=== PATIENT | male | born 1960 | race Caucasian/White ===

== ENCOUNTER 2022-05-28 15:08 | Inpatient (IN) | payer MEDICARE, MEDICAID, SELFPAY ==
[2022-05-28] VITALS (31 sets, daily range): BP systolic 95–153; BP diastolic 56–99; PULSE 72–108; RESP 13–25; TEMP 36.5–37.1; O2SAT 97–100; BMI 24.7; BMI 21.9
--- NOTE | ~2022-05-28 | CT_ITS ---
EXAMINATION: CT brain wo con INDICATION: Confusion and increased weakness COMPARISON: None TECHNIQUE: Standard unenhanced head CT. The dose-length product (DLP) was 605.33 mGy-cm. The mA was a djusted according to patient size. Iterative reconstruction technique was employed. FINDINGS: There is no acute intraparenchymal hemorrhage. No evidence of mass lesion. There is a subtl e area of low attenuation in the right frontal lobe. There is mild periventricular and subcortical hy podensity probably related to small vessel ischemic disease. There is mild prominence of the sulci an d ventricles related to cerebral atrophy. Intracranial calcified cerebral atherosclerosis is noted. T here are no extra-axial collections. There is no mass effect or midline shift. The orbits and soft ti ssues are unremarkable. The visualized sinuses and mastoid air cells are well aerated. IMPRESSION: 1. Subtle area of low attenuation in the right frontal lobe which could reflect subacute infarction. 2. Age related findings. Reviewed, dictated and finalized at location A.
--- NOTE | ~2022-05-28 | XR_ITS ---
EXAMINATION: XR chest 2V DATE: 05/28/2022 15:44 INDICATION: Weakness TECHNIQUE: AP and lateral views of the chest are obtained. COMPARISON: None available FINDINGS: The lungs are free of acute opacities. No pleural effusion or pneumothorax. The cardiomedia stinal silhouette is normal. There is severe thoracic spondylosis. A calcified nodule of the right lo wer lobe is consistent with old granulomatous disease. IMPRESSION: 1. No acute cardiopulmonary abnormality. Reviewed, dictated and finalized at location A.
--- NOTE | 2022-05-28 15:12 | ECG_ITS ---
Measurements Intervals [place] Rate: 94 P: 87 CT: 162 QRS: 76 QRSD: 88 T: 74 QT: 311 QTc: 390 Interpretive Statements SINUS RHYTHM NORMAL ELECTROCARDIOGRAM NO PREVIOUS ECG AVAILABLE FOR COMPARISON Electronically Signed On 06-01-2022 11:54:15 CDT by Henrry Alejandra M.D.
[2022-05-28 15:41] LABS: Basophils Percent Auto 0.5 % (0.2-1.2); Eosinophils Absolute Auto 0.1 K/mm3 (0-0.3); Eosinophils Percent Auto 1.5 % (0-4.4); Hematocrit 43.9 % (42.0-52.0); Hemoglobin 13.3 g/dL (14.0-18.0); Immature Granulocyte Absolute 0.04 K/mm3 (0.00-0.031); Immature Granulocyte Percent A 0.5 % (0-0.5); Lymphocytes Absolute Auto 1.07 K/mm3 (0.9-3.2); Lymphocytes Percent Auto 14.6 % (18.3-44.2); Mean Corpuscular HGB Conc 30.3 g/dl (32-36); Mean Corpuscular Hemoglobin 27.3 pg (26-34); Mean Corpuscular Volume 90.1 fl (80-100); Mean Platelet Volume 11.6 fl (7.4-10.4); Monocytes Absolute Auto 0.7 K/mm3 (0.1-0.6); Monocytes Percent Auto 9.2 % (2.6-8.5); Neutrophils Absolute Auto 5.4 K/mm3 (1.3-6.7); Neutrophils Percent Auto 73.7 % (45.5-73.1); Platelet Count Result 215 k/mm3 (150-375); Red Blood Count 4.87 M/mm3 (4.6-6.20); Red Cell Distribution Width 14.6 % (11.5-14.5); White Blood Count 7.3 K/mm3 (4.5-10.0)
[2022-05-28 15:52] LABS: INR 1.3; Prothrombin Time 15.2 Seconds (11.1-14.7)
[2022-05-28 15:53] LABS: Partial Thromboplastin Time 33.3 SECONDS (22.3-36.8)
[2022-05-28 15:56] LABS: Alveolar/Arterial O2 Gradient 13.4 mmHg; Base Excess ABG 6.5 mEq/l (+/-2.0); Fractional Inspired Oxygen 40 %; HCO3 ABG 35.3 mEq/l (22.0-26.0); Oxygen Saturation ABG 99.1 % (95.0-100.0); Oxyhemoglobin 95.2 % THb (90.0-100.0); PO2 ABG 190.2 mmHg (80.0-100.0); PO2 FiO2 Ratio Arterial Blood 4.76 %; Total Hemoglobin 13.9 g/dL (12.0-18.0); pH ABG 7.314 (7.350-7.450)
[2022-05-28 15:58] LABS: Device NASAL CANNULA; Modified Allen's Test Pass; Site Drawn RIGHT RADIAL
[2022-05-28 16:20] LABS: Alanine Aminotransferase 31 U/L (6-50); Albumin Level 4.1 g/dL (3.5-5.1); Alkaline Phosphatase 88 U/L (38-126); Anion Gap 4 mmol/L (8-16); Aspartate Amino Transferase 36 U/L (17-59); Bilirubin,Total 0.4 mg/dL (0.2-1.3); Blood Urea Nitrogen 15 mg/dL (9-20); Calcium 9.1 mg/dL (8.4-10.2); Carbon Dioxide 35 mmol/L (22-30); Chloride 93 mmol/L (98-107); Estimated CRCL calculation 78 ml/min; Estimated Glomerular Filt Rate > 60; Glucose 146 mg/dL (65-110); Potassium 4.7 mmol/L (3.4-5.0); Sodium 132 mmol/L (137-145)
[2022-05-28 16:32] LABS: Appearance Urine Clear (Clear); Bilirubin Urine Negative (Negative); Blood Urine Trace-lysed (Negative); Color Urine Yellow (Yellow); Glucose Urine UA Negative (Negative); Ketones Urine Negative (Negative); Leukocyte Esterase Ur Negative LEU/UL (Negative); Nitrate Urine Negative (Negative); Protein Urine Negative (Negative); Specific Grav Ur 1.015 (1.001-1.035); Urobilinogen Urine 0.2 mg/dL (<2.0); pH Urine 6.5 (5.0-9.0)
--- NOTE | 2022-05-28 16:36 | ED.GENADULT ---
HPI - General Adult General Chief complaint: Weakness Stated complaint: weakness Time Seen by Provider: 05/28/22 15:13 History of Present Illness HPI narrative: Patient is a 62-year-old male who presents ER with increased weakness and confusion. He reports to EMS that he was having some visual hallucinations that he was seeing things but cannot elaborate on it. Patient has history of COPD and is oxygen dependent on 4.5 L of oxygen. Reports mild dyspnea but no new cough. No new fevers or chills. Has had no increased oxygen requirement. Symptoms worsening over the last 2 days. Patient having difficulty getting up and walking around and performing activities of daily living. Related Data Home Medications Medication Instructions Recorded Confirmed albuterol sulfate 90 mcg/actuation inhalation 05/28/22 aerosol inhaler apixaban 5 mg tablet (Eliquis) mg 05/28/22 budesonide 160 mcg-glycopyr 9 inh inhalation 05/28/22 mcg-formot 4.8 mcg/actuation HFA inhaler ([employer]) fluticasone fur. 100 mcg-umeclid inhalation 05/28/22 62.5 mcg-vilant 25 mcg inhalat.powder (Trelegy Ellipta) gabapentin 300 mg capsule mg 05/28/22 hydrocodone 7.5 mg-acetaminophen tablet 05/28/22 325 mg tablet ipratropium 20 mcg-albuterol 100 inhalation 05/28/22 mcg/actuation mist for inhalation (Combivent Respimat) lithium carbonate 150 mg capsule mg 05/28/22 05/28/22 loperamide 2 mg capsule mg 05/28/22 metoprolol tartrate 25 mg tablet mg 05/28/22 omeprazole 20 mg capsule,delayed mg 05/28/22 release ramipril 5 mg capsule mg 05/28/22 risperidone 2 mg tablet mg 05/28/22 rosuvastatin 40 mg tablet mg 05/28/22 testosterone cypionate 200 mg/mL mg 05/28/22 intramuscular oil Allergies Allergy/AdvReac Type Severity Reaction Status Date / Time No Known Allergies Allergy Verified 05/28/22 15:14 Review of Systems Review of Systems: All systems reviewed & are unremarkable except as noted in HPI and below Constitutional: Constitutional: Denies chills, Reports fatigue, Denies fever(s) and Reports weakness ENT: Denies nasal congestion and Denies sore throat Cardiovascular: Cardiovascular: Denies chest pain, Denies rapid heart rate and Denies radiating jaw, neck or arm pain Respiratory: Respiratory: Denies chest congestion, Denies cough and Reports dyspnea Gastrointestinal: Gastrointestinal: Denies abdominal pain, Denies nausea and Denies vomiting Neurologic: Reports confusion, Denies headache(s), Denies focal weakness, Denies numbness and Denies weakness PMFSH Past Medical History Medical History (Updated 05/28/22 @ 19:36 by Rusty Soler MD) COPD (chronic obstructive pulmonary disease) Hyperlipidemia Hypertension Surgical History Surgical History (Updated 05/28/22 @ 19:34 by Rusty Soler MD) Surgical history unknown Family History Family History (Updated 06/10/14 @ 07:13 by DOCTOR UNKNOWN) Father Family history of heart disease in male family member before age 55 Social History Social History Alcohol intake: current Exam Narrative: GENERAL: Chronically ill-appearing, well-nourished, and in no acute distress. HEAD: Normocephalic, atraumatic. EYES: PERRL and EOMI. ENT: Mucous membranes moist. CHEST: Clear to auscultation. No respiratory distress. HEART: Regular rate and rhythm. Normal peripheral pulses. ABDOMEN: Soft, nontender, nondistended. EXTREMITIES: Normal range of motion. No edema. SKIN: Warm, dry, no rash. NEURO: Alert and oriented x3. PSYCH: Normal mood and affect. Course Course Emergency Course: Patient likely with hypercapnic encephalopathy given elevated PCO2. Admit to the hospitalist service. Placed on BiPAP. Vital Signs Vital signs: Vital Signs Temperature 98.7 F 05/28/22 15:04 Pulse Rate 98 05/28/22 15:04 Respiratory Rate 20 05/28/22 15:04 Blood Pressure 116/85 05/28/22 15:04 Pulse Oximetry 99 05/28/22 15:04 Oxygen Del
[2022-05-28 16:42] LABS: Bacteria Urine Trace /hpf; Squamous Epithelial Cell Urine Rare /hpf (Few); WBC Urine 0-3 /hpf
[2022-05-28 16:49] LABS: Add Urine Microscopic? YES
[2022-05-28] MEDS: methylPREDNISolone SOD SUCC 125 MG VIAL IV PUSH (17:15)
--- NOTE | 2022-05-28 18:35 | PC.NURSE ---
Pt attempting to take off BiPap. Asking how long he is going to have to wear it. this RN educated pt on why he is wearing it. Pt asking for pain medication for his foot.
[2022-05-28] MEDS: MORPHINE SULFATE (*CRX) 4 MG/ML INJ IV PUSH (18:42)
[2022-05-28] MEDS: ALBUTEROL SULFATE NEB 2.5 MG/3 ML INH 5 MG INHALATION (19:41)
[2022-05-28] MEDS: IPRATROPIUM BR 0.02% INH SOLN 0.5 MG/2.5 ML VIAL INHALATION (19:42)
--- NOTE | 2022-05-28 20:38 | PC.NURSE ---
report given at 2015 to AUBREY Juarez with all questions answered at this time. Must wait for respiratory to take patient upstairs and she is with another patient at this time.
--- NOTE | 2022-05-28 21:08 | ADMGEN ---
This patient, Brooks Murillo, was admitted to IMU Room 213-01 at 2108. Patient/family oriented to hospital policies and general routines including ID bracelet, bed and alarms, visiting hours, pain management, procedures, bathroom and other care routines, personal items, smoking policy, room service/diet, and visiting hours. Information on how to activate the Rapid Response Team has been discussed. Patient/Family are encouraged to report perceived risks to care and to ask questions if they do not understand what they are told or what they should do.
--- NOTE | 2022-05-28 22:11 | PC.NURSE ---
PATIENT IS EXTREMELY ANXIOUS, SCREAMING, POUNDING FIST ON BED AND YELLING WHEN HE DOESN'T LIKE THE ANSWER OR QUESTION. CONSTANTLY MOVING IN BED. MOANING AND CRYING (WINNING) AND SMACKING THE TOP OF HIS HEAD, ROCKING BACK AND FORTH. CONSTANTLY APOLOGIZING, THEN REPEATING HIS ACTIONS. ROSETTE AYERS IS AWARE. MEDICATIONS ARE ORDERED AND SHE WILL BE DOWN TO ASSESS THE PATIENT.
[2022-05-28] MEDS: OLANZapine 10 MG INJ VIAL 5 MG IM (22:31)
[2022-05-28] MEDS: methylPREDNISolone SOD SUCC 125 MG VIAL 60 MG IV PUSH (22:34)
--- NOTE | 2022-05-28 22:36 | PM.IMHP ---
H&P: HPI History of Present Illness Date/Time: 05/28/22 22:36 Chief Complaint: Weakness Narrative: This is a 62-year-old male patient who has a history of COPD and other unknown medical history. The patient came to the emergency room with increased weakness and confusion. The patient is typically on 4.5 L of oxygen at home. The patient had mild dyspnea and no cough. When I talked to the patient he was complaining of severe neuropathy to his lower extremities. On his ABGs his pH was 7.314 in his pCO2 was 71.0. The patient was placed on a BiPAP machine 29/05. The patient is very anxious and restless because he has not had his medication today. His urine was negative. The patient was given albuterol nebulizer treatment Atrovent nebulizer treatment and Solu-Medrol in the emergency room. The patient is now very restless complaining of lower leg pain with neuropathy and being hungry. The patient is being admitted to observation status on the date of service of 05/28/2022. Review of Systems Review of Systems: See HPI All systems reviewed & are unremarkable except as noted in HPI and below Constitutional: Constitutional: Reports as per HPI and Reports no additional constitutional complaints Eyes: Eyes: Reports as per HPI and Reports no additional eye complaints ENT: Reports system reviewed and no additional complaints, except as documented and Reports Normal hearing present Cardiovascular: Cardiovascular: Reports no additional cardiovascular complaints Respiratory: Respiratory: Reports no additional respiratory complaints and Reports no additional respiratory complaints Gastrointestinal: Gastrointestinal: Reports as per HPI and Reports no additional gastrointestinal complaints Musculoskeletal: Musculoskeletal: Reports no additional musculoskeletal complaints Integumentary/Breasts: Skin/Breast: Reports system reviewed and no additional complaints, except as docu and Reports as per HPI Neurologic: Reports system reviewed and no additional complaints, except as documented, Reports as per HPI and Reports Normal hearing present Psychiatric: Psychiatric: Reports no additional psychiatric complaints and Reports as per HPI Endocrine: Endocrine: Reports no additional endocrine complaints Hematologic/Lymphatic: Hematologic/Lymphatic: Reports no additional hematologic/lymphatic complaints Allergic/Immunologic: Allergic/Immunologic: Reports no additional allergic/immunologic complaints [facility] Past Medical History Medical History (Updated 05/28/22 @ 22:52 by Bonnie Nickerson NP) Adequate anticoagulation on anticoagulant therapy Behavior disturbance COPD (chronic obstructive pulmonary disease) HTN (hypertension) with goal to be determined Hyperlipidemia Hypertension Neuropathy Surgical History Surgical History (Updated 05/28/22 @ 19:34 by Rusty Soler MD) Surgical history unknown Family History Family History Father Family history of heart disease in male family member before age 55 Social History Social History (Updated 05/28/22 @ 22:44 by Bonnie Nickerson NP) Social History: The patient tells me that he is and has 3 children. He is disabled. Patient stated that he is down to half a pack a cigarettes a day. He denies any alcohol marijuana or illicit drugs. He denies any power civil attorney. Code status full code Smoking status: Current every day smoker Alcohol intake: never Substance use: never Spiritual care concerns: No Meds Home Medications and Allergies Home Medications Medication Instructions Recorded Confirmed Type albuterol sulfate 90 mcg/actuation 2 puff inhalation Q4H PRN 05/28/22 05/28/22 History aerosol inhaler Shortness Of Breath apixaban 5 mg tablet (Eliquis) 5 mg PO BID 05/28/22 05/28/22 History budesonide 160 mcg-glycopyr 9 2 inh inhalation DAILY 05/28/22 05/28/22 History mcg-formot 4.8 mcg/actuation HFA
[2022-05-28] MEDS: APIXABAN 5 MG TABLET PO (23:22)
[2022-05-28] MEDS: risperiDONE 1 MG TABLET 2 MG PO (23:23)
[2022-05-28] MEDS: NICOTINE (*PBKC) 14 MG PATCH 1 PATCH TRANSDERM (23:23)
[2022-05-28] MEDS: GABAPENTIN 300 MG CAPSULE PO (23:23)
[2022-05-28] MEDS: LITHIUM CARBONATE 150 MG CAPSULE PO (23:23)
[2022-05-28 23:34] LABS: Lithium 0.5 mmol/L (0.6-1.2)
[2022-05-29] VITALS (19 sets, daily range): BP systolic 97–146; BP diastolic 50–79; PULSE 65–100; RESP 12–24; TEMP 35.9–36.8; O2SAT 94–100
[2022-05-29] MEDS: ALBUTEROL SULFATE NEB 2.5 MG/3 ML INH 5 MG INHALATION ×4 (01:11→20:49)
[2022-05-29] MEDS: IPRATROPIUM BR 0.02% INH SOLN 0.5 MG/2.5 ML VIAL INHALATION ×4 (01:11→20:49)
[2022-05-29 05:16] LABS: Basophils Percent Auto 0.2 % (0.2-1.2); Hematocrit 41.8 % (42.0-52.0); Hemoglobin 12.9 g/dL (14.0-18.0); Immature Granulocyte Absolute 0.01 K/mm3 (0.00-0.031); Immature Granulocyte Percent A 0.2 % (0-0.5); Lymphocytes Absolute Auto 0.63 K/mm3 (0.9-3.2); Lymphocytes Percent Auto 10.7 % (18.3-44.2); Mean Corpuscular HGB Conc 30.9 g/dl (32-36); Mean Corpuscular Hemoglobin 27.6 pg (26-34); Mean Corpuscular Volume 89.3 fl (80-100); Mean Platelet Volume 11.7 fl (7.4-10.4); Monocytes Absolute Auto 0.1 K/mm3 (0.1-0.6); Monocytes Percent Auto 0.9 % (2.6-8.5); Neutrophils Absolute Auto 5.2 K/mm3 (1.3-6.7); Platelet Count Result 204 k/mm3 (150-375); Red Blood Count 4.68 M/mm3 (4.6-6.20); Red Cell Distribution Width 14.6 % (11.5-14.5); White Blood Count 5.9 K/mm3 (4.5-10.0)
[2022-05-29 05:37] LABS: Alanine Aminotransferase 31 U/L (6-50); Albumin Level 3.8 g/dL (3.5-5.1); Alkaline Phosphatase 83 U/L (38-126); Anion Gap 6 mmol/L (8-16); Aspartate Amino Transferase 34 U/L (17-59); Bilirubin,Total 0.5 mg/dL (0.2-1.3); Blood Urea Nitrogen 17 mg/dL (9-20); Calcium 9.2 mg/dL (8.4-10.2); Carbon Dioxide 35 mmol/L (22-30); Chloride 92 mmol/L (98-107); Estimated CRCL calculation 75 ml/min; Estimated Glomerular Filt Rate > 60; Glucose 185 mg/dL (65-110); Phosphorus 3.8 mg/dL (2.5-4.5); Sodium 133 mmol/L (137-145)
[2022-05-29] MEDS: methylPREDNISolone SOD SUCC 125 MG VIAL 60 MG IV PUSH ×2 (06:13→12:15)
[2022-05-29] MEDS: FLUTICASONE/UMECLIDIN/VILANTER 100-62.5-25 MCG ELLIPTA 1 PUFF INHALATION (09:02)
[2022-05-29 09:35] LABS: Alveolar/Arterial O2 Gradient 90.9 mmHg; Base Excess ABG 6.1 mEq/l (+/-2.0); Device NASAL CANNULA; Fractional Inspired Oxygen 32 %; HCO3 ABG 31.8 mEq/l (22.0-26.0); Modified Allen's Test Pass; Oxygen Content ABG 18.9 %vol (16.0-22.0); Oxygen Saturation ABG 94.4 % (95.0-100.0); Oxyhemoglobin 93.5 % THb (90.0-100.0); PCO2 ABG 49.5 mmHg (35.0-45.0); PO2 ABG 70.9 mmHg (80.0-100.0); PO2 FiO2 Ratio Arterial Blood 2.22 %; Site Drawn RIGHT RADIAL; Total Hemoglobin 14.4 g/dL (12.0-18.0); pH ABG 7.425 (7.350-7.450)
[2022-05-29] MEDS: NICOTINE (*PBKC) 14 MG PATCH 1 PATCH TRANSDERM (09:45)
[2022-05-29] MEDS: ROSUVASTATIN 10 MG TABLET 40 MG PO (09:47)
[2022-05-29] MEDS: LITHIUM CARBONATE 150 MG CAPSULE PO (09:47)
[2022-05-29] MEDS: APIXABAN 5 MG TABLET PO ×2 (09:47→16:35)
[2022-05-29] MEDS: risperiDONE 1 MG TABLET 2 MG PO ×2 (09:47→16:35)
[2022-05-29] MEDS: METOPROLOL TARTRATE 25 MG TABLET PO (09:48)
[2022-05-29] MEDS: GABAPENTIN 300 MG CAPSULE PO ×2 (09:48→16:35)
[2022-05-29] MEDS: PANTOPRAZOLE 40 MG TABLET PO (09:48)
[2022-05-29] MEDS: ramipriL 5 MG CAPSULE PO (09:49)
[2022-05-29] MEDS: SILVERGEL (ELTA) 45 ML 1 APPLIC TOPICAL (12:15)
--- NOTE | 2022-05-29 15:31 | PCPTNOTE ---
attempted PT evaluation ~ 1515, pt refused, stated not feeling well, confused and did not want to get OOB at this time. Unable to convince him to get up; confusion and stated that ambulance rene lied and I am going to call someone and let them know
--- NOTE | 2022-05-29 15:34 | PM.IMPN ---
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 Will get CT head to rule out any intracranial abnormality. # acute hypercapnic respiratory failure placed on BiPAP on admission. ABG 7.31/ 70. Repeat ABG this morning improved. Will continue on oxygen supplementation. Chest x-ray with no acute cardiopulmonary disease. Does has history of COPD. On chronic oxygen 4-5 L. nebulizer treatment and Solu-Medrol ordered for suspected COPD exacerbation. Will watch off BiPAP for now on repeat ABG in the morning. if recurrent hypercapnia noted he may need BiPAP support long-term. Unclear whether he sees a engraver pantograph but likely need a pulmonary follow-up. He was recently discharged from [facility] will get records from the hospital. He is not actively wheezing will lower his steroid to 40 b.i.d. and slowly taper down # long-term anticoagulant use on Eliquis # hypertension on metoprolol # hyperlipidemia on statin # polyneuropathy on gabapentin # history of psychiatric disorder on lithium and risperidone at home. # DVT prophylaxis on Eliquis which are continued # disposition very limited physically prior to admission as well. PT OT will be ordered may need skilled nursing placement # code status full code Subjective Date/time seen: 05/29/22 15:34 Interval history: HPI:This is a 62-year-old male patient who has a history of COPD and other unknown medical history.? The patient came to the emergency room with increased weakness and confusion.? The patient is typically on 4.5 L of oxygen at home.? The patient had mild dyspnea and no cough.? When I talked to the patient he was complaining of severe neuropathy to his lower extremities.? On his ABGs his pH was 7.314 in his pCO2 was 71.0.? The patient was placed on a BiPAP machine 29/05.? The patient is very anxious and restless because he has not had his medication today.? His urine was negative.? The patient was given albuterol nebulizer treatment Atrovent nebulizer treatment and Solu-Medrol in the emergency room.? The patient is now very restless complaining of lower leg pain with neuropathy and being hungry.? The patient is being admitted to observation status on the date of service of 05/28/2022. 05/29/2022 patient is more awake and alert. He has moved recently to his bodies house. He was admitted to [facility] with multiple problems his his. He is a poor historian. Use BiPAP overnight. Review of Systems Review of Systems: All systems reviewed & are unremarkable except as noted in HPI and below Exam Narrative: GENERAL: Chronically ill-appearing, well-nourished, and in no acute distress. HEAD: Normocephalic, atraumatic. EYES: PERRL and EOMI. ENT: Mucous membranes moist. CHEST: Diminished breath sounds bilaterally no respiratory distress HEART: Regular rate and rhythm. ? Normal peripheral pulses. ABDOMEN: Soft, nontender, nondistended. EXTREMITIES: Normal range of motion.? No edema. cyanosis or clubbing SKIN: Warm, dry, no rash. NEURO:? Alert and oriented x3. no focal motor deficit PSYCH: Normal mood and affect. Objective Data Vital Signs Vital Signs: Vital Signs - 24 hr 05/28/22 16:55 05/28/22 17:15 05/28
--- NOTE | 2022-05-29 15:44 | PCOTNOTE ---
Attempted to see pt for occupational therapy, pt. is confused and stated that he did not want to participate. Will follow.
[2022-05-29 18:27] LABS: Ammonia < 9 umol/L (9-30)
[2022-05-29] MEDS: methylPREDNISolone SOD SUCC 40 MG VIAL IV PUSH (20:52)
[2022-05-30] VITALS (16 sets, daily range): BP systolic 105–129; BP diastolic 50–70; PULSE 72–96; RESP 14–20; TEMP 36.3–36.7; O2SAT 93–97
--- NOTE | 2022-05-30 01:29 | PC.NURSE ---
This patient, Brooks Murillo, was transferred to [room 340 ] on 05/30/22 at 0129. Personal belongings sent with patient. Report given to [AUBREY Oliveira ]. Appropriate documentation sent with patient.
[2022-05-30] MEDS: ALBUTEROL SULFATE NEB 2.5 MG/3 ML INH 5 MG INHALATION ×4 (02:12→20:05)
[2022-05-30] MEDS: IPRATROPIUM BR 0.02% INH SOLN 0.5 MG/2.5 ML VIAL INHALATION ×4 (02:12→20:06)
[2022-05-30 04:26] LABS: Alveolar/Arterial O2 Gradient 49.5 mmHg; Base Excess ABG 5.4 mEq/l (+/-2.0); Fractional Inspired Oxygen 24 %; Oxygen Content ABG 17.5 %vol (16.0-22.0); Oxygen Saturation ABG 94.5 % (95.0-100.0); Oxyhemoglobin 93.4 % THb (90.0-100.0); PCO2 ABG 44.1 mmHg (35.0-45.0); PO2 ABG 69.1 mmHg (80.0-100.0); PO2 FiO2 Ratio Arterial Blood 2.88 %; Total Hemoglobin 13.3 g/dL (12.0-18.0); pH ABG 7.451 (7.350-7.450)
[2022-05-30 04:27] LABS: Device NASAL CANNULA; Modified Allen's Test Pass; Site Drawn RIGHT RADIAL
[2022-05-30] MEDS: HYDROcodone/acetaminophen (*CRX) 5-325 MG TABLET 1 TAB PO (06:53)
[2022-05-30 07:14] LABS: Alanine Aminotransferase 38 U/L (6-50); Albumin Level 3.6 g/dL (3.5-5.1); Alkaline Phosphatase 73 U/L (38-126); Anion Gap 8 mmol/L (8-16); Aspartate Amino Transferase 35 U/L (17-59); Bilirubin,Total 0.4 mg/dL (0.2-1.3); Blood Urea Nitrogen 20 mg/dL (9-20); Calcium 9.4 mg/dL (8.4-10.2); Carbon Dioxide 31 mmol/L (22-30); Chloride 91 mmol/L (98-107); Estimated CRCL calculation 78 ml/min; Estimated Glomerular Filt Rate > 60; Glucose 191 mg/dL (65-110); Potassium 4.1 mmol/L (3.4-5.0); Sodium 130 mmol/L (137-145)
[2022-05-30] MEDS: ROSUVASTATIN 10 MG TABLET 40 MG PO (08:22)
[2022-05-30] MEDS: risperiDONE 1 MG TABLET 2 MG PO ×2 (08:22→16:09)
[2022-05-30] MEDS: methylPREDNISolone SOD SUCC 40 MG VIAL IV PUSH ×2 (08:22→21:17)
[2022-05-30] MEDS: PANTOPRAZOLE 40 MG TABLET PO (08:22)
[2022-05-30] MEDS: GABAPENTIN 300 MG CAPSULE PO ×2 (08:22→16:09)
[2022-05-30] MEDS: APIXABAN 5 MG TABLET PO ×2 (08:22→16:09)
[2022-05-30] MEDS: LITHIUM CARBONATE 150 MG CAPSULE PO (08:22)
[2022-05-30] MEDS: METOPROLOL TARTRATE 25 MG TABLET PO (08:23)
[2022-05-30] MEDS: ramipriL 5 MG CAPSULE PO (08:23)
[2022-05-30] MEDS: NICOTINE (*PBKC) 14 MG PATCH 1 PATCH TRANSDERM (08:23)
[2022-05-30] MEDS: FLUTICASONE/UMECLIDIN/VILANTER 100-62.5-25 MCG ELLIPTA 1 PUFF INHALATION (09:25)
--- NOTE | 2022-05-30 09:51 | PCPTNOTE ---
Attempted PT evaluation. pt off the floor for testing. Will follow.
[2022-05-30 10:10] LABS: Basophils Percent Auto 0.1 % (0.2-1.2); Hematocrit 39.9 % (42.0-52.0); Hemoglobin 12.9 g/dL (14.0-18.0); Immature Granulocyte Absolute 0.04 K/mm3 (0.00-0.031); Immature Granulocyte Percent A 0.4 % (0-0.5); Lymphocytes Absolute Auto 0.61 K/mm3 (0.9-3.2); Lymphocytes Percent Auto 5.8 % (18.3-44.2); Mean Corpuscular HGB Conc 32.3 g/dl (32-36); Mean Corpuscular Hemoglobin 27.9 pg (26-34); Mean Corpuscular Volume 86.2 fl (80-100); Mean Platelet Volume 12.2 fl (7.4-10.4); Monocytes Absolute Auto 0.5 K/mm3 (0.1-0.6); Monocytes Percent Auto 4.7 % (2.6-8.5); Neutrophils Absolute Auto 9.4 K/mm3 (1.3-6.7); Platelet Count Result 220 k/mm3 (150-375); Red Blood Count 4.63 M/mm3 (4.6-6.20); White Blood Count 10.6 K/mm3 (4.5-10.0)
--- NOTE | 2022-05-30 18:53 | PM.IMPN ---
Progress Note: A&P Assessment and Plan (1) Acute hypercapnic respiratory failure: Code(s): J96.02 - Acute respiratory failure with hypercapnia Status: Acute Assessment and Plan: Improving on nocturnal BiPAP, still with some hypercapnia at baseline, will consult pulmonology (2) COPD (chronic obstructive pulmonary disease): Code(s): J44.9 - Chronic obstructive pulmonary disease, unspecified Status: Acute Assessment and Plan: Continue steroids, improving (3) Hyperlipidemia: Code(s): E78.5 - Hyperlipidemia, unspecified Status: Acute (4) HTN (hypertension) with goal to be determined: Code(s): I10 - Essential (primary) hypertension Status: Acute (5) Behavior disturbance: Code(s): F91.9 - Conduct disorder, unspecified Status: Acute Assessment and Plan: Continue lithium and Risperdal, stable (6) Adequate anticoagulation on anticoagulant therapy: Code(s): Z79.01 - jail (current) use of anticoagulants Status: Acute Assessment and Plan: Continue Eliquis, unsure why (7) Coronary artery disease: Code(s): I25.10 - Atherosclerotic heart disease of [place] coronary artery without angina pectoris Status: Acute Assessment and Plan: History of [place], PCI in 1998 Plan DVT prophylaxis on Eliquis Code status full code Subjective Date/time seen: 05/30/22 18:53 Interval history: Patient states he feels back to normal today, no complaints. No overnight events noted. No chest pain or shortness of breath. No nausea, vomiting or diarrhea. No fevers or chills. Review of Systems Review of Systems: 12 point review of systems was assessed and was negative except as noted in the HPI Exam Narrative: General: No acute distress, alert and oriented per baseline, comfortable on 1 L nasal cannula HEENT: Atraumatic, normocephalic, mucous membranes moist CV: Regular rate and rhythm, S1, S2 Lungs: Clear to auscultation bilaterally, no rales or crackles noted, no wheezes, good air entry Abdomen: Soft, nontender, nondistended Extremities: Normal to inspection Skin: No rashes noted, no lesions or wounds seen Psych: Euthymic, normal affect Objective Data Vital Signs Vital Signs: Vital Signs - 24 hr 05/29/22 20:00 05/29/22 20:52 05/29/22 20:53 Temperature 98.3 F Pulse Rate 88 78 Respiratory Rate 16 16 Blood Pressure 120/62 Pulse Oximetry 97 97 Oxygen Delivery Nasal Cannula Oxygen Flow Rate 3 05/29/22 21:06 05/29/22 20:00 05/30/22 00:00 Temperature 97.9 F Pulse Rate 77 90 Respiratory Rate 16 14 Blood Pressure 124/69 Pulse Oximetry 97 96 Oxygen Delivery Nasal Cannula Oxygen Flow Rate 3 05/30/22 02:14 05/30/22 02:15 05/30/22 02:28 Temperature Pulse Rate 72 75 Respiratory Rate 16 16 Blood Pressure Pulse Oximetry 94 Oxygen Delivery Nasal Cannula Oxygen Flow Rate 1 05/30/22 07:51 05/30/22 08:23 05/30/22 08:00 Temperature 97.6 F Pulse Rate 87 82 Respiratory Rate 16 Blood Pressure 129/70 Pulse Oximetry 97 Oxygen Delivery Nasal Cannula Oxygen Flow Rate 1 05/30/22 09:27 05/30/22 09:33 05/30/22 09:40 Temperature Pulse Rate 96 94 Respiratory Rate 16 16 Blood Pressure Pulse Oximetry 95 Oxygen Delivery Nasal Cannula Oxygen Flow Rate 1 05/30/22 11:45 05/30/22 14:15 05/30/22 14:28 Temperature 97.3 F L Pulse Rate 79 85 Respiratory Rate 16 16 Blood Pressure 113/66 Pulse Oximetry 95 Oxygen Delivery Nasal Cannula Oxygen Flow Rate 1 05/30/22 14:32 Temperature Pulse Rate 94 Respiratory Rate 16 Blood Pressure Pulse Oximetry Oxygen Delivery Oxygen Flow Rate Intake/Output Intake/Output: Intake & Output 05/27/22 05/28/22 05/29/22 05/30/22 23:59 23:59 23:59 23:59 Intake Total 1450 1630 Output Total 1750 1425 Balance -300 205 Meds/Results Medications: Active Medications Gen
[2022-05-30] MEDS: MORPHINE SULFATE (*CRX) 4 MG/ML INJ IV PUSH (21:26)
[2022-05-31] VITALS (11 sets, daily range): BP systolic 101–124; BP diastolic 51–73; PULSE 70–103; RESP 16–20; TEMP 36.3–36.9; O2SAT 7–98
[2022-05-31] MEDS: IPRATROPIUM BR 0.02% INH SOLN 0.5 MG/2.5 ML VIAL INHALATION ×2 (02:10→07:37)
[2022-05-31] MEDS: ALBUTEROL SULFATE NEB 2.5 MG/3 ML INH 5 MG INHALATION ×2 (02:10→07:37)
--- NOTE | 2022-05-31 08:31 | PM.IMPN ---
Progress Note: A&P Assessment and Plan (1) Acute hypercapnic respiratory failure: Code(s): J96.02 - Acute respiratory failure with hypercapnia Status: Acute Assessment and Plan: Improving on nocturnal BiPAP, still with some hypercapnia at baseline, suspect end-stage COPD as etiology, pulmonology consult pending to optimize COPD management and follow-up outpatient Update: Spoke pulmonology, will monitor pulse oximetry tonight to determine appropriate oxygen levels to discharge home on tomorrow, anticipate going to rehab at discharge, likely tomorrow (2) COPD (chronic obstructive pulmonary disease): Code(s): J44.9 - Chronic obstructive pulmonary disease, unspecified Status: Acute Assessment and Plan: Continue to wean steroids, start prednisone oral taper today (3) Hyperlipidemia: Code(s): E78.5 - Hyperlipidemia, unspecified Status: Acute (4) HTN (hypertension) with goal to be determined: Code(s): I10 - Essential (primary) hypertension Status: Acute (5) Behavior disturbance: Code(s): F91.9 - Conduct disorder, unspecified Status: Acute Assessment and Plan: Continue lithium and Risperdal, stable (6) Adequate anticoagulation on anticoagulant therapy: 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 No overnight events noted. No chest pain or shortness of breath. No nausea, vomiting or diarrhea. No fevers or chills. Review of Systems Review of Systems: 12 point review of systems was assessed and was negative except as noted in the HPI Exam Narrative: General: No acute distress, alert and oriented per baseline, comfortable on 1 L nasal cannula HEENT: Atraumatic, normocephalic, mucous membranes moist CV: Regular rate and rhythm, S1, S2 Lungs: Clear to auscultation bilaterally, no rales or crackles noted, no wheezes, good air entry Abdomen: Soft, nontender, nondistended Extremities: Normal to inspection Skin: No rashes noted, no lesions or wounds seen Psych: Euthymic, normal affect Objective Data Vital Signs Vital Signs: Vital Signs - 24 hr 05/30/22 09:27 05/30/22 09:33 05/30/22 09:40 Temperature Pulse Rate 96 94 Respiratory Rate 16 16 Blood Pressure Pulse Oximetry 95 Oxygen Delivery Nasal Cannula Oxygen Flow Rate 1 05/30/22 11:45 05/30/22 14:15 05/30/22 14:28 Temperature 97.3 F L Pulse Rate 79 85 Respiratory Rate 16 16 Blood Pressure 113/66 Pulse Oximetry 95 Oxygen Delivery Nasal Cannula Oxygen Flow Rate 1 05/30/22 14:32 05/30/22 20:06 05/30/22 20:06 Temperature Pulse Rate 94 94 Respiratory Rate 16 20 Blood Pressure Pulse Oximetry 93 Oxygen Delivery Nasal Cannula Oxygen Flow Rate 1 05/30/22 20:16 05/30/22 21:00 05/30/22 23:56 Temperature 98.1 F Pulse Rate 86 87 Respiratory Rate 18 20 Blood Pressure 105/50 L Pulse Oximetry 94 96 Oxygen Delivery Nasal Cannula Oxygen Flow Rate 2 05/31/22 02:11 05/31/22 02:23 05/31/22 06:00 Temperature 98.4 F Pulse Rate 85 90 70 Respiratory Rate 20 20 16 Blood Pressure 124/73 Pulse Oximetry 98 Oxygen Delivery Oxygen Flow Rate 05/31/22 07:38 05/31/22 07:40 05/31/22 07:48 Temperature Pulse Rate 93 93 89 Respiratory Rate 18 18 18 Blood Pressure Pulse Oximetry 94 Oxygen Delivery Nasal Cannula Oxygen Flow Rate 1 Intake/Output Intake/Output: Intake & Output 05/28/22 05/29/22 05/30/22 05/31/22
[2022-05-31] MEDS: ROSUVASTATIN 10 MG TABLET 40 MG PO (08:39)
[2022-05-31] MEDS: NICOTINE (*PBKC) 14 MG PATCH 1 PATCH TRANSDERM (08:39)
[2022-05-31] MEDS: PANTOPRAZOLE 40 MG TABLET PO (08:39)
[2022-05-31] MEDS: ramipriL 5 MG CAPSULE PO (08:39)
[2022-05-31] MEDS: risperiDONE 1 MG TABLET 2 MG PO ×2 (08:39→16:58)
[2022-05-31] MEDS: APIXABAN 5 MG TABLET PO ×2 (08:40→16:58)
[2022-05-31] MEDS: LITHIUM CARBONATE 150 MG CAPSULE PO (08:40)
[2022-05-31] MEDS: GABAPENTIN 300 MG CAPSULE PO ×2 (08:40→16:58)
[2022-05-31] MEDS: METOPROLOL TARTRATE 25 MG TABLET PO (08:40)
[2022-05-31] MEDS: SILVERGEL (ELTA) 45 ML 1 APPLIC TOPICAL (08:41)
[2022-05-31 08:54] LABS: Basophils Percent Auto 0.1 % (0.2-1.2); Hematocrit 41.2 % (42.0-52.0); Hemoglobin 13.2 g/dL (14.0-18.0); Immature Granulocyte Absolute 0.05 K/mm3 (0.00-0.031); Immature Granulocyte Percent A 0.6 % (0-0.5); Lymphocytes Absolute Auto 0.45 K/mm3 (0.9-3.2); Lymphocytes Percent Auto 5.3 % (18.3-44.2); Mean Corpuscular Hemoglobin 28.1 pg (26-34); Mean Corpuscular Volume 87.7 fl (80-100); Mean Platelet Volume 11.4 fl (7.4-10.4); Monocytes Absolute Auto 0.4 K/mm3 (0.1-0.6); Monocytes Percent Auto 5.2 % (2.6-8.5); Neutrophils Absolute Auto 7.6 K/mm3 (1.3-6.7); Neutrophils Percent Auto 88.8 % (45.5-73.1); Platelet Count Result 207 k/mm3 (150-375); Red Cell Distribution Width 15.3 % (11.5-14.5); White Blood Count 8.5 K/mm3 (4.5-10.0)
--- NOTE | 2022-05-31 09:02 | PCPTNOTE ---
Patient refused treatment this session due to patient waiting on breakfast and wants to eat breakfast before he does therapy.
[2022-05-31 09:06] LABS: Alanine Aminotransferase 69 U/L (6-50); Albumin Level 3.7 g/dL (3.5-5.1); Alkaline Phosphatase 69 U/L (38-126); Anion Gap 10 mmol/L (8-16); Aspartate Amino Transferase 44 U/L (17-59); Bilirubin,Total 0.4 mg/dL (0.2-1.3); Blood Urea Nitrogen 23 mg/dL (9-20); Calcium 9.4 mg/dL (8.4-10.2); Carbon Dioxide 30 mmol/L (22-30); Chloride 91 mmol/L (98-107); Estimated CRCL calculation 68 ml/min; Estimated Glomerular Filt Rate > 60; Glucose 177 mg/dL (65-110); Potassium 4.4 mmol/L (3.4-5.0); Sodium 131 mmol/L (137-145)
[2022-05-31] MEDS: FLUTICASONE/UMECLIDIN/VILANTER 100-62.5-25 MCG ELLIPTA 1 PUFF INHALATION (09:18)
--- NOTE | 2022-05-31 10:03 | PM.CNPUL ---
Assessment and Plan Assessment and plan (1) COPD (chronic obstructive pulmonary disease): Code(s): J44.9 - Chronic obstructive pulmonary disease, unspecified Status: Acute Assessment and Plan: 05/31 Patient with 42 pack year history of tobacco use, carries a history of COPD with hypoxemic respiratory failure requiring 2 L at rest, 4 L with activity and 4 L at night who is followed by his metals sales representative, Dr. Barkley, who has him on trelegy 100/62.5/25. patient was admitted with altered mental status and a P blood gas with a pH of 7.31/71/190. Patient was treated for COPD exacerbation with bronchodilators, steroids and BiPAP. Subsequent blood gas off of BiPAP for 27 hours demonstrated a pH of 7.45/44/69. The patient does not have chronic hypercarbic respiratory failure at this time. Patient has received 3 days of steroids and I will give him prednisone 40 mg p.o. q.day on 05/31 and 06/01. I will discontinue his albuterol and ipratropium nebulizers and place him on his home trelegy 100-62.5-25 at 1 puff q.day. The patient has no change in his phlegm production, purulence phlegm or evidence of an active pulmonary infection and I will not start antibiotics at this point. Patient is currently smoking a pack a day and started vaping 1 month ago in an attempt to quit smoking tobacco. I recommended that he discontinue vaping completely and provided him tobacco cessation counseling. I will order an overnight oximetry on 4 L tonight. The patient tells me that he follows with an outside metals sales representative, Dr. Barkley, and is scheduled for pulmonary testing on 06/28/2022. Discussed with Dr. Fish. History of Present Illness History of Present Illness Consult date: 05/31/22 Chief complaint: Hypercapnic Respiratory Failure, COPD Narrative: 05/31/2022: This is a new pulmonary consult for COPD with hypoxic and hypercarbic respiratory failure. 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 Patient tells me that he saw Dr. Barkley, metals sales representative at [facility], a few weeks ago and that he was started on the inhaler trilogy and was recently discharged from [facility] where they told him to use oxygen p.r.n. at 2 L at rest, 4 L with activity and 4 L at night. At baseline patient states that he has a mild cough, no wheezing, he can walk 1 block will slowly with his walker, and has an M MRC grade of 4 as he gets short of breath dressing and on dressing. Patient smoked tobacco from age 20 to current at 1 pack per day for 42 pack years. Patient has been vaping over the last month but denies illicit drug use. Patient denies sandblasting, welding, asbestos were, professional painting or steel platform mill supervisor. 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 Patient was in his usual state of health and presented to the emergency department on 05/28 with weakness, confusion, hallucinations, anxiety, and restlessness. The patient tells me today that he had no fever, chills, rigors, cough, phlegm production or hemoptysis. His for saturations were 99% on 4 L, his lungs were clear to auscultation his white blood cell count was 7.3 with 1.5% eosinophils equals 110 per micro L, his blood gas on 5 L was 7.31/91/190, his serum bicarbonate was 35, his chest x-ray showed no active disease with flat diaphragms. Patient was treated for COPD exacerbation with bronchodilators, Solu-Medrol and BiPAP 29/05. He wore the BiPAP on 05/28 and it was placed on standby on 05/29 at 1:20 a.m.. On 05/29 the patient had been off BiPAP for 8 hours and a blood gas on 3 L nasal cannula 7.43/50/71. The patient was more awake had a CT scan of the head that was negative. On 05/30 the patient continued to improve, TSH was 0.6, ammonia was less than 9, ser
[2022-05-31] MEDS: predniSONE 20 MG TABLET 40 MG PO (10:38)
--- NOTE | 2022-05-31 10:52 | PCPTNOTE ---
Patient refused treatment this session due to patient wanting to rest at this time.
[2022-05-31] MEDS: HYDROcodone/acetaminophen (*CRX) 5-325 MG TABLET 1 TAB PO (18:35)
[2022-05-31] MEDS: LORazepam (*CRX) 0.5 MG TABLET PO (22:23)
[2022-05-31] MEDS: MORPHINE SULFATE (*CRX) 4 MG/ML INJ IV PUSH (22:23)
[2022-06-01 05:52] LABS: Basophils Percent Auto 0.1 % (0.2-1.2); Eosinophils Percent Auto 0.2 % (0-4.4); Hematocrit 39.6 % (42.0-52.0); Hemoglobin 12.4 g/dL (14.0-18.0); Immature Granulocyte Absolute 0.07 K/mm3 (0.00-0.031); Immature Granulocyte Percent A 0.8 % (0-0.5); Lymphocytes Absolute Auto 1.41 K/mm3 (0.9-3.2); Lymphocytes Percent Auto 16.6 % (18.3-44.2); Mean Corpuscular HGB Conc 31.3 g/dl (32-36); Mean Corpuscular Hemoglobin 27.9 pg (26-34); Mean Platelet Volume 11.5 fl (7.4-10.4); Monocytes Absolute Auto 0.8 K/mm3 (0.1-0.6); Neutrophils Absolute Auto 6.2 K/mm3 (1.3-6.7); Neutrophils Percent Auto 73.3 % (45.5-73.1); Platelet Count Result 189 k/mm3 (150-375); Red Blood Count 4.45 M/mm3 (4.6-6.20); Red Cell Distribution Width 15.6 % (11.5-14.5); White Blood Count 8.5 K/mm3 (4.5-10.0)
[2022-06-01 06:00] VITALS: BP 134/69; PULSE 71; RESP 20; TEMP 36.6; O2SAT 100
[2022-06-01 06:12] LABS: Alanine Aminotransferase 92 U/L (6-50); Albumin Level 3.3 g/dL (3.5-5.1); Alkaline Phosphatase 66 U/L (38-126); Anion Gap 3 mmol/L (8-16); Aspartate Amino Transferase 62 U/L (17-59); Bilirubin,Total 0.4 mg/dL (0.2-1.3); Blood Urea Nitrogen 24 mg/dL (9-20); Carbon Dioxide 35 mmol/L (22-30); Chloride 94 mmol/L (98-107); Estimated CRCL calculation 68 ml/min; Estimated Glomerular Filt Rate > 60; Glucose 135 mg/dL (65-110); Potassium 4.2 mmol/L (3.4-5.0); Sodium 132 mmol/L (137-145)
--- NOTE | 2022-06-01 07:54 | PM.PNPUL ---
Progress Note: A&P Assessment and Plan (1) COPD (chronic obstructive pulmonary disease): Code(s): J44.9 - Chronic obstructive pulmonary disease, unspecified Status: Acute Assessment and Plan: 05/31 Patient with 42 pack year history of tobacco use, carries a history of COPD with hypoxemic respiratory failure requiring 2 L at rest, 4 L with activity and 4 L at night who is followed by his manager radiation, Dr. Barkley, who has him on trelegy 100/62.5/25. patient was admitted with altered mental status and a P blood gas with a pH of 7.31/71/190. Patient was treated for COPD exacerbation with bronchodilators, steroids and BiPAP. Subsequent blood gas off of BiPAP for 27 hours demonstrated a pH of 7.45/44/69. The patient does not have chronic hypercarbic respiratory failure at this time. Patient has received 3 days of steroids and I will give him prednisone 40 mg p.o. q.day on 05/31 and 06/01. I will discontinue his albuterol and ipratropium nebulizers and place him on his home trelegy 100-62.5-25 at 1 puff q.day. The patient has no change in his phlegm production, purulence phlegm or evidence of an active pulmonary infection and I will not start antibiotics at this point. Patient is currently smoking a pack a day and started vaping 1 month ago in an attempt to quit smoking tobacco. I recommended that he discontinue vaping completely and provided him tobacco cessation counseling. I will order an overnight oximetry on 4 L tonight. 06/01 Patient states he is breathing at his baseline, walked halls. No wheezes. Overnight oximetry o 4 L NC with baseline sat 96%, low saturation 93%. Time with saturation less than or equal to 88% was 0.0 minutes. Scheduled to receive his 5th and last dose of prednisone 40 today. Smoking cessation counseling was provided. I told him it is absolutely necessary that he stop smoking. He tells me that he will try but he admits that this will be hard and he has never been able to quit previously. Patient is scheduled to go to [facility] today and after he finishes there he will live with his friend Martin. Would discharge on these pulmonary medicines: Trelegy 100-60 2.5-25 at 1 puff q.day rescue albuterol 2 puffs q.4 hours p.r.n. shortness of breath or wheezing oxygen at night 4 L nasal cannula. Oxygen during the day per [facility] protocol. Currently the patient requires 1 L nasal cannula at rest. The patient tells me that he will follow with his outside manager radiation, Dr. Barkley, and is scheduled for pulmonary testing on 06/28/2022. Will sign off, call with questions. Subjective Date/time seen: 06/01/22 07:54 Interval history: 05/31/2022:? This is a new pulmonary consult for COPD with hypoxic and hypercarbic respiratory failure. ? 62-year-old man with a history of coronary artery disease status post [place] in 2011 with a stent, hyperlipidemia, CVA 1 year ago with a weak right leg requiring a walker, bipolar disease for 5 years on lithium and risperidone,? tobacco abuse and COPD on 4-5 L home oxygen. ? Patient tells me that he saw Dr. Barkley, manager radiation at [facility], a few weeks ago and that he was started on the inhaler trilogy [facility] use oxygen p.r.n. at 2 L at rest, 4 L with activity and 4 L at night. ? At baseline patient states that he has a mild cough, no wheezing, he can walk 1 block will slowly with his walker, and has an M MRC grade of 4 as he gets short of breath dressing and on dressing.? Patient smoked tobacco from age 20 to current at 1 pack per day for 42 pack years.? Patient has been vaping over the last month but denies illicit drug use.? Patient denies sandblasting, welding, asbestos were, professional painting or steel framing mill supervisor.? 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 ? Patient was in his usual state of health and presented to the emergency department on 05/28 with weakness, confusion, hallucinations,
[2022-06-01 08:00] VITALS: O2SAT 97
[2022-06-01] MEDS: risperiDONE 1 MG TABLET 2 MG PO ×2 (08:45→17:12)
[2022-06-01] MEDS: APIXABAN 5 MG TABLET PO ×2 (08:45→17:12)
[2022-06-01] MEDS: predniSONE 20 MG TABLET 40 MG PO (08:45)
[2022-06-01] MEDS: LITHIUM CARBONATE 150 MG CAPSULE PO (08:45)
[2022-06-01] MEDS: NICOTINE (*PBKC) 14 MG PATCH 1 PATCH TRANSDERM (08:45)
[2022-06-01] MEDS: ramipriL 5 MG CAPSULE PO (08:45)
[2022-06-01] MEDS: GABAPENTIN 300 MG CAPSULE PO ×2 (08:45→17:12)
[2022-06-01] MEDS: PANTOPRAZOLE 40 MG TABLET PO (08:45)
[2022-06-01 08:46] VITALS: PULSE 84
[2022-06-01] MEDS: ROSUVASTATIN 10 MG TABLET 40 MG PO (08:46)
[2022-06-01] MEDS: METOPROLOL TARTRATE 25 MG TABLET PO (08:46)
[2022-06-01] MEDS: SILVERGEL (ELTA) 45 ML 1 APPLIC TOPICAL (08:57)
[2022-06-01] MEDS: FLUTICASONE/UMECLIDIN/VILANTER 100-62.5-25 MCG ELLIPTA 1 PUFF INHALATION (08:58)
[2022-06-01 08:59] VITALS: O2SAT 94
--- NOTE | 2022-06-01 10:27 | PM.DS ---
DS: Admitting Diagnosis Discharge Date June 01, 2022 Admitting Diagnosis Weakness and confusion DS: Discharge Diagnosis Discharge Diagnosis (1) Acute hypercapnic respiratory failure: Code(s): J96.02 - Acute respiratory failure with hypercapnia Status: Acute Assessment and Plan: Improving on nocturnal BiPAP, still with some hypercapnia at baseline, suspect end-stage COPD as etiology, pulmonology consult pending to optimize COPD management and follow-up outpatient Update: Spoke with pulmonology, will monitor pulse oximetry tonight to determine appropriate oxygen levels to discharge home on tomorrow, anticipate going to rehab at discharge, likely tomorrow (2) COPD (chronic obstructive pulmonary disease): Code(s): J44.9 - Chronic obstructive pulmonary disease, unspecified Status: Acute Assessment and Plan: Continue to wean steroids, start prednisone oral taper today (3) Hyperlipidemia: Code(s): E78.5 - Hyperlipidemia, unspecified Status: Acute (4) HTN (hypertension) with goal to be determined: Code(s): I10 - Essential (primary) hypertension Status: Acute (5) Behavior disturbance: Code(s): F91.9 - Conduct disorder, unspecified Status: Acute Assessment and Plan: Continue lithium and Risperdal, stable (6) Adequate anticoagulation on anticoagulant therapy: Code(s): Z79.01 - predatory 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 He was found to be hypercapnic. He was placed on BiPAP. Due to history of COPD, he was started on steroids. Pulmonology was consulted and recommended nocturnal oxygen therapy secondary to COPD. They recommended discharging patient on Trelegy, albuterol, nocturnal oxygen of 4 L and oxygen during the day at 1 L as needed. He can follow-up outpatient with pulmonology. Time Spent with Patient Time attestation: Total time spent providing and/or coordinating discharge services: Exam Narrative: General: No acute distress, alert and oriented per baseline, comfortable on 1 L nasal cannula HEENT: Atraumatic, normocephalic, mucous membranes moist CV: Regular rate and rhythm, S1, S2 Lungs: Clear to auscultation bilaterally, no rales or crackles noted, no wheezes, good air entry Abdomen: Soft, nontender, nondistended Extremities: Normal to inspection Skin: No rashes noted, no lesions or wounds seen Psych: Euthymic, normal affect DS: Data Data Completed and Pending Labs on day of discharge: Labs from last 24 hours 06/01/22 06/01/22 05:31 05:31 WBC 8.5 RBC 4.45 L Hgb 12.4 L Hct 39.6 L MCV 89.0 MCH 27.9 MCHC 31.3 L RDW 15.6 H Plt Count 189 MPV 11.5 H Immature Gran % (Auto) 0.8 H Neut % (Auto) 73.3 H Lymph % (Auto) 16.6 L [place] % (Auto) 9.0 H Eos % (Auto) 0.2 Baso % (Auto) 0.1 L Lymph # (Auto) 1.41 [place] # (Auto) 0.8 H Eos # (Auto) 0.0 Baso # (Auto) 0.0 Abs Immat Gran (auto) 0.07 H Absolute Neuts (auto) 6.2 Absolute Nucleated RBC 0.0 Nucleated RBC % 0.0 Sodium 132 L Potassium 4.2 Chloride 94 L Carbon Dioxide 35 H Anion Gap 3 L BUN 24 H Creatinine 0.90 Estim Creat Clear Calc 68 Estimated GFR > 60 Glucose 135 H Calcium 9.0 Total Bilirubin 0.4 AST 62 H ALT 92 H Alkaline Phosphatase 66 Total Protein 6.0 L Albumin 3.3 L Discharge Plan Discharge Attending physician on discharge:
[2022-06-01] MEDS: LORazepam (*CRX) 0.5 MG TABLET PO (14:57)
[2022-06-01] MEDS: HYDROcodone/acetaminophen (*CRX) 5-325 MG TABLET 1 TAB PO (14:58)
[2022-06-01 16:36] VITALS: BP 114/66; PULSE 88; RESP 16; TEMP 37.1; O2SAT 94
== END 2022-06-01 17:45 | DRG 189 ==
LOC: ANHED 19:36 → ANHIMU 20:05 → ANH3MED 05-30 02:00
PROVIDERS: Internal Medicine; Nurse Practitioner; Admitting Provider Chiropractor; Emergency Provider Emergency Medicine; Visit Provider Student in an Organized Health Care Education/Training Program
DX: J96.02 Acute respiratory failure with hypercapnia (principal); J44.1 Chronic obstructive pulmonary disease with (acute) exacerbation; I25.10 Atherosclerotic heart disease of native coronary artery without angina pectoris; I10 Essential (primary) hypertension; E78.5 Hyperlipidemia, unspecified; G62.9 Polyneuropathy, unspecified; F17.210 Nicotine dependence, cigarettes, uncomplicated; F91.9 Conduct disorder, unspecified; I25.2 Old myocardial infarction; Z79.01 Long term (current) use of anticoagulants; Z99.81 Dependence on supplemental oxygen; Z95.5 Presence of coronary angioplasty implant and graft
CPT/HCPCS: 36415; 36600; 70450; 71046; 80053; 80178; 81001; 82140; 82805; 83605; 83735; 84100; 84443; 85025; 85610; 85730; 93005; 94002; 94640; 94762; 96372; 96374; 96375; 96376; 97161; 97165; 97530; 97535; 99285; A9270; G0378; J2270; J2920; J2930; J7512

== ENCOUNTER 2022-07-30 15:12 | Outpatient (CLI) | payer MEDICARE, MEDICAID, SELFPAY ==
--- NOTE | ~2022-07-30 | CT_ITS ---
EXAMINATION: CT lung screening DATE: 07/30/2022 15:42 INDICATION: Personal history of nicotine dependence, current smoker with 45 pack year history TECHNIQUE: Computed tomography (CT) of the chest was performed without intravenous contrast. The dose -length product (DLP) was 99.54 mGy-cm. Automated exposure control and iterative reconstruction techn [employer] were employed. COMPARISON: None FINDINGS: There is moderate emphysema. There is a 5 mm nodule of the right upper lobe on image 37. Ad ditional smaller nodules measure 1 to 2 mm. The lungs are free of acute opacities. No pleural effusio n or pneumothorax. Calcified pulmonary nodules and calcified right hilar lymph nodes are consistent w ith old granulomatous disease. No pathologically enlarged thoracic lymph nodes are identified. The he art size is normal. Bilateral gynecomastia is noted. There is calcified coronary artery atheroscleros is. A small pericardial effusion is noted. Punctate calcifications in an otherwise normal spleen like ly represent healed granulomatous disease. IMPRESSION: 1. Lung-RADS category 2: Benign appearance or behavior. Continue annual screening with noncontrast lo w-dose chest CT in 12 months. Reviewed, dictated and finalized at location A. IMPRESSION: 1. Lung-RADS category 2: Benign appearance or behavior. Continue annual screeni ng with noncontrast low-dose chest CT in 12 months.
== END 2022-07-30 15:13 | disposition home or self-care (01) ==
PROVIDERS: PCP Registered Nurse; Visit Provider Registered Nurse
DX: Z12.2 Encounter for screening for malignant neoplasm of respiratory organs (principal); F17.210 Nicotine dependence, cigarettes, uncomplicated
CPT/HCPCS: 71271

== ENCOUNTER 2022-11-06 07:32 | Inpatient (IN) | payer MEDICARE, MEDICAID, SELFPAY ==
[2022-11-06] VITALS (103 sets, daily range): BP systolic 83–159; BP diastolic 52–91; PULSE 81–113; RESP 13–37; TEMP 34.5–37.6; O2SAT 81–100; BMI 22.8
--- NOTE | 2022-11-06 | ECHO_ITS ---
Patient Info Name: Brooks Murillo Age: 62 years : 1960 Gender: Male Ht: 70 in Wt: 145 lbs BSA: 1.80 m2 HR: 98 bpm BP: 88 / 70 mmHg Heart Rhythm: Sinus Rhythm Technical Quality: Fair Exam Date: 11/06/2022 3:46 PM Exam Location: [facility] Pulmonary Patient Status: Inpatient Admit Date: 11/06/2022 Staff Ordering Physician: Sammy Bedoya MD Break Off Worker: Abiola Donovan RDCS Attending Provider: Amrita Wright MD Exam Type: CA echo doppler color flow Study Info Indications - chf Complete two-dimensional, color flow and Doppler transthoracic echocardiogram is performed. Summary 1. Complete two-dimensional, color flow and Doppler transthoracic echocardiogram is performed. 2. Left ventricular chamber dimension is normal. 3. Left ventricular systolic function is normal, estimated at 50-55%. 4. The left ventricular diastolic function is grade I diastolic dysfunction. 5. Right ventricular chamber dimension is mildly enlarged. 6. Right ventricular systolic function is normal. 7. No significant valvular disease. 8. Dilated inferior vena cava with no collapse upon inspiration consistent with elevated right atrial pressure, 15 mmHg. 9. Left pleural effusion present. Left Ventricle Left ventricular chamber dimension is normal. Left ventricular systolic function is normal, estimated at 50-55%. There is no increased left ventricular wall thickness. The left ventricular diastolic function is grade I diastolic dysfunction. Right Ventricle Right ventricular chamber dimension is mildly enlarged. Right ventricular systolic function is normal. Left Atria Left atrial chamber dimension is normal. Right Atria Right atrial chamber dimension is normal. Atrial Septum Intact interatrial septum visualized by color flow imaging. Aortic Valve The aortic valve is probable trileaflet. There is no aortic valve stenosis. There is no aortic valve regurgitation. There is mild aortic valve calcification. Pulmonic Valve The pulmonic valve is not well visualized. Mitral Valve The mitral valve has normal leaflets. There is no mitral valve stenosis. There is trace mitral valve regurgitation. The mitral valve annulus is mildly calcified. Tricuspid Valve The tricuspid valve leaflets are normal. There is no significant tricuspid valve stenosis. There is trace tricuspid valve regurgitation. Pericardium/Pleural Left pleural effusion present. There is no pericardial effusion. Inferior Vena Cava Dilated inferior vena cava with no collapse upon inspiration consistent with elevated right atrial pressure, 15 mmHg. Aorta The aortic root size at the sinus of Valsalva is normal. Left Ventricular Outflow Tract Name Value Normal LVOT 2D LVOT Diameter 2.0 cm LVOT Doppler LVOT Peak Gradient 2 mmHg LVOT Mean Gradient 1 mmHg LVOT VTI 11 cm LVOT VTI/AV VTI Ratio 0.6 LVOT Stroke Volume 34 ml LVOT CO 2.9 l/min
--- NOTE | ~2022-11-06 | XR_ITS ---
EXAMINATION: XR barium swallow modified DATE: 11/14/2022 14:30 INDICATION: Recent intubation. TECHNIQUE: The patient was given barium-containing material of multiple consistencies to swallow by t sandee speech pathologist while I performed fluoroscopy. Fluoroscopy exposure time was 1.4 minutes. The n umber of fluoroscopy images saved to the PACS was 1. Dose-area product was 1.105 Gy-cm^2. FINDINGS: There is reduced laryngeal elevation and reduced laryngeal adduction. There is laryngeal penetration with thin liquids and mildly thick liquids. IMPRESSION: 1. Laryngeal penetration with thin liquids and mildly thick liquids. 2. Please refer to the speech therapy report for recommendations. Reviewed, dictated and finalized at location A. CTOR OF CASINO MARKETING
--- NOTE | ~2022-11-06 | US_ITS ---
EXAMINATION: US abdomen limited DATE: 11/16/2022 08:59 INDICATION: Elevated liver enzymes TECHNIQUE: Multiple grayscale and Doppler ultrasound images of the abdomen were obtained. COMPARISON: None available FINDINGS: The head and body of the pancreas are normal. The pancreatic tail is obscured by bowel gas. The liver is normal with normal echogenicity and echotexture. No surface nodularity. Normal hepatope daria flow in the main portal vein. A stone is present in the nondistended gallbladder. There is no gal lbladder wall thickening or pericholecystic fluid. The normal common bile duct measures 6 mm. There w as no sonographic Archer sign. IMPRESSION: 1. Cholelithiasis without evidence of cholecystitis. Reviewed, dictated and finalized at location B. WELL PULLER
--- NOTE | ~2022-11-06 | XR_ITS ---
EXAMINATION: XR chest 1V portable DATE: 11/14/2022 05:23 INDICATION: Respiratory failure TECHNIQUE: frontal view of the chest was obtained. COMPARISON: Chest radiograph dated 11/13/2022 FINDINGS: Nasogastric tube extends below the left hemidiaphragm with distal tip collimated off the study. Righ t internal jugular central venous catheter with distal tip at the midsuperior vena cava. Hyperexpansion lungs consistent with emphysema better appreciated on CT dated 11/02/2022. No airspace opacities, pulmonary edema, pleural effusion or pneumothorax. The cardiomediastinal silhouette is nor mal. Calcified right hilar lymph nodes consistent with old granulomatous disease. IMPRESSION: 1. Emphysema. Reviewed, dictated and finalized at location A. AL FUND SALES AGENT IMPRESSION: 1. Emphysema.
--- NOTE | ~2022-11-06 | XR_ITS ---
EXAMINATION: XR chest 1V portable INDICATION: Respiratory failure TECHNIQUE: Portable AP chest at respiratory failure COMPARISON: 11/16/2022 FINDINGS: The right internal jugular catheter is been removed. The lungs are free of acute opacities. No pleural effusion or pneumothorax. The cardiomediastinal silhouette is normal. IMPRESSION: 1. No acute cardiopulmonary abnormality. Reviewed, dictated and finalized at location A. MAN SHIPPING DEPARTMENT
--- NOTE | ~2022-11-06 | XR_ITS ---
Portable chest x-ray Comparison: 05/28/2022 Clinical History: Tube placement Findings: Endotracheal tube and NG tube are in satisfactory positions. Mild diffuse interstitial pro minence is present. No consolidation or pleural effusion. Cardiomediastinal silhouette is stable. Avinash connie and soft tissues are unremarkable. Impression: Support tubes in satisfactory position, as above. Probable COPD with associated interstitial prominence. Correlate for other chronic appearing intersti tial disease. Reviewed, dictated and finalized at location . ONAL FORESTER Impression: Support tubes in satisfactory position, as above. Probable COPD with associated interstitial prominence. Correlate for other fruit culler carissa appearing interstitial disease.
--- NOTE | ~2022-11-06 | XR_ITS ---
Portable chest x-ray Comparison: 11/06/2022 Clinical History: Respiratory failure Findings: Endotracheal tube, NG tube, and right-sided central venous line are in satisfactory positi ons. Minimal patchy haziness/interstitial prominence present in the lungs. No consolidation or pleura l effusion. Cardiomediastinal silhouette is stable. Bones and soft tissues are unremarkable. Impression: Minimal patchy haziness and interstitial disease, similar to prior exam. Correlate for COPD/chronic i nterstitial disease versus acute pulmonary pathology. Support tubes, as above. Reviewed, dictated and finalized at location . RIGGER Impression: Minimal patchy haziness and interstitial disease, similar to prior exam. Correl ate for COPD/chronic interstitial disease versus acute pulmonary pathology. Support tubes, as above.
--- NOTE | ~2022-11-06 | US_ITS ---
EXAMINATION: US venous doppler [facility] DATE: 11/06/2022 17:18 INDICATION: Lower extremity swelling . TECHNIQUE: Grayscale images without and with compression and Doppler images of the bilateral lower ex tremity veins were obtained. COMPARISON: None FINDINGS: The right common femoral vein, profunda (deep) femoral vein, femoral vein, popliteal vein, peroneal v ein, posterior tibial veins, gastrocnemius vein, and greater saphenous vein are patent. The left common femoral vein, profunda femoral vein, femoral vein, popliteal vein, peroneal vein, pos terior tibial veins, gastrocnemius vein, and greater saphenous vein are patent. IMPRESSION: 1. Patent bilateral lower extremity veins. No evidence of deep venous thrombosis. Reviewed, dictated and finalized at location K. OIDERER IMPRESSION: 1. Patent bilateral lower extremity veins. No evidence of deep venous thrombos is.
--- NOTE | ~2022-11-06 | XR_ITS ---
XR chest 1V portable 11/11/2022 06:34 Indication: Respiratory failure Procedure: AP portable chest Comparison: Comparison to multiple prior studies sequentially, with oldest reviewed study dated 11/08. Findings: Tubes and lines are stable. Heart size normal. No significant effusion or pneumothorax. Int erval progression of bilateral interstitial infiltrates. Impression: 1: Interval progression of bilateral interstitial infiltrates which may represent mild edema or pneum onia. Reviewed, dictated and finalized at location A. TING SUPERVISOR Impression: 1: Interval progression of bilateral interstitial infiltrates which may represe nt mild edema or pneumonia.
--- NOTE | ~2022-11-06 | CT_ITS ---
Noncontrast CT scan of the cervical spine Technique: Multiple contiguous axial [address] images of the cervical spine were obtained and rec onstructed in 2D sagittal and coronal planes on the acquisition scanner. Dose reduction technique was used on this scan by utilizing automated exposure control, adjustment of the mA and/or kV according to patient size. Clinical History: Pain Findings: No fractures or dislocations. Unremarkable visualized bony structures. The intervertebral disc spaces are preserved. No prevertebral soft tissue swelling. Emphysema noted at the lung apices . Impression: No fracture or subluxation of the cervical spine. Emphysema noted at the lung apices. Reviewed, dictated and finalized at location . OR MAKER Impression: No fracture or subluxation of the cervical spine. Emphysema noted at the lung apices.
--- NOTE | ~2022-11-06 | CT_ITS ---
EXAMINATION: CT diagnostic chest w con DATE: 11/06/2022 08:13 INDICATION: SOB, UNRESPONSIVE; TECHNIQUE: Computed tomography (CT) of the chest was performed with 100 mL Omnipaque-350 intravenous contrast. Additional 3D reconstructions utilizing coronal maximum intensity projection (MIP) were per formed. Automated exposure control and iterative reconstruction technique were employed. The dose-kaela gth product was 257.12 mGy-cm. COMPARISON: 07/30/2022 FINDINGS: Endotracheal tube with tip 5.2 cm above the stephen. Moderate to severe emphysema. Scattered mucous pl ugging in diffuse bilateral tree-in-bud opacities throughout both lungs consistent with pneumonia. No pulmonary edema, pleural effusion or pneumothorax. A couple small calcified pulmonary nodules in th e right lower lobe and calcified right hilar lymph nodes consistent with old granulomatous disease. N o pathologically enlarged abdominal or pelvic lymphadenopathy. Heart size is normal. Atherosclerotic coronary artery calcification. No pericardial effusion. Thoracic aorta is normal in caliber. Bilatera l gynecomastia. Tiny calcified gallstone within the normal-appearing partially decompressed gallbladd er. 9 mm cyst at the upper pole of the right kidney. Couple small splenic calcific lesions consistent with old granulomatous disease. Mild to moderate thoracic spondylosis. IMPRESSION: 1. Scattered mucous plugging diffuse bilateral tree-in-bud opacities consistent with pneumonia includ ing atypical fungal or mycobacterial pneumonia such as CLARA. 2. Moderate to severe emphysema. Reviewed, dictated and finalized at location L. RAISER IMPRESSION: 1. Scattered mucous plugging diffuse bilateral tree-in-bud opacities consistent with pneumonia including atypical fungal or mycobacterial pneumonia such as MA I. 2. Moderate to severe emphysema.
--- NOTE | ~2022-11-06 | XR_ITS ---
Portable chest x-ray Comparison: 11/14/2022 Clinical History: Respiratory failure Findings: NG tube and right-sided central venous line are in satisfactory positions. Questionable mi nimal patchy groundglass opacity in the lungs. Cardiomediastinal silhouette is stable. Bones and sof t tissues are unremarkable. Impression: Questionable minimal patchy ground glass opacity. Correlate for minimal pulmonary edema or atypical i nfection. Support tubes, as above. Reviewed, dictated and finalized at location M. RVISOR PIPE FINISHING Impression: Questionable minimal patchy ground glass opacity. Correlate for minimal pulmona ry edema or atypical infection. Support tubes, as above.
--- NOTE | ~2022-11-06 | XR_ITS ---
Portable chest x-ray Comparison: 11/15/2022 Clinical History: Respiratory failure Findings: Right IJ line remains in place. Lungs are clear, without focal consolidation or pleural ef fusion. Possible COPD. Cardiomediastinal silhouette is stable. Bones and soft tissues are unremarkab le. Impression: Clear lungs. Possible COPD. Support line, as above. Reviewed, dictated and finalized at location M. ACT OPERATOR Impression: Clear lungs. Possible COPD. Support line, as above.
--- NOTE | ~2022-11-06 | XR_ITS ---
Supine view of the abdomen Clinical history: NG tube placement Findings: NG tube in satisfactory position. Bowel gas pattern is nonspecific. No evidence for obstruc tion or free air. No abnormal mass lesion or calcification is seen. Osseous structures are intact. Impression: NG tube in satisfactory position. Nonspecific bowel gas pattern. Reviewed, dictated and finalized at [facility]. CUTTER Impression: NG tube in satisfactory position. Nonspecific bowel gas pattern.
--- NOTE | ~2022-11-06 | XR_ITS ---
Portable chest x-ray Comparison: 11/07/2022 Clinical History: Respiratory failure Findings: Endotracheal tube, NG tube, and right IJ line are in satisfactory positions. Suggestion of hazy right upper lobe airspace opacity. Left lung essentially clear. No pleural effusion. Cardiomed iastinal silhouette is stable. Bones and soft tissues are unremarkable. Impression: Support tubes, as above. Suggestion of hazy right upper lobe opacity, possibly cavitary, consistent with infectious process ba sed on recent CT scan. Reviewed, dictated and finalized at location M. ONKEEPER Impression: Support tubes, as above. Suggestion of hazy right upper lobe opacity, possibly cavitary, consistent with infectious process based on recent CT scan.
--- NOTE | ~2022-11-06 | XR_ITS ---
EXAMINATION: XR chest ET placement INDICATION: Endotracheal tube placement TECHNIQUE: Portable AP chest at 2155 hours COMPARISON: 11/09/2022 FINDINGS: The endotracheal tube ends approximately 3.4 cm above the stephen. The nasogastric tube is f ollowed as far as the stomach. Its tip is beyond the inferior margin of the radiograph. A right inter nal jugular central venous catheter ends with its tip in the superior vena cava. A mild diffuse inter stitial pattern persists without significant change. There are minimal airspace opacities of the righ t lung base, likely atelectasis. The cardiomediastinal silhouette is normal. No pleural effusion or p neumothorax. IMPRESSION: 1. Endotracheal tube approximately 3.5 cm above the stephen. 2. Mild diffuse interstitial pattern, stable, likely mild pulmonary edema. 3. Minimal right basilar airspace opacity, consistent with atelectasis versus pneumonia. Reviewed, dictated and finalized at location F. OLOGY EQUIPMENT SERVICER IMPRESSION: 1. Endotracheal tube approximately 3.5 cm above the stephen. 2. Mild diffuse interstitial pattern, stable, likely mild pulmonary edema. 3. Minimal right basilar airspace opacity, consistent with atelectasis versus p neumonia.
--- NOTE | ~2022-11-06 | US_ITS ---
EXAMINATION: US renal BI DATE: 11/06/2022 17:23 INDICATION: Acute kidney injury TECHNIQUE: Multiple grayscale and Doppler ultrasound images of the kidneys were obtained. COMPARISON: None. FINDINGS: The right kidney measures 9.5 x 4.4 x 5.3 cm. The left kidney measures 10.3 x 5.3 x 5.6 cm. The kidne ys demonstrate normal parenchymal echogenicity. There is no hydronephrosis. The bladder is urinary bl adder is decompressed by a Reeves catheter. IMPRESSION: Unremarkable renal sonogram findings. Reviewed, dictated and finalized at location K. IC RELATIONS INTERN
--- NOTE | ~2022-11-06 | XR_ITS ---
XR chest 1V portable 11/10/2022 05:59 Indication: Respiratory failure Procedure: AP portable chest Comparison: Comparison to multiple prior studies sequentially, with oldest reviewed study dated 11/07. Findings: Heart size normal. Central line tip in the SVC. Endotracheal tube tip approximately 3.5 cm above the stephen. NG tube passes into the stomach. No focal air space disease, pulmonary edema, pleur al effusion or suspected pneumothorax. No acute osseous abnormality. Impression: 1: No acute cardiopulmonary disease. Reviewed, dictated and finalized at location A. ASSEMBLER Impression: 1: No acute cardiopulmonary disease.
--- NOTE | ~2022-11-06 | CT_ITS ---
EXAMINATION: CTA brain carotid DATE: 11/06/2022 08:11 INDICATION: Altered mental status. TECHNIQUE: Computed tomographic angiography (CTA) of the head was performed without and with 100 mL O mnipaque-350 intravenous contrast. CTA of the neck was performed with intravenous contrast. Automated exposure control and iterative reconstruction technique were employed. The dose-length product was 1 757.77 mGy-cm. Maximum intensity projection and volume rendered 3D-reconstructions were created by brenton salazar technologist on a separate workstation. COMPARISON: Head CT 05/30/2022, chest CT 07/30/2022 FINDINGS: HEAD CTA: There are scattered areas of low attenuation in the cerebral white matter. There is no intr acranial hemorrhage, acute infarction, or abnormal intracranial mass lesion. The ventricles are brooks l in size. The orbits are normal. There is mucosal thickening in the paranasal sinuses. The mastoid a ir cells are normal. The vertebral arteries are codominant. There is no significant stenosis of basil ar artery or the posterior cerebral arteries. There is no significant stenosis of the intracranial in ternal carotid arteries or anterior or middle cerebral arteries. Anterior communicating artery is nor mal. Right posterior communicating artery is normal. A left posterior communicating artery is not felix ntified. There is no aneurysm. NECK CTA: There is moderate emphysema. There are new patchy airspace opacities and small nodules in r ight upper lobe. There are new small nodules in left upper lobe. There are no pathologically enlarged lymph nodes. The endotracheal tube tip is in the expected position in the trachea. There is no signi ficant stenosis of the vertebral arteries. There is mild plaque in the proximal internal carotid jhoana bharti. There is 0% stenosis of the proximal right internal carotid artery relative to normal distal ar maria m lumen diameter (NASCET criteria). There is 0% stenosis of the proximal left internal carotid art ramakrishna relative to normal distal artery lumen diameter. There is mucosal thickening in the pharynx. Ther e is moderate cervical spondylosis and thoracic spondylosis. IMPRESSION: 1. Mild nonspecific cerebral white matter disease, which likely represents chronic small vessel ische anna disease. 2. No aneurysm or significant intracranial arterial stenosis. 3. 0% stenosis of the proximal internal carotid arteries relative to normal distal artery lumen diame ters (NASCET criteria). 4. Mild pneumonia in the upper lobes. 5. Moderate emphysema. Reviewed, dictated and finalized at location A. ER MACHINE OPERATOR IMPRESSION: 1. Mild nonspecific cerebral white matter disease, which likely represents superintendent service carissa small vessel ischemic disease. 2. No aneurysm or significant intracranial arterial stenosis. 3. 0% stenosis of the proximal internal carotid arteries relative to normal dis daria artery lumen diameters (NASCET criteria). 4. Mild pneumonia in the upper lobes. 5. Moderate emphysema.
--- NOTE | ~2022-11-06 | XR_ITS ---
Portable chest x-ray Comparison: 11/08/2022 Clinical History: Respiratory failure Findings: Endotracheal tube, NG tube, and right IJ line are in satisfactory positions. There is prob able mild diffuse interstitial prominence. No consolidation or pleural effusion. Cardiomediastinal s ilhouette is stable. Bones and soft tissues are unremarkable. Impression: Support tubes, as above. Mild diffuse interstitial prominence. Correlate for chronic interstitial disease, atypical infection, or interstitial edema. Reviewed, dictated and finalized at location . LT SUGAR BOILER Impression: Support tubes, as above. Mild diffuse interstitial prominence. Correlate for chronic interstitial diseas e, atypical infection, or interstitial edema.
--- NOTE | ~2022-11-06 | US_ITS ---
EXAMINATION: US arterial duplex LE DATE: 11/06/2022 17:32 INDICATION: Peripheral arterial disease. TECHNIQUE: Multiple grayscale and Doppler ultrasound images of the lower extremity arteries were obta ined. COMPARISON: None FINDINGS: Peak systolic velocity is 163 cm/s in right common femoral artery, 137 cm/s in deep femoral artery, 110 cm/s in proximal superficial femoral artery, 237 cm/s in mid superficial femoral artery, 61 cm/s in distal superficial femoral artery, 30 cm/s in popliteal artery, 43 cm/s in proximal poste rior tibial artery, 44 cm/s in distal posterior tibial artery, 27 cm/s in proximal anterior tibial ar maria m, 44 cm/s in distal anterior tibial artery, and 17 cm/s dorsalis pedis. Peak systolic velocity is 293 cm/s the left common femoral artery, 170 cm/s in deep femoral artery, 1 27 cm/s in proximal superficial femoral artery, 130 cm/s in mid superficial femoral artery, 56 cm/s i n distal superficial femoral artery, 36 cm/s in popliteal artery, 29 cm/s in proximal posterior tibia l artery, 25 cm/s in distal posterior tibial artery, 53 cm/s in proximal anterior tibial artery, 17 c m/s in distal anterior tibial artery, and 39 cm/s in dorsalis pedis. IMPRESSION: 1. Increased velocity gradients in right superficial femoral artery and distal right anterior tibial artery, consistent with moderate to severe stenosis. 2. Increased velocity gradients in left superficial femoral artery and left anterior tibial artery, c onsistent with moderate to severe stenosis. Reviewed, dictated and finalized at location A. H WELDER IMPRESSION: 1. Increased velocity gradients in right superficial femoral artery and distal right anterior tibial artery, consistent with moderate to severe stenosis. 2. Increased velocity gradients in left superficial femoral artery and left ant erior tibial artery, consistent with moderate to severe stenosis.
--- NOTE | ~2022-11-06 | XR_ITS ---
EXAMINATION: XR chest 1V portable DATE: 11/13/2022 05:44 INDICATION: Respiratory failure. TECHNIQUE: A single frontal view of the chest was obtained. COMPARISON: Chest single view 11/11/2022, chest CT 11/06/2022 FINDINGS: The lungs are hyperexpanded with lucencies, consistent with emphysema. There are mild airsp danish opacities in right perihilar region. No pleural effusion or pneumothorax. The heart size is brooks l. The endotracheal tube tip is 8.5 cm above the stephen. The nasogastric tube tip is in the stomach. A right internal jugular central venous catheter is seen with tip in the superior vena cava. IMPRESSION: 1. Emphysema. 2. Mild airspace opacities in right perihilar region, consistent with pneumonia. Reviewed, dictated and finalized at location A. TECHNICAL MGR IMPRESSION: 1. Emphysema. 2. Mild airspace opacities in right perihilar region, consistent with pneumonia .
--- NOTE | ~2022-11-06 | XR_ITS ---
EXAMINATION: XR chest port-a-cath/central DATE: 11/06/2022 11:06 INDICATION: Central line placement. TECHNIQUE: A single frontal view of the chest was obtained. COMPARISON: Chest single view at 8:25 AM, chest CT 11/06/2022 FINDINGS: The lungs are hyperexpanded with lucencies, consistent with emphysema. There is a diffuse r eticulonodular pattern in the lungs. There are mild airspace opacities in right upper lobe. No pleura l effusion or pneumothorax or the heart size is normal. The endotracheal tube tip is 7.4 cm above the stephen. A right internal jugular central venous catheter is seen with tip in the superior vena cava. The nasogastric tube tip is beyond the inferior margin of the radiograph, but at least to the stomac h. IMPRESSION: 1. Central line tip in superior vena cava. 2. Mild, but diffuse lung disease, consistent with pneumonia. 3. Emphysema. Reviewed, dictated and finalized at location A. RUNNER
--- NOTE | 2022-11-06 07:35 | PC.NURSE ---
PT ARRIVED WITH 1L NS INFUSING TO R WRIST.
--- NOTE | 2022-11-06 07:36 | ECG_ITS ---
Measurements Intervals [place] Rate: 112 P: DC: 0 QRS: 85 QRSD: 82 T: 83 QT: 347 QTc: 475 Interpretive Statements SINUS TACHYCARDIA FREQUENT ATRIAL PREMATURE COMPLEXES DELAYED PRECORDIAL R/S TRANSITION BORDERLINE T WAVE ABNORMALITY- HIGH LATERAL LEADS BASELINE ARTIFACT- I, II, III, AVR, AVL, AVF, V1-V2 ABNORMAL ECG COMPARED TO ECG 05/28/2022 15:12:14 SINUS TACHYCARDIA NOW PRESENT Electronically Signed On 11-06-2022 7:53:30 ASSISTANT PROFESSOR OF ECONOMICS by Ming Ferrari D.O.
--- NOTE | 2022-11-06 07:39 | ED.GENADULT ---
HPI - General Adult General Chief complaint: Shortness of Breath/Dyspnea Stated complaint: unresponsive Time Seen by Provider: 11/06/22 07:36 History of Present Illness HPI narrative: 62-year-old male with history of COPD presenting the emergency department for evaluation after being found unresponsive. Family states that the patient's roommate checked on him at approximately 3 AM and he was found to be alert and appropriate. When patient was checked on this morning he was found to be unresponsive. When EMS arrived to the scene he described to Be with agonal breathing. Patient was intubated on the scene by EMS. Patient was also found to be hypotensive but blood pressures did improve with his initial fluid bolus. Family states that the patient does have a history of narcotic abuse and primarily takes p.o. Percocet and [place] which she crushes. Family does not believe he uses IV drugs. Patient also does have an underlying history of CHF and COPD. Family reports patient does have a history of coronary disease and does have cardiac stents. Upon arrival to emergency room patient is unresponsive and intubated. Patient did receive etomidate and Versed for the intubation. Related Data Home Medications Medication Instructions Recorded Confirmed albuterol sulfate 90 mcg/actuation 2 puff inhalation Q4H PRN 05/28/22 05/28/22 aerosol inhaler Shortness Of Breath apixaban 5 mg tablet (Eliquis) 5 mg PO BID 05/28/22 05/28/22 budesonide 160 mcg-glycopyr 9 2 inh inhalation DAILY 05/28/22 05/28/22 mcg-formot 4.8 mcg/actuation HFA inhaler (Breztri Aerosphere) fluticasone fur. 100 mcg-umeclid 1 inh inhalation DAILY 05/28/22 05/28/22 62.5 mcg-vilant 25 mcg inhalat.powder (Trelegy Ellipta) gabapentin 300 mg capsule 300 mg PO BID 05/28/22 05/28/22 hydrocodone 7.5 mg-acetaminophen 1 tablet PO DAILY 05/28/22 05/28/22 325 mg tablet ipratropium 20 mcg-albuterol 100 2 puff inhalation DAILY 05/28/22 05/28/22 mcg/actuation mist for inhalation (Combivent Respimat) lithium carbonate 150 mg capsule 150 mg PO DAILY 05/28/22 11/06/22 loperamide 2 mg capsule 2 mg PO QID PRN Diarrhea 05/28/22 05/28/22 metoprolol tartrate 25 mg tablet 25 mg PO DAILY 05/28/22 05/28/22 omeprazole 20 mg capsule,delayed 20 mg PO DAILY 05/28/22 05/28/22 release ramipril 5 mg capsule 5 mg PO DAILY 05/28/22 05/28/22 risperidone 2 mg tablet 2 mg PO BID 05/28/22 05/28/22 rosuvastatin 40 mg tablet 40 mg PO DAILY 05/28/22 05/28/22 testosterone cypionate 200 mg/mL 200 mg IM MONTHLY 05/28/22 05/28/22 intramuscular oil Allergies Allergy/AdvReac Type Severity Reaction Status Date / Time vancomycin Allergy Severe Redness of Verified 05/29/22 18:28 Skin Review of Systems Review of Systems: ROS unobtainable: Yes unobtainable due to medical condition PMFSH Past Medical History Medical History (Updated 11/06/22 @ 14:22 by Ricky Conklin MD) Acute on chronic respiratory failure with hypoxia and hypercapnia Adequate anticoagulation on anticoagulant therapy Behavior disturbance COPD (chronic obstructive pulmonary disease) HTN (hypertension) with goal to be determined Hyperlipidemia Hypertension Neuropathy Surgical History Surgical History Surgical history unknown Family History Family History Father Family history of heart disease in male family member before age 55 Social History Social History Social History: The patient tells me that he is and has 3 children. He is disabled. Patient stated that he is down to half a pack a cigarettes a day. He denies any alcohol marijuana or illicit drugs. He denies any power regulatory attorney. Code status full code Smoking status: Current every day smoker Alcohol intake: never Substance use: never Spiritual care concerns: No Exam Narrativ
[2022-11-06] MEDS: SODIUM CHLORIDE 0.9% IV 1,000 ML 999 ML IV CONT ×2 (07:45→07:53)
[2022-11-06 07:52] LABS: Hematocrit 44.9 % (42.0-52.0); Hemoglobin 13.4 g/dL (14.0-18.0); Mean Corpuscular HGB Conc 29.8 g/dl (32-36); Mean Corpuscular Hemoglobin 28.6 pg (26-34); Mean Corpuscular Volume 95.7 fl (80-100); Mean Platelet Volume 10.8 fl (7.4-10.4); Platelet Count Result 344 k/mm3 (150-375); Red Blood Count 4.69 M/mm3 (4.6-6.20); Red Cell Distribution Width 13.7 % (11.5-14.5); White Blood Count 11.3 K/mm3 (4.5-10.0)
[2022-11-06 07:54] LABS: Estimated Glomerular Filt Rate 41
--- NOTE | 2022-11-06 07:59 | PC.NURSE ---
pt to ct via stretcher
[2022-11-06 08:11] LABS: INR 1.8; Prothrombin Time 20.5 Seconds (11.1-14.7)
[2022-11-06 08:13] LABS: Partial Thromboplastin Time 38.2 SECONDS (22.3-36.8)
[2022-11-06 08:16] LABS: Alanine Aminotransferase 52 U/L (6-50); Albumin Level 3.7 g/dL (3.5-5.1); Alkaline Phosphatase 96 U/L (38-126); Anion Gap 9 mmol/L (8-16); Aspartate Amino Transferase 70 U/L (17-59); Bilirubin,Total 0.8 mg/dL (0.2-1.3); Blood Urea Nitrogen 13 mg/dL (9-20); Calcium 7.2 mg/dL (8.4-10.2); Carbon Dioxide 32 mmol/L (22-30); Chloride 99 mmol/L (98-107); Estimated Glomerular Filt Rate 44; Glucose 158 mg/dL (65-110); Potassium 4.9 mmol/L (3.4-5.0); Sodium 140 mmol/L (137-145)
[2022-11-06 08:18] LABS: Band Neutrophils Percent 15 % (0-6); Lymphocytes Absolute Manual 0.67 K/mm3 (1.1-4.5); Monocytes Absolute Manual 1.69 K/mm3 (0.1-0.90); Monocytes Percent Manual 15 % (3-9); Neutrophils Absolute Manual 8.92 K/mm3 (1.3-6.7); Neutrophils Percent Manual 64 % (46-73); Total Cells Counted 100
[2022-11-06 08:19] LABS: Platelet Estimate Adequate (Adequate); Schistocytes None Seen (NORMAL)
[2022-11-06 08:29] LABS: Influenza A QL RT-PCR Negative (Negative); Influenza B QL RT-PCR Negative (Negative); RSV RNA, RT-PCR Negative (Negative); SARS-CoV-2 RNA PCR Negative
[2022-11-06 08:31] LABS: NT Pro B Type Natriuretic Pept 4340 pg/mL (19.9-100); Troponin I 0.322 ng/mL (0.000-0.034)
[2022-11-06] MEDS: NALOXONE HCL INJ 2 MG/2 ML AMP IV PUSH (08:32)
[2022-11-06] MEDS: ALBUTEROL SULFATE NEB 2.5 MG/3 ML INH 10 MG INHALATION (08:44)
[2022-11-06 08:48] LABS: Appearance Urine Clear (Clear); Bilirubin Urine Negative (Negative); Blood Urine 2+ (Negative); Color Urine Yellow (Yellow); Glucose Urine UA Negative (Negative); Ketones Urine Negative (Negative); Leukocyte Esterase Ur Negative LEU/UL (Negative); Nitrate Urine Negative (Negative); Protein Urine 3+ mg/dL (Negative); Specific Grav Ur >= 1.030 (1.001-1.035); Urobilinogen Urine 0.2 mg/dL (<2.0)
[2022-11-06 08:52] LABS: Add Urine Microscopic? YES; Cellular Casts Urine Present /lpf; Granular Casts Urine 15-19 /lpf; Mucus Urine Rare /lpf; Squamous Epithelial Cell Urine Occasional /hpf (Few)
[2022-11-06 09:00] LABS: Alveolar/Arterial O2 Gradient 331.5 mmHg; Base Excess ABG -5.2 mEq/l (+/-2.0); Fractional Inspired Oxygen 100 %; HCO3 ABG 30.7 mEq/l (22.0-26.0); Oxygen Content ABG 22.9 %vol (16.0-22.0); Oxygen Saturation ABG 99.1 % (95.0-100.0); Oxyhemoglobin 96.4 % THb (90.0-100.0); PO2 ABG 251.6 mmHg (80.0-100.0); PO2 FiO2 Ratio Arterial Blood 2.52 %; Total Hemoglobin 16.5 g/dL (12.0-18.0); pH ABG 6.992 (7.350-7.450)
[2022-11-06 09:01] LABS: PCO2 ABG 129.9 mmHg (35.0-45.0)
[2022-11-06 09:02] LABS: Modified Allen's Test Pass; Site Drawn RIGHT BRACHIAL
[2022-11-06 09:03] LABS: Amphetamine Screen Urine Negative (Negative); Barbiturate Screen Urine Negative (Negative); Benzodiazepines Screen Urine Negative (Negative); Cannabinoid Screen Urine Negative (Negative); Cocaine Screen Urine Negative (Negative); Methadone Screen Urine Negative (Negative); Opiate Screen Urine Positive (Negative); Phencyclidine Screen Urine Negative (Negative)
[2022-11-06 09:03] LABS: Device VENTILATOR; Non-Invasive Vent Rate 20 /MIN
--- NOTE | 2022-11-06 09:17 | PC.NURSE ---
Family at bedside
[2022-11-06 10:11] LABS: Alveolar/Arterial O2 Gradient 92.7 mmHg; Base Excess ABG -6.1 mEq/l (+/-2.0); Fractional Inspired Oxygen 35 %; HCO3 ABG 24.5 mEq/l (22.0-26.0); Oxygen Content ABG 17.3 %vol (16.0-22.0); Oxyhemoglobin 90.5 % THb (90.0-100.0); Total Hemoglobin 13.6 g/dL (12.0-18.0)
[2022-11-06 10:13] LABS: Device VENTILATOR; Modified Allen's Test Pass; Oxygen Saturation ABG 87.6 % (95.0-100.0); PCO2 ABG 74.7 mmHg (35.0-45.0); Site Drawn RIGHT BRACHIAL
[2022-11-06 10:14] LABS: Arterial Blood Gas PEEP 8 cmH2O; Arterial Blood Gas Tidal Volume 480 ml; Arterial Blood Gas Vent Mode CMV; Arterial Blood Gas Ventilator rate 20 /MIN; pH ABG 7.134 (7.350-7.450)
[2022-11-06] MEDS: PROPOFOL IV EMULSION 100 ML 1.98 MG IV CONT (10:17)
[2022-11-06] MEDS: MIDAZOLAM HCL (*CRX) 2 MG/2 ML VIAL IV PUSH (10:25)
[2022-11-06] MEDS: SODIUM CHLORIDE 0.9% IV 1,000 ML 150 ML IV CONT (10:45)
--- NOTE | 2022-11-06 11:12 | ECG_ITS ---
Measurements Intervals [place] Rate: 102 P: 83 ND: 149 QRS: 83 QRSD: 94 T: 78 QT: 372 QTc: 485 Interpretive Statements SINUS TACHYCARDIA DELAYED PRECORDIAL R/S TRANSITION MINIMAL Q WAVES- INFERIOR LEADS NONSPECIFIC ST ELEVATION IN ANTEROLAT/INF LEADS BASELINE ARTIFACT- V4-V6 BORDERLINE ECG COMPARED TO ECG 11/06/2022 07:36:53 ST (T WAVE) DEVIATION NOW PRESENT Electronically Signed On 11-06-2022 12:21:37 SWITCH OPERATORS SUPERVISOR by Ming Ferrari D.O.
[2022-11-06 11:39] LABS: Alveolar/Arterial O2 Gradient 147.5 mmHg; Base Excess ABG -3.9 mEq/l (+/-2.0); Fractional Inspired Oxygen 55 %; HCO3 ABG 26.2 mEq/l (22.0-26.0); Oxygen Content ABG 18.9 %vol (16.0-22.0); Oxygen Saturation ABG 98.6 % (95.0-100.0); Oxyhemoglobin 96.4 % THb (90.0-100.0); PCO2 ABG 73.4 mmHg (35.0-45.0); PO2 FiO2 Ratio Arterial Blood 2.96 %; Total Hemoglobin 13.7 g/dL (12.0-18.0); pH ABG 7.171 (7.350-7.450)
[2022-11-06 11:40] LABS: Arterial Blood Gas Ventilator rate 20 /MIN; Device VENTILATOR; Modified Allen's Test Pass; Site Drawn LEFT RADIAL
[2022-11-06 11:41] LABS: Arterial Blood Gas PEEP 8 cmH2O; Arterial Blood Gas Tidal Volume 480 ml; Arterial Blood Gas Vent Mode CMV
[2022-11-06] MEDS: NOREPINEPHRINE 8 MG/D5W 250 ML 8 MG/250 ML BAG 9.38 MG IV CONT ×2 (11:42→14:08)
--- NOTE | 2022-11-06 11:50 | WPDCNINT ---
Assessment and Plan Assessment and plan (1) Acute on chronic respiratory failure with hypoxia and hypercapnia: Code(s): J96.21 - Acute and chronic respiratory failure with hypoxia; J96.22 - Acute and chronic respiratory failure with hypercapnia Status: Acute Assessment and Plan: Acute on chronic respiratory failure with hypoxia and hypercarbia secondary to baseline severe COPD and pneumonia which could be community-acquired versus aspiration CT scan of the chest showed 1. Scattered mucous plugging diffuse bilateral tree-in-bud opacities consistent with pneumonia including atypical fungal or mycobacterial pneumonia such as CLARA. 2. Moderate to severe emphysema. Patient now intubated. Chest x-ray and ABG reviewed Increase respiratory rate to 24. Repeat ABG later Steroids, bronchodilators Empiric Zosyn and doxycycline Check Blood and sputum cultures Check urine pneumococcal antigen, urine Legionella antigen, mycoplasma IgM (2) COPD (chronic obstructive pulmonary disease): Code(s): J44.9 - Chronic obstructive pulmonary disease, unspecified Status: Acute Assessment and Plan: See above (3) Pneumonia: Code(s): J18.9 - Pneumonia, unspecified organism Status: Acute Assessment and Plan: See above (4) Acute kidney injury: Code(s): N17.9 - Acute kidney failure, unspecified Status: Acute Assessment and Plan: Likely secondary to hypotension Patient received 2 L fluid bolus and IV fluids will be continued Check urine electrolytes Check CK level Check renal ultrasound Monitor urine output electrolytes and creatinine (5) Elevated troponin: Code(s): R77.8 - Other specified abnormalities of plasma proteins Status: Acute Assessment and Plan: Patient has elevated troponin which is likely demand mediated ischemia from respiratory failure He does have history of coronary disease although details unknown EKG reviewed shows no ST elevation Serial troponins Continue Eliquis and aspirin Hold statin due to elevated liver enzyme Hold beta-kylie due to hypotension Check echocardiogram (6) Coronary artery disease: Code(s): I25.10 - Atherosclerotic heart disease of [place] coronary artery without angina pectoris Status: Acute Assessment and Plan: See above (7) Congestive heart failure: Code(s): I50.9 - Heart failure, unspecified Status: Acute Assessment and Plan: Suspect patient has right heart failure from severe COPD Check echocardiogram (8) Swelling of lower extremity: Code(s): M79.89 - Other specified soft tissue disorders Status: Acute Assessment and Plan: Check echocardiogram Check lower extremity Dopplers (9) Encephalopathy: Code(s): G93.40 - Encephalopathy, unspecified Status: Acute Assessment and Plan: Likely toxic metabolic encephalopathy secondary to hypercarbia, opioid and now sedation Check ammonia and TSH Head CT was negative Check lithium level (10) Hyperlipidemia: Code(s): E78.5 - Hyperlipidemia, unspecified Status: Acute Assessment and Plan: Hold statin due to elevated liver enzyme (11) Hypotension: Code(s): I95.9 - Hypotension, unspecified Status: Acute Assessment and Plan: Likely secondary to hypovolemia, sedation possible early sepsis Check lactic acid level Patient received 2 L IV fluids and will continue IV fluids at cautious rate Levophed infusion for BP support Plan DVT prophylaxis -continue Eliquis Stress ulcer prophylaxis -PPI Nutrition -will start Tube Feeds Code Status - Full Code I spoke to patient's 2 daughter at bedside and updated them with patient's current status including respiratory failure, acute kidney injury, encephalopathy, pneumonia, sepsis and guarded prognosis. I answered all their questions. Requested the patient be kept full code. Total Critical Care Time - 45 minutes Due to a hig
--- NOTE | 2022-11-06 12:00 | PC.NURSE ---
resp contacted to deep suction pt due to mucus plugging of et tube. pt has been suctioned multiple times with in line suction with brief increase in sats. rebounds to low 80's within minutes.
[2022-11-06 12:20] LABS: Troponin I 0.262 ng/mL (0.000-0.034)
--- NOTE | 2022-11-06 13:29 | PM.IMHP ---
H&P: HPI History of Present Illness Date/Time: 11/06/22 13:29 Chief Complaint: Unresponsive Narrative: This is a 62-year-old male patient with a history of COPD was found to be unresponsive. According to the ER records the patient's family his room checked on the patient proximally 3:00 a.m. and found him to be alert and appropriate. However this morning the patient was found to be unresponsive. EMS arrived at the scene and the patient was described as having agonal breathing. The patient was intubated on the scene by EMS. The patient was also found to be hypotensive. The blood pressure was responsive to the 1st IV bolus. According to the family members they reported that the patient has a history of narcotic abuse primarily Percocet and [place] which he crushes. It was also reported that the patient may have a history of congestive heart failure. The family is not aware of any IV drug use. Family also reported that the patient has a history of coronary artery disease with a cardiac stent. His white count was 11.3. On arterial blood gases pH is 7.171 CO2 was 73.4. PO2 was 163. Bicarb 26.2. Lactic 1.3. AST 70 and ALT 52. Troponins 0.322, 0.262, 0.199. BNP 4340. TSH is 0.446. Cody level slightly high at 1.3. Creatinine is 1.6 and repeat is 1.7 which is usually normal baseline. The patient was given a nebulizer treatment, IV fluids, Narcan, Rocephin, Levophed, azithromycin, Solu-Medrol, sodium bicarb, aspirin, and calcium gluconate. Patient had a total 2 g of IV Narcan. Chest x-ray did show some evidence of pneumonia. A central line was started the right IJ in the emergency room. Chest x-ray was read as central line tip in superior vena cava. Mild but diffuse lung disease consistent with pneumonia. And emphysema. Abdominal x-ray shows the NG tube in satisfactory position. Head neck CTA was read as the following. Mild nonspecific cerebral white matter disease, which likely represents chronic small vessel ischemic disease. 2. No aneurysm or significant intracranial arterial stenosis. 3. 0% stenosis of the proximal internal carotid arteries relative to normal distal artery lumen diameters (NASCET criteria). 4. Mild pneumonia in the upper lobes. 5. Moderate emphysema. Cervical spine CT was read as no fracture or subluxation of the central spine. Emphysema noted at the lung apices. Chest CT was read as scattered mucous plugging diffuse bilateral tree-in-bud opacities consistent with pneumonia including atypical fungal or mycobacterial pneumonia such as CLARA. The patient is being admitted to inpatient status on the date of service of 11/06/2022. Review of Systems Review of Systems: See HPI All systems reviewed & are unremarkable except as noted in HPI and below Constitutional: Constitutional: Reports as per HPI and Reports no additional constitutional complaints Eyes: Eyes: Reports as per HPI and Reports no additional eye complaints ENT: Reports system reviewed and no additional complaints, except as documented and Reports Normal hearing present Cardiovascular: Cardiovascular: Reports no additional cardiovascular complaints Respiratory: Respiratory: Reports no additional respiratory complaints and Reports no additional respiratory complaints Gastrointestinal: Gastrointestinal: Reports as per HPI and Reports no additional gastrointestinal complaints Musculoskeletal: Musculoskeletal: Reports no additional musculoskeletal complaints Integumentary/Breasts: Skin/Breast: Reports system reviewed and no additional complaints, except as docu and Reports as per HPI Neurologic: Reports system reviewed and no additional complaints, except as documented, Reports as per HPI and Reports Normal hearing present Psychiatric: Psychiatric: Reports no additional psychiatric complaints and Reports as per HPI Endocrine: Endocrine: Reports no additional endocrine complaints Hematologic/Lymphatic: Hematologic/Lymphatic: Reports no additional hematolo
[2022-11-06] MEDS: CALCIUM GLUC 2,000 MG/NS 100ML 2,000 MG/100 ML BAG 100 MG IVPB (13:47)
[2022-11-06] MEDS: methylPREDNISolone SOD SUCC 125 MG VIAL 60 MG IV PUSH (14:06)
[2022-11-06] MEDS: LACTATED RINGERS 1,000 ML 100 ML IV CONT ×2 (14:07→23:49)
[2022-11-06 14:19] LABS: Creatinine Urine 136.4 mg/dL
[2022-11-06 14:21] LABS: Sodium Urine Random 50 meq/L
[2022-11-06 14:27] LABS: Ammonia 30 umol/L (9-30); Creatine Kinase 633 U/L (55-170); Lactic Acid Reflex 1.3 mmol/L (0.7-2.0)
[2022-11-06 14:43] LABS: Lithium 1.3 mmol/L (0.6-1.2)
[2022-11-06 14:44] LABS: Troponin I 0.199 ng/mL (0.000-0.034)
[2022-11-06 15:18] LABS: Thyroid Stimulating Hormone Reflex 0.446 uIU/mL (0.465-4.68)
[2022-11-06] MEDS: ALBUTEROL SULFATE NEB 2.5 MG/3 ML INH INHALATION ×2 (15:30→20:05)
[2022-11-06] MEDS: IPRATROPIUM BR 0.02% INH SOLN 0.5 MG/2.5 ML VIAL INHALATION ×2 (15:30→20:05)
[2022-11-06 16:38] LABS: Alveolar/Arterial O2 Gradient 121.6 mmHg; Base Excess ABG -3.8 mEq/l (+/-2.0); Fractional Inspired Oxygen 40 %; HCO3 ABG 23.4 mEq/l (22.0-26.0); Oxygen Content ABG 18.9 %vol (16.0-22.0); Oxygen Saturation ABG 97.1 % (95.0-100.0); Oxyhemoglobin 96.7 % THb (90.0-100.0); PO2 FiO2 Ratio Arterial Blood 2.63 %; Total Hemoglobin 13.8 g/dL (12.0-18.0)
[2022-11-06 16:40] LABS: pH ABG 7.279 (7.350-7.450)
[2022-11-06 16:41] LABS: Arterial Blood Gas PEEP 8 cmH2O; Arterial Blood Gas Vent Mode CMV; Arterial Blood Gas Ventilator rate 20 /MIN; Device VENTILATOR; Site Drawn LEFT BRACHIAL
[2022-11-06 16:42] LABS: Arterial Blood Gas Tidal Volume 480 ml
[2022-11-06 17:47] LABS: Free T4 Free Thyroxine Reflex 1.88 ng/dL (0.78-2.19)
[2022-11-06 19:42] LABS: Lithium < 0.2 mmol/L (0.6-1.2)
[2022-11-06] MEDS: INSULIN ASPART (*BKC) 100 UNITS/ML SUB-Q (20:21)
[2022-11-06] MEDS: MINERAL OIL/WHITE PETROLATUM OINTMENT 1 APPLIC EACH EYE (20:22)
[2022-11-06] MEDS: APIXABAN 5 MG TABLET FEED TUBE (20:22)
[2022-11-06 20:25] LABS: Glucose Point of Care 204 mg/dl (65-105)
[2022-11-06] MEDS: PROPOFOL IV EMULSION 100 ML 11.88 MG IV CONT (23:38)
[2022-11-07] VITALS (37 sets, daily range): BP systolic 106–136; BP diastolic 69–82; PULSE 68–113; RESP 20–35; TEMP 36.2–37.6; O2SAT 94–100; BMI 24.0
[2022-11-07] MEDS: INSULIN ASPART (*BKC) 100 UNITS/ML SUB-Q ×4 (01:15→16:28)
[2022-11-07 01:18] LABS: Glucose Point of Care 223 mg/dl (65-105)
[2022-11-07] MEDS: ALBUTEROL SULFATE NEB 2.5 MG/3 ML INH INHALATION ×4 (02:14→20:51)
[2022-11-07] MEDS: IPRATROPIUM BR 0.02% INH SOLN 0.5 MG/2.5 ML VIAL INHALATION ×4 (02:14→20:51)
[2022-11-07] MEDS: PROPOFOL IV EMULSION 100 ML 11.88 MG IV CONT (02:54)
[2022-11-07 04:50] LABS: Hematocrit 36.2 % (42.0-52.0); Mean Corpuscular HGB Conc 30.4 g/dl (32-36); Mean Corpuscular Hemoglobin 28.1 pg (26-34); Mean Corpuscular Volume 92.6 fl (80-100); Mean Platelet Volume 11.2 fl (7.4-10.4); Platelet Count Result 211 k/mm3 (150-375); Red Blood Count 3.91 M/mm3 (4.6-6.20); Red Cell Distribution Width 13.6 % (11.5-14.5); White Blood Count 5.1 K/mm3 (4.5-10.0)
[2022-11-07 05:06] LABS: Alanine Aminotransferase 37 U/L (6-50); Albumin Level 2.7 g/dL (3.5-5.1); Alkaline Phosphatase 74 U/L (38-126); Anion Gap 4 mmol/L (8-16); Aspartate Amino Transferase 42 U/L (17-59); Bilirubin,Total 0.4 mg/dL (0.2-1.3); Blood Urea Nitrogen 21 mg/dL (9-20); Calcium 7.1 mg/dL (8.4-10.2); Carbon Dioxide 29 mmol/L (22-30); Chloride 104 mmol/L (98-107); Estimated CRCL calculation 53 ml/min; Estimated Glomerular Filt Rate > 60; Glucose 202 mg/dL (65-110); Magnesium 0.8 mg/dL (1.6-2.3); Potassium 3.6 mmol/L (3.4-5.0); Sodium 137 mmol/L (137-145)
[2022-11-07 05:17] LABS: Glucose Point of Care 223 mg/dl (65-105)
[2022-11-07 05:25] LABS: Anisocytosis 2+ (NORMAL); Band Neutrophils Percent 28 % (0-6); Large Platelets Present; Lymphocytes Absolute Manual 0.56 K/mm3 (1.1-4.5); Metamyelocytes Percent 2 %; Monocytes Absolute Manual 0.25 K/mm3 (0.1-0.90); Monocytes Percent Manual 5 % (3-9); Neutrophils Absolute Manual 4.18 K/mm3 (1.3-6.7); Neutrophils Percent Manual 54 % (46-73); Platelet Estimate Adequate (Adequate); Total Cells Counted 100
[2022-11-07 05:26] LABS: Macrocytosis 1+ (NORMAL); Poikilocytosis 2+ (NORMAL); Rouleaux 1+ (NORMAL); Schistocytes None Seen (NORMAL)
[2022-11-07 05:27] LABS: Acanthocytes 1+ (NORMAL); Atypical Lymphocytes Present; Burr Cells 1+ (NORMAL); Crenated RBC 2+ (NORMAL)
[2022-11-07 05:29] LABS: Total Triiodothyronine (T3) 0.73 NG/ML (0.97-1.69)
[2022-11-07 05:33] LABS: Alveolar/Arterial O2 Gradient 74.1 mmHg; Base Excess ABG 3.7 mEq/l (+/-2.0); Carboxyhemoglobin 0.3 % THb (0-2.0); Fractional Inspired Oxygen 30 %; HCO3 ABG 30.2 mEq/l (22.0-26.0); Methemoglobin ABG 0.4 %THb (0-1.5); Oxygen Content ABG 16.1 %vol (16.0-22.0); Oxygen Saturation ABG 94.5 % (95.0-100.0); Oxyhemoglobin 94.2 % THb (90.0-100.0); PCO2 ABG 54.3 mmHg (35.0-45.0); PO2 FiO2 Ratio Arterial Blood 2.53 %; Reduced Hemoglobin 5.1 %THb (0-5.0); Total Hemoglobin 12.1 g/dL (12.0-18.0); pH ABG 7.363 (7.350-7.450)
[2022-11-07 05:38] LABS: Arterial Blood Gas PEEP 8 cmH2O; Arterial Blood Gas Tidal Volume 480 ml; Arterial Blood Gas Vent Mode CMV; Arterial Blood Gas Ventilator rate 24 /MIN; Device VENTILATOR; Modified Allen's Test Unable to perform; Site Drawn RIGHT BRACHIAL
[2022-11-07] MEDS: PROPOFOL IV EMULSION 100 ML 19.8 MG IV CONT ×4 (06:27→21:20)
[2022-11-07 07:36] LABS: Glucose Point of Care 183 mg/dl (65-105)
--- NOTE | 2022-11-07 08:22 | WPDINTPN ---
Progress Note: A&P Assessment and Plan (1) Acute on chronic respiratory failure with hypoxia and hypercapnia: Code(s): J96.21 - Acute and chronic respiratory failure with hypoxia; J96.22 - Acute and chronic respiratory failure with hypercapnia Status: Acute Assessment and Plan: Acute on chronic respiratory failure with hypoxia and hypercarbia secondary to baseline severe COPD and pneumonia which could be community-acquired versus aspiration CT scan of the chest showed 1. Scattered mucous plugging diffuse bilateral tree-in-bud opacities consistent with pneumonia including atypical fungal or mycobacterial pneumonia such as CLARA. 2. Moderate to severe emphysema. Patient now intubated and on mechanical ventilation On presentation patient decreased air movement throughout lungs and but today on exam he had bilateral wheezing Chest x-ray reviewed ABG reviewed and decrease rate to 22 Continue Steroids, bronchodilators Continue Empiric Zosyn and doxycycline Pending Blood and sputum cultures Pending urine pneumococcal antigen, urine Legionella antigen, mycoplasma IgM (2) COPD (chronic obstructive pulmonary disease): Code(s): J44.9 - Chronic obstructive pulmonary disease, unspecified Status: Acute Assessment and Plan: See above (3) Pneumonia: Code(s): J18.9 - Pneumonia, unspecified organism Status: Acute Assessment and Plan: See above (4) Acute kidney injury: Code(s): N17.9 - Acute kidney failure, unspecified Status: Acute Assessment and Plan: Likely secondary to hypotension rhabdomyolysis Patient received 2 L fluid bolus and IV fluids were continued Urine electrolytes suggest prerenal CK level elevated at 633 Unremarkable renal ultrasound Creatinine improving with IV fluids. Continue IV fluids Monitor urine output electrolytes and creatinine (5) Elevated troponin: Code(s): R77.8 - Other specified abnormalities of plasma proteins Status: Acute Assessment and Plan: Patient has elevated troponin which is likely demand mediated ischemia from respiratory failure He does have history of coronary disease although details unknown EKG reviewed shows no ST elevation Serial troponins shows flat level Continue Eliquis and aspirin Hold statin due to elevated liver enzyme Hold beta-kylie due to hypotension Echocardiogram done and report pending (6) Coronary artery disease: Code(s): I25.10 - Atherosclerotic heart disease of [place] coronary artery without angina pectoris Status: Acute Assessment and Plan: See above (7) Congestive heart failure: Code(s): I50.9 - Heart failure, unspecified Status: Acute Assessment and Plan: Suspect patient has right heart failure from severe COPD Echocardiogram pending (8) Swelling of lower extremity: Code(s): M79.89 - Other specified soft tissue disorders Status: Acute Assessment and Plan: Check echocardiogram Negative lower extremity Dopplers for DVT (9) Encephalopathy: Code(s): G93.40 - Encephalopathy, unspecified Status: Acute Assessment and Plan: Likely toxic metabolic encephalopathy secondary to hypercarbia, opioid and now sedation Normal ammonia and TSH Head CT was negative Low lithium level (10) Hyperlipidemia: Code(s): E78.5 - Hyperlipidemia, unspecified Status: Acute Assessment and Plan: Hold statin due to elevated liver enzyme (11) Hypotension: Code(s): I95.9 - Hypotension, unspecified Status: Acute Assessment and Plan: Likely secondary to hypovolemia, sedation possible early sepsis Normal lactic acid level Patient received 2 L IV fluids and will continue IV fluids at cautious rate Levophed has been weaned off (12) Hyperglycemia: Code(s): R73.9 - Hyperglycemia, unspecified Status: Acute Assessment and Plan: Add sliding scale and Lantus (13) Electrolyte abnormality:
[2022-11-07] MEDS: ASPIRIN 325 MG TABLET FEED TUBE (08:50)
[2022-11-07] MEDS: APIXABAN 5 MG TABLET FEED TUBE ×2 (08:50→20:16)
[2022-11-07] MEDS: PANTOPRAZOLE SODIUM IV 40 MG VIAL IV PUSH (08:51)
[2022-11-07] MEDS: methylPREDNISolone SOD SUCC 125 MG VIAL 60 MG IV PUSH (08:51)
[2022-11-07] MEDS: MINERAL OIL/WHITE PETROLATUM OINTMENT 1 APPLIC EACH EYE ×2 (08:51→20:16)
[2022-11-07 08:52] LABS: Phosphorus 2.1 mg/dL (2.5-4.5)
[2022-11-07] MEDS: EUCERIN CREAM 120 GM JAR 1 APPLIC TOPICAL (08:52)
[2022-11-07] MEDS: CALCIUM GLUC 2,000 MG/NS 100ML 2,000 MG/100 ML BAG 100 MG IVPB (08:55)
[2022-11-07] MEDS: MAGNESIUM SULF 4 GM/WATER100ML 4 GM/100 ML BAG IVPB (08:55)
[2022-11-07] MEDS: POTASSIUM CHLORIDE 20 MEQ PACKET (FOR LIQUID) 40 MEQ FEED TUBE (09:15)
[2022-11-07] MEDS: INSULIN GLARGINE (*BKC) 100 UNITS/ML 10 UNITS SUB-Q (09:25)
[2022-11-07] MEDS: LACTATED RINGERS 1,000 ML 100 ML IV CONT (09:48)
[2022-11-07] MEDS: SILVERGEL (ELTA) 45 ML 1 APPLIC TOPICAL (09:49)
[2022-11-07] MEDS: LACTATED RINGERS 1,000 ML 50 ML IV CONT (12:00)
[2022-11-07 12:37] LABS: Glucose Point of Care 211 mg/dl (65-105)
[2022-11-07] MEDS: CENTRAL LINE FLUSH 10 ML IV PUSH ×2 (12:52→20:16)
[2022-11-07 16:05] LABS: Glucose Point of Care 261 mg/dl (65-105)
[2022-11-07 20:24] LABS: Glucose Point of Care 180 mg/dl (65-105)
[2022-11-08] VITALS (33 sets, daily range): BP systolic 115–157; BP diastolic 67–85; PULSE 54–97; RESP 19–24; TEMP 36.5–37.1; O2SAT 92–100
[2022-11-08 00:52] LABS: Glucose Point of Care 211 mg/dl (65-105)
[2022-11-08] MEDS: INSULIN ASPART (*BKC) 100 UNITS/ML SUB-Q ×3 (01:06→18:16)
[2022-11-08] MEDS: IPRATROPIUM BR 0.02% INH SOLN 0.5 MG/2.5 ML VIAL INHALATION ×4 (03:00→20:37)
[2022-11-08] MEDS: ALBUTEROL SULFATE NEB 2.5 MG/3 ML INH INHALATION ×4 (03:00→20:37)
[2022-11-08 05:47] LABS: Alveolar/Arterial O2 Gradient 95.4 mmHg; Base Excess ABG 3.5 mEq/l (+/-2.0); Carboxyhemoglobin 0.3 % THb (0-2.0); Fractional Inspired Oxygen 30 %; HCO3 ABG 27.6 mEq/l (22.0-26.0); Methemoglobin ABG 0.3 %THb (0-1.5); Oxygen Content ABG 17.5 %vol (16.0-22.0); Oxygen Saturation ABG 95.1 % (95.0-100.0); Oxyhemoglobin 94.3 % THb (90.0-100.0); PO2 ABG 71.5 mmHg (80.0-100.0); PO2 FiO2 Ratio Arterial Blood 2.38 %; Reduced Hemoglobin 5.1 %THb (0-5.0); Total Hemoglobin 13.2 g/dL (12.0-18.0); pH ABG 7.456 (7.350-7.450)
[2022-11-08 05:48] LABS: Arterial Blood Gas PEEP 5 cmH2O; Arterial Blood Gas Tidal Volume 480 ml; Arterial Blood Gas Vent Mode CMV; Arterial Blood Gas Ventilator rate 22 /MIN; Device VENTILATOR; Modified Allen's Test Unable to perform; Site Drawn LEFT RADIAL
[2022-11-08 06:12] LABS: Basophils Percent Auto 0.1 % (0.2-1.2); Hematocrit 32.8 % (42.0-52.0); Hemoglobin 10.6 g/dL (14.0-18.0); Immature Granulocyte Absolute 0.05 K/mm3 (0.00-0.031); Immature Granulocyte Percent A 0.7 % (0-0.5); Lymphocytes Absolute Auto 0.41 K/mm3 (0.9-3.2); Lymphocytes Percent Auto 5.9 % (18.3-44.2); Mean Corpuscular HGB Conc 32.3 g/dl (32-36); Mean Corpuscular Hemoglobin 28.2 pg (26-34); Mean Corpuscular Volume 87.2 fl (80-100); Mean Platelet Volume 11.4 fl (7.4-10.4); Monocytes Absolute Auto 0.7 K/mm3 (0.1-0.6); Monocytes Percent Auto 10.4 % (2.6-8.5); Neutrophils Absolute Auto 5.8 K/mm3 (1.3-6.7); Neutrophils Percent Auto 82.9 % (45.5-73.1); Nucleated Red Blood Cells Perc 0.3 % (0.0-0.2); Platelet Count Result 240 k/mm3 (150-375); Red Blood Count 3.76 M/mm3 (4.6-6.20); Red Cell Distribution Width 13.8 % (11.5-14.5)
[2022-11-08 06:17] LABS: Alanine Aminotransferase 43 U/L (6-50); Albumin Level 2.7 g/dL (3.5-5.1); Alkaline Phosphatase 81 U/L (38-126); Anion Gap 1 mmol/L (8-16); Aspartate Amino Transferase 54 U/L (17-59); Bilirubin,Total 0.4 mg/dL (0.2-1.3); Blood Urea Nitrogen 29 mg/dL (9-20); Calcium 7.8 mg/dL (8.4-10.2); Carbon Dioxide 31 mmol/L (22-30); Chloride 102 mmol/L (98-107); Creatine Kinase 164 U/L (55-170); Estimated CRCL calculation 63 ml/min; Estimated Glomerular Filt Rate > 60; Glucose 191 mg/dL (65-110); Magnesium 2.2 mg/dL (1.6-2.3); Potassium 3.7 mmol/L (3.4-5.0); Sodium 134 mmol/L (137-145)
[2022-11-08] MEDS: CENTRAL LINE FLUSH 10 ML IV PUSH ×4 (06:23→21:01)
[2022-11-08] MEDS: PROPOFOL IV EMULSION 100 ML 15.84 MG IV CONT ×4 (06:24→23:14)
[2022-11-08] MEDS: LACTATED RINGERS 1,000 ML 50 ML IV CONT ×2 (06:49→21:18)
[2022-11-08 08:52] LABS: Glucose Point of Care 208 mg/dl (65-105)
[2022-11-08] MEDS: INSULIN GLARGINE (*BKC) 100 UNITS/ML 15 UNITS SUB-Q (09:19)
[2022-11-08] MEDS: methylPREDNISolone SOD SUCC 125 MG VIAL 60 MG IV PUSH (09:27)
[2022-11-08] MEDS: PANTOPRAZOLE SODIUM IV 40 MG VIAL IV PUSH (09:30)
--- NOTE | 2022-11-08 09:30 | P.CDI_ITS ---
CDI Query Clarified Diagnosis Clarified Diagnosis: Documented history of CHF. CHF noted on assessment and plan. Edema in lower extremities noted. Please specify type and acuity of heart failure if known. * Acute * Chronic * Acute on Chronic * Unknown * Systolic * Diastolic * Combined Systolic and Diastolic * Unknown
--- NOTE | 2022-11-08 09:30 | WPDCDIQUERY2 ---
CDI Query Clarified Diagnosis Clarified Diagnosis: Documented history of CHF. CHF noted on assessment and plan. Edema in lower extremities noted. Please specify type and acuity of heart failure if known. Acute Chronic Acute on Chronic Unknown Systolic Diastolic Combined Systolic and Diastolic Unknown
[2022-11-08] MEDS: ASPIRIN 325 MG TABLET FEED TUBE (09:34)
[2022-11-08] MEDS: SILVERGEL (ELTA) 45 ML 1 APPLIC TOPICAL (09:34)
[2022-11-08] MEDS: APIXABAN 5 MG TABLET FEED TUBE ×2 (09:34→21:01)
[2022-11-08] MEDS: EUCERIN CREAM 120 GM JAR 1 APPLIC TOPICAL (09:34)
[2022-11-08] MEDS: MINERAL OIL/WHITE PETROLATUM OINTMENT 1 APPLIC EACH EYE ×2 (09:35→21:00)
--- NOTE | 2022-11-08 11:47 | PCFNICU ---
ICU Rounding Note: Pt current nutrition is Vital AF 1.2 at 50 ml/hr. Last recorded weight is 68.5 kg. Bowel Motility:+Bm reported 11/08-loose stools Labs Reviewed:Glu 191, BUN 29, Na 134,Alb 2.7 Meds Noted:Propofol at 50 mcgs or 15.84 ml/me=407 kcals, Zosyn, Lantus, Eliquis Skin:WNL Additional Notes: Patient remains on mechanical vent and tube feedings of Vital AF 1.2 at 50 ml/hr. Tolerating tube feedings per nursing. Banatrol TF added BID for stool bulking. Flush 30 ml q 4 hours. Agree with diet orders. Following daily in ICU rounds. Will monitor, weight, labs, tube feeding tolerance every Saturday and Saturday.
--- NOTE | 2022-11-08 12:29 | WPDINTPN ---
Progress Note: A&P Assessment and Plan (1) Acute on chronic respiratory failure with hypoxia and hypercapnia: Code(s): J96.21 - Acute and chronic respiratory failure with hypoxia; J96.22 - Acute and chronic respiratory failure with hypercapnia Status: Acute Assessment and Plan: Acute on chronic respiratory failure with hypoxia and hypercarbia secondary to baseline severe COPD and pneumonia which could be community-acquired versus aspiration -01/31/2023: Patient was intubated in the field by EMS -chest x-ray this morning: Suggestion of hazy right upper lobe opacity, possibly cavitary, consistent with infectious process based on recent CT scan. ABG reviewed -currently on methylprednisolone at 60 mg IV Q a.m -continue bronchodilators -continue Zosyn and azithromycin -11/06 blood cultures negative x2 -11/06 sputum cultures growing Moraxella catarrhalis - urine pneumococcal antigen, urine Legionella antigen, mycoplasma IgM are pending 11/06/2022: CT scan of the chest showed 1. Scattered mucous plugging diffuse bilateral tree-in-bud opacities consistent with pneumonia including atypical fungal or mycobacterial pneumonia such as CLARA. 2. Moderate to severe emphysema. (2) COPD (chronic obstructive pulmonary disease): Code(s): J44.9 - Chronic obstructive pulmonary disease, unspecified Status: Acute Assessment and Plan: See above (3) Pneumonia: Code(s): J18.9 - Pneumonia, unspecified organism Status: Acute Assessment and Plan: See above (4) Acute kidney injury: Code(s): N17.9 - Acute kidney failure, unspecified Status: Acute Assessment and Plan: Likely secondary to hypotension, rhabdomyolysis Patient received 2 L fluid bolus and IV fluids were continued Urine electrolytes suggest prerenal CK level elevated at 633 Unremarkable renal ultrasound Creatinine has normalized with IV fluids, Monitor urine output electrolytes and creatinine (5) Elevated troponin: Code(s): R77.8 - Other specified abnormalities of plasma proteins Status: Acute Assessment and Plan: Patient has elevated troponin which is likely demand mediated ischemia from respiratory failure He does have history of coronary disease although details unknown EKG reviewed shows no ST elevation Serial troponins shows flat level Continue Eliquis and aspirin Hold statin due to elevated liver enzyme Blood pressures are much improved, will start low-dose beta-kylie 11/06/2022 Echocardiogram: EF 50-55%, grade 1 diastolic dysfunction, RV chamber mildly enlarged, RV systolic function is normal, no significant valvular disease (6) Coronary artery disease: Code(s): I25.10 - Atherosclerotic heart disease of [place] coronary artery without angina pectoris Status: Acute Assessment and Plan: See above (7) Congestive heart failure: Code(s): I50.9 - Heart failure, unspecified Status: Acute Assessment and Plan: Suspect patient has right heart failure from severe COPD Echocardiogram as above (8) Swelling of lower extremity: Code(s): M79.89 - Other specified soft tissue disorders Status: Acute Assessment and Plan: As above Negative lower extremity Dopplers for DVT (9) Encephalopathy: Code(s): G93.40 - Encephalopathy, unspecified Status: Acute Assessment and Plan: Likely toxic metabolic encephalopathy secondary to hypercarbia, opioid and now sedation Normal ammonia and TSH Head CT was negative Low lithium level (10) Hyperlipidemia: Code(s): E78.5 - Hyperlipidemia, unspecified Status: Acute Assessment and Plan: Hold statin due to elevated liver enzyme (11) Hypotension: Code(s): I95.9 - Hypotension, unspecified Status: Acute Assessment and Plan: Likely secondary to hypovolemia, sedation possible early sepsis Normal lactic acid level Patient received 2 L IV fluids and will continue IV
[2022-11-08 14:28] LABS: Glucose Point of Care 174 mg/dl (65-105)
[2022-11-08] MEDS: PROPOFOL IV EMULSION 100 ML 19.8 MG IV CONT (18:10)
[2022-11-08 18:22] LABS: Glucose Point of Care 247 mg/dl (65-105)
[2022-11-08] MEDS: METOPROLOL TARTRATE 12.5 MG TABLET PO (21:01)
[2022-11-08 23:17] LABS: Glucose Point of Care 194 mg/dl (65-105)
[2022-11-08 23:33] LABS: Pneumococcal Antigen Urine Not Detected (Not Detected)
[2022-11-09] VITALS (41 sets, daily range): BP systolic 108–138; BP diastolic 59–82; PULSE 42–100; RESP 22–26; TEMP 36.4–37.2; O2SAT 89–99
[2022-11-09 00:43] LABS: Glucose Point of Care 132 mg/dl (65-105)
[2022-11-09] MEDS: ALBUTEROL SULFATE NEB 2.5 MG/3 ML INH INHALATION ×4 (02:42→20:45)
[2022-11-09] MEDS: IPRATROPIUM BR 0.02% INH SOLN 0.5 MG/2.5 ML VIAL INHALATION ×4 (02:42→20:45)
[2022-11-09 04:52] LABS: Basophils Percent Auto 0.3 % (0.2-1.2); Hematocrit 32.9 % (42.0-52.0); Hemoglobin 10.4 g/dL (14.0-18.0); Immature Granulocyte Absolute 0.19 K/mm3 (0.00-0.031); Immature Granulocyte Percent A 2.4 % (0-0.5); Lymphocytes Absolute Auto 0.71 K/mm3 (0.9-3.2); Lymphocytes Percent Auto 8.9 % (18.3-44.2); Mean Corpuscular HGB Conc 31.6 g/dl (32-36); Mean Corpuscular Hemoglobin 28.3 pg (26-34); Mean Corpuscular Volume 89.4 fl (80-100); Mean Platelet Volume 10.4 fl (7.4-10.4); Monocytes Absolute Auto 0.8 K/mm3 (0.1-0.6); Neutrophils Absolute Auto 6.3 K/mm3 (1.3-6.7); Neutrophils Percent Auto 78.4 % (45.5-73.1); Platelet Count Result 249 k/mm3 (150-375); Red Blood Count 3.68 M/mm3 (4.6-6.20); Red Cell Distribution Width 14.2 % (11.5-14.5)
[2022-11-09 05:02] LABS: Alanine Aminotransferase 46 U/L (6-50); Albumin Level 2.5 g/dL (3.5-5.1); Alkaline Phosphatase 71 U/L (38-126); Anion Gap 1 mmol/L (8-16); Aspartate Amino Transferase 42 U/L (17-59); Bilirubin,Total 0.4 mg/dL (0.2-1.3); Blood Urea Nitrogen 31 mg/dL (9-20); Calcium 8.1 mg/dL (8.4-10.2); Carbon Dioxide 33 mmol/L (22-30); Chloride 109 mmol/L (98-107); Creatine Kinase 90 U/L (55-170); Estimated CRCL calculation 70 ml/min; Estimated Glomerular Filt Rate > 60; Glucose 124 mg/dL (65-110); Potassium 3.8 mmol/L (3.4-5.0); Sodium 143 mmol/L (137-145)
[2022-11-09] MEDS: PROPOFOL IV EMULSION 100 ML 11.88 MG IV CONT (05:51)
[2022-11-09] MEDS: CENTRAL LINE FLUSH 10 ML IV PUSH ×4 (06:00→20:49)
[2022-11-09 06:07] LABS: Base Excess ABG 5.1 mEq/l (+/-2.0); HCO3 ABG 30.6 mEq/l (22.0-26.0); Oxygen Saturation ABG 97.4 % (95.0-100.0); PCO2 ABG 48.7 mmHg (35.0-45.0); PO2 ABG 96.6 mmHg (80.0-100.0); pH ABG 7.416 (7.350-7.450)
[2022-11-09 06:08] LABS: Alveolar/Arterial O2 Gradient 132.6 mmHg; Carboxyhemoglobin 0.2 % THb (0-2.0); Device VENTILATOR; Fractional Inspired Oxygen 40 %; Methemoglobin ABG 0.4 %THb (0-1.5); Modified Allen's Test Pass; Oxygen Content ABG 17.3 %vol (16.0-22.0); PO2 FiO2 Ratio Arterial Blood 2.41 %; Reduced Hemoglobin 3.4 %THb (0-5.0); Site Drawn LEFT RADIAL; Total Hemoglobin 12.7 g/dL (12.0-18.0)
[2022-11-09 06:09] LABS: Arterial Blood Gas PEEP 5 cmH2O; Arterial Blood Gas Tidal Volume 480 ml; Arterial Blood Gas Vent Mode CMV; Arterial Blood Gas Ventilator rate 22 /MIN
[2022-11-09 08:14] LABS: Glucose Point of Care 121 mg/dl (65-105)
[2022-11-09] MEDS: FENTANYL 2,500MCG/NS250ML(*CRX 2,500 MCG/250 ML BAG IV CONT (08:15)
[2022-11-09] MEDS: INSULIN GLARGINE (*BKC) 100 UNITS/ML 15 UNITS SUB-Q (08:20)
[2022-11-09] MEDS: SILVERGEL (ELTA) 45 ML 1 APPLIC TOPICAL (08:25)
[2022-11-09] MEDS: PANTOPRAZOLE SODIUM IV 40 MG VIAL IV PUSH (08:25)
[2022-11-09] MEDS: methylPREDNISolone SOD SUCC 125 MG VIAL 60 MG IV PUSH (08:25)
[2022-11-09] MEDS: APIXABAN 5 MG TABLET FEED TUBE ×2 (08:25→20:47)
[2022-11-09] MEDS: ASPIRIN 325 MG TABLET FEED TUBE (08:25)
[2022-11-09] MEDS: METOPROLOL TARTRATE 12.5 MG TABLET PO (08:25)
[2022-11-09] MEDS: MINERAL OIL/WHITE PETROLATUM OINTMENT 1 APPLIC EACH EYE ×2 (08:25→20:47)
[2022-11-09] MEDS: EUCERIN CREAM 120 GM JAR 1 APPLIC TOPICAL (08:25)
--- NOTE | 2022-11-09 08:51 | WPDINTPN ---
Progress Note: A&P Assessment and Plan (1) Acute on chronic respiratory failure with hypoxia and hypercapnia: Code(s): J96.21 - Acute and chronic respiratory failure with hypoxia; J96.22 - Acute and chronic respiratory failure with hypercapnia Status: Acute Assessment and Plan: Acute on chronic respiratory failure with hypoxia and hypercarbia secondary to baseline severe COPD and pneumonia which could be community-acquired versus aspiration -01/31/2023: Patient was intubated in the field by EMS -chest x-ray this morning: Mild diffuse interstitial prominence. Correlate for chronic interstitial disease, atypical infection, or interstitial edema. ABG reviewed, wean FiO2 to maintain O2 sats greater than 88% -currently on methylprednisolone at 60 mg IV Q a.m -continue bronchodilators -continue Zosyn and azithromycin -11/06 blood cultures negative x2 -11/06 sputum cultures growing Moraxella catarrhalis - urine pneumococcal antigen -not detected, -urine Legionella antigen, mycoplasma IgM are pending 11/06/2022: CT scan of the chest showed 1. Scattered mucous plugging diffuse bilateral tree-in-bud opacities consistent with pneumonia including atypical fungal or mycobacterial pneumonia such as CLARA. 2. Moderate to severe emphysema. (2) COPD (chronic obstructive pulmonary disease): Code(s): J44.9 - Chronic obstructive pulmonary disease, unspecified Status: Acute Assessment and Plan: See above (3) Pneumonia: Code(s): J18.9 - Pneumonia, unspecified organism Status: Acute Assessment and Plan: See above (4) Acute kidney injury: Code(s): N17.9 - Acute kidney failure, unspecified Status: Acute Assessment and Plan: Likely secondary to hypotension, rhabdomyolysis Patient received 2 L fluid bolus and IV fluids were continued Urine electrolytes suggest prerenal CK level elevated at 633 Unremarkable renal ultrasound Creatinine has normalized with IV fluids, will discontinue IV fluid as patient tolerating tube feeds Monitor urine output electrolytes and creatinine (5) Elevated troponin: Code(s): R77.8 - Other specified abnormalities of plasma proteins Status: Acute Assessment and Plan: Patient has elevated troponin which is likely demand mediated ischemia from respiratory failure He does have history of coronary disease although details unknown EKG reviewed shows no ST elevation Serial troponins shows flat level Continue Eliquis and aspirin Hold statin due to elevated liver enzyme Blood pressures are much improved, will start low-dose beta-kylie 11/06/2022 Echocardiogram: EF 50-55%, grade 1 diastolic dysfunction, RV chamber mildly enlarged, RV systolic function is normal, no significant valvular disease (6) Coronary artery disease: Code(s): I25.10 - Atherosclerotic heart disease of [place] coronary artery without angina pectoris Status: Acute Assessment and Plan: See above (7) Congestive heart failure: Code(s): I50.9 - Heart failure, unspecified Status: Acute Assessment and Plan: Suspect patient has right heart failure from severe COPD Echocardiogram as above (8) Swelling of lower extremity: Code(s): M79.89 - Other specified soft tissue disorders Status: Acute Assessment and Plan: As above Negative lower extremity Dopplers for DVT (9) Encephalopathy: Code(s): G93.40 - Encephalopathy, unspecified Status: Acute Assessment and Plan: Likely toxic metabolic encephalopathy secondary to hypercarbia, opioid and now sedation Normal ammonia and TSH Head CT was negative Low lithium level -will start low-dose fentanyl to prevent opioid withdrawal (10) Hyperlipidemia: Code(s): E78.5 - Hyperlipidemia, unspecified Status: Acute Assessment and Plan: Hold statin due to elevated liver enzyme (11) Hypotension: Code(s): I95.9 - Hypotension, unspecified S
--- NOTE | 2022-11-09 11:12 | PCNFU ---
Nutrition Follow-Up Complete: Inadequate Oral Intake as related to mechanical ventilation as evidenced by NPO Goal: Meet estimated nutritional needs Patient is progressing towards goal. We will continue current goal. Pt current nutrition is Vital AF 1.2 at 60 ml/hr. Last recorded weight is 67.9 kg. Bowel Motility:FMS Labs Reviewed: BUN 31, Alb 2.5 Meds Noted:Propofol at 25 mcgs or 9.9 ml/ek=784 kcals, Zosyn, Lantus, Eliquis Skin: WNL Additional Notes: Patient remains on mechanical vent and tube feedings of Vital AF 1.2. Rate increased to 60ml/hr today .Total Nutrition: 1848 kcals/99 gms protein/1071 ml water. Patient is meeting 100% kcal and protein needs. Flush 30 ml q 4 hours. Banantrol TF BID for stool bulking. Will monitor in ICU rounds and reassess every Saturday and Saturday.
[2022-11-09 12:52] LABS: Glucose Point of Care 198 mg/dl (65-105)
[2022-11-09] MEDS: PROPOFOL IV EMULSION 100 ML 9.9 MG IV CONT (14:01)
--- NOTE | 2022-11-09 17:03 | PM.IMPN ---
Progress Note: A&P Assessment and Plan (1) Acute on chronic respiratory failure with hypoxia and hypercapnia: Code(s): J96.21 - Acute and chronic respiratory failure with hypoxia; J96.22 - Acute and chronic respiratory failure with hypercapnia Status: Acute Assessment and Plan: Acute on chronic respiratory failure with hypoxia and hypercarbia secondary to baseline severe COPD and pneumonia which could be community-acquired versus aspiration 01/31/2023: intubated chest x-ray: Mild diffuse interstitial prominence. Correlate for chronic interstitial disease, atypical infection, or interstitial edema. on methylprednisolone at 60 mg IV continue bronchodilators -continue Zosyn and azithromycin -11/06 blood cultures negative x2 -11/06 sputum cultures growing Moraxella catarrhalis - urine pneumococcal antigen -not detected, -urine Legionella antigen, mycoplasma IgM are pending 11/06/2022: CT scan of the chest showed 1. Scattered mucous plugging diffuse bilateral tree-in-bud opacities consistent with pneumonia including atypical fungal or mycobacterial pneumonia such as CLARA. 2. Moderate to severe emphysema. (2) COPD (chronic obstructive pulmonary disease): Code(s): J44.9 - Chronic obstructive pulmonary disease, unspecified Status: Acute Assessment and Plan: See above (3) Pneumonia: Code(s): J18.9 - Pneumonia, unspecified organism Status: Acute Assessment and Plan: See above (4) Acute kidney injury: Code(s): N17.9 - Acute kidney failure, unspecified Status: Acute Assessment and Plan: Likely secondary to hypotension, rhabdomyolysis Patient received 2 L fluid bolus and IV fluids were continued Urine electrolytes suggest prerenal CK level elevated at 633 Unremarkable renal ultrasound Creatinine has normalized with IV fluids, will discontinue IV fluid as patient tolerating tube feeds Monitor urine output electrolytes and creatinine (5) Elevated troponin: Code(s): R77.8 - Other specified abnormalities of plasma proteins Status: Acute Assessment and Plan: Patient has elevated troponin which is likely demand mediated ischemia from respiratory failure He does have history of coronary disease although details unknown EKG reviewed shows no ST elevation Serial troponins shows flat level Continue Eliquis and aspirin Hold statin due to elevated liver enzyme Blood pressures are much improved, will start low-dose beta-kylie 11/06/2022 Echocardiogram: EF 50-55%, grade 1 diastolic dysfunction, RV chamber mildly enlarged, RV systolic function is normal, no significant valvular disease (6) Coronary artery disease: Code(s): I25.10 - Atherosclerotic heart disease of [place] coronary artery without angina pectoris Status: Acute Assessment and Plan: See above (7) Congestive heart failure: Code(s): I50.9 - Heart failure, unspecified Status: Acute Assessment and Plan: Suspect patient has right heart failure from severe COPD Echocardiogram as above (8) Swelling of lower extremity: Code(s): M79.89 - Other specified soft tissue disorders Status: Acute Assessment and Plan: As above Negative for lower extremity Dopplers for DVT (9) Encephalopathy: Code(s): G93.40 - Encephalopathy, unspecified Status: Acute Assessment and Plan: Likely toxic metabolic encephalopathy secondary to hypercarbia, opioid and now sedation Normal ammonia and TSH Head CT was negative Low lithium level started on low-dose fentanyl to prevent opioid withdrawal (10) Hyperlipidemia: Code(s): E78.5 - Hyperlipidemia, unspecified Status: Acute Assessment and Plan: Hold statin due to elevated liver enzyme (11) Hypotension: Code(s): I95.9 - Hypotension, unspecified Status: Acute Assessment and Plan: Likely secondary to hypovolemia, sedation possible early sepsis Normal lactic acid
[2022-11-09 17:27] LABS: Glucose Point of Care 256 mg/dl (65-105)
[2022-11-09] MEDS: INSULIN ASPART (*BKC) 100 UNITS/ML SUB-Q ×2 (17:27→20:48)
[2022-11-09] MEDS: PROPOFOL IV EMULSION 100 ML 3.96 MG IV CONT (17:41)
[2022-11-09 17:55] LABS: Mycoplasma IgM Antibody Titer 109 U/mL (<770)
[2022-11-09] MEDS: PROPOFOL IV EMULSION 100 ML 7.92 MG IV CONT (20:12)
[2022-11-09 20:47] LABS: Glucose Point of Care 203 mg/dl (65-105)
[2022-11-09 21:07] LABS: Legionella pneumophila Ag Ur Not Detected (Not Detected)
--- NOTE | 2022-11-09 22:00 | PM.EVENT ---
Event Note Event Note Event Note: 2129 I was called to ICU as the patient pulled out his ET tube. The patient was speaking in full sentences and we applied 5 L per nasal cannula and suction the patient. We had him cough a few times he was satting 98-100% on the 5 L however, he was struggling to breathe and had stridor. The patient was belly breathing and using accessory muscles to breathe. The patient continued to struggle even we gave him time to recover on his own. The patient continued to struggle. I explained to him that we will need to reintubate. Dr. Ramirez was called by the nursing staff and was given sedation orders for Versed. See intubation note. I spent approximately 30 minutes with the patient trying to stabilize him.
--- NOTE | 2022-11-09 22:04 | WPDPROCEDUR ---
Procedures Intubation Intubation Date: 11/09/22 Intubation Time: 21:45 Sedative: etomidate Mg given: 30 Paralytic: rocuronium Mg given: 30 Laryngoscope: fiber optic video scope Assist device used: fiber optic device ET tube size: 7.5 Tube secured depth (cm): 23 Tube secured location: lips Tube placement confirmation: visualized tube passing through cords, equal breath sounds bilaterally and confirmation by capnometry Patient tolerated procedure: well Intubation complications: none
[2022-11-09] MEDS: ETOMIDATE 20 MG/10 ML AMPUL 30 MG IV PUSH (22:13)
[2022-11-09] MEDS: MIDAZOLAM 100MG/NS 100ML(*CRX) 100 MG/100 ML BAG IV CONT (22:14)
[2022-11-09] MEDS: ROCURONIUM BROMIDE 50 MG/5 ML VIAL 30 MG IV PUSH (22:20)
--- NOTE | 2022-11-09 22:58 | PC.NURSE ---
2129 Patient self extubated. Patient was put on NC at 15L, O2 sats were 93%. Given Etomindate 30mg, Rocuronium 30mg then reintubated by CARA Nicole at 2139. Dr. Navarrete was notified and gave order to D/C Propofol due to bradycardia and to start Versed instead.
[2022-11-10] VITALS (32 sets, daily range): BP systolic 114–149; BP diastolic 64–83; PULSE 48–83; RESP 20–25; TEMP 36.6–37.1; O2SAT 91–99
[2022-11-10 00:51] LABS: Glucose Point of Care 140 mg/dl (65-105)
[2022-11-10] MEDS: ALBUTEROL SULFATE NEB 2.5 MG/3 ML INH INHALATION ×4 (02:53→19:53)
[2022-11-10] MEDS: IPRATROPIUM BR 0.02% INH SOLN 0.5 MG/2.5 ML VIAL INHALATION ×4 (02:53→19:53)
[2022-11-10 05:00] LABS: Basophils Percent Auto 0.3 % (0.2-1.2); Eosinophils Percent Auto 0.1 % (0-4.4); Hematocrit 32.1 % (42.0-52.0); Hemoglobin 10.1 g/dL (14.0-18.0); Immature Granulocyte Absolute 0.31 K/mm3 (0.00-0.031); Immature Granulocyte Percent A 4.4 % (0-0.5); Lymphocytes Absolute Auto 0.91 K/mm3 (0.9-3.2); Lymphocytes Percent Auto 12.8 % (18.3-44.2); Mean Corpuscular HGB Conc 31.5 g/dl (32-36); Mean Corpuscular Hemoglobin 28.4 pg (26-34); Mean Corpuscular Volume 90.2 fl (80-100); Mean Platelet Volume 11.2 fl (7.4-10.4); Monocytes Absolute Auto 0.9 K/mm3 (0.1-0.6); Monocytes Percent Auto 12.7 % (2.6-8.5); Neutrophils Percent Auto 69.7 % (45.5-73.1); Nucleated Red Blood Cells Perc 0.3 % (0.0-0.2); Platelet Count Result 270 k/mm3 (150-375); Red Blood Count 3.56 M/mm3 (4.6-6.20); Red Cell Distribution Width 14.6 % (11.5-14.5); White Blood Count 7.1 K/mm3 (4.5-10.0)
[2022-11-10 05:21] LABS: Alanine Aminotransferase 43 U/L (6-50); Albumin Level 2.6 g/dL (3.5-5.1); Alkaline Phosphatase 63 U/L (38-126); Anion Gap 1 mmol/L (8-16); Aspartate Amino Transferase 29 U/L (17-59); Bilirubin,Total 0.3 mg/dL (0.2-1.3); Blood Urea Nitrogen 41 mg/dL (9-20); Calcium 8.1 mg/dL (8.4-10.2); Carbon Dioxide 33 mmol/L (22-30); Chloride 108 mmol/L (98-107); Creatine Kinase 94 U/L (55-170); Estimated CRCL calculation 78 ml/min; Estimated Glomerular Filt Rate > 60; Glucose 115 mg/dL (65-110); Magnesium 1.9 mg/dL (1.6-2.3); Potassium 3.7 mmol/L (3.4-5.0); Sodium 142 mmol/L (137-145)
[2022-11-10] MEDS: CENTRAL LINE FLUSH 10 ML IV PUSH ×3 (05:21→20:40)
[2022-11-10 05:23] LABS: Alveolar/Arterial O2 Gradient 126.8 mmHg; Base Excess ABG 3.8 mEq/l (+/-2.0); Carboxyhemoglobin 0.3 % THb (0-2.0); Fractional Inspired Oxygen 40 %; HCO3 ABG 29.8 mEq/l (22.0-26.0); Methemoglobin ABG 0.4 %THb (0-1.5); Oxygen Content ABG 18.2 %vol (16.0-22.0); Oxygen Saturation ABG 97.4 % (95.0-100.0); Oxyhemoglobin 96.5 % THb (90.0-100.0); PCO2 ABG 50.7 mmHg (35.0-45.0); PO2 ABG 100.1 mmHg (80.0-100.0); Reduced Hemoglobin 2.8 %THb (0-5.0); Total Hemoglobin 13.3 g/dL (12.0-18.0); pH ABG 7.387 (7.350-7.450)
[2022-11-10 05:26] LABS: Site Drawn LEFT RADIAL
[2022-11-10 05:27] LABS: Arterial Blood Gas PEEP 5 cmH2O; Arterial Blood Gas Vent Mode CMV; Arterial Blood Gas Ventilator rate 22 /MIN; Device VENTILATOR; Modified Allen's Test Pass
[2022-11-10 05:28] LABS: Arterial Blood Gas Tidal Volume 480 ml
--- NOTE | 2022-11-10 08:21 | WPDINTPN ---
Progress Note: A&P Assessment and Plan (1) Acute on chronic respiratory failure with hypoxia and hypercapnia: Code(s): J96.21 - Acute and chronic respiratory failure with hypoxia; J96.22 - Acute and chronic respiratory failure with hypercapnia Status: Acute Assessment and Plan: Acute on chronic respiratory failure with hypoxia and hypercarbia secondary to baseline severe COPD and pneumonia which could be community-acquired versus aspiration -01/31/2023: Patient was intubated in the field by EMS 11/10 -self-extubated but reintubated due to respiratory distress and work of breathing -chest x-ray reviewed - ABG reviewed -currently on methylprednisolone at 60 mg IV Q a.m -continue bronchodilators -continue Zosyn and discontinue azithromycin -11/06 blood cultures negative x2 -11/06 sputum cultures growing Moraxella catarrhalis - urine pneumococcal antigen -not detected, -urine Legionella antigen, mycoplasma IgM are negative 11/06/2022: CT scan of the chest showed 1. Scattered mucous plugging diffuse bilateral tree-in-bud opacities consistent with pneumonia including atypical fungal or mycobacterial pneumonia such as CLARA. 2. Moderate to severe emphysema. (2) COPD (chronic obstructive pulmonary disease): Code(s): J44.9 - Chronic obstructive pulmonary disease, unspecified Status: Acute Assessment and Plan: See above (3) Pneumonia: Code(s): J18.9 - Pneumonia, unspecified organism Status: Acute Assessment and Plan: See above (4) Acute kidney injury: Code(s): N17.9 - Acute kidney failure, unspecified Status: Acute Assessment and Plan: Likely secondary to hypotension, rhabdomyolysis Patient received 2 L fluid bolus and IV fluids were continued Urine electrolytes suggest prerenal CK level elevated at 633 Unremarkable renal ultrasound Creatinine has normalized with IV fluids, will discontinue IV fluid as patient tolerating tube feeds Monitor urine output electrolytes and creatinine (5) Elevated troponin: Code(s): R77.8 - Other specified abnormalities of plasma proteins Status: Acute Assessment and Plan: Patient has elevated troponin which is likely demand mediated ischemia from respiratory failure He does have history of coronary disease although details unknown EKG reviewed shows no ST elevation Serial troponins shows flat level Continue Eliquis and aspirin Hold statin due to elevated liver enzyme Blood pressures are much improved, will start low-dose beta-kylie 11/06/2022 Echocardiogram: EF 50-55%, grade 1 diastolic dysfunction, RV chamber mildly enlarged, RV systolic function is normal, no significant valvular disease (6) Coronary artery disease: Code(s): I25.10 - Atherosclerotic heart disease of [place] coronary artery without angina pectoris Status: Acute Assessment and Plan: See above (7) Congestive heart failure: Code(s): I50.9 - Heart failure, unspecified Status: Acute Assessment and Plan: Suspect patient has right heart failure from severe COPD Echocardiogram as above (8) Swelling of lower extremity: Code(s): M79.89 - Other specified soft tissue disorders Status: Acute Assessment and Plan: As above Negative lower extremity Dopplers for DVT (9) Encephalopathy: Code(s): G93.40 - Encephalopathy, unspecified Status: Acute Assessment and Plan: Likely toxic metabolic encephalopathy secondary to hypercarbia, opioid and now sedation Normal ammonia and TSH Head CT was negative Low lithium level and not sure if patient was taking it Patient currently on fentanyl to prevent opioid withdrawal (10) Hyperlipidemia: Code(s): E78.5 - Hyperlipidemia, unspecified Status: Acute Assessment and Plan: Hold statin due to elevated liver enzyme (11) Hypotension: Code(s): I95.9 - Hypotension, unspecified Status: Acute Assessment and Airam
[2022-11-10] MEDS: POTASSIUM BICARBONATE 25 MEQ TABEF 50 MEQ FEED TUBE (08:38)
[2022-11-10] MEDS: methylPREDNISolone SOD SUCC 125 MG VIAL 60 MG IV PUSH (08:43)
[2022-11-10] MEDS: SILVERGEL (ELTA) 45 ML 1 APPLIC TOPICAL (08:44)
[2022-11-10] MEDS: PANTOPRAZOLE SODIUM IV 40 MG VIAL IV PUSH (08:44)
[2022-11-10] MEDS: METOPROLOL TARTRATE 12.5 MG TABLET PO ×2 (08:44→20:40)
[2022-11-10] MEDS: MINERAL OIL/WHITE PETROLATUM OINTMENT 1 APPLIC EACH EYE ×2 (08:45→20:38)
[2022-11-10] MEDS: EUCERIN CREAM 120 GM JAR 1 APPLIC TOPICAL (08:45)
[2022-11-10] MEDS: ASPIRIN 325 MG TABLET FEED TUBE (08:55)
[2022-11-10] MEDS: APIXABAN 5 MG TABLET FEED TUBE ×2 (08:55→20:39)
[2022-11-10] MEDS: INSULIN GLARGINE (*BKC) 100 UNITS/ML 15 UNITS SUB-Q (09:10)
[2022-11-10 09:59] LABS: Glucose Point of Care 131 mg/dl (65-105)
[2022-11-10 11:40] LABS: Glucose Point of Care 150 mg/dl (65-105)
[2022-11-10] MEDS: INSULIN ASPART (*BKC) 100 UNITS/ML SUB-Q (17:00)
[2022-11-10 18:14] LABS: Glucose Point of Care 220 mg/dl (65-105)
[2022-11-10 20:44] LABS: Glucose Point of Care 198 mg/dl (65-105)
[2022-11-11] VITALS (40 sets, daily range): BP systolic 102–152; BP diastolic 66–90; PULSE 47–84; RESP 22–25; TEMP 36.7–37.3; O2SAT 90–100
[2022-11-11] MEDS: FENTANYL 2,500MCG/NS250ML(*CRX 2,500 MCG/250 ML BAG IV CONT (00:13)
[2022-11-11 00:39] LABS: Glucose Point of Care 165 mg/dl (65-105)
[2022-11-11 01:53] LABS: Triglycerides 118 mg/dL (<150)
[2022-11-11] MEDS: IPRATROPIUM BR 0.02% INH SOLN 0.5 MG/2.5 ML VIAL INHALATION ×4 (03:03→20:26)
[2022-11-11] MEDS: ALBUTEROL SULFATE NEB 2.5 MG/3 ML INH INHALATION ×4 (03:03→20:26)
[2022-11-11 03:40] LABS: Basophils Percent Auto 0.3 % (0.2-1.2); Eosinophils Percent Auto 0.5 % (0-4.4); Hematocrit 31.8 % (42.0-52.0); Immature Granulocyte Percent A 3.8 % (0-0.5); Lymphocytes Absolute Auto 1.08 K/mm3 (0.9-3.2); Lymphocytes Percent Auto 13.6 % (18.3-44.2); Mean Corpuscular HGB Conc 31.4 g/dl (32-36); Mean Corpuscular Hemoglobin 28.3 pg (26-34); Mean Corpuscular Volume 90.1 fl (80-100); Mean Platelet Volume 10.7 fl (7.4-10.4); Monocytes Absolute Auto 0.9 K/mm3 (0.1-0.6); Monocytes Percent Auto 11.1 % (2.6-8.5); Neutrophils Absolute Auto 5.6 K/mm3 (1.3-6.7); Neutrophils Percent Auto 70.7 % (45.5-73.1); Nucleated Red Blood Cells Perc 0.3 % (0.0-0.2); Platelet Count Result 245 k/mm3 (150-375); Red Blood Count 3.53 M/mm3 (4.6-6.20); Red Cell Distribution Width 14.4 % (11.5-14.5)
[2022-11-11 03:50] LABS: Alanine Aminotransferase 46 U/L (6-50); Albumin Level 2.7 g/dL (3.5-5.1); Alkaline Phosphatase 63 U/L (38-126); Anion Gap 1 mmol/L (8-16); Aspartate Amino Transferase 33 U/L (17-59); Bilirubin,Total 0.4 mg/dL (0.2-1.3); Blood Urea Nitrogen 44 mg/dL (9-20); Calcium 8.2 mg/dL (8.4-10.2); Carbon Dioxide 34 mmol/L (22-30); Chloride 101 mmol/L (98-107); Creatine Kinase 67 U/L (55-170); Estimated CRCL calculation 78 ml/min; Estimated Glomerular Filt Rate > 60; Glucose 131 mg/dL (65-110); Magnesium 1.8 mg/dL (1.6-2.3); Potassium 4.1 mmol/L (3.4-5.0); Sodium 136 mmol/L (137-145)
[2022-11-11 05:46] LABS: Alveolar/Arterial O2 Gradient 115.6 mmHg; Carboxyhemoglobin 0.5 % THb (0-2.0); Fractional Inspired Oxygen 35 %; HCO3 ABG 30.8 mEq/l (22.0-26.0); Methemoglobin ABG 0.3 %THb (0-1.5); Oxygen Content ABG 19.8 %vol (16.0-22.0); Oxygen Saturation ABG 95.4 % (95.0-100.0); Oxyhemoglobin 94.5 % THb (90.0-100.0); PCO2 ABG 49.2 mmHg (35.0-45.0); PO2 ABG 76.8 mmHg (80.0-100.0); PO2 FiO2 Ratio Arterial Blood 2.19 %; Reduced Hemoglobin 4.7 %THb (0-5.0); Total Hemoglobin 14.9 g/dL (12.0-18.0); pH ABG 7.414 (7.350-7.450)
[2022-11-11 05:47] LABS: Modified Allen's Test Unable to perform; Site Drawn LEFT RADIAL
[2022-11-11 05:48] LABS: Arterial Blood Gas Vent Mode CMV; Arterial Blood Gas Ventilator rate 22 /MIN; Device VENTILATOR
[2022-11-11 05:49] LABS: Arterial Blood Gas PEEP 5 cmH2O; Arterial Blood Gas Tidal Volume 480 ml
[2022-11-11] MEDS: CENTRAL LINE FLUSH 10 ML IV PUSH ×3 (05:52→20:01)
--- NOTE | 2022-11-11 08:09 | WPDINTPN ---
Progress Note: A&P Assessment and Plan (1) Acute on chronic respiratory failure with hypoxia and hypercapnia: Code(s): J96.21 - Acute and chronic respiratory failure with hypoxia; J96.22 - Acute and chronic respiratory failure with hypercapnia Status: Acute Assessment and Plan: Acute on chronic respiratory failure with hypoxia and hypercarbia secondary to baseline severe COPD and pneumonia which could be community-acquired versus aspiration -01/31/2023: Patient was intubated in the field by EMS 11/10 -self-extubated but reintubated due to respiratory distress and work of breathing -chest x-ray reviewed-will give IV Lasix today - ABG reviewed -currently on methylprednisolone at 60 mg IV Q a.m -continue bronchodilators -continue Zosyn and discontinued azithromycin -11/06 blood cultures negative x2 -11/06 sputum cultures growing Moraxella catarrhalis - urine pneumococcal antigen -not detected, -urine Legionella antigen, mycoplasma IgM are negative -plan for sedation holiday and PSV trial today 11/06/2022: CT scan of the chest showed 1. Scattered mucous plugging diffuse bilateral tree-in-bud opacities consistent with pneumonia including atypical fungal or mycobacterial pneumonia such as CLARA. 2. Moderate to severe emphysema. (2) COPD (chronic obstructive pulmonary disease): Code(s): J44.9 - Chronic obstructive pulmonary disease, unspecified Status: Acute Assessment and Plan: See above (3) Pneumonia: Code(s): J18.9 - Pneumonia, unspecified organism Status: Acute Assessment and Plan: See above (4) Acute kidney injury: Code(s): N17.9 - Acute kidney failure, unspecified Status: Acute Assessment and Plan: Likely secondary to hypotension, rhabdomyolysis Patient received 2 L fluid bolus and IV fluids were continued Urine electrolytes suggest prerenal CK level elevated at 633 on admission and has normalized now Unremarkable renal ultrasound Creatinine has normalized with IV fluids, will discontinue IV fluid as patient tolerating tube feeds Monitor urine output electrolytes and creatinine (5) Elevated troponin: Code(s): R77.8 - Other specified abnormalities of plasma proteins Status: Acute Assessment and Plan: Patient has elevated troponin which is likely demand mediated ischemia from respiratory failure He does have history of coronary disease although details unknown EKG reviewed shows no ST elevation Serial troponins shows flat level Continue Eliquis and aspirin Resume statin which was held on admission due to elevated liver enzyme Blood pressures are much improved, will start low-dose beta-kylie 11/06/2022 Echocardiogram: EF 50-55%, grade 1 diastolic dysfunction, RV chamber mildly enlarged, RV systolic function is normal, no significant valvular disease (6) Coronary artery disease: Code(s): I25.10 - Atherosclerotic heart disease of [place] coronary artery without angina pectoris Status: Acute Assessment and Plan: See above (7) Congestive heart failure: Code(s): I50.9 - Heart failure, unspecified Status: Acute Assessment and Plan: Suspect patient has right heart failure from severe COPD Echocardiogram as above Lasix IV ordered today (8) Swelling of lower extremity: Code(s): M79.89 - Other specified soft tissue disorders Status: Acute Assessment and Plan: As above Negative lower extremity Dopplers for DVT (9) Encephalopathy: Code(s): G93.40 - Encephalopathy, unspecified Status: Acute Assessment and Plan: Likely toxic metabolic encephalopathy secondary to hypercarbia, opioid and now sedation Normal ammonia and TSH Head CT was negative Low lithium level and not sure if patient was taking it Patient currently on fentanyl to prevent opioid withdrawal (10) Hyperlipidemia: Code(s): E78.5 - Hyperlipidemia, unspecified Status: Acute Assessment and Airam
[2022-11-11] MEDS: methylPREDNISolone SOD SUCC 125 MG VIAL 60 MG IV PUSH (08:11)
[2022-11-11] MEDS: FUROSEMIDE INJ 40 MG/4 ML VIAL 20 MG IV PUSH (08:12)
[2022-11-11] MEDS: APIXABAN 5 MG TABLET FEED TUBE ×2 (08:12→20:02)
[2022-11-11] MEDS: METOPROLOL TARTRATE 12.5 MG TABLET PO (08:12)
[2022-11-11] MEDS: ASPIRIN 325 MG TABLET FEED TUBE (08:13)
[2022-11-11] MEDS: PANTOPRAZOLE SODIUM IV 40 MG VIAL IV PUSH (08:14)
[2022-11-11] MEDS: MINERAL OIL/WHITE PETROLATUM OINTMENT 1 APPLIC EACH EYE (08:14)
[2022-11-11] MEDS: INSULIN GLARGINE (*BKC) 100 UNITS/ML 15 UNITS SUB-Q (08:15)
[2022-11-11] MEDS: SILVERGEL (ELTA) 45 ML 1 APPLIC TOPICAL (08:15)
[2022-11-11 08:47] LABS: Glucose Point of Care 110 mg/dl (65-105)
[2022-11-11] MEDS: dexmedeTOMIDine 400 MCG/100 ML 400 MCG/100 ML BAG IV CONT (09:46)
[2022-11-11] MEDS: ROSUVASTATIN 10 MG TABLET 40 MG PO (10:19)
[2022-11-11 12:35] LABS: Glucose Point of Care 188 mg/dl (65-105)
--- NOTE | 2022-11-11 15:25 | P.PNIM_ITS ---
Progress Note: A&P Assessment and Plan (1) Acute on chronic respiratory failure with hypoxia and hypercapnia: Code(s): J96.21 - Acute and chronic respiratory failure with hypoxia; J96.22 - Acute and chronic respiratory failure with hypercapnia Status: Acute Assessment and Plan: Acute on chronic respiratory failure with hypoxia and hypercarbia secondary to baseline severe COPD and pneumonia which could be community- acquired versus aspiration 01/31/2023: intubated chest x-ray: Mild diffuse interstitial prominence. Correlate for chronic interstitial disease, atypical infection, or interstitial edema. on methylprednisolone at 60 mg IV continue bronchodilators -continue Zosyn and azithromycin -11/06 blood cultures negative x2 -11/06 sputum cultures growing Moraxella catarrhalis - urine pneumococcal antigen -not detected, -urine Legionella antigen, mycoplasma IgM are Negative 11/06/2022: CT scan of the chest showed 1. Scattered mucous plugging diffuse bilateral tree-in-bud opacities consistent with pneumonia including atypical fungal or mycobacterial pneumonia such as CLARA. 2. Moderate to severe emphysema. 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 (2) COPD (chronic obstructive pulmonary disease): Code(s): J44.9 - Chronic obstructive pulmonary disease, unspecified Status: Acute Assessment and Plan: See above (3) Pneumonia: Code(s): J18.9 - Pneumonia, unspecified organism Status: Acute Assessment and Plan: See above (4) Acute kidney injury: Code(s): N17.9 - Acute kidney failure, unspecified Status: Acute Assessment and Plan: Likely secondary to hypotension, rhabdomyolysis Patient received 2 L fluid bolus and IV fluids were continued Urine electrolytes suggest prerenal CK level elevated at 633 Unremarkable renal ultrasound Creatinine has normalized with IV fluids, will discontinue IV fluid as patient tolerating tube feeds Monitor urine output electrolytes and creatinine (5) Elevated troponin: Code(s): R77.8 - Other specified abnormalities of plasma proteins Status: Acute Assessment and Plan: Patient has elevated troponin which is likely demand mediated ischemia from respiratory failure He does have history of coronary disease although details unknown EKG reviewed shows no ST elevation Serial troponins shows flat level Continue Eliquis and aspirin Hold statin due to elevated liver enzyme Blood pressures are much improved, will start low-dose beta-kylie 11/06/2022 Echocardiogram: EF 50-55%, grade 1 diastolic dysfunction, RV chamber mildly enlarged, RV systolic function is normal, no significant valvular disease (6) Coronary artery disease: Code(s): I25.10 - Atherosclerotic heart disease of [place] coronary artery without angina pectoris Status: Acute Assessment and Plan: See above (7) Congestive heart failure: Code(s): I50.9 - Heart failure, unspecified Status: Acute Assessment and Plan: Suspect patient has right heart failure from severe COPD Echocardiogram as above (8) Swelling of lower extremity: Code(s): M79.89 - Other specified soft tissue disorders Status: Acute Assessment and Plan: As above Negative for lower extremity Dopplers for DVT (9) Encephalopathy: Code(s): G93.40 - Encephalopathy, unspecified Status: Acute Assessment and Plan: Likely toxic metabolic encephalopathy secondary to hypercarbia, opioid and now sedation Normal ammonia and TSH Head CT was negative Low lithium level star
[2022-11-11 16:12] LABS: Glucose Point of Care 241 mg/dl (65-105)
[2022-11-11] MEDS: INSULIN ASPART (*BKC) 100 UNITS/ML SUB-Q ×2 (17:09→20:00)
[2022-11-11 20:01] LABS: Glucose Point of Care 234 mg/dl (65-105)
[2022-11-11] MEDS: PROPOFOL IV EMULSION 100 ML 2.13 MG IV CONT (22:08)
[2022-11-11 23:42] LABS: Glucose Point of Care 121 mg/dl (65-105)
[2022-11-12] VITALS (32 sets, daily range): BP systolic 109–161; BP diastolic 70–91; PULSE 43–87; RESP 11–22; TEMP 36.9–37.2; O2SAT 93–100
[2022-11-12] MEDS: FENTANYL 2,500MCG/NS250ML(*CRX 2,500 MCG/250 ML BAG 10 MCG IV CONT (01:26)
[2022-11-12] MEDS: IPRATROPIUM BR 0.02% INH SOLN 0.5 MG/2.5 ML VIAL INHALATION ×4 (02:00→20:05)
[2022-11-12] MEDS: ALBUTEROL SULFATE NEB 2.5 MG/3 ML INH INHALATION ×4 (02:00→20:05)
[2022-11-12 04:24] LABS: Basophils Percent Auto 0.3 % (0.2-1.2); Eosinophils Absolute Auto 0.2 K/mm3 (0-0.3); Eosinophils Percent Auto 1.3 % (0-4.4); Hematocrit 31.9 % (42.0-52.0); Hemoglobin 10.3 g/dL (14.0-18.0); Immature Granulocyte Absolute 0.37 K/mm3 (0.00-0.031); Immature Granulocyte Percent A 3.1 % (0-0.5); Lymphocytes Absolute Auto 1.65 K/mm3 (0.9-3.2); Mean Corpuscular HGB Conc 32.3 g/dl (32-36); Mean Corpuscular Hemoglobin 28.2 pg (26-34); Mean Corpuscular Volume 87.4 fl (80-100); Mean Platelet Volume 10.9 fl (7.4-10.4); Monocytes Absolute Auto 1.1 K/mm3 (0.1-0.6); Monocytes Percent Auto 9.4 % (2.6-8.5); Neutrophils Absolute Auto 8.5 K/mm3 (1.3-6.7); Neutrophils Percent Auto 71.9 % (45.5-73.1); Platelet Count Result 270 k/mm3 (150-375); Red Blood Count 3.65 M/mm3 (4.6-6.20); Red Cell Distribution Width 14.1 % (11.5-14.5); White Blood Count 11.8 K/mm3 (4.5-10.0)
[2022-11-12 04:33] LABS: Creatine Kinase 80 U/L (55-170); Triglycerides 130 mg/dL (<150)
[2022-11-12 04:39] LABS: Alanine Aminotransferase 73 U/L (6-50); Albumin Level 2.8 g/dL (3.5-5.1); Alkaline Phosphatase 64 U/L (38-126); Anion Gap 1 mmol/L (8-16); Aspartate Amino Transferase 51 U/L (17-59); Bilirubin,Total 0.5 mg/dL (0.2-1.3); Blood Urea Nitrogen 44 mg/dL (9-20); Calcium 8.3 mg/dL (8.4-10.2); Carbon Dioxide 36 mmol/L (22-30); Chloride 99 mmol/L (98-107); Estimated CRCL calculation 78 ml/min; Estimated Glomerular Filt Rate > 60; Glucose 85 mg/dL (65-110); Potassium 3.8 mmol/L (3.4-5.0); Sodium 136 mmol/L (137-145)
[2022-11-12 04:53] LABS: Alveolar/Arterial O2 Gradient 108.1 mmHg; Base Excess ABG 8.8 mEq/l (+/-2.0); Carboxyhemoglobin 0.3 % THb (0-2.0); Fractional Inspired Oxygen 35 %; HCO3 ABG 33.9 mEq/l (22.0-26.0); Methemoglobin ABG 0.3 %THb (0-1.5); Oxygen Content ABG 16.1 %vol (16.0-22.0); Oxygen Saturation ABG 96.7 % (95.0-100.0); Oxyhemoglobin 95.5 % THb (90.0-100.0); PCO2 ABG 49.1 mmHg (35.0-45.0); PO2 ABG 84.4 mmHg (80.0-100.0); PO2 FiO2 Ratio Arterial Blood 2.41 %; Reduced Hemoglobin 3.9 %THb (0-5.0); Total Hemoglobin 11.9 g/dL (12.0-18.0); pH ABG 7.457 (7.350-7.450)
[2022-11-12 04:55] LABS: Arterial Blood Gas Vent Mode CMV; Arterial Blood Gas Ventilator rate 22 /MIN; Device VENTILATOR; Modified Allen's Test Pass; Site Drawn RIGHT RADIAL
[2022-11-12 04:56] LABS: Arterial Blood Gas PEEP 5 cmH2O; Arterial Blood Gas Tidal Volume 480 ml
[2022-11-12] MEDS: CENTRAL LINE FLUSH 10 ML IV PUSH ×4 (05:17→20:29)
[2022-11-12 07:42] LABS: Glucose Point of Care 116 mg/dl (65-105)
[2022-11-12] MEDS: APIXABAN 5 MG TABLET FEED TUBE ×2 (08:18→20:28)
[2022-11-12] MEDS: ASPIRIN 325 MG TABLET FEED TUBE (08:18)
[2022-11-12] MEDS: methylPREDNISolone SOD SUCC 125 MG VIAL 60 MG IV PUSH (08:19)
[2022-11-12] MEDS: ROSUVASTATIN 10 MG TABLET 40 MG PO (08:19)
[2022-11-12] MEDS: PANTOPRAZOLE SODIUM IV 40 MG VIAL IV PUSH (08:19)
[2022-11-12] MEDS: EUCERIN CREAM 120 GM JAR 1 APPLIC TOPICAL (08:27)
[2022-11-12] MEDS: INSULIN GLARGINE (*BKC) 100 UNITS/ML 15 UNITS SUB-Q (08:27)
[2022-11-12] MEDS: SILVERGEL (ELTA) 45 ML 1 APPLIC TOPICAL (08:27)
[2022-11-12] MEDS: FUROSEMIDE INJ 40 MG/4 ML VIAL IV PUSH (10:44)
[2022-11-12 11:14] LABS: Arterial Blood Gas PEEP 8 cmH2O; Arterial Blood Gas Tidal Volume 480 ml; Arterial Blood Gas Vent Mode CMV; Arterial Blood Gas Ventilator rate 20 /MIN
--- NOTE | 2022-11-12 11:32 | PCFNICU ---
ICU Rounding Note: Pt current nutrition is Vital AF 1.2 @ 60 ml/h with flushes 30 ml q 4 hours. Propofol @ 6.39 ml/h for 169 kcals. Total 2017 kcals, 99 g protein, 1071 ml free water. Nutrition recommendation: Continue current tube feeding and flushes Last recorded weight is 71.5 kg. Bowel Motility: Liquid stools per FMS Labs Reviewed: Hgb 10.3, Hct 31.9, Alb 2.8, Na 136, BUN 44, Glu 116 Meds Noted: Propofol, Zosyn, Lantus, Eliquis Skin: Wound to leg Additional Notes: Remains on vent. Sedation with propofol. Tolerating tube feeds. Agree with current tube feeding orders with no changes. Following daily in ICU rounds. Will monitor, weight, labs, tube feeding tolerance every Saturday and Saturday..
[2022-11-12] MEDS: ALPRAZolam (*CRX) 0.5 MG TABLET PO (11:33)
[2022-11-12 11:50] LABS: Alveolar/Arterial O2 Gradient 86.3 mmHg; Base Excess ABG 4.6 mEq/l (+/-2.0); Fractional Inspired Oxygen 30 %; HCO3 ABG 32.3 mEq/l (22.0-26.0); Oxygen Content ABG 16.4 %vol (16.0-22.0); PO2 ABG 54.8 mmHg (80.0-100.0); PO2 FiO2 Ratio Arterial Blood 1.83 %; Total Hemoglobin 13.9 g/dL (12.0-18.0); pH ABG 7.335 (7.350-7.450)
[2022-11-12 11:54] LABS: Arterial Blood Gas Vent Mode SPONTANEOUS; Device VENTILATOR; Modified Allen's Test Pass; Oxygen Saturation ABG 85.7 % (95.0-100.0); Site Drawn RIGHT RADIAL
[2022-11-12 11:55] LABS: Arterial Blood Gas PEEP 5 cmH2O; Arterial Blood Gas Pressure Support 8 cmH2O
[2022-11-12 12:23] LABS: Glucose Point of Care 171 mg/dl (65-105)
--- NOTE | 2022-11-12 15:30 | WPDINTPN ---
Progress Note: A&P Assessment and Plan (1) Acute on chronic respiratory failure with hypoxia and hypercapnia: Code(s): J96.21 - Acute and chronic respiratory failure with hypoxia; J96.22 - Acute and chronic respiratory failure with hypercapnia Status: Acute Assessment and Plan: Acute on chronic respiratory failure with hypoxia and hypercarbia secondary to baseline severe COPD and pneumonia which could be community-acquired versus aspiration -11/06/2022: Patient was intubated in the field by EMS -11/10 -self-extubated but reintubated due to respiratory distress and work of breathing -chest x-ray reviewed-Lasix given today - ABG reviewed -currently on methylprednisolone at 60 mg IV Q a.m -continue bronchodilators -continue Zosyn and discontinued azithromycin -11/06 blood cultures negative x2 -11/06 sputum cultures growing Moraxella catarrhalis - urine pneumococcal antigen -not detected, -urine Legionella antigen, mycoplasma IgM are negative -place patient on pressure support ventilation 05/18, he did fairly well, ABGs showed hypercapnia and hypoxemia sided not extubate the patient. 11/06/2022: CT scan of the chest showed 1. Scattered mucous plugging diffuse bilateral tree-in-bud opacities consistent with pneumonia including atypical fungal or mycobacterial pneumonia such as CLARA. 2. Moderate to severe emphysema. (2) COPD (chronic obstructive pulmonary disease): Code(s): J44.9 - Chronic obstructive pulmonary disease, unspecified Status: Acute Assessment and Plan: See above (3) Pneumonia: Code(s): J18.9 - Pneumonia, unspecified organism Status: Acute Assessment and Plan: See above (4) Acute kidney injury: Code(s): N17.9 - Acute kidney failure, unspecified Status: Acute Assessment and Plan: Likely secondary to hypotension, rhabdomyolysis Patient received 2 L fluid bolus and IV fluids were continued Urine electrolytes suggest prerenal CK level elevated at 633 on admission and has normalized now Unremarkable renal ultrasound Creatinine has normalized with IV fluids, of IV fluids as he is tolerating tube feeds Monitor urine output electrolytes and creatinine (5) Elevated troponin: Code(s): R77.8 - Other specified abnormalities of plasma proteins Status: Acute Assessment and Plan: Patient has elevated troponin which is likely demand mediated ischemia from respiratory failure He does have history of coronary disease although details unknown EKG reviewed shows no ST elevation Serial troponins shows flat level Continue Eliquis and aspirin Resume statin which was held on admission due to elevated liver enzyme Blood pressures are much improved, will start low-dose beta-kylie 11/06/2022 Echocardiogram: EF 50-55%, grade 1 diastolic dysfunction, RV chamber mildly enlarged, RV systolic function is normal, no significant valvular disease (6) Coronary artery disease: Code(s): I25.10 - Atherosclerotic heart disease of [place] coronary artery without angina pectoris Status: Acute Assessment and Plan: See above (7) Congestive heart failure: Code(s): I50.9 - Heart failure, unspecified Status: Acute Assessment and Plan: Suspect patient has right heart failure from severe COPD Echocardiogram as above Diurese as needed (8) Swelling of lower extremity: Code(s): M79.89 - Other specified soft tissue disorders Status: Acute Assessment and Plan: As above Negative lower extremity Dopplers for DVT (9) Encephalopathy: Code(s): G93.40 - Encephalopathy, unspecified Status: Acute Assessment and Plan: Likely toxic metabolic encephalopathy secondary to hypercarbia, opioid and now sedation Normal ammonia and TSH Head CT was negative Low lithium level and not sure if patient was taking it Patient currently on fentanyl to prevent opioid withdrawal -off sedation patient was writing notes, nodding
--- NOTE | 2022-11-12 16:49 | PM.IMPN ---
Progress Note: A&P Assessment and Plan (1) Acute on chronic respiratory failure with hypoxia and hypercapnia: Code(s): J96.21 - Acute and chronic respiratory failure with hypoxia; J96.22 - Acute and chronic respiratory failure with hypercapnia Status: Acute Assessment and Plan: Acute on chronic respiratory failure with hypoxia and hypercarbia secondary to baseline severe COPD and pneumonia which could be community-acquired versus aspiration 01/31/2023: intubated chest x-ray: Mild diffuse interstitial prominence. Correlate for chronic interstitial disease, atypical infection, or interstitial edema. on methylprednisolone at 60 mg IV continue bronchodilators -continue Zosyn and azithromycin -11/06 blood cultures negative x2 -11/06 sputum cultures growing Moraxella catarrhalis - urine pneumococcal antigen -not detected, -urine Legionella antigen, mycoplasma IgM are Negative 11/06/2022: CT scan of the chest showed 1. Scattered mucous plugging diffuse bilateral tree-in-bud opacities consistent with pneumonia including atypical fungal or mycobacterial pneumonia such as CLARA. 2. Moderate to severe emphysema. Wean trial per mask designer failed 11/12/2022 (2) COPD (chronic obstructive pulmonary disease): Code(s): J44.9 - Chronic obstructive pulmonary disease, unspecified Status: Acute Assessment and Plan: See above (3) Pneumonia: Code(s): J18.9 - Pneumonia, unspecified organism Status: Acute Assessment and Plan: See above (4) Acute kidney injury: Code(s): N17.9 - Acute kidney failure, unspecified Status: Acute Assessment and Plan: Likely secondary to hypotension, rhabdomyolysis Patient received 2 L fluid bolus and IV fluids were continued Urine electrolytes suggest prerenal CK level elevated at 633 Unremarkable renal ultrasound Creatinine has normalized with IV fluids, will discontinue IV fluid as patient tolerating tube feeds Monitor urine output electrolytes and creatinine (5) Elevated troponin: Code(s): R77.8 - Other specified abnormalities of plasma proteins Status: Acute Assessment and Plan: Patient has elevated troponin which is likely demand mediated ischemia from respiratory failure He does have history of coronary disease although details unknown EKG reviewed shows no ST elevation Serial troponins shows flat level Continue Eliquis and aspirin Hold statin due to elevated liver enzyme Blood pressures are much improved, will start low-dose beta-kylie 11/06/2022 Echocardiogram: EF 50-55%, grade 1 diastolic dysfunction, RV chamber mildly enlarged, RV systolic function is normal, no significant valvular disease (6) Coronary artery disease: Code(s): I25.10 - Atherosclerotic heart disease of [place] coronary artery without angina pectoris Status: Acute Assessment and Plan: See above (7) Congestive heart failure: Code(s): I50.9 - Heart failure, unspecified Status: Acute Assessment and Plan: Suspect patient has right heart failure from severe COPD Echocardiogram as above (8) Swelling of lower extremity: Code(s): M79.89 - Other specified soft tissue disorders Status: Acute Assessment and Plan: As above Negative for lower extremity Dopplers for DVT (9) Encephalopathy: Code(s): G93.40 - Encephalopathy, unspecified Status: Acute Assessment and Plan: Likely toxic metabolic encephalopathy secondary to hypercarbia, opioid and now sedation Normal ammonia and TSH Head CT was negative Low lithium level started on low-dose fentanyl to prevent opioid withdrawal (10) Hyperlipidemia: Code(s): E78.5 - Hyperlipidemia, unspecified Status: Acute Assessment and Plan: Hold statin due to elevated liver enzyme (11) Hypotension: Code(s): I95.9 - Hypotension, unspecified Status: Acute Assessment and Plan: Likely secondary to hypovolemia, s
[2022-11-12] MEDS: INSULIN ASPART (*BKC) 100 UNITS/ML SUB-Q (17:08)
[2022-11-12] MEDS: ALPRAZolam (*CRX) 0.5 MG TABLET 1 MG PO (17:08)
[2022-11-12 17:09] LABS: Glucose Point of Care 247 mg/dl (65-105)
[2022-11-12] MEDS: PROPOFOL IV EMULSION 100 ML 6.39 MG IV CONT (17:16)
[2022-11-12 20:25] LABS: Glucose Point of Care 146 mg/dl (65-105)
[2022-11-12] MEDS: METOPROLOL TARTRATE 12.5 MG TABLET PO (20:28)
[2022-11-12] MEDS: MINERAL OIL/WHITE PETROLATUM OINTMENT 1 APPLIC EACH EYE (20:28)
[2022-11-13] VITALS (30 sets, daily range): BP systolic 111–132; BP diastolic 64–89; PULSE 62–90; RESP 10–22; TEMP 36.8–37.2; O2SAT 91–97
[2022-11-13 00:08] LABS: Glucose Point of Care 121 mg/dl (65-105)
[2022-11-13] MEDS: IPRATROPIUM BR 0.02% INH SOLN 0.5 MG/2.5 ML VIAL INHALATION ×4 (02:00→20:39)
[2022-11-13] MEDS: ALBUTEROL SULFATE NEB 2.5 MG/3 ML INH INHALATION ×4 (02:00→20:39)
[2022-11-13 04:59] LABS: Basophils Percent Auto 0.2 % (0.2-1.2); Eosinophils Absolute Auto 0.1 K/mm3 (0-0.3); Eosinophils Percent Auto 1.3 % (0-4.4); Hemoglobin 10.6 g/dL (14.0-18.0); Immature Granulocyte Absolute 0.26 K/mm3 (0.00-0.031); Immature Granulocyte Percent A 2.8 % (0-0.5); Lymphocytes Absolute Auto 1.66 K/mm3 (0.9-3.2); Lymphocytes Percent Auto 17.6 % (18.3-44.2); Mean Corpuscular HGB Conc 32.1 g/dl (32-36); Mean Corpuscular Hemoglobin 28.3 pg (26-34); Mean Platelet Volume 10.4 fl (7.4-10.4); Monocytes Absolute Auto 0.9 K/mm3 (0.1-0.6); Monocytes Percent Auto 9.8 % (2.6-8.5); Neutrophils Absolute Auto 6.4 K/mm3 (1.3-6.7); Neutrophils Percent Auto 68.3 % (45.5-73.1); Platelet Count Result 266 k/mm3 (150-375); Red Blood Count 3.75 M/mm3 (4.6-6.20); Red Cell Distribution Width 14.2 % (11.5-14.5); White Blood Count 9.4 K/mm3 (4.5-10.0)
[2022-11-13 05:24] LABS: Alanine Aminotransferase 116 U/L (6-50); Albumin Level 2.9 g/dL (3.5-5.1); Alkaline Phosphatase 68 U/L (38-126); Anion Gap 1 mmol/L (8-16); Aspartate Amino Transferase 77 U/L (17-59); Bilirubin,Total 0.5 mg/dL (0.2-1.3); Blood Urea Nitrogen 43 mg/dL (9-20); Calcium 8.1 mg/dL (8.4-10.2); Carbon Dioxide 37 mmol/L (22-30); Chloride 92 mmol/L (98-107); Estimated CRCL calculation 78 ml/min; Estimated Glomerular Filt Rate > 60; Glucose 120 mg/dL (65-110); Magnesium 1.9 mg/dL (1.6-2.3); Phosphorus 4.1 mg/dL (2.5-4.5); Potassium 3.5 mmol/L (3.4-5.0); Sodium 130 mmol/L (137-145)
[2022-11-13 05:25] LABS: Alveolar/Arterial O2 Gradient 87.6 mmHg; Base Excess ABG 8.3 mEq/l (+/-2.0); Carboxyhemoglobin 0.3 % THb (0-2.0); Fractional Inspired Oxygen 30 %; HCO3 ABG 32.9 mEq/l (22.0-26.0); Methemoglobin ABG 0.3 %THb (0-1.5); Oxygen Content ABG 15.4 %vol (16.0-22.0); Oxygen Saturation ABG 95.4 % (95.0-100.0); Oxyhemoglobin 93.5 % THb (90.0-100.0); PCO2 ABG 45.5 mmHg (35.0-45.0); PO2 ABG 72.8 mmHg (80.0-100.0); PO2 FiO2 Ratio Arterial Blood 2.43 %; Reduced Hemoglobin 5.9 %THb (0-5.0); Total Hemoglobin 11.7 g/dL (12.0-18.0); pH ABG 7.477 (7.350-7.450)
[2022-11-13 05:30] LABS: Arterial Blood Gas Vent Mode ASV; Device VENTILATOR; Modified Allen's Test Unable to perform; Site Drawn RIGHT RADIAL
[2022-11-13 05:31] LABS: Arterial Blood Gas PEEP 5 cmH2O
[2022-11-13] MEDS: CENTRAL LINE FLUSH 10 ML IV PUSH ×4 (05:35→21:37)
[2022-11-13] MEDS: ALPRAZolam (*CRX) 0.5 MG TABLET 1 MG PO ×2 (05:49→21:36)
[2022-11-13] MEDS: PANTOPRAZOLE SODIUM IV 40 MG VIAL IV PUSH (07:56)
[2022-11-13] MEDS: METOPROLOL TARTRATE 12.5 MG TABLET PO ×2 (07:56→20:12)
[2022-11-13] MEDS: POTASSIUM CHLORIDE 20 MEQ PACKET (FOR LIQUID) 40 MEQ FEED TUBE ×2 (07:56→12:20)
[2022-11-13] MEDS: EUCERIN CREAM 120 GM JAR 1 APPLIC TOPICAL (07:56)
[2022-11-13] MEDS: methylPREDNISolone SOD SUCC 125 MG VIAL 60 MG IV PUSH (07:56)
[2022-11-13] MEDS: ASPIRIN 325 MG TABLET FEED TUBE (07:56)
[2022-11-13] MEDS: ROSUVASTATIN 10 MG TABLET 40 MG PO (07:56)
[2022-11-13] MEDS: FUROSEMIDE INJ 40 MG/4 ML VIAL IV PUSH (07:56)
[2022-11-13] MEDS: APIXABAN 5 MG TABLET FEED TUBE ×2 (07:56→20:12)
[2022-11-13] MEDS: SILVERGEL (ELTA) 45 ML 1 APPLIC TOPICAL (07:57)
[2022-11-13 08:13] LABS: Glucose Point of Care 125 mg/dl (65-105)
[2022-11-13 08:34] LABS: Alveolar/Arterial O2 Gradient 89.7 mmHg; Base Excess ABG 8.8 mEq/l (+/-2.0); Fractional Inspired Oxygen 30 %; HCO3 ABG 34.1 mEq/l (22.0-26.0); Oxygen Content ABG 16.3 %vol (16.0-22.0); Oxygen Saturation ABG 93.7 % (95.0-100.0); Oxyhemoglobin 92.4 % THb (90.0-100.0); PCO2 ABG 49.6 mmHg (35.0-45.0); PO2 ABG 65.9 mmHg (80.0-100.0); Total Hemoglobin 12.5 g/dL (12.0-18.0); pH ABG 7.455 (7.350-7.450)
[2022-11-13 08:36] LABS: Site Drawn RIGHT RADIAL
[2022-11-13 08:37] LABS: Arterial Blood Gas PEEP 5 cmH2O; Arterial Blood Gas Pressure Support 5 cmH2O; Arterial Blood Gas Vent Mode SPONTANEOUS; Device VENTILATOR; Modified Allen's Test Pass
--- NOTE | 2022-11-13 08:50 | WPDINTPN ---
Progress Note: A&P Assessment and Plan (1) Acute on chronic respiratory failure with hypoxia and hypercapnia: Code(s): J96.21 - Acute and chronic respiratory failure with hypoxia; J96.22 - Acute and chronic respiratory failure with hypercapnia Status: Acute Assessment and Plan: Acute on chronic respiratory failure with hypoxia and hypercarbia secondary to baseline severe COPD and pneumonia which could be community-acquired versus aspiration -11/06/2022: Patient was intubated in the field by EMS -11/10 -self-extubated but reintubated due to respiratory distress and work of breathing -chest x-ray reviewed-Lasix again given today - 02/15 PSV SBT done for close to 1 hour. RSBI, ABGI and Vitals acceptable. Pt awake and following commands. Will extubate and monitor. NPO for now. Bipap PRN -currently on methylprednisolone at 60 mg IV Q a.m -continue bronchodilators -will complete a 7 day course of Zosyn today. discontinued azithromycin -11/06 blood cultures negative x2 -11/06 sputum cultures growing Moraxella catarrhalis - urine pneumococcal antigen -not detected, -urine Legionella antigen, mycoplasma IgM are negative 11/06/2022: CT scan of the chest showed 1. Scattered mucous plugging diffuse bilateral tree-in-bud opacities consistent with pneumonia including atypical fungal or mycobacterial pneumonia such as CLARA. 2. Moderate to severe emphysema. (2) COPD (chronic obstructive pulmonary disease): Code(s): J44.9 - Chronic obstructive pulmonary disease, unspecified Status: Acute Assessment and Plan: See above (3) Pneumonia: Code(s): J18.9 - Pneumonia, unspecified organism Status: Acute Assessment and Plan: See above (4) Acute kidney injury: Code(s): N17.9 - Acute kidney failure, unspecified Status: Acute Assessment and Plan: Likely secondary to hypotension, rhabdomyolysis Patient received 2 L fluid bolus and IV fluids were continued Urine electrolytes suggest prerenal CK level elevated at 633 on admission and has normalized now Unremarkable renal ultrasound Creatinine has normalized with IV fluids, of IV fluids as he is tolerating tube feeds Monitor urine output electrolytes and creatinine (5) Elevated troponin: Code(s): R77.8 - Other specified abnormalities of plasma proteins Status: Acute Assessment and Plan: Patient has elevated troponin which is likely demand mediated ischemia from respiratory failure He does have history of coronary disease although details unknown EKG reviewed shows no ST elevation Serial troponins shows flat level Continue Eliquis and aspirin Resume statin which was held on admission due to elevated liver enzyme Blood pressures are much improved, will start low-dose beta-kylie 11/06/2022 Echocardiogram: EF 50-55%, grade 1 diastolic dysfunction, RV chamber mildly enlarged, RV systolic function is normal, no significant valvular disease (6) Coronary artery disease: Code(s): I25.10 - Atherosclerotic heart disease of [place] coronary artery without angina pectoris Status: Acute Assessment and Plan: See above (7) Congestive heart failure: Code(s): I50.9 - Heart failure, unspecified Status: Acute Assessment and Plan: Suspect patient has right heart failure from severe COPD Echocardiogram as above Continue Lasix today (8) Swelling of lower extremity: Code(s): M79.89 - Other specified soft tissue disorders Status: Acute Assessment and Plan: As above Negative lower extremity Dopplers for DVT (9) Encephalopathy: Code(s): G93.40 - Encephalopathy, unspecified Status: Acute Assessment and Plan: Likely toxic metabolic encephalopathy secondary to hypercarbia, opioid and now sedation Normal ammonia and TSH Head CT was negative Low lithium level and not sure if patient was taking it Patient currently on fentanyl to prevent opioid withdrawal -off sedation
--- NOTE | 2022-11-13 09:03 | PCRCNOTE ---
Per Dr. Bedoya and AbG results, pt extubated at 0850 on 11/13/22 to 4L nasal cannula with SpO2 sitting between 94-96%. PRN BiPAP settings placed.
--- NOTE | 2022-11-13 11:43 | PCNFU ---
Nutrition Follow-Up Complete: Inadequate Oral Intake as related to mechanical ventilation as evidenced by NPO goal: Meet estimated nutritional needs Patient is progressing towards goal. We will continue current goal. Pt current nutrition is NPO. Last recorded weight is 70.2 kg. Bowel Motility:FMS Labs Reviewed:Na 130, Alb 2.9 Meds Noted:Lantus,Zosyn,Lopressor,Protonix, Crestor. Skin:WNL Additional Notes: Patient has been extubated. Currently NPO. NGT still intact for further orders from [employer] Developer. Banatrol BID for stool bulking given via tube. Will monitor, weight, labs, tube feeding tolerance every Saturday and Saturday.
[2022-11-13 12:27] LABS: Glucose Point of Care 188 mg/dl (65-105)
--- NOTE | 2022-11-13 16:40 | PM.IMPN ---
Progress Note: A&P Assessment and Plan (1) Acute on chronic respiratory failure with hypoxia and hypercapnia: Code(s): J96.21 - Acute and chronic respiratory failure with hypoxia; J96.22 - Acute and chronic respiratory failure with hypercapnia Status: Acute Assessment and Plan: Acute on chronic respiratory failure with hypoxia and hypercarbia secondary to baseline severe COPD and pneumonia which could be community-acquired versus aspiration 01/31/2023: intubated chest x-ray: Mild diffuse interstitial prominence. Correlate for chronic interstitial disease, atypical infection, or interstitial edema. on methylprednisolone at 60 mg IV continue bronchodilators -continue Zosyn and azithromycin -11/06 blood cultures negative x2 -11/06 sputum cultures growing Moraxella catarrhalis - urine pneumococcal antigen -not detected, -urine Legionella antigen, mycoplasma IgM are Negative 11/06/2022: CT scan of the chest showed 1. Scattered mucous plugging diffuse bilateral tree-in-bud opacities consistent with pneumonia including atypical fungal or mycobacterial pneumonia such as CLARA. 2. Moderate to severe emphysema. Wean trial per reading specialist failed 11/12/2022 extubated to [place] 11/13/2022 (2) COPD (chronic obstructive pulmonary disease): Code(s): J44.9 - Chronic obstructive pulmonary disease, unspecified Status: Acute Assessment and Plan: See above (3) Pneumonia: Code(s): J18.9 - Pneumonia, unspecified organism Status: Acute Assessment and Plan: See above (4) Acute kidney injury: Code(s): N17.9 - Acute kidney failure, unspecified Status: Acute Assessment and Plan: Likely secondary to hypotension, rhabdomyolysis Patient received 2 L fluid bolus and IV fluids were continued Urine electrolytes suggest prerenal CK level elevated at 633 Unremarkable renal ultrasound Creatinine has normalized with IV fluids, will discontinue IV fluid as patient tolerating tube feeds Monitor urine output electrolytes and creatinine (5) Elevated troponin: Code(s): R77.8 - Other specified abnormalities of plasma proteins Status: Acute Assessment and Plan: Patient has elevated troponin which is likely demand mediated ischemia from respiratory failure He does have history of coronary disease although details unknown EKG reviewed shows no ST elevation Serial troponins shows flat level Continue Eliquis and aspirin Hold statin due to elevated liver enzyme Blood pressures are much improved, will start low-dose beta-kylie 11/06/2022 Echocardiogram: EF 50-55%, grade 1 diastolic dysfunction, RV chamber mildly enlarged, RV systolic function is normal, no significant valvular disease (6) Coronary artery disease: Code(s): I25.10 - Atherosclerotic heart disease of [place] coronary artery without angina pectoris Status: Acute Assessment and Plan: See above (7) Congestive heart failure: Code(s): I50.9 - Heart failure, unspecified Status: Acute Assessment and Plan: Suspect patient has right heart failure from severe COPD Echocardiogram as above (8) Swelling of lower extremity: Code(s): M79.89 - Other specified soft tissue disorders Status: Acute Assessment and Plan: As above Negative for lower extremity Dopplers for DVT (9) Encephalopathy: Code(s): G93.40 - Encephalopathy, unspecified Status: Acute Assessment and Plan: Likely toxic metabolic encephalopathy secondary to hypercarbia, opioid and now sedation Normal ammonia and TSH Head CT was negative Low lithium level started on low-dose fentanyl to prevent opioid withdrawal (10) Hyperlipidemia: Code(s): E78.5 - Hyperlipidemia, unspecified Status: Acute Assessment and Plan: Hold statin due to elevated liver enzyme (11) Hypotension: Code(s): I95.9 - Hypotension, unspecified Status: Acute Assessment and Plan: Likely
[2022-11-13 16:57] LABS: Glucose Point of Care 188 mg/dl (65-105)
[2022-11-13 21:42] LABS: Glucose Point of Care 153 mg/dl (65-105)
[2022-11-14] VITALS (25 sets, daily range): BP systolic 111–146; BP diastolic 66–96; PULSE 69–100; RESP 13–20; TEMP 36.8–37.6; O2SAT 88–97
[2022-11-14 00:15] LABS: Glucose Point of Care 110 mg/dl (65-105)
[2022-11-14] MEDS: ALBUTEROL SULFATE NEB 2.5 MG/3 ML INH INHALATION ×4 (02:58→20:15)
[2022-11-14] MEDS: IPRATROPIUM BR 0.02% INH SOLN 0.5 MG/2.5 ML VIAL INHALATION ×4 (02:58→20:15)
[2022-11-14 05:12] LABS: Glucose Point of Care 97 mg/dl (65-105)
[2022-11-14 05:20] LABS: Basophils Percent Auto 0.2 % (0.2-1.2); Eosinophils Absolute Auto 0.1 K/mm3 (0-0.3); Eosinophils Percent Auto 0.7 % (0-4.4); Hematocrit 39.1 % (42.0-52.0); Hemoglobin 12.3 g/dL (14.0-18.0); Immature Granulocyte Absolute 0.21 K/mm3 (0.00-0.031); Immature Granulocyte Percent A 1.8 % (0-0.5); Lymphocytes Absolute Auto 2.09 K/mm3 (0.9-3.2); Lymphocytes Percent Auto 18.2 % (18.3-44.2); Mean Corpuscular HGB Conc 31.5 g/dl (32-36); Mean Corpuscular Hemoglobin 27.9 pg (26-34); Mean Corpuscular Volume 88.7 fl (80-100); Mean Platelet Volume 10.5 fl (7.4-10.4); Monocytes Percent Auto 8.4 % (2.6-8.5); Neutrophils Absolute Auto 8.1 K/mm3 (1.3-6.7); Neutrophils Percent Auto 70.7 % (45.5-73.1); Platelet Count Result 316 k/mm3 (150-375); Red Blood Count 4.41 M/mm3 (4.6-6.20); Red Cell Distribution Width 14.4 % (11.5-14.5); White Blood Count 11.5 K/mm3 (4.5-10.0)
[2022-11-14 05:34] LABS: Alanine Aminotransferase 203 U/L (6-50); Albumin Level 3.6 g/dL (3.5-5.1); Alkaline Phosphatase 89 U/L (38-126); Anion Gap 4 mmol/L (8-16); Aspartate Amino Transferase 120 U/L (17-59); Bilirubin,Total 0.7 mg/dL (0.2-1.3); Blood Urea Nitrogen 41 mg/dL (9-20); Calcium 8.9 mg/dL (8.4-10.2); Carbon Dioxide 36 mmol/L (22-30); Chloride 94 mmol/L (98-107); Estimated CRCL calculation 78 ml/min; Estimated Glomerular Filt Rate > 60; Glucose 92 mg/dL (65-110); Phosphorus 4.2 mg/dL (2.5-4.5); Potassium 4.1 mmol/L (3.4-5.0); Sodium 134 mmol/L (137-145); Triglycerides 199 mg/dL (<150)
[2022-11-14] MEDS: CENTRAL LINE FLUSH 10 ML IV PUSH ×4 (05:45→21:34)
[2022-11-14 05:54] LABS: Alveolar/Arterial O2 Gradient 118.9 mmHg; Base Excess ABG 5.8 mEq/l (+/-2.0); Carboxyhemoglobin 0.3 % THb (0-2.0); Fractional Inspired Oxygen 32 %; HCO3 ABG 30.9 mEq/l (22.0-26.0); Methemoglobin ABG 0.3 %THb (0-1.5); Oxygen Content ABG 17.2 %vol (16.0-22.0); Oxygen Saturation ABG 89.1 % (95.0-100.0); PCO2 ABG 46.8 mmHg (35.0-45.0); PO2 ABG 54.5 mmHg (80.0-100.0); Reduced Hemoglobin 11.7 %THb (0-5.0); pH ABG 7.438 (7.350-7.450)
[2022-11-14 05:57] LABS: Oxyhemoglobin 87.7 % THb (90.0-100.0); Site Drawn RIGHT RADIAL
[2022-11-14 05:58] LABS: Device NASAL CANNULA; Modified Allen's Test Pass
[2022-11-14 07:37] LABS: Glucose Point of Care 97 mg/dl (65-105)
--- NOTE | 2022-11-14 08:20 | WPDINTPN ---
Progress Note: A&P Assessment and Plan (1) Acute on chronic respiratory failure with hypoxia and hypercapnia: Code(s): J96.21 - Acute and chronic respiratory failure with hypoxia; J96.22 - Acute and chronic respiratory failure with hypercapnia Status: Acute Assessment and Plan: Acute on chronic respiratory failure with hypoxia and hypercarbia secondary to baseline severe COPD and pneumonia which could be community-acquired versus aspiration -11/06/2022: Patient was intubated in the field by EMS -11/10 -self-extubated but reintubated due to respiratory distress and work of breathing -11/13/ PSV SBT done for close to 1 hour. RSBI, ABGI and Vitals acceptable. Pt awake and following commands. Will extubate and monitor. NPO for now. Bipap PRN -patient doing well and on nasal cannula. Continue BiPAP p.r.n. no respiratory distress -continue steroids and bronchodilators -he has completed aa 7 day course of Zosyn -11/06 blood cultures negative x2 -11/06 sputum cultures growing Moraxella catarrhalis - urine pneumococcal antigen -not detected, -urine Legionella antigen, mycoplasma IgM are negative -will order incentive spirometry and up in chair -chest x-ray reviewed 11/06/2022: CT scan of the chest showed 1. Scattered mucous plugging diffuse bilateral tree-in-bud opacities consistent with pneumonia including atypical fungal or mycobacterial pneumonia such as CLARA. 2. Moderate to severe emphysema. (2) COPD (chronic obstructive pulmonary disease): Code(s): J44.9 - Chronic obstructive pulmonary disease, unspecified Status: Acute Assessment and Plan: See above (3) Pneumonia: Code(s): J18.9 - Pneumonia, unspecified organism Status: Acute Assessment and Plan: See above (4) Acute kidney injury: Code(s): N17.9 - Acute kidney failure, unspecified Status: Acute Assessment and Plan: Likely secondary to hypotension, rhabdomyolysis Patient received 2 L fluid bolus and IV fluids were continued Urine electrolytes suggest prerenal CK level elevated at 633 on admission and has normalized now Unremarkable renal ultrasound Creatinine has normalized with IV fluids, of IV fluids as he is tolerating tube feeds Monitor urine output electrolytes and creatinine (5) Elevated troponin: Code(s): R77.8 - Other specified abnormalities of plasma proteins Status: Acute Assessment and Plan: Patient has elevated troponin which is likely demand mediated ischemia from respiratory failure He does have history of coronary disease although details unknown EKG reviewed shows no ST elevation Serial troponins shows flat level Continue Eliquis and aspirin Hold statin which was held on admission due to elevated liver enzyme Blood pressures are much improved, will start low-dose beta-kylie 11/06/2022 Echocardiogram: EF 50-55%, grade 1 diastolic dysfunction, RV chamber mildly enlarged, RV systolic function is normal, no significant valvular disease (6) Coronary artery disease: Code(s): I25.10 - Atherosclerotic heart disease of [place] coronary artery without angina pectoris Status: Acute Assessment and Plan: See above (7) Congestive heart failure: Code(s): I50.9 - Heart failure, unspecified Status: Acute Assessment and Plan: Suspect patient has right heart failure from severe COPD Echocardiogram as above Continue Lasix today (8) Swelling of lower extremity: Code(s): M79.89 - Other specified soft tissue disorders Status: Acute Assessment and Plan: As above Negative lower extremity Dopplers for DVT (9) Encephalopathy: Code(s): G93.40 - Encephalopathy, unspecified Status: Acute Assessment and Plan: Likely toxic metabolic encephalopathy secondary to hypercarbia, opioid and now sedation Normal ammonia and TSH Head CT was negative Low lithium level and patient admits that he was not taking it regularly Now margarito
[2022-11-14] MEDS: METOPROLOL TARTRATE 12.5 MG TABLET PO ×2 (09:15→21:34)
[2022-11-14] MEDS: PANTOPRAZOLE SODIUM IV 40 MG VIAL IV PUSH (09:15)
[2022-11-14] MEDS: SILVERGEL (ELTA) 45 ML 1 APPLIC TOPICAL (09:15)
[2022-11-14] MEDS: methylPREDNISolone SOD SUCC 125 MG VIAL 60 MG IV PUSH (09:15)
[2022-11-14] MEDS: EUCERIN CREAM 120 GM JAR 1 APPLIC TOPICAL (09:15)
[2022-11-14] MEDS: ASPIRIN 325 MG TABLET FEED TUBE (09:15)
[2022-11-14] MEDS: APIXABAN 5 MG TABLET FEED TUBE ×2 (09:15→21:34)
[2022-11-14 11:40] LABS: Glucose Point of Care 135 mg/dl (65-105)
--- NOTE | 2022-11-14 11:55 | PCFNICU ---
ICU Rounding Note: Pt current nutrition is NPO. Last recorded weight is 65.6 kg. Bowel Motility:FMS planes to be discontinued today. Labs Reviewed:BUN 41, TG 199, Na 134 Meds Noted:Lantus, Eliquis,Zosyn, Atrovent, Solu Medrol Skin: WNL Additional Notes: Patient seen today for nutrition follow up. Speech Therapy recommending MBS today. Will continue to monitor for any further diet order changes. Following daily in ICU rounds. Will monitor, weight, labs, tube feeding tolerance every 3 days.
--- NOTE | 2022-11-14 15:03 | PCSTNOTE ---
Please refer to the Bedside Swallow Evaluation in the EMR. Please note, silent aspiration cannot be ruled out at bedside.
--- NOTE | 2022-11-14 15:04 | PCSTNOTE ---
Please refer to the Modified Barium Swallow Evaluation in the EMR.
[2022-11-14 16:36] LABS: Glucose Point of Care 187 mg/dl (65-105)
[2022-11-14] MEDS: ALPRAZolam (*CRX) 0.5 MG TABLET 1 MG PO (21:33)
[2022-11-14 21:59] LABS: Glucose Point of Care 160 mg/dl (65-105)
[2022-11-14 23:50] LABS: Glucose Point of Care 82 mg/dl (65-105)
[2022-11-15] VITALS (63 sets, daily range): BP systolic 102–136; BP diastolic 54–86; PULSE 70–110; RESP 12–24; TEMP 36.6–37.7; O2SAT 86–99
[2022-11-15] MEDS: ALBUTEROL SULFATE NEB 2.5 MG/3 ML INH INHALATION ×4 (02:25→20:20)
[2022-11-15] MEDS: IPRATROPIUM BR 0.02% INH SOLN 0.5 MG/2.5 ML VIAL INHALATION ×4 (02:25→20:20)
[2022-11-15 05:42] LABS: Basophils Percent Auto 0.2 % (0.2-1.2); Eosinophils Absolute Auto 0.1 K/mm3 (0-0.3); Eosinophils Percent Auto 0.4 % (0-4.4); Hematocrit 38.3 % (42.0-52.0); Hemoglobin 12.3 g/dL (14.0-18.0); Immature Granulocyte Absolute 0.14 K/mm3 (0.00-0.031); Immature Granulocyte Percent A 1.1 % (0-0.5); Lymphocytes Absolute Auto 2.11 K/mm3 (0.9-3.2); Lymphocytes Percent Auto 16.6 % (18.3-44.2); Mean Corpuscular HGB Conc 32.1 g/dl (32-36); Mean Corpuscular Volume 87.2 fl (80-100); Mean Platelet Volume 10.3 fl (7.4-10.4); Monocytes Absolute Auto 1.1 K/mm3 (0.1-0.6); Monocytes Percent Auto 8.8 % (2.6-8.5); Neutrophils Absolute Auto 9.3 K/mm3 (1.3-6.7); Neutrophils Percent Auto 72.9 % (45.5-73.1); Platelet Count Result 346 k/mm3 (150-375); Red Blood Count 4.39 M/mm3 (4.6-6.20); Red Cell Distribution Width 14.4 % (11.5-14.5); White Blood Count 12.7 K/mm3 (4.5-10.0)
[2022-11-15 06:02] LABS: Alanine Aminotransferase 236 U/L (6-50); Albumin Level 3.2 g/dL (3.5-5.1); Alkaline Phosphatase 91 U/L (38-126); Anion Gap 5 mmol/L (8-16); Aspartate Amino Transferase 112 U/L (17-59); Bilirubin,Total 0.8 mg/dL (0.2-1.3); Blood Urea Nitrogen 40 mg/dL (9-20); Calcium 8.7 mg/dL (8.4-10.2); Carbon Dioxide 32 mmol/L (22-30); Chloride 101 mmol/L (98-107); Estimated CRCL calculation 78 ml/min; Estimated Glomerular Filt Rate > 60; Glucose 107 mg/dL (65-110); Phosphorus 3.6 mg/dL (2.5-4.5); Potassium 4.2 mmol/L (3.4-5.0); Sodium 138 mmol/L (137-145)
[2022-11-15] MEDS: CENTRAL LINE FLUSH 10 ML IV PUSH ×2 (06:36→20:04)
[2022-11-15 07:25] LABS: Glucose Point of Care 111 mg/dl (65-105)
[2022-11-15] MEDS: methylPREDNISolone SOD SUCC 125 MG VIAL 60 MG IV PUSH (08:42)
[2022-11-15] MEDS: SILVERGEL (ELTA) 45 ML 1 APPLIC TOPICAL (08:43)
[2022-11-15] MEDS: APIXABAN 5 MG TABLET FEED TUBE ×2 (08:43→20:04)
[2022-11-15] MEDS: PANTOPRAZOLE SODIUM IV 40 MG VIAL IV PUSH (08:43)
[2022-11-15] MEDS: METOPROLOL TARTRATE 12.5 MG TABLET PO ×2 (08:43→20:01)
[2022-11-15] MEDS: ASPIRIN 325 MG TABLET FEED TUBE (08:43)
--- NOTE | 2022-11-15 10:58 | PCDIET ---
Diet order advanced to a full liquid with moderately thick liquids, Level 3. MBS on 11/14. PO intake has been poor. Diet supplements of Ensure High Protein Pudding recommended for additional 240 kcals and 12 gms protein. Will continue to monitor every 3 days.
[2022-11-15 12:04] LABS: Glucose Point of Care 166 mg/dl (65-105)
--- NOTE | 2022-11-15 17:18 | PM.IMPN ---
Progress Note: A&P Assessment and Plan (1) Acute on chronic respiratory failure with hypoxia and hypercapnia: Code(s): J96.21 - Acute and chronic respiratory failure with hypoxia; J96.22 - Acute and chronic respiratory failure with hypercapnia Status: Acute Plan Acute on chronic respiratory failure with hypoxia and hypercapnia: ?Code(s): J96.21 - Acute and chronic respiratory failure with hypoxia; J96.22 - Acute and chronic respiratory failure with hypercapnia ?Status:?Acute ?Assessment and Plan: Acute on chronic respiratory failure with hypoxia and hypercarbia secondary to baseline severe COPD and pneumonia which could be community-acquired versus aspiration s/p intubation now on nasal cannula oxygen chest x-ray:?Mild diffuse interstitial prominence. Correlate for chronic interstitial disease, atypical infection, or interstitial edema. on methylprednisolone at 60 mg IV continue bronchodilators -continue Zosyn and azithromycin -11/06 blood cultures negative x2 -11/06 sputum cultures growing Moraxella catarrhalis - urine pneumococcal antigen -not detected, -urine Legionella antigen, mycoplasma IgM?are Negative Completed Abx On Miconazole topical q 12 11/06/2022: CT scan of the chest showed 1. Scattered mucous plugging diffuse bilateral tree-in-bud opacities consistent with pneumonia including atypical fungal or mycobacterial pneumonia such as CLARA. 2. Moderate to severe emphysema. Wean trial per client development director failed 11/12/[address] 11/13/2022 (2) COPD (chronic obstructive pulmonary disease): ?Code(s): J44.9 - Chronic obstructive pulmonary disease, unspecified ?Status:?Acute ?Assessment and Plan: See above (3) Pneumonia: ?Code(s): J18.9 - Pneumonia, unspecified organism ?Status:?Acute ?Assessment and Plan: See above (4) Acute kidney injury: ?Code(s): N17.9 - Acute kidney failure, unspecified ?Status:?Acute ?Assessment and Plan: Likely secondary to hypotension, rhabdomyolysis Patient received 2 L fluid bolus and IV fluids were continued Urine electrolytes suggest prerenal ?CK level elevated at 633 Unremarkable renal ultrasound Creatinine has normalized with IV fluids, will discontinue IV fluid as patient tolerating tube feeds Monitor urine output electrolytes and creatinine (5) Elevated troponin: ?Code(s): R77.8 - Other specified abnormalities of plasma proteins ?Status:?Acute ?Assessment and Plan: Patient has elevated troponin which is likely demand mediated ischemia from respiratory failure He does have history of coronary disease although details unknown EKG reviewed shows no ST elevation Serial troponins shows flat level Continue Eliquis and aspirin Hold statin due to elevated liver enzyme Blood pressures are much improved, will start low-dose beta-kylie 11/06/2022 Echocardiogram:? EF 50-55%, grade 1 diastolic dysfunction, RV chamber mildly enlarged, RV systolic function is normal, no significant valvular disease (6) Coronary artery disease: ?Code(s): I25.10 - Atherosclerotic heart disease of [place] coronary artery without angina pectoris ?Status:?Acute ?Assessment and Plan: See above (7) Congestive heart failure: ?Code(s): I50.9 - Heart failure, unspecified ?Status:?Acute ?Assessment and Plan: Suspect patient has right heart failure from severe COPD Echocardiogram as above (8) Swelling of lower extremity: ?Code(s): M79.89 - Other specified soft tissue disorders ?Status:?Acute ?Assessment and Plan: As above Negative for? lower extremity Dopplers for DVT (9) Encephalopathy: ?Code(s): G93.40 - Encephalopathy, unspecified ?Status:?Acute ?Assessment and Plan: Likely toxic metabolic encephalopathy secondary to hypercarbia, opioid and now sedation Normal ammonia and TSH Head CT was negative Low lithium level started on low-dose fentanyl to prevent opioid withdrawal (
--- NOTE | 2022-11-15 19:46 | PC.NURSE ---
Insulin, minerin cream, and flush not documented on from day shift. Marked not given in MAR, will give PM doses of medications.
[2022-11-15] MEDS: EUCERIN CREAM 120 GM JAR 1 APPLIC TOPICAL (20:04)
[2022-11-15 20:09] LABS: Glucose Point of Care 165 mg/dl (65-105)
[2022-11-15] MEDS: ALPRAZolam (*CRX) 0.5 MG TABLET 1 MG PO (21:24)
[2022-11-15] MEDS: LOPERAMIDE HCL 2 MG CAPSULE PO (23:36)
[2022-11-16] VITALS (13 sets, daily range): BP systolic 115–127; BP diastolic 74–83; PULSE 66–95; RESP 15–18; TEMP 36.4–36.7; O2SAT 94–99
[2022-11-16] MEDS: CENTRAL LINE FLUSH 10 ML IV PUSH ×3 (05:23→17:52)
[2022-11-16 05:53] LABS: Basophils Percent Auto 0.2 % (0.2-1.2); Eosinophils Absolute Auto 0.2 K/mm3 (0-0.3); Eosinophils Percent Auto 1.2 % (0-4.4); Hematocrit 44.1 % (42.0-52.0); Hemoglobin 13.7 g/dL (14.0-18.0); Immature Granulocyte Absolute 0.13 K/mm3 (0.00-0.031); Immature Granulocyte Percent A 1.1 % (0-0.5); Lymphocytes Absolute Auto 2.15 K/mm3 (0.9-3.2); Lymphocytes Percent Auto 17.7 % (18.3-44.2); Mean Corpuscular HGB Conc 31.1 g/dl (32-36); Mean Corpuscular Hemoglobin 28.2 pg (26-34); Mean Corpuscular Volume 90.7 fl (80-100); Mean Platelet Volume 10.9 fl (7.4-10.4); Monocytes Percent Auto 8.1 % (2.6-8.5); Neutrophils Absolute Auto 8.7 K/mm3 (1.3-6.7); Neutrophils Percent Auto 71.7 % (45.5-73.1); Platelet Count Result 388 k/mm3 (150-375); Red Blood Count 4.86 M/mm3 (4.6-6.20); Red Cell Distribution Width 14.8 % (11.5-14.5); White Blood Count 12.1 K/mm3 (4.5-10.0)
[2022-11-16 06:08] LABS: Alanine Aminotransferase 263 U/L (6-50); Albumin Level 3.8 g/dL (3.5-5.1); Alkaline Phosphatase 106 U/L (38-126); Anion Gap 5 mmol/L (8-16); Aspartate Amino Transferase 108 U/L (17-59); Bilirubin,Total 0.7 mg/dL (0.2-1.3); Blood Urea Nitrogen 34 mg/dL (9-20); Calcium 8.9 mg/dL (8.4-10.2); Carbon Dioxide 28 mmol/L (22-30); Chloride 101 mmol/L (98-107); Estimated CRCL calculation 62 ml/min; Estimated Glomerular Filt Rate > 60; Glucose 122 mg/dL (65-110); Magnesium 2.2 mg/dL (1.6-2.3); Phosphorus 4.1 mg/dL (2.5-4.5); Potassium 4.1 mmol/L (3.4-5.0); Sodium 134 mmol/L (137-145); Triglycerides 179 mg/dL (<150)
[2022-11-16] MEDS: ALBUTEROL SULFATE NEB 2.5 MG/3 ML INH INHALATION ×3 (08:12→20:26)
[2022-11-16] MEDS: IPRATROPIUM BR 0.02% INH SOLN 0.5 MG/2.5 ML VIAL INHALATION ×3 (08:12→20:26)
[2022-11-16] MEDS: EUCERIN CREAM 120 GM JAR 1 APPLIC TOPICAL (09:25)
[2022-11-16] MEDS: METOPROLOL TARTRATE 12.5 MG TABLET PO ×2 (09:25→21:40)
[2022-11-16] MEDS: SILVERGEL (ELTA) 45 ML 1 APPLIC TOPICAL (09:25)
[2022-11-16] MEDS: PANTOPRAZOLE SODIUM IV 40 MG VIAL IV PUSH (09:26)
[2022-11-16] MEDS: APIXABAN 5 MG TABLET FEED TUBE ×2 (09:27→21:41)
[2022-11-16] MEDS: ASPIRIN 325 MG TABLET FEED TUBE (09:27)
[2022-11-16] MEDS: predniSONE 20 MG TABLET 40 MG PO (09:28)
[2022-11-16 13:04] LABS: Glucose Point of Care 227 mg/dl (65-105)
[2022-11-16] MEDS: INSULIN ASPART (*BKC) 100 UNITS/ML SUB-Q (13:43)
--- NOTE | 2022-11-16 15:31 | PM.IMPN ---
Progress Note: A&P Assessment and Plan (1) Acute on chronic respiratory failure with hypoxia and hypercapnia: Code(s): J96.21 - Acute and chronic respiratory failure with hypoxia; J96.22 - Acute and chronic respiratory failure with hypercapnia Status: Acute Plan (1) Acute on chronic respiratory failure with hypoxia and hypercapnia Acute on chronic respiratory failure with hypoxia and hypercarbia secondary to baseline severe COPD and pneumonia which could be community-acquired versus aspiration s/p intubation, now on nasal cannula oxygen at baseline home Oxygen chest x-ray:?Mild diffuse interstitial prominence. Correlate for chronic interstitial disease, atypical infection, or interstitial edema. methylprednisolone at 60 mg IV, now on oral Prednisone continue bronchodilators -11/06 blood cultures negative x2 -11/06 sputum cultures growing Moraxella catarrhalis - urine pneumococcal antigen -not detected, -urine Legionella antigen, mycoplasma IgM?are Negative Completed Abx, -Zosyn and azithromycin On Miconazole topical q 12 Awaiting placement (2) COPD (chronic obstructive pulmonary disease): ? ?See above (3) Pneumonia: See above (4) Acute kidney injury, resolved Likely secondary to hypotension, rhabdomyolysis Patient received 2 L fluid bolus and IV fluids were continued Urine electrolytes suggest prerenal ?CK level elevated at 633 Unremarkable renal ultrasound Creatinine has normalized with IV fluids, will discontinue IV fluid as patient tolerating tube feeds Monitor urine output electrolytes and creatinine monitor (5) Elevated troponin: Patient has elevated troponin which is likely demand mediated ischemia from respiratory failure He does have history of coronary disease although details unknown EKG reviewed shows no ST elevation Serial troponins shows flat level Continue Eliquis and aspirin Hold statin due to elevated liver enzyme Blood pressures are much improved, will start low-dose beta-kylie 11/06/2022 Echocardiogram:? EF 50-55%, grade 1 diastolic dysfunction, RV chamber mildly enlarged, RV systolic function is normal, no significant valvular disease (6) Coronary artery disease: See above (7) Congestive heart failure: Suspect patient has right heart failure from severe COPD Echocardiogram as above (8) Swelling of lower extremity: As above Negative for? lower extremity Dopplers for DVT (9) Encephalopathy: Likely toxic metabolic encephalopathy secondary to hypercarbia, opioid and now sedation Normal ammonia and TSH Head CT was negative Low lithium level started on low-dose fentanyl to prevent opioid withdrawal (10) Hyperlipidemia: Hold statin due to elevated liver enzyme (11) Hypotension: Likely secondary to hypovolemia, sedation possible early sepsis Normal lactic acid level Patient received 2 L IV fluids and will continue IV fluids at cautious rate Levophed has been weaned off -blood pressures are stable (12) Hyperglycemia: Continue Accu-Cheks and sliding scale insulin -continue Lantus (13) Electrolyte abnormality: Potassium has normalized Plan DVT prophylaxis -continue Eliquis Awaiting placement Subjective Date/time seen: 11/16/22 15:31 Patient being managed for Acute hypoxemic respiratory failure s/p intubation. Now on baseline home oxygen 2-4 liters. Noted continued improvement and denies any chest pain, SOB, vomiting, diarrhea. Awaiting placement Review of Systems Review of Systems: All systems reviewed & are unremarkable except as noted in HPI and below Exam Narrative: General:? Awake alert and no distress Lungs/Chest:? Adequate air entry, decreased at bases, coarse breath sounds bilaterally Cardiac: RRR. Normal S1 S2. No murmurs Circulation:? Feet are cool, decreased pedal pulses Abdomen: Decreased bowel sounds.? Patient is cachectic, scar from past surgery in left upper quadrant Soft. NT. ND. Extremities:? Chronic venous status changes, lower extremity
[2022-11-16 16:00] LABS: Hepatitis B Surface Antigen Negative (Negative)
[2022-11-16 16:05] LABS: HAV RESULT Negative (Negative); Hepatitis B Core IgM Result Negative (Negative)
[2022-11-16 16:17] LABS: Hepatitis C Virus Antibody Negative (Negative)
[2022-11-16 16:40] LABS: Glucose Point of Care 142 mg/dl (65-105)
[2022-11-16] MEDS: LOPERAMIDE HCL 2 MG CAPSULE PO (18:00)
--- NOTE | 2022-11-16 18:55 | PC.NURSE ---
Received from ICU/ via bed. Reeves draining.
[2022-11-16] MEDS: ALPRAZolam (*CRX) 0.5 MG TABLET 1 MG PO (21:41)
[2022-11-16 21:50] LABS: Glucose Point of Care 206 mg/dl (65-105)
[2022-11-17] VITALS (11 sets, daily range): BP systolic 112–129; BP diastolic 68–76; PULSE 68–95; RESP 16–18; TEMP 36.6–36.9; O2SAT 95–98
[2022-11-17 05:44] LABS: Basophils Percent Auto 0.1 % (0.2-1.2); Eosinophils Absolute Auto 0.1 K/mm3 (0-0.3); Eosinophils Percent Auto 0.6 % (0-4.4); Hematocrit 39.6 % (42.0-52.0); Hemoglobin 12.7 g/dL (14.0-18.0); Immature Granulocyte Absolute 0.09 K/mm3 (0.00-0.031); Immature Granulocyte Percent A 0.9 % (0-0.5); Lymphocytes Absolute Auto 1.41 K/mm3 (0.9-3.2); Lymphocytes Percent Auto 14.6 % (18.3-44.2); Mean Corpuscular HGB Conc 32.1 g/dl (32-36); Mean Corpuscular Hemoglobin 28.7 pg (26-34); Mean Corpuscular Volume 89.4 fl (80-100); Mean Platelet Volume 11.2 fl (7.4-10.4); Monocytes Absolute Auto 0.6 K/mm3 (0.1-0.6); Monocytes Percent Auto 6.1 % (2.6-8.5); Neutrophils Absolute Auto 7.5 K/mm3 (1.3-6.7); Neutrophils Percent Auto 77.7 % (45.5-73.1); Platelet Count Result 331 k/mm3 (150-375); Red Blood Count 4.43 M/mm3 (4.6-6.20); Red Cell Distribution Width 14.4 % (11.5-14.5); White Blood Count 9.7 K/mm3 (4.5-10.0)
[2022-11-17 05:54] LABS: Alanine Aminotransferase 192 U/L (6-50); Albumin Level 3.2 g/dL (3.5-5.1); Alkaline Phosphatase 92 U/L (38-126); Anion Gap 3 mmol/L (8-16); Aspartate Amino Transferase 67 U/L (17-59); Bilirubin,Total 0.8 mg/dL (0.2-1.3); Blood Urea Nitrogen 30 mg/dL (9-20); Calcium 8.6 mg/dL (8.4-10.2); Carbon Dioxide 29 mmol/L (22-30); Chloride 103 mmol/L (98-107); Estimated CRCL calculation 69 ml/min; Estimated Glomerular Filt Rate > 60; Glucose 136 mg/dL (65-110); Phosphorus 3.9 mg/dL (2.5-4.5); Potassium 3.5 mmol/L (3.4-5.0); Sodium 135 mmol/L (137-145)
[2022-11-17] MEDS: IPRATROPIUM BR 0.02% INH SOLN 0.5 MG/2.5 ML VIAL INHALATION ×3 (07:49→20:12)
[2022-11-17] MEDS: ALBUTEROL SULFATE NEB 2.5 MG/3 ML INH INHALATION ×3 (07:49→20:12)
[2022-11-17] MEDS: SILVERGEL (ELTA) 45 ML 1 APPLIC TOPICAL (08:13)
[2022-11-17] MEDS: EUCERIN CREAM 120 GM JAR 1 APPLIC TOPICAL (08:13)
[2022-11-17] MEDS: METOPROLOL TARTRATE 12.5 MG TABLET PO ×2 (08:13→21:25)
[2022-11-17] MEDS: ASPIRIN 325 MG TABLET FEED TUBE (08:14)
[2022-11-17] MEDS: APIXABAN 5 MG TABLET FEED TUBE ×2 (08:14→21:25)
[2022-11-17] MEDS: PANTOPRAZOLE SODIUM IV 40 MG VIAL IV PUSH (08:14)
[2022-11-17] MEDS: predniSONE 20 MG TABLET 40 MG PO (08:14)
[2022-11-17 08:37] LABS: Glucose Point of Care 130 mg/dl (65-105)
--- NOTE | 2022-11-17 10:25 | PM.IMPN ---
Progress Note: A&P Assessment and Plan (1) Acute on chronic respiratory failure with hypoxia and hypercapnia: Code(s): J96.21 - Acute and chronic respiratory failure with hypoxia; J96.22 - Acute and chronic respiratory failure with hypercapnia Status: Acute Plan (1) Acute on chronic respiratory failure with hypoxia and hypercapnia Acute on chronic respiratory failure with hypoxia and hypercarbia secondary to baseline severe COPD and pneumonia which could be community-acquired versus aspiration s/p intubation, now on nasal cannula oxygen at baseline home Oxygen chest x-ray:?Mild diffuse interstitial prominence. Correlate for chronic interstitial disease, atypical infection, or interstitial edema. methylprednisolone at 60 mg IV, now on oral Prednisone continue bronchodilators -11/06 blood cultures negative x2 -11/06 sputum cultures growing Moraxella catarrhalis - urine pneumococcal antigen -not detected, -urine Legionella antigen, mycoplasma IgM?are Negative Completed Abx, -Zosyn and azithromycin On Miconazole topical q 12 Awaiting placement (2) COPD (chronic obstructive pulmonary disease): ? ?See above (3) Pneumonia: See above (4) Acute kidney injury, resolved Likely secondary to hypotension, rhabdomyolysis Patient received 2 L fluid bolus and IV fluids were continued Urine electrolytes suggest prerenal ?CK level elevated at 633 Unremarkable renal ultrasound Creatinine has normalized with IV fluids, will discontinue IV fluid as patient tolerating tube feeds Monitor urine output electrolytes and creatinine monitor (5) Elevated troponin: Patient has elevated troponin which is likely demand mediated ischemia from respiratory failure He does have history of coronary disease although details unknown EKG reviewed shows no ST elevation Serial troponins shows flat level Continue Eliquis and aspirin Hold statin due to elevated liver enzyme Blood pressures are much improved, will start low-dose beta-kylie 11/06/2022 Echocardiogram:? EF 50-55%, grade 1 diastolic dysfunction, RV chamber mildly enlarged, RV systolic function is normal, no significant valvular disease (6) Coronary artery disease: See above (7) Congestive heart failure: Suspect patient has right heart failure from severe COPD Echocardiogram as above (8) Swelling of lower extremity: As above Negative for? lower extremity Dopplers for DVT (9) Encephalopathy: Likely toxic metabolic encephalopathy secondary to hypercarbia, opioid and now sedation Normal ammonia and TSH Head CT was negative Low lithium level started on low-dose fentanyl to prevent opioid withdrawal (10) Hyperlipidemia: Hold statin due to elevated liver enzyme (11) Hypotension: Likely secondary to hypovolemia, sedation possible early sepsis Normal lactic acid level Patient received 2 L IV fluids and will continue IV fluids at cautious rate Levophed has been weaned off -blood pressures are stable (12) Hyperglycemia: Continue Accu-Cheks and sliding scale insulin -continue Lantus (13) Electrolyte abnormality: Potassium has normalized Plan DVT prophylaxis -continue Eliquis Awaiting placement Subjective Date/time seen: 11/17/22 10:25 Interval history: Reason for consult: Respiratory failure likely related to COPD, pneumonia, acute kidney injury, elevated troponin, congestive heart failure 11/10 -self-extubated, reintubated the same day 11/13 -extubated Review of Systems Review of Systems: All systems reviewed & are unremarkable except as noted in HPI and below ROS unobtainable: Yes unobtainable due to endotracheal tube, unobtainable due to medical condition and unobtainable due to mental status Constitutional: Constitutional: Reports as per HPI and Reports no additional constitutional complaints Eyes: Eyes: Reports as per HPI and Reports no additional eye complaints ENT: Reports system reviewed and no additional complaints, except as documented and Report
[2022-11-17 12:11] LABS: Glucose Point of Care 197 mg/dl (65-105)
[2022-11-17] MEDS: GABAPENTIN 100 MG CAPSULE PO (16:37)
[2022-11-17 17:01] LABS: Glucose Point of Care 217 mg/dl (65-105)
[2022-11-17] MEDS: INSULIN ASPART (*BKC) 100 UNITS/ML SUB-Q (17:22)
[2022-11-17] MEDS: LANSOPRAZOLE ORAL SUSP 30 MG/10 ML ORAL.SUSP PO (19:31)
[2022-11-17] MEDS: MAG HYDROX/AL HYDROX/SIMETH 30 ML UDC PO (19:31)
[2022-11-17] MEDS: ALPRAZolam (*CRX) 0.5 MG TABLET 1 MG PO (21:26)
[2022-11-17 21:37] LABS: Glucose Point of Care 163 mg/dl (65-105)
[2022-11-18] VITALS (13 sets, daily range): BP systolic 102–107; BP diastolic 56–68; PULSE 66–92; RESP 16–20; TEMP 36.6–36.9; O2SAT 94–97
[2022-11-18] MEDS: MAG HYDROX/AL HYDROX/SIMETH 30 ML UDC PO ×2 (01:48→17:07)
[2022-11-18] MEDS: IPRATROPIUM BR 0.02% INH SOLN 0.5 MG/2.5 ML VIAL INHALATION ×4 (02:10→20:43)
[2022-11-18] MEDS: ALBUTEROL SULFATE NEB 2.5 MG/3 ML INH INHALATION ×4 (02:10→20:43)
[2022-11-18] MEDS: LANSOPRAZOLE ORAL SUSP 30 MG/10 ML ORAL.SUSP PO (06:22)
[2022-11-18 06:26] LABS: Triglycerides 140 mg/dL (<150)
[2022-11-18 08:05] LABS: Glucose Point of Care 128 mg/dl (65-105)
[2022-11-18] MEDS: APIXABAN 5 MG TABLET FEED TUBE ×2 (09:31→20:31)
[2022-11-18] MEDS: GABAPENTIN 100 MG CAPSULE PO ×2 (09:31→17:08)
[2022-11-18] MEDS: METOPROLOL TARTRATE 12.5 MG TABLET PO ×2 (09:31→20:31)
[2022-11-18] MEDS: SILVERGEL (ELTA) 45 ML 1 APPLIC TOPICAL (09:32)
[2022-11-18] MEDS: ASPIRIN 325 MG TABLET FEED TUBE (09:32)
[2022-11-18] MEDS: EUCERIN CREAM 120 GM JAR 1 APPLIC TOPICAL (09:32)
[2022-11-18] MEDS: predniSONE 20 MG TABLET 40 MG PO (09:32)
--- NOTE | 2022-11-18 09:48 | PM.IMPN ---
Progress Note: A&P Assessment and Plan (1) Acute on chronic respiratory failure with hypoxia and hypercapnia: Code(s): J96.21 - Acute and chronic respiratory failure with hypoxia; J96.22 - Acute and chronic respiratory failure with hypercapnia Status: Acute Plan (1) Acute on chronic respiratory failure with hypoxia and hypercapnia Acute on chronic respiratory failure with hypoxia and hypercarbia secondary to baseline severe COPD and pneumonia which could be community-acquired versus aspiration s/p intubation, now on nasal cannula oxygen at baseline home Oxygen chest x-ray:?Mild diffuse interstitial prominence. Correlate for chronic interstitial disease, atypical infection, or interstitial edema. methylprednisolone at 60 mg IV, now on oral Prednisone taper continue bronchodilators -11/06 blood cultures negative x2 -11/06 sputum cultures growing Moraxella catarrhalis - urine pneumococcal antigen -not detected, -urine Legionella antigen, mycoplasma IgM?are Negative Completed Abx, -Zosyn and azithromycin On Miconazole topical q 12 Awaiting placement (2) COPD (chronic obstructive pulmonary disease) ? ?See above (3) Pneumonia See above (4) Acute kidney injury, resolved Likely secondary to hypotension, rhabdomyolysis Patient received 2 L fluid bolus and IV fluids were continued Urine electrolytes suggest prerenal ?CK level elevated at 633 Unremarkable renal ultrasound Creatinine has normalized with IV fluids, will discontinue IV fluid as patient tolerating tube feeds Monitor urine output electrolytes and creatinine monitor (5) Elevated troponin Patient has elevated troponin which is likely demand mediated ischemia from respiratory failure He does have history of coronary disease although details unknown EKG reviewed shows no ST elevation Serial troponins shows flat level Continue Eliquis and aspirin Hold statin due to elevated liver enzyme Blood pressures are much improved, will start low-dose beta-kylie 11/06/2022 Echocardiogram:? EF 50-55%, grade 1 diastolic dysfunction, RV chamber mildly enlarged, RV systolic function is normal, no significant valvular disease Elevated LFTs, improving US liver unremarkable Hepatitis viral panel negative COntinue holding statin monitor (6) Coronary artery disease: See above (7) Congestive heart failure: Suspect patient has right heart failure from severe COPD Echocardiogram as above (8) Swelling of lower extremity: As above Negative for? lower extremity Dopplers for DVT (9) Encephalopathy: Likely toxic metabolic encephalopathy secondary to hypercarbia, opioid and now sedation Normal ammonia and TSH Head CT was negative Low lithium level started on low-dose fentanyl to prevent opioid withdrawal (10) Hyperlipidemia: Hold statin due to elevated liver enzyme (11) Hypotension: Likely secondary to hypovolemia, sedation possible early sepsis Normal lactic acid level Patient received 2 L IV fluids and will continue IV fluids at cautious rate Levophed has been weaned off -blood pressures are stable (12) Hyperglycemia: Continue Accu-Cheks and sliding scale insulin -continue Lantus (13) Electrolyte abnormality: Potassium has normalized Plan DVT prophylaxis -continue Eliquis Awaiting placement Subjective Date/time seen: 11/18/22 09:48 Patient admitted to the hospital for acute on chronic respiratory failure with unresponsiveness, initially managed in the ICU was intubated. Extubated and now on baseline nasal cannula oxygen. ON prednisone taper and awaiting placement. case managers on board. Interval history: Reason for consult: Respiratory failure likely related to COPD, pneumonia, acute kidney injury, elevated troponin, congestive heart failure 11/10 -self-extubated, reintubated the same day 11/13 -extubated Review of Systems Review of Systems: All systems reviewed & are unremarkable except as noted in HPI and below ROS unobtainable: Yes u
--- NOTE | 2022-11-18 11:26 | PCPTNOTE ---
Patient refused treatment this session due to stating he doesn't have his shoes yet, and it hurts his feet to much.Asked about exercises, and he stated he was to tired.
[2022-11-18 11:52] LABS: Glucose Point of Care 206 mg/dl (65-105)
[2022-11-18] MEDS: INSULIN ASPART (*BKC) 100 UNITS/ML SUB-Q (12:31)
[2022-11-18 17:37] LABS: Glucose Point of Care 188 mg/dl (65-105)
[2022-11-18 21:19] LABS: Glucose Point of Care 244 mg/dl (65-105)
[2022-11-19] VITALS (16 sets, daily range): BP systolic 115–121; BP diastolic 68–71; PULSE 61–92; RESP 16–20; TEMP 36.3–36.8; O2SAT 95–100
[2022-11-19] MEDS: ALPRAZolam (*CRX) 0.5 MG TABLET 1 MG PO ×2 (01:16→21:12)
[2022-11-19] MEDS: ALBUTEROL SULFATE NEB 2.5 MG/3 ML INH INHALATION ×4 (01:47→19:52)
[2022-11-19] MEDS: IPRATROPIUM BR 0.02% INH SOLN 0.5 MG/2.5 ML VIAL INHALATION ×4 (01:48→19:53)
[2022-11-19 05:37] LABS: Hematocrit 32.6 % (42.0-52.0); Hemoglobin 10.5 g/dL (14.0-18.0); Mean Corpuscular HGB Conc 32.2 g/dl (32-36); Mean Corpuscular Hemoglobin 29.1 pg (26-34); Mean Corpuscular Volume 90.3 fl (80-100); Mean Platelet Volume 11.2 fl (7.4-10.4); Platelet Count Result 281 k/mm3 (150-375); Red Blood Count 3.61 M/mm3 (4.6-6.20); Red Cell Distribution Width 14.6 % (11.5-14.5); White Blood Count 7.5 K/mm3 (4.5-10.0)
[2022-11-19 05:45] LABS: Alanine Aminotransferase 137 U/L (6-50); Albumin Level 2.6 g/dL (3.5-5.1); Alkaline Phosphatase 70 U/L (38-126); Anion Gap 0 mmol/L (8-16); Aspartate Amino Transferase 45 U/L (17-59); Bilirubin,Total 0.5 mg/dL (0.2-1.3); Blood Urea Nitrogen 21 mg/dL (9-20); Calcium 8.1 mg/dL (8.4-10.2); Carbon Dioxide 29 mmol/L (22-30); Chloride 104 mmol/L (98-107); Estimated CRCL calculation 94 ml/min; Estimated Glomerular Filt Rate > 60; Glucose 104 mg/dL (65-110); Potassium 3.9 mmol/L (3.4-5.0); Sodium 133 mmol/L (137-145)
[2022-11-19] MEDS: LANSOPRAZOLE ORAL SUSP 30 MG/10 ML ORAL.SUSP PO (06:02)
[2022-11-19 08:02] LABS: Glucose Point of Care 105 mg/dl (65-105)
[2022-11-19] MEDS: GABAPENTIN 100 MG CAPSULE PO ×2 (08:51→16:51)
[2022-11-19] MEDS: METOPROLOL TARTRATE 12.5 MG TABLET PO ×2 (08:51→21:14)
[2022-11-19] MEDS: ASPIRIN 325 MG TABLET FEED TUBE (08:51)
[2022-11-19] MEDS: predniSONE 10 MG TABLET 40 MG PO (08:51)
[2022-11-19] MEDS: SILVERGEL (ELTA) 45 ML 1 APPLIC TOPICAL (08:52)
[2022-11-19] MEDS: APIXABAN 5 MG TABLET FEED TUBE ×2 (08:52→21:13)
[2022-11-19] MEDS: EUCERIN CREAM 120 GM JAR 1 APPLIC TOPICAL (08:53)
[2022-11-19 12:05] LABS: Glucose Point of Care 139 mg/dl (65-105)
--- NOTE | 2022-11-19 12:08 | PM.IMPN ---
Progress Note: A&P Assessment and Plan (1) Acute on chronic respiratory failure with hypoxia and hypercapnia: Code(s): J96.21 - Acute and chronic respiratory failure with hypoxia; J96.22 - Acute and chronic respiratory failure with hypercapnia Status: Acute Plan (1) Acute on chronic respiratory failure with hypoxia and hypercapnia Acute on chronic respiratory failure with hypoxia and hypercarbia secondary to baseline severe COPD and pneumonia which could be community-acquired versus aspiration s/p intubation, now on nasal cannula oxygen at baseline home Oxygen chest x-ray:?Mild diffuse interstitial prominence. Correlate for chronic interstitial disease, atypical infection, or interstitial edema. methylprednisolone at 60 mg IV, now on oral Prednisone taper continue bronchodilators -11/06 blood cultures negative x2 -11/06 sputum cultures growing Moraxella catarrhalis - urine pneumococcal antigen -not detected, -urine Legionella antigen, mycoplasma IgM?are Negative Completed iv Antibitiocs, -Zosyn and azithromycin On Miconazole topical q 12 Awaiting Rehab placement (2) COPD (chronic obstructive pulmonary disease) ? ?See above (3) Pneumonia See above (4) Acute kidney injury, resolved Likely secondary to hypotension, rhabdomyolysis Patient received 2 L fluid bolus and IV fluids were continued Urine electrolytes suggest prerenal ?CK level elevated at 633 Unremarkable renal ultrasound Creatinine has normalized with IV fluids pt is eating and drinking more (5) Elevated troponin Patient has elevated troponin which is likely demand mediated ischemia from respiratory failure He does have history of coronary disease although details unknown EKG reviewed shows no ST elevation Serial troponins shows flat level Continue Eliquis and aspirin Hold statin due to elevated liver enzyme Blood pressures are much improved, will start low-dose beta-kylie 11/06/2022 Echocardiogram:? EF 50-55%, grade 1 diastolic dysfunction, RV chamber mildly enlarged, RV systolic function is normal, no significant valvular disease Elevated LFTs, improving US liver unremarkable Hepatitis viral panel negative Continue holding statin (6) Coronary artery disease: See above (7) Congestive heart failure: Suspect patient has right heart failure from severe COPD Echocardiogram as above (8) Swelling of lower extremity: As above Negative for? lower extremity Dopplers for DVT (9) Encephalopathy: Likely toxic metabolic encephalopathy secondary to hypercarbia, opioid and now sedation Normal ammonia and TSH Head CT was negative (10) Hyperlipidemia: Hold statin due to elevated liver enzyme (11) Hypotension: Likely secondary to hypovolemia, sedation possible early sepsis Normal lactic acid level Patient received 2 L IV fluids and will continue IV fluids at cautious rate Levophed has been weaned off -blood pressures are stable off vasopressors (12) Hyperglycemia: Continue Accu-Cheks and sliding scale insulin -continue Lantus (13) Electrolyte abnormality: Potassium has normalized DVT prophylaxis -continue Eliquis Awaiting placement for deconditioned state will need valencia catheter removed Subjective Date/time seen: 11/19/22 12:08 Interval history: Pt was admitted for respiratory failure likely related to COPD, pneumonia, acute kidney injury, elevated troponin, congestive heart failure Pt downgraded to medical floor from icu yesterday Pt was intubated and on vent in icu Pt doing better on 2 liters of oxygen still very weak has valencia in situ Pt to start therapy today Hopeful dc to rehab in 2-3 days time Review of Systems Review of Systems: Mild sob Weakness Bilateral feet pains due to long toe nails Exam Narrative: General:? Chronically ill on 2 liters of oxygen Lungs/Chest:?Decreased at bases, coarse breath sounds bilaterally Cardiac: RRR. Normal S1 S2. No murmurs Abdomen: Decreased bowel sounds.? Patient is c
--- NOTE | 2022-11-19 12:55 | PCNFU ---
Nutrition Follow-Up Complete: Inadequate Oral Intake as related to mechanical ventilation as evidenced by NPO - Goal: Meet estimanted nutritonal needs - Goal being met PO Pt current nutrition is Heart healthy diet, soft & bite sized, mildly thickened liquids. Magic cups BID. Nutrition recommendation: Continue current diet order and supplements. okayed patient to have double portions as desired. Last recorded weight is 63.1 kg. Bowel Motility: +2 BM 11/18/22 Labs Reviewed:Hgb 10.5, Hct 32.6, Alb 2.6, Na 133, BUN 21, Cre 0.6 Meds Noted: Lantus, eliquis Skin: Non pressure to knee and LLE, maceration to buttocks. No pressure injury Additional Notes: Diet upgraded to soft & bite sized. Intakes are good. Continue current diet order. Agree with orders. Will monitor, weight, labs, intakes, every 5 days
[2022-11-19] MEDS: NICOTINE (*PBKC) 21 MG PATCH 1 PATCH TRANSDERM (16:50)
[2022-11-19 16:53] LABS: Glucose Point of Care 190 mg/dl (65-105)
[2022-11-19] MEDS: MAG HYDROX/AL HYDROX/SIMETH 30 ML UDC PO ×2 (16:55→23:03)
[2022-11-19 22:37] LABS: Glucose Point of Care 200 mg/dl (65-105)
[2022-11-20] MEDS: ALBUTEROL SULFATE NEB 2.5 MG/3 ML INH INHALATION ×2 (02:24→08:20)
[2022-11-20] MEDS: IPRATROPIUM BR 0.02% INH SOLN 0.5 MG/2.5 ML VIAL INHALATION ×2 (02:25→08:20)
[2022-11-20 02:27] VITALS: PULSE 74; RESP 18
[2022-11-20 02:38] VITALS: PULSE 75; RESP 18
[2022-11-20] MEDS: LANSOPRAZOLE ORAL SUSP 30 MG/10 ML ORAL.SUSP PO (05:37)
[2022-11-20 06:00] VITALS: BP 128/73; PULSE 65; RESP 21; TEMP 36.3; O2SAT 100
[2022-11-20 06:48] LABS: Hemoglobin 10.8 g/dL (14.0-18.0); Mean Corpuscular HGB Conc 31.8 g/dl (32-36); Mean Corpuscular Hemoglobin 28.1 pg (26-34); Mean Corpuscular Volume 88.3 fl (80-100); Mean Platelet Volume 11.4 fl (7.4-10.4); Platelet Count Result 288 k/mm3 (150-375); Red Blood Count 3.85 M/mm3 (4.6-6.20); Red Cell Distribution Width 14.8 % (11.5-14.5); White Blood Count 7.4 K/mm3 (4.5-10.0)
[2022-11-20 07:03] LABS: Anion Gap 4 mmol/L (8-16); Blood Urea Nitrogen 20 mg/dL (9-20); Calcium 8.4 mg/dL (8.4-10.2); Carbon Dioxide 29 mmol/L (22-30); Chloride 99 mmol/L (98-107); Estimated CRCL calculation 84 ml/min; Estimated Glomerular Filt Rate > 60; Glucose 123 mg/dL (65-110); Potassium 3.5 mmol/L (3.4-5.0); Sodium 132 mmol/L (137-145); Triglycerides 151 mg/dL (<150)
[2022-11-20 08:20] VITALS: PULSE 73; RESP 18; O2SAT 97
[2022-11-20 08:32] VITALS: PULSE 75; RESP 18
[2022-11-20 08:45] LABS: Glucose Point of Care 102 mg/dl (65-105)
[2022-11-20] MEDS: predniSONE 10 MG TABLET 40 MG PO (09:30)
[2022-11-20] MEDS: APIXABAN 5 MG TABLET FEED TUBE (09:31)
[2022-11-20] MEDS: NICOTINE (*PBKC) 21 MG PATCH 1 PATCH TRANSDERM (09:31)
[2022-11-20] MEDS: METOPROLOL TARTRATE 12.5 MG TABLET PO (09:31)
[2022-11-20] MEDS: GABAPENTIN 100 MG CAPSULE PO (09:31)
[2022-11-20] MEDS: ASPIRIN 325 MG TABLET FEED TUBE (09:31)
[2022-11-20] MEDS: SILVERGEL (ELTA) 45 ML 1 APPLIC TOPICAL (09:32)
[2022-11-20] MEDS: EUCERIN CREAM 120 GM JAR 1 APPLIC TOPICAL (09:32)
--- NOTE | 2022-11-20 09:36 | PM.IMPN ---
Progress Note: A&P Assessment and Plan (1) Acute on chronic respiratory failure with hypoxia and hypercapnia: Code(s): J96.21 - Acute and chronic respiratory failure with hypoxia; J96.22 - Acute and chronic respiratory failure with hypercapnia Status: Acute Plan (1) Acute on chronic respiratory failure with hypoxia and hypercapnia Acute on chronic respiratory failure with hypoxia and hypercarbia secondary to baseline severe COPD and pneumonia which could be community-acquired versus aspiration s/p intubation, now on nasal cannula oxygen at baseline home Oxygen chest x-ray:?Mild diffuse interstitial prominence. Correlate for chronic interstitial disease, atypical infection, or interstitial edema. methylprednisolone at 60 mg IV, now on oral Prednisone taper continue bronchodilators -11/06 blood cultures negative x2 -11/06 sputum cultures growing Moraxella catarrhalis - urine pneumococcal antigen -not detected, -urine Legionella antigen, mycoplasma IgM?are Negative Completed iv Antibiotics, -Zosyn and azithromycin Continue oral Zithromax On Miconazole topical q 12 Awaiting Rehab placement in 1-2 days time (2) COPD (chronic obstructive pulmonary disease) ? ?See above (3) Pneumonia See above (4) Acute kidney injury, resolved Likely secondary to hypotension, rhabdomyolysis Patient received 2 L fluid bolus and IV fluids were continued Urine electrolytes suggest prerenal ?CK level is normal now with fluids Unremarkable renal ultrasound Creatinine has normalized with fluids pt is eating and drinking more (5) Elevated troponin Patient has elevated troponin which is likely demand mediated ischemia from respiratory failure He does have history of coronary disease although details unknown EKG reviewed shows no ST elevation Serial troponins shows flat level Continue Eliquis and aspirin Hold statin due to elevated liver enzyme Blood pressures are much improved, will start low-dose beta-kylie 11/06/2022 Echocardiogram:? EF 50-55%, grade 1 diastolic dysfunction, RV chamber mildly enlarged, RV systolic function is normal, no significant valvular disease Elevated LFTs, improving US liver unremarkable Hepatitis viral panel negative Continue holding statin (6) Coronary artery disease: See above (7) Congestive heart failure: Suspect patient has right heart failure from severe COPD Echocardiogram as above (8) Swelling of lower extremity: As above Negative for? lower extremity Dopplers for DVT (9) Encephalopathy: Likely toxic metabolic encephalopathy secondary to hypercarbia, opioid and now sedation Normal ammonia and TSH Head CT was negative (10) Hyperlipidemia: Hold statin due to elevated liver enzyme (11) Hypotension: Likely secondary to hypovolemia, sedation possible early sepsis Normal lactic acid level pt was on iv fluids and vasopressors in ICU Levophed has been weaned off -blood pressures are stable off vasopressors (12) Hyperglycemia: Continue Accu-Cheks and sliding scale insulin -continue Lantus (13) Electrolyte abnormality: Potassium has normalized DVT prophylaxis -continue Eliquis DC to rehab in 1-2 days time when medically stable Subjective Date/time seen: 11/20/22 09:36 Interval history: Pt was admitted for respiratory failure likely related to COPD, pneumonia, acute kidney injury, elevated troponin, congestive heart failure Pt downgraded to medical floor from icu Pt was intubated and on vent in icu Pt doing better on 2 liters of oxygen receiving breathing treatments in the hospital Pt started physical therapy Hopeful dc to rehab in 1-2 days time when medically stable Review of Systems Review of Systems: Sob cough and wheeze All systems reviewed & are unremarkable except as noted in HPI and below Exam Narrative: General:? Chronically ill on 2 liters of oxygen Lungs/Chest:?Decreased at bases, coarse breath sounds bilaterally Cardiac: RRR. Normal S1 S2. No mu
--- NOTE | 2022-11-20 10:37 | PM.DS ---
DS: Admitting Diagnosis Discharge Date 11/20/2022 Admitting Diagnosis 11/06/2022 DS: Discharge Diagnosis Discharge Diagnosis (1) Acute on chronic respiratory failure with hypoxia and hypercapnia: Code(s): J96.21 - Acute and chronic respiratory failure with hypoxia; J96.22 - Acute and chronic respiratory failure with hypercapnia Status: Acute Plan (1) Acute on chronic respiratory failure with hypoxia and hypercapnia Acute on chronic respiratory failure with hypoxia and hypercarbia secondary to baseline severe COPD and pneumonia which could be community-acquired versus aspiration s/p intubation, now on nasal cannula oxygen at baseline home Oxygen chest x-ray:?Mild diffuse interstitial prominence. Correlate for chronic interstitial disease, atypical infection, or interstitial edema. methylprednisolone at 60 mg IV, now on oral Prednisone taper continue bronchodilators -11/06 blood cultures negative x2 -11/06 sputum cultures growing Moraxella catarrhalis - urine pneumococcal antigen -not detected, -urine Legionella antigen, mycoplasma IgM?are Negative Completed iv Antibiotics, -Zosyn and azithromycin Continue oral Zithromax DC to rehab place - [facility] (2) COPD (chronic obstructive pulmonary disease) ? ?See above (3) Pneumonia See above (4) Acute kidney injury, resolved Likely secondary to hypotension, rhabdomyolysis Patient received 2 L fluid bolus and IV fluids were continued Urine electrolytes suggest prerenal ?CK level is normal now with fluids Unremarkable renal ultrasound Creatinine has normalized with fluids pt is eating and drinking more (5) Elevated troponin Patient has elevated troponin which is likely demand mediated ischemia from respiratory failure He does have history of coronary disease although details unknown EKG reviewed shows no ST elevation Serial troponins shows flat level Continue Eliquis and aspirin Hold statin due to elevated liver enzyme Blood pressures are much improved, will start low-dose beta-kylie 11/06/2022 Echocardiogram:? EF 50-55%, grade 1 diastolic dysfunction, RV chamber mildly enlarged, RV systolic function is normal, no significant valvular disease Elevated LFTs, improving US liver unremarkable Hepatitis viral panel negative Continue holding statin (6) Coronary artery disease: See above (7) Congestive heart failure: Suspect patient has right heart failure from severe COPD Echocardiogram as above (8) Swelling of lower extremity: As above Negative for? lower extremity Dopplers for DVT (9) Encephalopathy: Likely toxic metabolic encephalopathy secondary to hypercarbia, opioid and now sedation Normal ammonia and TSH Head CT was negative (10) Hyperlipidemia: Hold statin due to elevated liver enzyme (11) Hypotension: Likely secondary to hypovolemia, sedation possible early sepsis Normal lactic acid level pt was on iv fluids and vasopressors in ICU Levophed has been weaned off -blood pressures are stable off vasopressors (12) Hyperglycemia: Continue Accu-Cheks and sliding scale insulin likely secondary to IV steroids pt is transitioned to oral taper now watch sugars no need for lantus (13) Electrolyte abnormality: Potassium has normalized DVT prophylaxis -continue Eliquis DC to rehab today DS: Summary Hospital Course Hospital Course: Pt was admitted for respiratory failure likely related to COPD, pneumonia, acute kidney injury, elevated troponin, congestive heart failure Pt downgraded to medical floor from icu Pt was intubated and on vent in icu Pt doing better on 2 liters of oxygen receiving breathing treatments in the hospital Pt started physical therapy Dc to rehab today medically better today Time Spent with Patient Time attestation: Total time spent providing and/or coordinating discharge services: Exam Narrative: General:? Chronically ill on 2 liters of oxygen Lungs/Chest:?Decreased at bases, coarse breath
[2022-11-20 12:20] LABS: EDCOVIDSCREEN Negative (Negative)
[2022-11-20 12:24] LABS: Glucose Point of Care 137 mg/dl (65-105)
[2022-11-20] MEDS: AZITHROMYCIN 250 MG TABLET 500 MG PO (12:32)
== END 2022-11-20 13:29 | DRG 207 ==
LOC: ANHED 09:04 → ANHICU 12:05 → ANH2MED 11-16 19:27
PROVIDERS: Internal Medicine; Nurse Practitioner; Admitting Provider Family Medicine; Emergency Provider Emergency Medicine; PCP Registered Nurse; Visit Provider Internal Medicine
DX: J18.9 Pneumonia, unspecified organism (principal); G92.8 Other toxic encephalopathy; J96.21 Acute and chronic respiratory failure with hypoxia; J96.22 Acute and chronic respiratory failure with hypercapnia; J44.0 Chronic obstructive pulmonary disease with (acute) lower respiratory infection; N17.9 Acute kidney failure, unspecified; I24.8 Other forms of acute ischemic heart disease; M62.82 Rhabdomyolysis; J15.8 Pneumonia due to other specified bacteria; J69.0 Pneumonitis due to inhalation of food and vomit; I50.9 Heart failure, unspecified; Z20.822 Contact with and (suspected) exposure to COVID-19; I95.9 Hypotension, unspecified; I25.10 Atherosclerotic heart disease of native coronary artery without angina pectoris; E78.5 Hyperlipidemia, unspecified; R73.9 Hyperglycemia, unspecified; E87.8 Other disorders of electrolyte and fluid balance, not elsewhere classified; G62.9 Polyneuropathy, unspecified; M79.89 Other specified soft tissue disorders; F17.210 Nicotine dependence, cigarettes, uncomplicated; Z86.718 Personal history of other venous thrombosis and embolism; I25.2 Old myocardial infarction; Z95.5 Presence of coronary angioplasty implant and graft
CPT/HCPCS: 31500; 36415; 36556; 36600; 70496; 70498; 71045; 71260; 72125; 76705; 76775; 80048; 80053; 80074; 80178; 80307; 81001; 82140; 82375; 82550; 82570; 82805; 82948; 83050; 83605; 83735; 83880; 84100; 84145; 84300; 84439; 84443; 84478; 84480; 84484; 85025; 85027; 85610; 85730; 86738; 87040; 87070; 87077; 87185; 87205; 87426; 87449; 87637; 87899; 92526; 92610; 92611; 93005; 93306; 93925; 93970; 94003; 94640; 96361; 96374; 96375; 97110; 97116; 97161; 97165; 97530; 97535; 99291; A9270; C1751; C9113; C9803; J0456; J0612; J0696; J1815; J1940; J2250; J2310; J2543; J2704; J2930; J3010; J3475; J7030; J7060; J7120; J7512; Q9967

== ENCOUNTER 2022-12-02 02:04 | Emergency (ER) | payer MEDICARE, MEDICAID, SELFPAY ==
[2022-12-02] VITALS (12 sets, daily range): BP systolic 103–138; BP diastolic 42–89; PULSE 60–132; RESP 18–28; TEMP 37.3–37.8; O2SAT 93–98
--- NOTE | ~2022-12-02 | XR_ITS ---
XR chest 1V portable 12/02/2022 03:55 Indication: Tachycardia Procedure: AP portable chest Comparison: Comparison to multiple prior studies sequentially, with oldest reviewed study dated 10/2022. Findings: Heart size normal. Left lung clear. Right basilar airspace disease. No pleural effusion or pneumothorax. No acute osseous abnormality. Impression: 1: Right basilar airspace disease, atelectasis versus pneumonia. Reviewed, dictated and finalized at location A. HT ENGINEER HELICOPTER Impression: 1: Right basilar airspace disease, atelectasis versus pneumonia.
--- NOTE | 2022-12-02 02:14 | ECG_ITS ---
Measurements Intervals [place] Rate: 129 P: 79 WI: 141 QRS: 65 QRSD: 67 T: 77 QT: 297 QTc: 436 Interpretive Statements SINUS TACHYCARDIA WITH FREQUENT SUPRAVENTRICULAR PREMATURE COMPLEXES AND PREMATURE VENTRICULAR COMPLEX MINIMAL ST DEPRESSION BORDERLINE ECG COMPARED TO ECG 11/06/2022 11:28:10 NO SIGNIFICANT CHANGES Electronically Signed On 12-02-2022 14:46:11 HERB DOCTOR by Ricci Danielle M.D.
--- NOTE | 2022-12-02 02:46 | ED.GENADULT ---
HPI - General Adult General Chief complaint: Anxiety Stated complaint: anxiety Time Seen by Provider: 12/02/22 02:08 History of Present Illness HPI narrative: A 62-year-old male presenting to ED from the rehab center. Patient is rehab because he had pneumonia and respiratory failure requiring intubation and ICU stay. Over last 2-3 days he says that he has been feeling more jittery than usual. He requested the rehab center sent him to the hospital so he could obtain Ativan. Patient is denying fever, chills, difficulty breathing, chest pain, abdominal pain or urinary symptoms. Related Data Home Medications Medication Instructions Recorded Confirmed apixaban 5 mg tablet (Eliquis) 5 mg PO BID 05/28/22 11/06/22 budesonide 160 mcg-glycopyr 9 2 inh inhalation DAILY 05/28/22 11/06/22 mcg-formot 4.8 mcg/actuation HFA inhaler (Breztri Aerosphere) fluticasone fur. 100 mcg-umeclid 1 inh inhalation DAILY 05/28/22 11/06/22 62.5 mcg-vilant 25 mcg inhalat.powder (Trelegy Ellipta) ipratropium 20 mcg-albuterol 100 2 puff inhalation DAILY 05/28/22 11/06/22 mcg/actuation mist for inhalation (Combivent Respimat) lithium carbonate 150 mg capsule 150 mg PO DAILY 05/28/22 11/06/22 loperamide 2 mg capsule 2 mg PO QID PRN Diarrhea 05/28/22 11/06/22 metoprolol tartrate 25 mg tablet 25 mg PO DAILY 05/28/22 11/06/22 omeprazole 20 mg capsule,delayed 20 mg PO DAILY 05/28/22 11/06/22 release ramipril 5 mg capsule 5 mg PO DAILY 05/28/22 11/06/22 risperidone 2 mg tablet 2 mg PO BID 05/28/22 11/06/22 testosterone cypionate 200 mg/mL 200 mg IM MONTHLY 05/28/22 11/06/22 intramuscular oil Allergies Allergy/AdvReac Type Severity Reaction Status Date / Time vancomycin Allergy Severe Redness of Verified 05/29/22 18:28 Skin PMFSH Past Medical History Medical History Acute on chronic respiratory failure with hypoxia and hypercapnia Adequate anticoagulation on anticoagulant therapy Behavior disturbance COPD (chronic obstructive pulmonary disease) Coronary artery disease CVA (cerebral vascular accident) DVT (deep venous thrombosis) HTN (hypertension) with goal to be determined Hyperlipidemia Hypertension Myocardial infarction Neuropathy Surgical History Surgical History H/O heart artery stent History of removal of pigmented skin lesion Surgical history unknown Family History Family History Father Family history of heart disease in male family member before age 55 Social History Social History Social History: he is and has 3 children. He is disabled. Current smoker. Code status full code Smoking status: Current every day smoker Alcohol intake: never Substance use: never Substance use type: does not use Spiritual care concerns: No Exam Narrative: APPEARANCE: Patient is tremulous Head: atraumatic. EYES: EOMI, NOSE: Atraumatic NECK: Trachea midline RESPIRATORY: Clear to auscultation, increased rate of breathing CARDIOVASCULAR: tachycardic ABDOMINAL: Non-distended MUSCULOSKELETAl: No obvious deformities NEURO: Alert. Moving 4/4 extremities SKIN:: warm dry PSYCHIATRIC: Normal affect Course Vital Signs Vital signs: Vital Signs Temperature 100.0 F H 12/02/22 02:06 Pulse Rate 132 H 12/02/22 02:06 Respiratory Rate 28 H 12/02/22 02:06 Blood Pressure 138/89 12/02/22 02:06 Pulse Oximetry 95 12/02/22 02:06 Oxygen Delivery Nasal Cannula 12/02/22 02:06 Oxygen Flow Rate 4 12/02/22 02:06 Temperature 99.2 F 12/02/22 03:57 Pulse Rate 95 12/02/22 05:49 Respiratory Rate 18 12/02/22 05:49 Blood Pressure 103/66 12/02/22 05:49 Pulse Oximetry 96 12/02/22 05:49 Oxygen Delivery Nasal Cannula 12/02/22 03:13 Oxygen Flow Rate 2
[2022-12-02 02:49] LABS: Basophils Percent Auto 0.3 % (0.2-1.2); Eosinophils Percent Auto 1.2 % (0-4.4); Hematocrit 36.5 % (42.0-52.0); Hemoglobin 11.7 g/dL (14.0-18.0); Immature Granulocyte Absolute 0.02 K/mm3 (0.00-0.031); Immature Granulocyte Percent A 0.6 % (0-0.5); Immature Platelet Fraction Pct 6.1 % (0.9-11.2); Lymphocytes Absolute Auto 0.42 K/mm3 (0.9-3.2); Lymphocytes Percent Auto 12.5 % (18.3-44.2); Mean Corpuscular HGB Conc 32.1 g/dl (32-36); Mean Corpuscular Hemoglobin 28.3 pg (26-34); Mean Corpuscular Volume 88.4 fl (80-100); Mean Platelet Volume 10.8 fl (7.4-10.4); Monocytes Absolute Auto 0.3 K/mm3 (0.1-0.6); Monocytes Percent Auto 8.9 % (2.6-8.5); Neutrophils Absolute Auto 2.6 K/mm3 (1.3-6.7); Neutrophils Percent Auto 76.5 % (45.5-73.1); Platelet Count Result 125 k/mm3 (150-375); Red Blood Count 4.13 M/mm3 (4.6-6.20); Red Cell Distribution Width 16.1 % (11.5-14.5); White Blood Count 3.4 K/mm3 (4.5-10.0)
[2022-12-02] MEDS: SODIUM CHLORIDE 0.9% IV 2,000 ML 999 ML IV CONT (02:52)
[2022-12-02] MEDS: LORazepam INJ (*CRX) 2 MG/ML VIAL 1 MG IV PUSH (02:53)
[2022-12-02 03:23] LABS: Appearance Urine Clear (Clear); Bilirubin Urine Negative (Negative); Blood Urine 2+ (Negative); Color Urine Yellow (Yellow); Glucose Urine UA Negative (Negative); Ketones Urine Negative (Negative); Leukocyte Esterase Ur Negative LEU/UL (Negative); Nitrate Urine Negative (Negative); Protein Urine 2+ mg/dL (Negative); Specific Grav Ur 1.015 (1.001-1.035); Urobilinogen Urine 0.2 mg/dL (<2.0)
[2022-12-02 03:37] LABS: RBC Urine 21-50 /hpf (0-2); WBC Urine 0-3 /hpf
[2022-12-02 03:40] LABS: NT Pro B Type Natriuretic Pept 344 pg/mL (19.9-100)
[2022-12-02 03:42] LABS: Amphetamine Screen Urine Negative (Negative); Barbiturate Screen Urine Negative (Negative); Benzodiazepines Screen Urine Negative (Negative); Cannabinoid Screen Urine Negative (Negative); Cocaine Screen Urine Negative (Negative); Methadone Screen Urine Negative (Negative); Opiate Screen Urine Negative (Negative); Phencyclidine Screen Urine Negative (Negative)
[2022-12-02 03:46] LABS: Add Urine Microscopic? YES
[2022-12-02 03:59] LABS: Influenza A QL RT-PCR Negative (Negative); Influenza B QL RT-PCR Negative (Negative); RSV RNA, RT-PCR Negative (Negative); SARS-CoV-2 RNA PCR Negative
[2022-12-02 04:24] LABS: Alanine Aminotransferase 45 U/L (6-50); Albumin Level 3.2 g/dL (3.5-5.1); Alkaline Phosphatase 71 U/L (38-126); Anion Gap 5 mmol/L (8-16); Aspartate Amino Transferase 41 U/L (17-59); Bilirubin,Total 0.7 mg/dL (0.2-1.3); Blood Urea Nitrogen 10 mg/dL (9-20); Calcium 5.5 mg/dL (8.4-10.2); Carbon Dioxide 29 mmol/L (22-30); Chloride 101 mmol/L (98-107); Estimated CRCL calculation 77 ml/min; Estimated Glomerular Filt Rate > 60; Glucose 128 mg/dL (65-110); Magnesium 0.5 mg/dL (1.6-2.3); Potassium 3.6 mmol/L (3.4-5.0); Sodium 135 mmol/L (137-145)
[2022-12-02 04:37] LABS: Lactic Acid Reflex 1.4 mmol/L (0.7-2.0)
[2022-12-02] MEDS: MAGNESIUM SULF 2 GM/WATER 50ML 2 GM/50 ML BAG IVPB (04:52)
[2022-12-02] MEDS: CALCIUM GLUC 2,000 MG/NS 100ML 2,000 MG/100 ML BAG 100 MG IVPB (06:17)
[2022-12-02] MEDS: LORazepam (*CRX) 1 MG TABLET PO (06:37)
== END 2022-12-02 11:59 ==
PROVIDERS: Emergency Provider Emergency Medicine; PCP Registered Nurse
DX: F41.9 Anxiety disorder, unspecified (principal); Z20.822 Contact with and (suspected) exposure to COVID-19; J96.11 Chronic respiratory failure with hypoxia; J96.12 Chronic respiratory failure with hypercapnia; J44.9 Chronic obstructive pulmonary disease, unspecified; I25.10 Atherosclerotic heart disease of native coronary artery without angina pectoris; I10 Essential (primary) hypertension; E78.5 Hyperlipidemia, unspecified; I25.2 Old myocardial infarction; G62.9 Polyneuropathy, unspecified; Z86.73 Personal history of transient ischemic attack (TIA), and cerebral infarction without residual deficits; Z86.718 Personal history of other venous thrombosis and embolism; Z79.01 Long term (current) use of anticoagulants; Z79.899 Other long term (current) drug therapy; Z95.5 Presence of coronary angioplasty implant and graft; F17.200 Nicotine dependence, unspecified, uncomplicated; R00.0 Tachycardia, unspecified; I49.1 Atrial premature depolarization; I49.3 Ventricular premature depolarization
CPT/HCPCS: 36415; 71045; 80053; 80307; 81001; 83605; 83735; 83880; 84443; 84484; 85025; 85055; 87040; 87637; 93005; 96361; 96365; 96366; 96367; 96375; 99284; A9270; J0131; J0612; J2060; J3475; J7030

== ENCOUNTER 2022-12-03 09:34 | Inpatient (IN) | payer MEDICARE, MEDICAID, SELFPAY ==
[2022-12-03] VITALS (72 sets, daily range): BP systolic 65–146; BP diastolic 55–93; PULSE 57–134; RESP 12–37; TEMP 34.4–36.4; O2SAT 91–100; BMI 22.4
--- NOTE | ~2022-12-03 | XR_ITS ---
EXAMINATION: XR chest 1V portable DATE: 12/16/2022 05:49 INDICATION: Respiratory failure. TECHNIQUE: A single frontal view of the chest was obtained. COMPARISON: Chest single view 12/15/2022 FINDINGS: The lungs are hyperexpanded with lucencies, consistent with emphysema. No pleural effusion or pneumothorax. The heart size is normal. There is a tracheostomy tube in expected position. IMPRESSION: 1. Emphysema. Reviewed, dictated and finalized at location A. SYSTEM MAINTENANCE WORKER IMPRESSION: 1. Emphysema.
--- NOTE | ~2022-12-03 | CT_ITS ---
EXAMINATION: CTA brain carotid DATE: 12/03/2022 13:20 WEB OPERATIONS LEAD INDICATION: Altered mental status TECHNIQUE: Computed tomographic angiography (CTA) of the head was performed without and with 100 mL O mnipaque-350 intravenous contrast. CTA of the neck was performed with intravenous contrast. The dose- length product was 1950.76 mGy-cm. Maximum intensity projection and volume rendered 3D-reconstruction s were created by the technologist on a separate workstation. COMPARISON: CTA dated 11/06/2022. FINDINGS: HEAD CTA: Brain parenchymal volume is normal for age. There are scattered periventricular and subcort ical white matter changes, most likely related to small vessel ischemic disease (microangiopathy). Th ere are is a focal chronic right parietal lobe infarction unchanged. No acute hemorrhage, infarction, mass or mass effect. There is mucosal thickening of the maxillary sinuses. Mastoids are pneumatized. No depressed skull fractures. The vertebral arteries are codominant. There is there is no significan t stenosis of the intracranial arteries. The anterior, middle and posterior cerebral arteries are sym metric. No evidence for aneurysm or occlusion. NECK CTA: There is atherosclerosis of the aorta. There is emphysema. There are patchy groundglass opa cities of the upper lobes. There is mild plaque of the proximal internal carotid arteries. There is 0% stenosis of the proximal right internal carotid artery relative to normal distal artery l umen diameter (NASCET criteria). There is 0% stenosis of the proximal left internal carotid artery re lative to normal distal artery lumen diameter. IMPRESSION: 1. No acute intracranial abnormality. No aneurysms or significant stenosis. No occlusion. 2: 0% stenosis of the proximal internal carotid arteries relative to normal distal artery lumen diam eters. 3: Severe emphysema with patchy groundglass opacities, most likely infectious/inflammatory. Reviewed, dictated and finalized at location B. OPERATIONS LEAD IMPRESSION: 1. No acute intracranial abnormality. No aneurysms or significant stenosis. No occlusion. 2: 0% stenosis of the proximal internal carotid arteries relative to normal di stal artery lumen diameters. 3: Severe emphysema with patchy groundglass opacities, most likely infectious/i nflammatory.
--- NOTE | ~2022-12-03 | XR_ITS ---
EXAMINATION: XR chest 1V portable DATE: 12/17/2022 06:04 INDICATION: Respiratory failure TECHNIQUE: frontal view of the chest was obtained. COMPARISON: Chest radiograph dated 12/16/2022 FINDINGS: Tracheostomy tube in expected position at the thoracic inlet. Emphysema with hyperexpansion lungs and increased lucency and architectural distortion at the apices. No focal airspace opacities, pulmonary edema, pleural effusion or pneumothorax. The cardiomediastinal silhouette is normal. IMPRESSION: 1. Emphysema. Reviewed, dictated and finalized at location A. ICE TEAM LEAD IMPRESSION: 1. Emphysema.
--- NOTE | ~2022-12-03 | XR_ITS ---
Portable chest x-ray Comparison: 12/10/2022 Clinical History: Respiratory failure Findings: Endotracheal tube and NG tube are in satisfactory positions. Stable diffuse interstitial p attern of the lungs. No pleural effusion or pneumothorax. Cardiomediastinal silhouette is stable. Avinash connie and soft tissues are unremarkable. Impression: Stable interstitial disease. Support tubes, as above. Reviewed, dictated and finalized at location . TECH Impression: Stable interstitial disease. Support tubes, as above.
--- NOTE | ~2022-12-03 | XR_ITS ---
EXAMINATION: XR chest 1V portable DATE: 12/03/2022 10:38 INDICATION: Shortness of breath TECHNIQUE: frontal view of the chest was obtained. COMPARISON: Chest radiograph dated 12/02/2022 FINDINGS: New patchy airspace opacities in the right mid and lower lung zones. Small right pleural effusion. No evident left pleural effusion although the left costophrenic angle is excluded from [id number]. N o pneumothorax. Heart size is normal. IMPRESSION: 1. Patchy airspace opacities in the right mid and lower lung zones which could represent pneumonia or atelectasis. 2. Small right pleural effusion. Reviewed, dictated and finalized at location A. SHER DENTURE
--- NOTE | ~2022-12-03 | XR_ITS ---
Portable chest x-ray Comparison: 12/04/2022 Clinical History: Respiratory failure Findings: Endotracheal tube tip is just above the stephen. NG tube in satisfactory position. Mild roseanne undglass and interstitial disease throughout the lungs are similar to prior exam. Cardiomediastinal silhouette is stable. Bones and soft tissues are unremarkable. Impression: Stable diffuse pulmonary disease. Correlate for pulmonary edema, infection, and/or chronic interstiti al disease. ET tube tip just above the stephen. Retraction by 2 cm advised. NG tube in place. Reviewed, dictated and finalized at [facility]. ERING OVEN OPERATOR Impression: Stable diffuse pulmonary disease. Correlate for pulmonary edema, infection, and /or chronic interstitial disease. ET tube tip just above the stephen. Retraction by 2 cm advised. NG tube in place.
--- NOTE | ~2022-12-03 | XR_ITS ---
Portable chest x-ray Comparison: 12/13/2022 at 5:13 AM Clinical History: Tube placement Findings: Endotracheal tube and NG tube are in satisfactory positions. Probable COPD pattern of the lungs with interstitial prominence. No consolidation or pleural effusion. Cardiomediastinal silhouet te is stable. Bones and soft tissues are unremarkable. Impression: Suspected COPD and interstitial prominence in the lungs. Support tubes, as above. Reviewed, dictated and finalized at location . LING STRATEGIST Impression: Suspected COPD and interstitial prominence in the lungs. Support tubes, as above.
--- NOTE | ~2022-12-03 | XR_ITS ---
Portable chest x-ray Comparison: 12/12/2021 Clinical History: Respiratory failure Findings: Endotracheal tube and NG tube are in satisfactory positions. Probable COPD pattern and int erstitial prominence in the lungs. No definite consolidation or pleural effusion. Cardiomediastinal silhouette is stable. Bones and soft tissues are unremarkable. Impression: Probable COPD with associated interstitial prominence. Support tubes, as above. Reviewed, dictated and finalized at location . LER AND LACER Impression: Probable COPD with associated interstitial prominence. Support tubes, as above.
--- NOTE | ~2022-12-03 | XR_ITS ---
XR chest 1V portable DATE: 12/08/2022 06:00 INDICATION: Respiratory failure TECHNIQUE: Portable upright AP chest on December 08, 2022 0508 hours COMPARISON: December 07, 2019 portable AP chest at 0512 hours FINDINGS: NG tube is noted passing into the stomach. ET tube in satisfactory position. No central jan ous lines. Normal heart size. Moderate bilateral hyperinflation suggesting COPD. Persistent diffuse patchy groundglass infiltrates consistent with interstitial fibrosis and/or inters titial pneumonitis. No pleural effusion or pulmonary vascular congestion or pneumothorax is evident. Osteopenia. IMPRESSION: No significant change since 12/03/2022 Reviewed, dictated and finalized at location A. R QUALITY CONTROL ENGINEER
--- NOTE | ~2022-12-03 | XR_ITS ---
Erect view of the abdomen Clinical history: Tube placement Findings: NG tube in satisfactory position. Bowel gas pattern is nonspecific. No evidence for obstruc tion or free air. No abnormal mass lesion or calcification is seen. Osseous structures are intact. Impression: NG tube in satisfactory position. Reviewed, dictated and finalized at [facility]. O FORMING MACHINE OPERATOR Impression: NG tube in satisfactory position.
--- NOTE | ~2022-12-03 | XR_ITS ---
Portable chest x-ray Comparison: 12/09/2022 Clinical History: Respiratory failure Findings: Endotracheal tube and NG tube are in satisfactory positions. Extensive groundglass and int erstitial pulmonary disease is unchanged. Cardiomediastinal silhouette is stable. Bones and soft tis sues are unremarkable. Impression: Stable diffuse pulmonary disease. Stable support tubes. Reviewed, dictated and finalized at location . N CHAIN PULLER Impression: Stable diffuse pulmonary disease. Stable support tubes.
--- NOTE | ~2022-12-03 | XR_ITS ---
Portable chest x-ray Comparison: 12/13/2022 Clinical History: Respiratory failure Findings: Endotracheal tube and NG tube are in satisfactory positions. Stable COPD/interstitial dise ase. Cardiomediastinal silhouette is stable. Bones and soft tissues are unremarkable. Impression: Stable COPD/interstitial disease. Stable support tubes. Reviewed, dictated and finalized at [facility]. ENGINEER Impression: Stable COPD/interstitial disease. Stable support tubes.
--- NOTE | ~2022-12-03 | XR_ITS ---
Portable chest x-ray Comparison: 12/05/2022 Clinical History: Respiratory failure Findings: Endotracheal tube and NG tube are in satisfactory positions. There is minimal groundglass and interstitial disease bilaterally. No consolidation or pleural effusion. Cardiomediastinal silhou ette is stable. Bones and soft tissues are unremarkable. Impression: Stable mild diffuse pulmonary disease. Correlate for COPD/chronic interstitial disease versus acute p ulmonary process. Support tubes, as above. Reviewed, dictated and finalized at location M. MIXING OPERATOR Impression: Stable mild diffuse pulmonary disease. Correlate for COPD/chronic interstitial disease versus acute pulmonary process. Support tubes, as above.
--- NOTE | ~2022-12-03 | XR_ITS ---
XR chest 1V portable DATE: 12/09/2022 06:30 INDICATION: Respiratory failure TECHNIQUE: Portable AP chest on December 09, 2022 0512 hours COMPARISON: Portable AP chest on December 08, 2022 at 0508 hours FINDINGS: ET tube tip 4.6 cm above stephen. NG tube in stomach, proximal side-port approximately 2.5 c m distal to the diaphragmatic hiatus. No central lines. Normal heart size. Diffuse interstitial prominence which may be due to interstitial fibrosis and/or pneumonitis or less likely pulmonary interstitial edema. No pulmonary vascular congestion is noted. No pleural effusion o r pneumothorax. IMPRESSION: No significant change since 12/08/2022 Reviewed, dictated and finalized at location A. DING MACHINE OPERATOR
--- NOTE | ~2022-12-03 | XR_ITS ---
Portable chest x-ray Comparison: 12/06/2022 Clinical History: Respiratory failure Findings: Endotracheal tube and NG tube are in satisfactory positions. Interstitial pulmonary diseas e with minimal groundglass opacities unchanged. No pleural effusion or pneumothorax. Cardiomediastin al silhouette is stable. Bones and soft tissues are unremarkable. Impression: Stable diffuse interstitial pulmonary disease with mild ground glass opacity. Correlate for chronic i nterstitial disease versus mild pulmonary edema or atypical infection. Support tubes, as above. Reviewed, dictated and finalized at location . SCALE MAN Impression: Stable diffuse interstitial pulmonary disease with mild ground glass opacity. C orrelate for chronic interstitial disease versus mild pulmonary edema or atypic al infection. Support tubes, as above.
--- NOTE | ~2022-12-03 | XR_ITS ---
Portable chest x-ray Comparison: 12/03/2022 at 10:29 AM Clinical History: Tube placement Findings: Endotracheal tube and NG tube are in satisfactory positions. Extensive groundglass and int erstitial pulmonary disease is unchanged. No pleural effusion or pneumothorax. Cardiomediastinal abdoul houette is stable. Bones and soft tissues are unremarkable. Impression: Support tubes, as above. Stable groundglass and interstitial pulmonary disease. Correlate for pulmonary edema, infection, and/ or chronic interstitial disease. Reviewed, dictated and finalized at location . E DIGGER Impression: Support tubes, as above. Stable groundglass and interstitial pulmonary disease. Correlate for pulmonary edema, infection, and/or chronic interstitial disease.
--- NOTE | ~2022-12-03 | XR_ITS ---
Portable chest x-ray Comparison: 12/03/2022 Clinical History: Respiratory failure Findings: Endotracheal tube and NG tube are in satisfactory positions. Diffuse hazy and interstitial pattern is stable from prior exam. Cardiomediastinal silhouette is stable. Bones and soft tissues a re unremarkable. Impression: Stable diffuse pulmonary disease. Support tubes, as above. Reviewed, dictated and finalized at [facility]. DRY OR DRY CLEANERS COUNTER CLERK Impression: Stable diffuse pulmonary disease. Support tubes, as above.
--- NOTE | ~2022-12-03 | CT_ITS ---
EXAMINATION: CT diagnostic chest wo con DATE: 12/05/2022 09:00 INDICATION: Diffuse infiltrates on chest x-ray. TECHNIQUE: Computed tomography (CT) of the chest was performed without intravenous contrast. The dose -length product was 308.20 mGy-cm. Automated exposure control and iterative reconstruction technique were employed. COMPARISON: CT dated 11/06/2022 FINDINGS: There are a few areas of patchy groundglass opacifications as well as reticular nodularity in the right lower lobe. There is focal consolidation in the right lower lobe posteriorly which is ne w compared with prior study. Interval resolution of infiltrates in the right upper lobe. There are se maura superimposed emphysema. Endotracheal tube is present. NG tube in the stomach. There is a gallsto ne. Calcified granuloma in the spleen. Small pericardial effusion. Trace right pleural effusion. Ther e is a nondisplaced left ninth rib fracture anteriorly. IMPRESSION: 1. Patchy groundglass opacities with areas of reticular nodularity particularly in the right lower lo be, most likely infectious/inflammatory. More focal consolidation is seen in the right lower lobe pos teriorly. 2: Emphysema. 3: Small right pleural effusion. 4: Small pericardial effusion. 5: Cholelithiasis. Reviewed, dictated and finalized at location B. IFIED ETHICAL HACKER IMPRESSION: 1. Patchy groundglass opacities with areas of reticular nodularity particularly in the right lower lobe, most likely infectious/inflammatory. More focal conso lidation is seen in the right lower lobe posteriorly. 2: Emphysema. 3: Small right pleural effusion. 4: Small pericardial effusion. 5: Cholelithiasis.
--- NOTE | ~2022-12-03 | XR_ITS ---
EXAMINATION: XR abdomen/kub 1V DATE: 12/15/2022 08:42 INDICATION: Gastrostomy tube placement. TECHNIQUE: A supine view of the abdomen on 2 radiographs was obtained. COMPARISON: Chest CT 12/05/2022 FINDINGS: There are no dilated loops of bowel. A catheter overlies the bladder. A gastrostomy tube ov erlies the body of the stomach. IMPRESSION: 1. Gastrostomy tube in expected position. Reviewed, dictated and finalized at location A. CT CARE COUNSELOR
--- NOTE | ~2022-12-03 | XR_ITS ---
EXAMINATION: XR chest 1V portable DATE: 12/15/2022 08:42 INDICATION: Respiratory failure. TECHNIQUE: A single frontal view of the chest was obtained. COMPARISON: Chest single view 12/14/2022, chest CT 12/05/2022 FINDINGS: The lungs are hyperexpanded with lucencies, consistent with emphysema. No pleural effusion or pneumothorax. The heart size is normal. There is a tracheostomy tube in expected position. IMPRESSION: 1. Emphysema. Reviewed, dictated and finalized at location A. NICAL PROFESSIONAL IMPRESSION: 1. Emphysema.
--- NOTE | ~2022-12-03 | XR_ITS ---
XR abdomen NG/feed tube insert INDICATION: Evaluate NG tube position. TECHNIQUE: Limited KUB perform for evaluating NG tube . COMPARISON: . 12/03/2022 FINDINGS: NG tube tip in the stomach. Visualized bowel gas pattern is unremarkable. IMPRESSION: 1: NG tube tip in the stomach. Reviewed, dictated and finalized at location B. IT CARD ANALYST
--- NOTE | ~2022-12-03 | XR_ITS ---
Portable chest x-ray Comparison: 12/11/2022 Clinical History: Respiratory failure Findings: Endotracheal tube and NG tube are without significant change. Diffuse interstitial pattern of the lungs is unchanged. No pleural effusion or pneumothorax. Cardiomediastinal silhouette is sta ble. Bones and soft tissues are unremarkable. Impression: Stable COPD/interstitial disease. Stable support tubes. Reviewed, dictated and finalized at location . ENFORCEMENT OFFICER Impression: Stable COPD/interstitial disease. Stable support tubes.
--- NOTE | 2022-12-03 09:59 | PC.NURSE ---
PT states he wears 3L at home.
--- NOTE | 2022-12-03 10:01 | ECG_ITS ---
Measurements Intervals [place] Rate: 115 P: [place]: 0 QRS: 74 QRSD: 79 T: 75 QT: 322 QTc: 446 Interpretive Statements SINUS TACHYCARDIA WITH PAC ABNORMAL RHYTHM ECG BORDERLINE ECG COMPARED TO ECG 12/02/2022 02:17:36 NO DIFFERENCE Electronically Signed On 12-03-2022 12:47:02 COUNTERPERSON by Henrry Alejandra M.D.
[2022-12-03] MEDS: ALBUTEROL SULFATE NEB 2.5 MG/3 ML INH 15 MG INHALATION (10:20)
[2022-12-03] MEDS: IPRATROPIUM BR 0.02% INH SOLN 0.5 MG/2.5 ML VIAL 1.5 MG INHALATION (10:20)
[2022-12-03 10:21] LABS: Basophils Percent Auto 0.3 % (0.2-1.2); Hematocrit 42.5 % (42.0-52.0); Hemoglobin 12.9 g/dL (14.0-18.0); Immature Granulocyte Absolute 0.02 K/mm3 (0.00-0.031); Immature Granulocyte Percent A 0.6 % (0-0.5); Immature Platelet Fraction Pct 6.4 % (0.9-11.2); Lymphocytes Absolute Auto 0.32 K/mm3 (0.9-3.2); Lymphocytes Percent Auto 10.2 % (18.3-44.2); Mean Corpuscular HGB Conc 30.4 g/dl (32-36); Mean Corpuscular Hemoglobin 28.1 pg (26-34); Mean Corpuscular Volume 92.6 fl (80-100); Mean Platelet Volume 11.6 fl (7.4-10.4); Monocytes Absolute Auto 0.2 K/mm3 (0.1-0.6); Monocytes Percent Auto 5.4 % (2.6-8.5); Neutrophils Absolute Auto 2.6 K/mm3 (1.3-6.7); Neutrophils Percent Auto 83.5 % (45.5-73.1); Platelet Count Result 124 k/mm3 (150-375); Red Blood Count 4.59 M/mm3 (4.6-6.20); Red Cell Distribution Width 16.2 % (11.5-14.5); White Blood Count 3.1 K/mm3 (4.5-10.0)
[2022-12-03 10:25] LABS: Alveolar/Arterial O2 Gradient 116.9 mmHg; Base Excess ABG -5.4 mEq/l (+/-2.0); Carboxyhemoglobin 0.8 % THb (0-2.0); Fractional Inspired Oxygen 40 %; HCO3 ABG 25.1 mEq/l (22.0-26.0); Methemoglobin ABG 0.5 %THb (0-1.5); Oxygen Content ABG 17.1 %vol (16.0-22.0); Oxygen Saturation ABG 91.7 % (95.0-100.0); Oxyhemoglobin 92.3 % THb (90.0-100.0); PO2 ABG 81.2 mmHg (80.0-100.0); PO2 FiO2 Ratio Arterial Blood 2.03 %; Reduced Hemoglobin 6.4 %THb (0-5.0); Total Hemoglobin 13.1 g/dL (12.0-18.0)
[2022-12-03 10:27] LABS: pH ABG 7.139 (7.350-7.450)
[2022-12-03 10:28] LABS: Device BIPAP; Modified Allen's Test Pass; PCO2 ABG 75.7 mmHg (35.0-45.0); Site Drawn RIGHT RADIAL
[2022-12-03 10:28] LABS: Alanine Aminotransferase 47 U/L (6-50); Albumin Level 4.1 g/dL (3.5-5.1); Alkaline Phosphatase 102 U/L (38-126); Anion Gap 4 mmol/L (8-16); Aspartate Amino Transferase 52 U/L (17-59); Bilirubin,Total 0.7 mg/dL (0.2-1.3); Blood Urea Nitrogen 10 mg/dL (9-20); Carbon Dioxide 28 mmol/L (22-30); Chloride 104 mmol/L (98-107); Estimated Glomerular Filt Rate > 60; Glucose 162 mg/dL (65-110); Sodium 136 mmol/L (137-145)
[2022-12-03 10:38] LABS: NT Pro B Type Natriuretic Pept 4930 pg/mL (19.9-100)
[2022-12-03] MEDS: FUROSEMIDE INJ 40 MG/4 ML VIAL IV PUSH (11:25)
[2022-12-03 12:00] LABS: Appearance Urine Slightly Cloudy (Clear); Bilirubin Urine Negative (Negative); Blood Urine 1+ (Negative); Color Urine Yellow (Yellow); Glucose Urine UA Negative (Negative); Ketones Urine Trace mg/dL (Negative); Leukocyte Esterase Ur Negative LEU/UL (Negative); Nitrate Urine Negative (Negative); Protein Urine 1+ mg/dL (Negative); Specific Grav Ur >= 1.030 (1.001-1.035); Urobilinogen Urine 0.2 mg/dL (<2.0)
[2022-12-03] MEDS: ONDANSETRON INJ 4 MG/2 ML VIAL IV PUSH (12:13)
[2022-12-03] MEDS: MORPHINE SULFATE (*CRX) 2 MG/ML INJ IV PUSH (12:13)
[2022-12-03 12:14] LABS: Mucus Urine Rare /lpf; Squamous Epithelial Cell Urine Rare /hpf (Few); WBC Urine 0-3 /hpf
[2022-12-03 12:18] LABS: Add Urine Microscopic? YES; Amphetamine Screen Urine Negative (Negative); Barbiturate Screen Urine Negative (Negative); Benzodiazepines Screen Urine Negative (Negative); Cannabinoid Screen Urine Negative (Negative); Cocaine Screen Urine Negative (Negative); Methadone Screen Urine Negative (Negative); Opiate Screen Urine Negative (Negative); Phencyclidine Screen Urine Negative (Negative)
[2022-12-03 12:22] LABS: Lithium < 0.2 mmol/L (0.6-1.2)
[2022-12-03] MEDS: LORazepam INJ (*CRX) 2 MG/ML VIAL 0.5 MG IV PUSH (12:33)
[2022-12-03 12:35] LABS: Influenza A QL RT-PCR Negative (Negative); Influenza B QL RT-PCR Negative (Negative); SARS-CoV-2 RNA PCR Negative
--- NOTE | 2022-12-03 13:00 | PC.NURSE ---
PT. daughter consented to pt. being intubated over the phone w/ this RN.
--- NOTE | 2022-12-03 13:04 | PC.NURSE ---
1302 pt. given 20 mg IVP Etomidate VORB ERP [place] 1304 Pt. given 100 mg succinylcholine VORB ERP [place] 1305 pt. intubated w/ 7.5 ET tube placed measuring 27 at teeth bilat. breath sounds noted as well as positive color change.
[2022-12-03] MEDS: PROPOFOL IV EMULSION 100 ML 2.45 MG IV CONT (13:31)
--- NOTE | 2022-12-03 13:47 | PC.NURSE ---
VORB ERP 2 mg versed and 25mcg fentanyl given IVP for sedation
[2022-12-03 14:04] LABS: Carboxyhemoglobin 0.5 % THb (0-2.0); Fractional Inspired Oxygen 40 %; HCO3 ABG 21.4 mEq/l (22.0-26.0); Methemoglobin ABG 0.5 %THb (0-1.5); Oxygen Content ABG 16.2 %vol (16.0-22.0); Oxygen Saturation ABG 96.2 % (95.0-100.0); Oxyhemoglobin 95.8 % THb (90.0-100.0); PCO2 ABG 56.3 mmHg (35.0-45.0); PO2 ABG 101.5 mmHg (80.0-100.0); PO2 FiO2 Ratio Arterial Blood 2.54 %; Reduced Hemoglobin 3.2 %THb (0-5.0); Total Hemoglobin 11.9 g/dL (12.0-18.0)
[2022-12-03 14:05] LABS: Arterial Blood Gas PEEP 12 cmH2O; Arterial Blood Gas Tidal Volume 420 ml; Arterial Blood Gas Vent Mode CMV; Arterial Blood Gas Ventilator rate 20 /MIN; Device VENTILATOR; Site Drawn RIGHT BRACHIAL; pH ABG 7.198 (7.350-7.450)
[2022-12-03] MEDS: MIDAZOLAM 100MG/NS 100ML(*CRX) 100 MG/100 ML BAG IV CONT (14:05)
[2022-12-03] MEDS: FENTANYL 2,500MCG/NS250ML(*CRX 2,500 MCG/250 ML BAG IV CONT (14:06)
--- NOTE | 2022-12-03 14:08 | ED.SOB ---
HPI - SOB/Dyspnea General Chief Complaint: Shortness of Breath/Dyspnea Stated Complaint: SOB Time Seen by Provider: 12/03/22 09:54 History of Present Illness HPI Narrative: Patient is a 62-year-old male who [facility]. Hypoxic. Given inline nebulizer treatment as well as steroids and magnesium by EMS. To have pulse oximeter reading in 60s for EMS. Patient with excellent response on BiPAP in the ER and is feeling improved. Chart review shows patient was recently in the ER for anxiety. He was offered admission at that time but declined as he did not wish to be in the hospital. History is somewhat challenging given the fact that he is trying to speak through his BiPAP but he is indicating that he feels better. He has no chest pain. Denies cough. Certainly has diffuse wheezing and diminished lung sounds and require additional nebulizer treatment. Related Data Home Medications Medication Instructions Recorded Confirmed apixaban 5 mg tablet (Eliquis) 5 mg PO BID 05/28/22 12/03/22 fluticasone fur. 100 mcg-umeclid 1 inh inhalation DAILY 05/28/22 12/03/22 62.5 mcg-vilant 25 mcg inhalat.powder (Trelegy Ellipta) ipratropium 20 mcg-albuterol 100 2 puff inhalation DAILY 05/28/22 12/03/22 mcg/actuation mist for inhalation (Combivent Respimat) lithium carbonate 150 mg capsule 150 mg PO DAILY 05/28/22 12/03/22 loperamide 2 mg capsule 2 mg PO QID PRN Diarrhea 05/28/22 12/03/22 metoprolol tartrate 25 mg tablet 25 mg PO DAILY 05/28/22 12/03/22 omeprazole 20 mg capsule,delayed 20 mg PO DAILY 05/28/22 12/03/22 release ramipril 5 mg capsule 5 mg PO DAILY 05/28/22 12/03/22 risperidone 2 mg tablet 2 mg PO BID 05/28/22 12/03/22 testosterone cypionate 200 mg/mL 200 mg IM MONTHLY 05/28/22 12/03/22 intramuscular oil budesonide-formoterol HFA 160 2 puff inhalation DAILY 12/03/22 12/03/22 mcg-4.5 mcg/actuation aerosol inhaler buspirone 10 mg tablet 10 mg PO TID 12/03/22 12/03/22 Allergies Allergy/AdvReac Type Severity Reaction Status Date / Time vancomycin Allergy Severe Redness of Verified 05/29/22 18:28 Skin Review of Systems Review of Systems: All systems reviewed & are unremarkable except as noted in HPI and below Constitutional: Constitutional: Denies chills, Reports fatigue and Denies fever(s) Cardiovascular: Cardiovascular: Denies chest pain, Denies rapid heart rate and Denies radiating jaw, neck or arm pain Respiratory: Respiratory: Denies cough, Reports dyspnea and Reports wheezing Gastrointestinal: Gastrointestinal: Denies abdominal pain, Denies nausea and Denies vomiting [facility] Past Medical History Medical History (Updated 12/03/22 @ 20:35 by Rusty Soler MD) Anemia of chronic disease Bipolar disorder Cerebrovascular accident (2020) Chronic anticoagulation Chronic obstructive pulmonary disease Chronic respiratory failure with hypoxia and hypercapnia Coronary artery disease Deep venous thrombosis (2021) Depression Diastolic dysfunction Echocardiogram in October 2022 showed normal LV and RV systolic function with an EF of 50 to 55% and grade 1 diastolic dysfunction. Hyperlipidemia Hypertension Myocardial infarction (2013) Neuropathy Squamous cell carcinoma of nose Surgical History Surgical History (Updated 12/03/22 @ 17:16 by Emily Brush PA-C) History of cardiac catheterization History of coronary artery stent placement (1998) History of repair of right rotator cuff History of squamous cell carcinoma excision (06/10/13) Left nasal ala. Family History Family History Father Family history of heart disease in male family member before age 55 Social History Social History (Updated 12/03/22 @ 17:19 by Emily Brush PA-C) Social History: Surrogate medical decision maker: Yareli Mora or Elbert Mcghee (daughters). Code status: Full code. Smoking status: [place]
--- NOTE | 2022-12-03 14:30 | PM.IMHP ---
H&P: HPI History of Present Illness Date/Time: 12/03/22 14:30 Chief Complaint: Shortness of breath and hypoxia. Narrative: This is a 62-year-old male with multiple medical problems including chronic respiratory failure, COPD, coronary artery disease, DVT on chronic anticoagulation, stroke, bipolar disorder, and other comorbidities who presented to the emergency department via EMS from [facility] for evaluation of shortness of breath and hypoxia. He is currently sedated and on mechanical ventilation and as such all of the following is obtained via a review of his electronic medical records. He was recently hospitalized at this facility from 11/06/2022 through 11/20/2022 with acute on chronic respiratory failure (requiring mechanical ventilation), pneumonia (sputum culture grew Moraxella catarrhalis) and COPD. This morning staff apparently found him short of breath and on EMS arrival his SpO2 was in the 60s. In route to the hospital he was given a nebulizer treatment, IV steroids, and magnesium. He was placed on BiPAP on arrival to the emergency department and initially he was feeling better however he got agitated button emergency that was occurring in the ER room next to him and he became disconnected from the BiPAP and he could not tolerate thereafter. At that time he also had a brief episode where he had a right gaze deviation with shakes though he was able to speak and follow commands. It was thought that perhaps he was getting increasingly encephalopathic and decision was made to intubate the patient. He was started on propofol for sedation and became hypotensive and he was transition to fentanyl and Versed. Unfortunately he has remained hypotensive and he has since been started on a norepinephrine drip. He has been started on broad-spectrum antibiotics for possible pneumonia and he was also given a dose of IV Lasix. Review of Systems Review of Systems: Unable to obtain given clinical condition. [facility] Past Medical History Medical History Anemia of chronic disease Bipolar disorder Cerebrovascular accident (2020) Chronic anticoagulation Chronic obstructive pulmonary disease Chronic respiratory failure with hypoxia and hypercapnia Coronary artery disease Deep venous thrombosis (2021) Depression Diastolic dysfunction Echocardiogram in October 2022 showed normal LV and RV systolic function with an EF of 50 to 55% and grade 1 diastolic dysfunction. Hyperlipidemia Hypertension Myocardial infarction (2013) Neuropathy Squamous cell carcinoma of nose Surgical History Surgical History History of cardiac catheterization History of coronary artery stent placement (1998) History of repair of right rotator cuff History of squamous cell carcinoma excision (06/10/13) Left nasal ala. Family History Family History Father Family history of heart disease in male family member before age 55 Social History Social History Social History: Surrogate medical decision maker: Yareli Mora or Elbert Mcghee (daughters). Code status: Full code. Smoking status: Current every day smoker Tobacco type: cigarettes Alcohol intake: former Substance use: former Substance use type: opiates Additional living arrangements comments: . Three children. Currently at [facility]. Additional occupation/education comments: Disabled. Spiritual care concerns: No Meds Home Medications and Allergies Home Medications Medication Instructions Recorded Confirmed Type apixaban 5 mg tablet (Eliquis) 5 mg PO BID 05/28/22 12/03/22 History fluticasone fur. 100 mcg-umeclid 1 inh inhalation DAILY 05/28/22 12/03/22 History 62.5 mcg-vilant 25 mcg inhalat.powder (Trelegy Ellipta)
[2022-12-03 15:42] LABS: Base Excess ABG -0.2 mEq/l (+/-2.0); Fractional Inspired Oxygen 40 %; HCO3 ABG 25.6 mEq/l (22.0-26.0); Oxygen Content ABG 15.4 %vol (16.0-22.0); Oxygen Saturation ABG 94.7 % (95.0-100.0); Oxyhemoglobin 94.9 % THb (90.0-100.0); PCO2 ABG 46.6 mmHg (35.0-45.0); PO2 ABG 76.6 mmHg (80.0-100.0); PO2 FiO2 Ratio Arterial Blood 1.91 %; Site Drawn RIGHT BRACHIAL; Total Hemoglobin 11.5 g/dL (12.0-18.0); pH ABG 7.358 (7.350-7.450)
[2022-12-03 15:43] LABS: Arterial Blood Gas PEEP 7 cmH2O; Arterial Blood Gas Tidal Volume 420 ml; Arterial Blood Gas Vent Mode CMV; Arterial Blood Gas Ventilator rate 20 /MIN; Device VENTILATOR
[2022-12-03] MEDS: NOREPINEPHRINE 8 MG/D5W 250 ML 8 MG/250 ML BAG 9.38 MG IV CONT (16:11)
[2022-12-03] MEDS: diphenhydrAMINE HCl INJ 50 MG/ML VIAL IV PUSH (16:31)
--- NOTE | 2022-12-03 16:40 | ADMGEN ---
This patient, Brooks Murillo, was admitted to Intensive Care Unit-3. Patient/family oriented to hospital policies and general routines including ID bracelet, bed and alarms, visiting hours, pain management, procedures, bathroom and other care routines, personal items, smoking policy, room service/diet, and visiting hours. Information on how to activate the Rapid Response Team has been discussed. Patient/Family are encouraged to report perceived risks to care and to ask questions if they do not understand what they are told or what they should do.
[2022-12-03 16:53] LABS: Triglycerides 154 mg/dL (<150)
[2022-12-03] MEDS: APIXABAN 5 MG TABLET PO (22:46)
[2022-12-04] VITALS (50 sets, daily range): BP systolic 79–151; BP diastolic 58–95; PULSE 50–109; RESP 12–32; TEMP 35.7–36.4; O2SAT 94–100; BMI 22.8
[2022-12-04 00:35] LABS: Glucose Point of Care 219 mg/dl (65-105)
[2022-12-04] MEDS: NOREPINEPHRINE 8 MG/D5W 250 ML 8 MG/250 ML BAG 9.38 MG IV CONT (02:08)
[2022-12-04] MEDS: ALBUTEROL SULFATE NEB 2.5 MG/3 ML INH INHALATION ×4 (02:20→20:23)
[2022-12-04] MEDS: IPRATROPIUM BR 0.02% INH SOLN 0.5 MG/2.5 ML VIAL INHALATION ×4 (02:20→20:23)
--- NOTE | 2022-12-04 02:25 | PC.NURSE ---
Sedation paused r/t bradycardia.
[2022-12-04 05:00] LABS: Hematocrit 37.2 % (42.0-52.0); Hemoglobin 11.4 g/dL (14.0-18.0); Immature Platelet Fraction Pct 7.6 % (0.9-11.2); Mean Corpuscular HGB Conc 30.6 g/dl (32-36); Mean Corpuscular Hemoglobin 27.7 pg (26-34); Mean Corpuscular Volume 90.5 fl (80-100); Mean Platelet Volume 11.4 fl (7.4-10.4); Platelet Count Result 123 k/mm3 (150-375); Red Blood Count 4.11 M/mm3 (4.6-6.20); Red Cell Distribution Width 16.3 % (11.5-14.5); White Blood Count 2.3 K/mm3 (4.5-10.0)
[2022-12-04 05:13] LABS: Alanine Aminotransferase 36 U/L (6-50); Albumin Level 3.2 g/dL (3.5-5.1); Alkaline Phosphatase 81 U/L (38-126); Anion Gap 5 mmol/L (8-16); Aspartate Amino Transferase 36 U/L (17-59); Bilirubin,Total 0.6 mg/dL (0.2-1.3); Blood Urea Nitrogen 18 mg/dL (9-20); Calcium 6.7 mg/dL (8.4-10.2); Carbon Dioxide 28 mmol/L (22-30); Chloride 102 mmol/L (98-107); Estimated CRCL calculation 66 ml/min; Estimated Glomerular Filt Rate > 60; Glucose 198 mg/dL (65-110); Magnesium 1.6 mg/dL (1.6-2.3); Potassium 4.3 mmol/L (3.4-5.0); Sodium 135 mmol/L (137-145)
[2022-12-04 05:35] LABS: Alveolar/Arterial O2 Gradient 66.1 mmHg; Base Excess ABG -1.8 mEq/l (+/-2.0); Carboxyhemoglobin 0.3 % THb (0-2.0); Fractional Inspired Oxygen 30 %; HCO3 ABG 26.1 mEq/l (22.0-26.0); Methemoglobin ABG 0.5 %THb (0-1.5); Oxygen Content ABG 16.7 %vol (16.0-22.0); Oxygen Saturation ABG 93.7 % (95.0-100.0); PCO2 ABG 58.8 mmHg (35.0-45.0); PO2 ABG 78.7 mmHg (80.0-100.0); PO2 FiO2 Ratio Arterial Blood 2.62 %; Reduced Hemoglobin 6.2 %THb (0-5.0); Total Hemoglobin 12.7 g/dL (12.0-18.0)
[2022-12-04 05:36] LABS: Arterial Blood Gas Ventilator rate 20 /MIN; Device VENTILATOR; Modified Allen's Test Unable to perform; Site Drawn RIGHT RADIAL; pH ABG 7.265 (7.350-7.450)
[2022-12-04 05:37] LABS: Arterial Blood Gas PEEP 7 cmH2O; Arterial Blood Gas Tidal Volume 420 ml; Arterial Blood Gas Vent Mode CMV
[2022-12-04] MEDS: ACETAMINOPHEN 500 MG TABLET 1000 MG PO ×2 (06:29→16:49)
[2022-12-04] MEDS: diphenhydrAMINE HCl INJ 50 MG/ML VIAL IV PUSH ×2 (06:30→16:48)
--- NOTE | 2022-12-04 08:51 | WPDCNINT ---
Assessment and Plan Assessment and plan (1) Acute on chronic respiratory failure with hypoxia and hypercapnia: Code(s): J96.21 - Acute and chronic respiratory failure with hypoxia; J96.22 - Acute and chronic respiratory failure with hypercapnia Status: Acute Assessment and Plan: Patient was found to have shortness of breath and hypoxia at the skilled nursing, upon arrival patient's O2 sats were in the 60s, patient was given nebulizing treatment, magnesium and steroids and brought to the ED. -he failed BiPAP and was intubated. Mechanical ventilation will 12/03/2022 -currently on CMV mode of ventilation, peep of 7, FiO2 30% -chest x-ray this morning: Shows stable diffuse pulmonary disease -continue bronchodilators -continue budesonide -continue antibiotics as below Sedation with fentanyl and Versed, maintain RASS of 0 to -2, daily sedation patient (2) Shock: Code(s): R57.9 - Shock, unspecified Status: Acute Assessment and Plan: Patient was hypotensive post intubation on propofol requiring a IV fluids and Levophed for a brief amount of time -currently off Levophed since the evening of 12/04/2022 -lactic acid was 1.4 on admission -12/03blood and sputum cultures have been obtained and pending -continue vancomycin and cefepime (12/03) (3) Congestive heart failure: Code(s): I50.9 - Heart failure, unspecified Status: Acute Assessment and Plan: BNP on admission was a 4930 and was given Lasix in the ER -chest x-ray shows diffuse infiltrates, more so pneumonia than pulmonary edema -he did have adequate urine output in response to Lasix (4) COPD (chronic obstructive pulmonary disease): Code(s): J44.9 - Chronic obstructive pulmonary disease, unspecified Status: Acute Assessment and Plan: History of COPD -continue mechanical ventilation, bronchodilators (5) DVT (deep venous thrombosis): Code(s): I82.409 - Acute embolism and thrombosis of unspecified deep veins of unspecified lower extremity Status: Acute Assessment and Plan: History of DVT on apixaban (6) Peripheral arterial disease: Code(s): I73.9 - Peripheral vascular disease, unspecified Status: Acute Assessment and Plan: 11/06/2022 arterial Dopplers 1. Increased velocity gradients in right superficial femoral artery and distal right anterior tibial artery, consistent with moderate to severe stenosis. 2. Increased velocity gradients in left superficial femoral artery and left anterior tibial artery, consistent with moderate to severe stenosis. Continue apixaban Plan DVT prophylaxis: Apixaban Stress ulcer prophylaxis: Protonix Nutrition: Will start tube feeds Code Status: Full code Critical Care Time Spent: 47 minutes Due to a high probability of clinically significant, life threatening deterioration, the patient required my highest level of preparedness to intervene emergently and I personally spent this critical care time directly and personally managing the patient. This critical care time included obtaining a history; examining the patient; pulse oximetry; ordering and review of studies; arranging urgent treatment with development of a management plan; evaluation of patient's response to treatment; frequent reassessment; and discussions with other providers. It was exclusive of separately billable procedures and treating other patients and teaching time. Please see Assessment and Plan section and the rest of the note for further information on patient assessment and treatment This dictation may have been done utilizing a voice recognition system. Attempts have been made to correct errors. However, there may be uncorrected grammatical, spelling, and recognitions errors present. Conference Concierge Consult Note Consult date: 12/04/22 Reason for consult: Acute respiratory failure, hypoxia requiring intubation on 12/03/2022, pneumonia, COPD exacerbation, hypotension HPI: [facility]
[2022-12-04] MEDS: PANTOPRAZOLE 40 MG TABLET PO (08:53)
[2022-12-04] MEDS: APIXABAN 5 MG TABLET PO ×2 (08:53→16:48)
[2022-12-04] MEDS: MINERAL OIL/WHITE PETROLATUM OINTMENT 1 APPLIC EACH EYE ×2 (08:55→20:39)
[2022-12-04] MEDS: INSULIN ASPART (*BKC) 100 UNITS/ML SUB-Q (11:22)
[2022-12-04 11:23] LABS: Glucose Point of Care 289 mg/dl (65-105)
[2022-12-04] MEDS: CENTRAL LINE FLUSH 10 ML IV PUSH ×3 (13:41→21:21)
[2022-12-04 16:57] LABS: Glucose Point of Care 157 mg/dl (65-105)
[2022-12-04 23:40] LABS: Glucose Point of Care 185 mg/dl (65-105)
[2022-12-05] VITALS (34 sets, daily range): BP systolic 93–110; BP diastolic 59–74; PULSE 72–96; RESP 18–21; TEMP 36.6–37.2; O2SAT 96–99
[2022-12-05] MEDS: IPRATROPIUM BR 0.02% INH SOLN 0.5 MG/2.5 ML VIAL INHALATION ×4 (02:30→19:48)
[2022-12-05] MEDS: ALBUTEROL SULFATE NEB 2.5 MG/3 ML INH INHALATION ×4 (02:32→19:48)
[2022-12-05 05:49] LABS: Hematocrit 31.5 % (42.0-52.0); Hemoglobin 9.9 g/dL (14.0-18.0); Immature Granulocyte Absolute 0.01 K/mm3 (0.00-0.031); Immature Granulocyte Percent A 0.4 % (0-0.5); Mean Corpuscular HGB Conc 31.4 g/dl (32-36); Mean Corpuscular Hemoglobin 28.7 pg (26-34); Mean Corpuscular Volume 91.3 fl (80-100); Mean Platelet Volume 11.2 fl (7.4-10.4); Monocytes Absolute Auto 0.2 K/mm3 (0.1-0.6); Monocytes Percent Auto 7.1 % (2.6-8.5); Neutrophils Absolute Auto 2.1 K/mm3 (1.3-6.7); Neutrophils Percent Auto 77.5 % (45.5-73.1); Platelet Count Result 123 k/mm3 (150-375); Red Blood Count 3.45 M/mm3 (4.6-6.20); Red Cell Distribution Width 15.9 % (11.5-14.5); White Blood Count 2.7 K/mm3 (4.5-10.0)
[2022-12-05] MEDS: MIDAZOLAM 100MG/NS 100ML(*CRX) 100 MG/100 ML BAG IV CONT (05:56)
[2022-12-05 05:58] LABS: Lactic Acid Reflex 1.6 mmol/L (0.7-2.0)
[2022-12-05 06:00] LABS: Alanine Aminotransferase 29 U/L (6-50); Albumin Level 2.8 g/dL (3.5-5.1); Alkaline Phosphatase 66 U/L (38-126); Anion Gap 2 mmol/L (8-16); Aspartate Amino Transferase 30 U/L (17-59); Bilirubin,Total 0.4 mg/dL (0.2-1.3); Blood Urea Nitrogen 29 mg/dL (9-20); Calcium 6.9 mg/dL (8.4-10.2); Carbon Dioxide 29 mmol/L (22-30); Chloride 99 mmol/L (98-107); Estimated CRCL calculation 67 ml/min; Estimated Glomerular Filt Rate > 60; Glucose 151 mg/dL (65-110); Magnesium 1.8 mg/dL (1.6-2.3); Phosphorus 2.8 mg/dL (2.5-4.5); Sodium 130 mmol/L (137-145)
[2022-12-05 06:03] LABS: Alveolar/Arterial O2 Gradient 64.4 mmHg; Base Excess ABG -0.2 mEq/l (+/-2.0); Fractional Inspired Oxygen 30 %; HCO3 ABG 26.3 mEq/l (22.0-26.0); Methemoglobin ABG 0.1 %THb (0-1.5); Oxygen Content ABG 21.3 %vol (16.0-22.0); Oxygen Saturation ABG 96.5 % (95.0-100.0); Oxyhemoglobin 95.9 % THb (90.0-100.0); PCO2 ABG 49.4 mmHg (35.0-45.0); PO2 ABG 91.5 mmHg (80.0-100.0); PO2 FiO2 Ratio Arterial Blood 3.05 %; Total Hemoglobin 15.8 g/dL (12.0-18.0); pH ABG 7.344 (7.350-7.450)
[2022-12-05 06:04] LABS: INR 1.5; Prothrombin Time 17.1 Seconds (11.1-14.7)
[2022-12-05 06:04] LABS: Modified Allen's Test Pass; Site Drawn RIGHT RADIAL
[2022-12-05 06:05] LABS: Device VENTILATOR
[2022-12-05 06:06] LABS: Arterial Blood Gas PEEP 8 cmH2O; Arterial Blood Gas Tidal Volume 450 ml; Arterial Blood Gas Vent Mode CMV; Arterial Blood Gas Ventilator rate 20 /MIN
[2022-12-05] MEDS: CENTRAL LINE FLUSH 10 ML IV PUSH ×4 (06:28→22:56)
[2022-12-05 06:36] LABS: Vancomycin Trough 26.9 ug/mL (10.0-20.0)
[2022-12-05 06:48] LABS: Procalcitonin 0.7 ng/mL
[2022-12-05] MEDS: FENTANYL 2,500MCG/NS250ML(*CRX 2,500 MCG/250 ML BAG 7.5 MCG IV CONT (06:58)
[2022-12-05] MEDS: ACETAMINOPHEN 500 MG TABLET 1000 MG PO (08:31)
[2022-12-05] MEDS: diphenhydrAMINE HCl INJ 50 MG/ML VIAL IV PUSH (08:31)
[2022-12-05] MEDS: EUCERIN CREAM 454 GM JAR 1 APPLIC TOPICAL (08:31)
[2022-12-05] MEDS: MINERAL OIL/WHITE PETROLATUM OINTMENT 1 APPLIC EACH EYE ×2 (08:31→20:48)
[2022-12-05] MEDS: PANTOPRAZOLE 40 MG TABLET PO (08:32)
[2022-12-05] MEDS: APIXABAN 5 MG TABLET PO ×2 (08:32→16:56)
--- NOTE | 2022-12-05 09:27 | WPDINTPN ---
Progress Note: A&P Assessment and Plan (1) Acute on chronic respiratory failure with hypoxia and hypercapnia: Code(s): J96.21 - Acute and chronic respiratory failure with hypoxia; J96.22 - Acute and chronic respiratory failure with hypercapnia Status: Acute Assessment and Plan: Patient was found to have shortness of breath and hypoxia at the senior care, upon arrival patient's O2 sats were in the 60s, patient was given nebulizing treatment, magnesium and steroids and brought to the ED. -he failed BiPAP and was intubated on 12/03/2022 -currently on CMV mode of ventilation, peep of 8 and 30% FiO2 -chest x-ray this morning: Patchy groundglass opacities with areas of reticular nodularity particularly in the right lower lobe, most likely infectious/inflammatory. More focal consolidation is seen in the right lower lobe posteriorly.: Emphysema.: Small right pleural effusion.: Small pericardial effusion. Cholelithiasis. -continue bronchodilators -continue budesonide -continue vancomycin and cefepime -will obtain noncontrast CT chest Sedation with fentanyl and Versed, maintain RASS of 0 to -2, daily sedation patient (2) Shock: Code(s): R57.9 - Shock, unspecified Status: Acute Assessment and Plan: Patient was hypotensive post intubation on propofol requiring a IV fluids and Levophed for a brief amount of time -currently off Levophed since the evening of 12/04/2022 -lactic acid was 1.4 on admission -12/03 blood cultures negative x2 so far -12/04/2022 sputum cultures pending -12/04/2022 MRSA screen pending -continue vancomycin and cefepime (12/03) (3) Congestive heart failure: Code(s): I50.9 - Heart failure, unspecified Status: Acute Assessment and Plan: BNP on admission was a 4930 and was given Lasix in the ER: Likely diastolic failure -chest x-ray shows diffuse infiltrates, more so pneumonia than pulmonary edema -he did have adequate urine output in response to Lasix 11/06/2022 echocardiogram showed EF of 50-55% grade 1 diastolic dysfunction, right ventricular systolic function is normal, no significant valvular disease (4) COPD (chronic obstructive pulmonary disease): Code(s): J44.9 - Chronic obstructive pulmonary disease, unspecified Status: Acute Assessment and Plan: History of COPD -continue mechanical ventilation, bronchodilators (5) DVT (deep venous thrombosis): Code(s): I82.409 - Acute embolism and thrombosis of unspecified deep veins of unspecified lower extremity Status: Acute Assessment and Plan: History of DVT on apixaban (6) Peripheral arterial disease: Code(s): I73.9 - Peripheral vascular disease, unspecified Status: Acute Assessment and Plan: 11/06/2022 arterial Dopplers 1. Increased velocity gradients in right superficial femoral artery and distal right anterior tibial artery, consistent with moderate to severe stenosis. 2. Increased velocity gradients in left superficial femoral artery and left anterior tibial artery, consistent with moderate to severe stenosis. Continue apixaban Plan DVT prophylaxis: Apixaban Stress ulcer prophylaxis: Protonix Nutrition: Will start tube feeds Code Status: Full code Critical Care Time Spent: 34 minutes Due to a high probability of clinically significant, life threatening deterioration, the patient required my highest level of preparedness to intervene emergently and I personally spent this critical care time directly and personally managing the patient. This critical care time included obtaining a history; examining the patient; pulse oximetry; ordering and review of studies; arranging urgent treatment with development of a management plan; evaluation of patient's response to treatment; frequent reassessment; and discussions with other providers. It was exclusive of separately billable procedures and treating other patients and teaching time. Please see Assessment and Plan sec
[2022-12-05 11:58] LABS: Glucose Point of Care 171 mg/dl (65-105)
--- NOTE | 2022-12-05 12:20 | PCFNICU ---
ICU Rounding Note: Pt current nutrition is Vital AF 1.2 at 60ml/hr. Last recorded weight is 66.2 kg. Bowel Motility:No Bm reported. Labs Reviewed:Glu 151, BUN 29,Na 130, Alb 2.8 Meds Noted:Fentanyl, Versed, Eliquis, Cefepime, Vancomycin Skin: WNL Additional Notes: Patient remains on mechanical vent and tube feedings of Vital AF 1.2 at 60 ml/hr goal rate. Tolerating tube feedings. Agree with diet orders. Following daily in ICU rounds. Will reassess every Saturday and Saturday.
[2022-12-05 17:21] LABS: Glucose Point of Care 161 mg/dl (65-105)
[2022-12-05 22:50] LABS: Anion Gap 2 mmol/L (8-16); Blood Urea Nitrogen 33 mg/dL (9-20); Calcium 7.4 mg/dL (8.4-10.2); Carbon Dioxide 30 mmol/L (22-30); Chloride 102 mmol/L (98-107); Estimated CRCL calculation 75 ml/min; Estimated Glomerular Filt Rate > 60; Glucose 151 mg/dL (65-110); Potassium 4.4 mmol/L (3.4-5.0); Sodium 134 mmol/L (137-145)
[2022-12-06] VITALS (34 sets, daily range): BP systolic 100–117; BP diastolic 62–80; PULSE 66–95; RESP 19–27; TEMP 36.6–37.2; O2SAT 97–99
[2022-12-06 00:51] LABS: Glucose Point of Care 149 mg/dl (65-105)
[2022-12-06] MEDS: ALBUTEROL SULFATE NEB 2.5 MG/3 ML INH INHALATION ×4 (01:36→20:30)
[2022-12-06] MEDS: IPRATROPIUM BR 0.02% INH SOLN 0.5 MG/2.5 ML VIAL INHALATION ×4 (01:36→20:30)
[2022-12-06 04:55] LABS: Eosinophils Percent Auto 1.6 % (0-4.4); Hematocrit 31.5 % (42.0-52.0); Hemoglobin 9.8 g/dL (14.0-18.0); Immature Granulocyte Absolute 0.02 K/mm3 (0.00-0.031); Immature Granulocyte Percent A 0.8 % (0-0.5); Lymphocytes Absolute Auto 0.73 K/mm3 (0.9-3.2); Lymphocytes Percent Auto 28.4 % (18.3-44.2); Mean Corpuscular HGB Conc 31.1 g/dl (32-36); Mean Corpuscular Hemoglobin 28.1 pg (26-34); Mean Corpuscular Volume 90.3 fl (80-100); Mean Platelet Volume 11.8 fl (7.4-10.4); Monocytes Absolute Auto 0.2 K/mm3 (0.1-0.6); Monocytes Percent Auto 8.2 % (2.6-8.5); Neutrophils Absolute Auto 1.6 K/mm3 (1.3-6.7); Platelet Count Result 162 k/mm3 (150-375); Red Blood Count 3.49 M/mm3 (4.6-6.20); Red Cell Distribution Width 16.2 % (11.5-14.5); White Blood Count 2.6 K/mm3 (4.5-10.0)
[2022-12-06 05:05] LABS: Alanine Aminotransferase 27 U/L (6-50); Albumin Level 2.9 g/dL (3.5-5.1); Alkaline Phosphatase 66 U/L (38-126); Anion Gap 0 mmol/L (8-16); Aspartate Amino Transferase 25 U/L (17-59); Bilirubin,Total 0.4 mg/dL (0.2-1.3); Blood Urea Nitrogen 33 mg/dL (9-20); Calcium 7.7 mg/dL (8.4-10.2); Carbon Dioxide 30 mmol/L (22-30); Chloride 100 mmol/L (98-107); Estimated CRCL calculation 75 ml/min; Estimated Glomerular Filt Rate > 60; Glucose 135 mg/dL (65-110); Magnesium 1.9 mg/dL (1.6-2.3); Phosphorus 2.4 mg/dL (2.5-4.5); Potassium 4.2 mmol/L (3.4-5.0); Sodium 130 mmol/L (137-145)
[2022-12-06 05:08] LABS: Lactic Acid Reflex 1.5 mmol/L (0.7-2.0)
[2022-12-06] MEDS: CENTRAL LINE FLUSH 10 ML IV PUSH ×4 (05:30→22:00)
[2022-12-06 06:22] LABS: Alveolar/Arterial O2 Gradient 68.2 mmHg; Base Excess ABG 2.7 mEq/l (+/-2.0); Carboxyhemoglobin 0.3 % THb (0-2.0); Fractional Inspired Oxygen 30 %; HCO3 ABG 28.8 mEq/l (22.0-26.0); Methemoglobin ABG 0.2 %THb (0-1.5); Oxygen Content ABG 14.8 %vol (16.0-22.0); Oxygen Saturation ABG 96.1 % (95.0-100.0); Oxyhemoglobin 95.3 % THb (90.0-100.0); PO2 ABG 85.8 mmHg (80.0-100.0); PO2 FiO2 Ratio Arterial Blood 2.86 %; Reduced Hemoglobin 4.2 %THb (0-5.0); pH ABG 7.369 (7.350-7.450)
[2022-12-06 06:23] LABS: Arterial Blood Gas PEEP 8 cmH2O; Arterial Blood Gas Tidal Volume 450 ml; Arterial Blood Gas Vent Mode CMV; Arterial Blood Gas Ventilator rate 20 /MIN; Device VENTILATOR; Modified Allen's Test Pass; Site Drawn LEFT RADIAL
[2022-12-06] MEDS: MINERAL OIL/WHITE PETROLATUM OINTMENT 1 APPLIC EACH EYE ×2 (08:53→21:35)
[2022-12-06] MEDS: EUCERIN CREAM 454 GM JAR 1 APPLIC TOPICAL (08:53)
[2022-12-06] MEDS: ACETAMINOPHEN 500 MG TABLET 1000 MG PO (08:54)
[2022-12-06] MEDS: APIXABAN 5 MG TABLET PO ×2 (08:54→17:37)
[2022-12-06] MEDS: PANTOPRAZOLE 40 MG TABLET PO (08:54)
[2022-12-06] MEDS: diphenhydrAMINE HCl INJ 50 MG/ML VIAL IV PUSH (08:58)
--- NOTE | 2022-12-06 11:25 | WPDINTPN ---
Progress Note: A&P Assessment and Plan (1) Acute on chronic respiratory failure with hypoxia and hypercapnia: Code(s): J96.21 - Acute and chronic respiratory failure with hypoxia; J96.22 - Acute and chronic respiratory failure with hypercapnia Status: Acute Assessment and Plan: Patient [facility] to [facility], upon arrival patient's O2 sats were in the 60s, patient was given nebulizing treatment, magnesium and steroids and brought to the ED. -he failed BiPAP and was intubated on 12/03/2022 -currently on CMV mode of ventilation, peep of 8 and 30% FiO2 -chest x-ray this morning: -continue bronchodilators -continue budesonide -continue azithromycin and cefepime, discontinue vancomycin -will obtain noncontrast CT chest Sedation with fentanyl and Versed, maintain RASS of 0 to -2, daily sedation patient 12/06/2022 CT chest noncontrast: . Patchy ground glass opacities with areas of reticular nodularity particularly in the right lower lobe, most likely infectious/inflammatory. More focal consolidation is seen in the right lower lobe posteriorly.: Emphysema. Small right pleural effusion. Small pericardial effusion. Cholelithiasis. (2) Shock: Code(s): R57.9 - Shock, unspecified Status: Acute Assessment and Plan: Patient was hypotensive post intubation on propofol requiring a IV fluids and Levophed for a brief amount of time -currently off Levophed since the evening of 12/04/2022 -lactic acid was 1.4 on admission -12/03 blood cultures negative x2 so far -12/04/2022 sputum cultures negative -12/04/2022 MRSA screen negative -continue azithromycin and cefepime (12/03) -will discontinue vancomycin (3) Congestive heart failure: Code(s): I50.9 - Heart failure, unspecified Status: Acute Assessment and Plan: BNP on admission was a 4930 and was given Lasix in the ER: Likely diastolic failure -chest x-ray shows diffuse infiltrates, more so pneumonia than pulmonary edema -he did have adequate urine output in response to Lasix 11/06/2022 echocardiogram showed EF of 50-55% grade 1 diastolic dysfunction, right ventricular systolic function is normal, no significant valvular disease (4) COPD (chronic obstructive pulmonary disease): Code(s): J44.9 - Chronic obstructive pulmonary disease, unspecified Status: Acute Assessment and Plan: History of COPD -continue mechanical ventilation, bronchodilators (5) DVT (deep venous thrombosis): Code(s): I82.409 - Acute embolism and thrombosis of unspecified deep veins of unspecified lower extremity Status: Acute Assessment and Plan: History of DVT on apixaban (6) Peripheral arterial disease: Code(s): I73.9 - Peripheral vascular disease, unspecified Status: Acute Assessment and Plan: 11/06/2022 arterial Dopplers 1. Increased velocity gradients in right superficial femoral artery and distal right anterior tibial artery, consistent with moderate to severe stenosis. 2. Increased velocity gradients in left superficial femoral artery and left anterior tibial artery, consistent with moderate to severe stenosis. Continue apixaban Plan DVT prophylaxis: Apixaban Stress ulcer prophylaxis: Protonix Nutrition: Tolerating tube feeds, started patient on MiraLax and senna S Code Status: Full code Critical Care Time Spent: 33 minutes Due to a high probability of clinically significant, life threatening deterioration, the patient required my highest level of preparedness to intervene emergently and I personally spent this critical care time directly and personally managing the patient. This critical care time included obtaining a history; examining the patient; pulse oximetry; ordering and review of studies; arranging urgent treatment with development of a management plan; evaluation of patient's response to treatment; frequent reassessment; and discussions with other provi
--- NOTE | 2022-12-06 11:32 | PCFNICU ---
ICU Rounding Note: Pt current nutrition is Vital AF 1.2 at 60 ml/hr. Last recorded weight is 68.3 kg. Bowel Motility:No BM reported Labs Reviewed:Glu 135, BUN 33, Na 130, Alb 2.9 Meds Noted:Fentanyl, Versed, Eliquis, Cefepime, Miralax Skin: WNL Additional Notes: Patient remains on mechanical vent and tube feedings of Vital AF 1.2 at 60 ml/hr. Tolerating tube feedings at this time. Flush 30 ml q 4 hours. Following daily in ICU rounds. Will monitor every Saturday and Saturday.
[2022-12-06 11:35] LABS: Glucose Point of Care 120 mg/dl (65-105)
[2022-12-06] MEDS: GABAPENTIN 100 MG CAPSULE PO (17:37)
[2022-12-06 17:45] LABS: Glucose Point of Care 126 mg/dl (65-105)
[2022-12-06] MEDS: FENTANYL 2,500MCG/NS250ML(*CRX 2,500 MCG/250 ML BAG IV CONT (18:06)
[2022-12-06] MEDS: MIDAZOLAM 100MG/NS 100ML(*CRX) 100 MG/100 ML BAG IV CONT (18:07)
--- NOTE | 2022-12-06 20:18 | PM.CNPUL ---
Assessment and Plan Assessment and plan (1) Acute on chronic respiratory failure with hypoxia and hypercapnia: Code(s): J96.21 - Acute and chronic respiratory failure with hypoxia; J96.22 - Acute and chronic respiratory failure with hypercapnia Status: Acute Assessment and Plan: 62 year old man presented 12/03/22 with recurrent hypercapnic hypoxemic respiratory failure with shock in the setting of sepsis; this is his 3rd admission here since May 2022. He was intubated in October and again Dec 03. He may have cardiac dysfunction worsening his respiratory failure. There may be pneumonia, difficult to tell. He has no abnormality in his sputum. No fever. Pancytopenia is compatible with infection, more likely viral. Serology for influenza a and SARS-CoV-2 are negative. Sputum is nondiagnostic. He grew normal oral wade, no MRSA therefore vancomycin was stopped. He does not have an obvious infiltrate on chest CT. I do not think bronchoscopy would be useful at this point. He is on azithromycin and Cefepime, appropriate treatment empirically for concerns for pneumonia. / (2) COPD (chronic obstructive pulmonary disease): Code(s): J44.9 - Chronic obstructive pulmonary disease, unspecified Status: Acute Assessment and Plan: He has severe COPD on his CT scan, was on O2 and inhalers before admission, was living at a [place], not smoking. His O2 requirement is low, 30%. I stopped ipratropium; he is on Trelegy which has umeclidinium. Plan I do not have anything significant to add to his care at this point. I will follow with you to help get him off the vent, optimize his COPD, try to prevent a relapse. In May he was seeing Dr. Barkley in [place]. I do not know if anything happened in the out patient setting that contributed to his deterioration. His COVID testing here has been negative. Agree with managing his diastolic dysfunction, keeping him dry, nourished, weaning vent as he can tolerate, and increasing his conditioning while in the hospital. Thank you for asking me to consult on this interesting patient. History of Present Illness History of Present Illness Consult date: 12/06/22 Requesting physician: Shruti Navarrete MD Chief complaint: Respiratory Failure/Hypoxia/CHF/Hypercapnia Narrative: patient seen 12/06/2022 at 20:20; ICU Room 3 NIMO rust a 62-year-old man with COPD, chronic hypercapnic hypoxemic respiratory failure on home oxygen. He was admitted here November 06 through November 20 with COPD with pneumonia, he was intubated, self extubated on November 09, had to be reintubated immediately due to stridor. He had acute kidney injury, demand ischemia with increased troponin, hypotension requiring Levophed. He grew Moraxella catarrhalis. After discharge, he went to [facility]. His labs were unremarkable, normal WBC. He came to emergency department December 03 with increasing shortness of breath, was placed on BiPAP. He has had pancytopenia most of this admission. During the evaluation in the ED, he pulled his BiPAP off, became less responsive. He required emergency intubation and a right femoral line placed for brief use of Levophed due to hypotension. His serologies are negative for influenza A&B, SARS-CoV-2. During this admission is CO2 was elevated. Initial arterial blood gas pH 7.35 pCO2 46 PO2 76 saturation 94.7%. After deterioration he developed worsening respiratory acidosis, pH 7.26, pCO2 58.8, PO2 78.7 HC03 26.1 saturation 93.7%. His acute respiratory failure and Respiratory acidosis have improved. He is on CMV mode with full support rate of 20, FiO2 is only 30%. He had increased BNP Recurrent pneumonia plus possible interstitial lung disease. He was a patient of Dr Barkley in [place] at the time of his May
[2022-12-06] MEDS: SENNA/DOCUSATE SODIUM TABLET 1 TAB PO (21:35)
[2022-12-07] VITALS (39 sets, daily range): BP systolic 94–156; BP diastolic 61–104; PULSE 72–127; RESP 13–22; TEMP 36.9–37.5; O2SAT 88–99
[2022-12-07 00:14] LABS: Glucose Point of Care 130 mg/dl (65-105)
[2022-12-07] MEDS: ALBUTEROL SULFATE NEB 2.5 MG/3 ML INH INHALATION ×4 (02:02→20:47)
[2022-12-07 04:44] LABS: Legionella pneumophila Ag Ur Not Detected (Not Detected)
[2022-12-07 05:45] LABS: Basophils Percent Auto 0.4 % (0.2-1.2); Eosinophils Absolute Auto 0.1 K/mm3 (0-0.3); Eosinophils Percent Auto 3.3 % (0-4.4); Hematocrit 32.1 % (42.0-52.0); Immature Granulocyte Absolute 0.07 K/mm3 (0.00-0.031); Immature Granulocyte Percent A 2.6 % (0-0.5); Lymphocytes Absolute Auto 0.71 K/mm3 (0.9-3.2); Lymphocytes Percent Auto 26.1 % (18.3-44.2); Mean Corpuscular HGB Conc 31.2 g/dl (32-36); Mean Corpuscular Hemoglobin 28.7 pg (26-34); Mean Corpuscular Volume 92.2 fl (80-100); Mean Platelet Volume 10.8 fl (7.4-10.4); Monocytes Absolute Auto 0.2 K/mm3 (0.1-0.6); Monocytes Percent Auto 6.6 % (2.6-8.5); Neutrophils Absolute Auto 1.7 K/mm3 (1.3-6.7); Platelet Count Result 158 k/mm3 (150-375); Red Blood Count 3.48 M/mm3 (4.6-6.20); Red Cell Distribution Width 16.3 % (11.5-14.5); White Blood Count 2.7 K/mm3 (4.5-10.0)
[2022-12-07 05:49] LABS: Alveolar/Arterial O2 Gradient 59.9 mmHg; Base Excess ABG 6.8 mEq/l (+/-2.0); Carboxyhemoglobin 0.3 % THb (0-2.0); Fractional Inspired Oxygen 30 %; HCO3 ABG 34.1 mEq/l (22.0-26.0); Methemoglobin ABG 0.4 %THb (0-1.5); Oxygen Content ABG 14.9 %vol (16.0-22.0); Oxygen Saturation ABG 94.6 % (95.0-100.0); Oxyhemoglobin 94.2 % THb (90.0-100.0); PO2 ABG 78.8 mmHg (80.0-100.0); PO2 FiO2 Ratio Arterial Blood 2.63 %; Reduced Hemoglobin 5.1 %THb (0-5.0); Total Hemoglobin 11.2 g/dL (12.0-18.0); pH ABG 7.345 (7.350-7.450)
[2022-12-07 05:50] LABS: Device VENTILATOR; Modified Allen's Test Unable to perform; Site Drawn RIGHT RADIAL
[2022-12-07 05:51] LABS: Arterial Blood Gas PEEP 8 cmH2O; Arterial Blood Gas Tidal Volume 450 ml; Arterial Blood Gas Vent Mode CMV; Arterial Blood Gas Ventilator rate 20 /MIN
[2022-12-07 05:56] LABS: Alanine Aminotransferase 25 U/L (6-50); Albumin Level 2.9 g/dL (3.5-5.1); Alkaline Phosphatase 67 U/L (38-126); Anion Gap 2 mmol/L (8-16); Aspartate Amino Transferase 22 U/L (17-59); Bilirubin,Total 0.4 mg/dL (0.2-1.3); Blood Urea Nitrogen 31 mg/dL (9-20); Calcium 8.1 mg/dL (8.4-10.2); Carbon Dioxide 33 mmol/L (22-30); Chloride 101 mmol/L (98-107); Estimated CRCL calculation 98 ml/min; Estimated Glomerular Filt Rate > 60; Glucose 118 mg/dL (65-110); Phosphorus 3.1 mg/dL (2.5-4.5); Potassium 4.5 mmol/L (3.4-5.0); Sodium 136 mmol/L (137-145)
[2022-12-07 06:18] LABS: Pneumococcal Antigen Urine Not Detected (Not Detected)
[2022-12-07] MEDS: CENTRAL LINE FLUSH 10 ML IV PUSH ×4 (06:49→21:02)
[2022-12-07] MEDS: APIXABAN 5 MG TABLET PO ×2 (08:29→17:02)
[2022-12-07] MEDS: METOPROLOL TARTRATE 12.5 MG TABLET PO (08:29)
[2022-12-07] MEDS: GABAPENTIN 100 MG CAPSULE PO ×2 (08:29→17:02)
[2022-12-07] MEDS: polyethylene glycoL 3350 17 GM POWD.PACK PO (08:29)
[2022-12-07] MEDS: MINERAL OIL/WHITE PETROLATUM OINTMENT 1 APPLIC EACH EYE ×2 (08:29→21:02)
[2022-12-07] MEDS: PANTOPRAZOLE SODIUM IV 40 MG VIAL IV PUSH (08:29)
[2022-12-07] MEDS: EUCERIN CREAM 454 GM JAR 1 APPLIC TOPICAL (08:29)
--- NOTE | 2022-12-07 11:12 | PCNFU ---
Nutrition Follow-Up Complete: Inadequate Oral Intake as related to mechanical ventilation as evidenced by NPO. goal: Meet estimated nutritional needs Patient is progressing towards goal. We will continue current goal. Pt current nutrition is Vilta AF 1.2 at 60 ml/hr Last recorded weight is 67.8 kg. Bowel Motility:No BM reported. Labs Reviewed:Glu 135, BUN 33, Na 130, Alb 2.9 Meds Noted:Fentanyl, Versed, Eliquis, Cefepime, Miralax Skin: WNL Additional Notes: Patient remains on mechanical vent and tube feedings of Vital AF 1.2 at 60 ml/hr. Plans for breathing trial today. Monitoring: will monitor in ICU rounds and every Saturday and Saturday.
[2022-12-07 11:45] LABS: Glucose Point of Care 120 mg/dl (65-105)
--- NOTE | 2022-12-07 12:52 | WPDINTPN ---
Progress Note: A&P Assessment and Plan (1) Acute on chronic respiratory failure with hypoxia and hypercapnia: Code(s): J96.21 - Acute and chronic respiratory failure with hypoxia; J96.22 - Acute and chronic respiratory failure with hypercapnia Status: Acute Assessment and Plan: Patient was found to have shortness of breath and hypoxia at the [facility], upon arrival patient's O2 sats were in the 60s, patient was given nebulizing treatment, magnesium and steroids and brought to the ED. -he failed BiPAP and was intubated on 12/03/2022 -currently on CMV mode of ventilation, peep of 8 and 30% FiO2 -chest x-ray this morning: -continue bronchodilators -continue budesonide -continue azithromycin and cefepime, discontinue vancomycin -appreciate pulmonology evaluation recommendations Sedation with fentanyl and Versed, maintain RASS of 0 to -2, daily sedation patient -wean sedation and evaluate neurological status and try patient on pressure control ventilation or ASV mode 12/06/2022 CT chest noncontrast: . Patchy ground glass opacities with areas of reticular nodularity particularly in the right lower lobe, most likely infectious/inflammatory. More focal consolidation is seen in the right lower lobe posteriorly.: Emphysema. Small right pleural effusion. Small pericardial effusion. Cholelithiasis. (2) Shock: Code(s): R57.9 - Shock, unspecified Status: Acute Assessment and Plan: Patient was hypotensive post intubation on propofol requiring a IV fluids and Levophed for a brief amount of time -currently off Levophed since the evening of 12/04/2022 -lactic acid was 1.4 on admission -12/03 blood cultures negative x2 so far -12/04/2022 sputum cultures negative -12/04/2022 MRSA screen negative -continue azithromycin and cefepime (12/03) -vancomycin discontinued on 12/06/2022 (3) Congestive heart failure: Code(s): I50.9 - Heart failure, unspecified Status: Acute Assessment and Plan: BNP on admission was a 4930 and was given Lasix in the ER: Likely diastolic failure -chest x-ray shows diffuse infiltrates, more so pneumonia than pulmonary edema -he did have adequate urine output in response to Lasix 11/06/2022 echocardiogram showed EF of 50-55% grade 1 diastolic dysfunction, right ventricular systolic function is normal, no significant valvular disease (4) COPD (chronic obstructive pulmonary disease): Code(s): J44.9 - Chronic obstructive pulmonary disease, unspecified Status: Acute Assessment and Plan: History of COPD -continue mechanical ventilation, bronchodilators (5) DVT (deep venous thrombosis): Code(s): I82.409 - Acute embolism and thrombosis of unspecified deep veins of unspecified lower extremity Status: Acute Assessment and Plan: History of DVT on apixaban (6) Peripheral arterial disease: Code(s): I73.9 - Peripheral vascular disease, unspecified Status: Acute Assessment and Plan: 11/06/2022 arterial Dopplers 1. Increased velocity gradients in right superficial femoral artery and distal right anterior tibial artery, consistent with moderate to severe stenosis. 2. Increased velocity gradients in left superficial femoral artery and left anterior tibial artery, consistent with moderate to severe stenosis. Continue apixaban Plan DVT prophylaxis: Apixaban Stress ulcer prophylaxis: Protonix Nutrition: Tolerating tube feeds, started patient on MiraLax and senna S Code Status: Full code Critical Care Time Spent: 33 minutes Due to a high probability of clinically significant, life threatening deterioration, the patient required my highest level of preparedness to intervene emergently and I personally spent this critical care time directly and personally managing the patient. This critical care time included obtaining a history; examining the patient; pulse oximetry; ordering and review of studies; arranging urgent treatment with spenser
[2022-12-07 17:15] LABS: Glucose Point of Care 119 mg/dl (65-105)
[2022-12-07] MEDS: CEFEPIME 2 GM/NS 50 ML 2 GM/50 ML BAG IVPB (21:01)
[2022-12-07 21:02] LABS: Mycoplasma IgM Antibody Titer 143 U/mL (<770)
[2022-12-07] MEDS: SENNA/DOCUSATE SODIUM TABLET 1 TAB PO (21:02)
[2022-12-07] MEDS: ACETAMINOPHEN 325 MG TABLET 650 MG PO (21:05)
[2022-12-08] VITALS (126 sets, daily range): BP systolic 90–139; BP diastolic 51–122; PULSE 60–104; RESP 10–25; TEMP 36.2–37.2; O2SAT 94–100
[2022-12-08 00:52] LABS: Glucose Point of Care 128 mg/dl (65-105)
[2022-12-08] MEDS: ALBUTEROL SULFATE NEB 2.5 MG/3 ML INH INHALATION ×4 (02:52→20:06)
[2022-12-08] MEDS: FENTANYL 2,500MCG/NS250ML(*CRX 2,500 MCG/250 ML BAG 12.5 MCG IV CONT (04:11)
[2022-12-08] MEDS: MIDAZOLAM 100MG/NS 100ML(*CRX) 100 MG/100 ML BAG IV CONT (05:00)
[2022-12-08 05:40] LABS: Alveolar/Arterial O2 Gradient 88.7 mmHg; Base Excess ABG 5.1 mEq/l (+/-2.0); Carboxyhemoglobin 0.8 % THb (0-2.0); Fractional Inspired Oxygen 35 %; HCO3 ABG 33.1 mEq/l (22.0-26.0); Methemoglobin ABG 0.4 %THb (0-1.5); Oxygen Content ABG 18.4 %vol (16.0-22.0); Oxygen Saturation ABG 95.6 % (95.0-100.0); Oxyhemoglobin 94.5 % THb (90.0-100.0); PO2 ABG 85.9 mmHg (80.0-100.0); PO2 FiO2 Ratio Arterial Blood 2.45 %; Reduced Hemoglobin 4.3 %THb (0-5.0); Total Hemoglobin 13.8 g/dL (12.0-18.0); pH ABG 7.328 (7.350-7.450)
[2022-12-08] MEDS: CEFEPIME 2 GM/NS 50 ML 2 GM/50 ML BAG IVPB ×3 (05:40→22:17)
[2022-12-08] MEDS: CENTRAL LINE FLUSH 10 ML IV PUSH ×4 (05:41→22:18)
[2022-12-08 05:42] LABS: PCO2 ABG 64.5 mmHg (35.0-45.0)
[2022-12-08 05:43] LABS: Arterial Blood Gas PEEP 8 cmH2O; Arterial Blood Gas Tidal Volume 450 ml; Arterial Blood Gas Vent Mode CMV; Arterial Blood Gas Ventilator rate 20 /MIN; Device VENTILATOR; Modified Allen's Test Pass; Site Drawn LEFT RADIAL
[2022-12-08 07:04] LABS: Basophils Percent Auto 0.4 % (0.2-1.2); Eosinophils Absolute Auto 0.1 K/mm3 (0-0.3); Eosinophils Percent Auto 2.8 % (0-4.4); Hematocrit 29.9 % (42.0-52.0); Hemoglobin 9.1 g/dL (14.0-18.0); Immature Granulocyte Absolute 0.14 K/mm3 (0.00-0.031); Immature Granulocyte Percent A 4.9 % (0-0.5); Lymphocytes Absolute Auto 0.73 K/mm3 (0.9-3.2); Lymphocytes Percent Auto 25.8 % (18.3-44.2); Mean Corpuscular HGB Conc 30.4 g/dl (32-36); Mean Corpuscular Hemoglobin 27.7 pg (26-34); Mean Corpuscular Volume 91.2 fl (80-100); Mean Platelet Volume 10.5 fl (7.4-10.4); Monocytes Absolute Auto 0.2 K/mm3 (0.1-0.6); Monocytes Percent Auto 7.1 % (2.6-8.5); Neutrophils Absolute Auto 1.7 K/mm3 (1.3-6.7); Platelet Count Result 180 k/mm3 (150-375); Red Blood Count 3.28 M/mm3 (4.6-6.20); Red Cell Distribution Width 16.2 % (11.5-14.5); White Blood Count 2.8 K/mm3 (4.5-10.0)
[2022-12-08 07:13] LABS: Alanine Aminotransferase 23 U/L (6-50); Albumin Level 2.8 g/dL (3.5-5.1); Alkaline Phosphatase 67 U/L (38-126); Anion Gap 0 mmol/L (8-16); Aspartate Amino Transferase 25 U/L (17-59); Bilirubin,Total 0.5 mg/dL (0.2-1.3); Blood Urea Nitrogen 27 mg/dL (9-20); Calcium 8.5 mg/dL (8.4-10.2); Carbon Dioxide 35 mmol/L (22-30); Chloride 96 mmol/L (98-107); Estimated CRCL calculation 98 ml/min; Estimated Glomerular Filt Rate > 60; Glucose 105 mg/dL (65-110); Magnesium 1.9 mg/dL (1.6-2.3); Phosphorus 4.5 mg/dL (2.5-4.5); Potassium 4.8 mmol/L (3.4-5.0); Sodium 131 mmol/L (137-145)
[2022-12-08] MEDS: APIXABAN 5 MG TABLET PO ×2 (08:50→18:19)
[2022-12-08] MEDS: ACETAMINOPHEN 500 MG TABLET 1000 MG PO (08:50)
[2022-12-08] MEDS: PANTOPRAZOLE SODIUM IV 40 MG VIAL IV PUSH (08:50)
[2022-12-08] MEDS: EUCERIN CREAM 454 GM JAR 1 APPLIC TOPICAL (08:51)
[2022-12-08] MEDS: GABAPENTIN 100 MG CAPSULE PO ×2 (08:51→18:19)
[2022-12-08] MEDS: polyethylene glycoL 3350 17 GM POWD.PACK PO (08:51)
[2022-12-08] MEDS: METOPROLOL TARTRATE 12.5 MG TABLET PO (08:52)
[2022-12-08] MEDS: MINERAL OIL/WHITE PETROLATUM OINTMENT 1 APPLIC EACH EYE ×2 (08:53→21:52)
--- NOTE | 2022-12-08 09:07 | WPDINTPN ---
Progress Note: A&P Assessment and Plan (1) Acute on chronic respiratory failure with hypoxia and hypercapnia: Code(s): J96.21 - Acute and chronic respiratory failure with hypoxia; J96.22 - Acute and chronic respiratory failure with hypercapnia Status: Acute Assessment and Plan: Patient was found to have shortness of breath and hypoxia at the [facility], upon arrival patient's O2 sats were in the 60s, patient was given nebulizing treatment, magnesium and steroids and brought to the ED. -he failed BiPAP and was intubated on 12/03/2022 -currently on CMV mode of ventilation, peep of 8 and 30% FiO2 -chest x-ray this morning: Persistent diffuse patchy groundglass infiltrates consistent with interstitial fibrosis and/or interstitial pneumonitis -continue bronchodilators -continue budesonide -continue azithromycin and cefepime, discontinue vancomycin -appreciate pulmonology evaluation recommendations -Sedation with fentanyl and Versed, maintain RASS of 0 to -2, daily sedation patient -will add Solu-Medrol as patient is wheezing, chest x-ray also shows possible interstitial pneumonitis/fibrosis -will also diurese today 12/06/2022 CT chest noncontrast: . Patchy ground glass opacities with areas of reticular nodularity particularly in the right lower lobe, most likely infectious/inflammatory. More focal consolidation is seen in the right lower lobe posteriorly.: Emphysema. Small right pleural effusion. Small pericardial effusion. Cholelithiasis. (2) Shock: Code(s): R57.9 - Shock, unspecified Status: Acute Assessment and Plan: Patient was hypotensive post intubation on propofol requiring a IV fluids and Levophed for a brief amount of time -currently off Levophed since the evening of 12/04/2022 -lactic acid was 1.4 on admission -12/03 blood cultures negative x2 so far -12/04/2022 sputum cultures negative -12/04/2022 MRSA screen negative -continue azithromycin and cefepime (12/03) -vancomycin discontinued on 12/06/2022 (3) Congestive heart failure: Code(s): I50.9 - Heart failure, unspecified Status: Acute Assessment and Plan: BNP on admission was a 4930 and was given Lasix in the ER: Likely diastolic failure -chest x-ray shows diffuse infiltrates, more so pneumonia than pulmonary edema -he did have adequate urine output in response to Lasix 11/06/2022 echocardiogram showed EF of 50-55% grade 1 diastolic dysfunction, right ventricular systolic function is normal, no significant valvular disease (4) COPD (chronic obstructive pulmonary disease): Code(s): J44.9 - Chronic obstructive pulmonary disease, unspecified Status: Acute Assessment and Plan: History of COPD -continue mechanical ventilation, bronchodilators (5) DVT (deep venous thrombosis): Code(s): I82.409 - Acute embolism and thrombosis of unspecified deep veins of unspecified lower extremity Status: Acute Assessment and Plan: History of DVT on apixaban (6) Peripheral arterial disease: Code(s): I73.9 - Peripheral vascular disease, unspecified Status: Acute Assessment and Plan: 11/06/2022 arterial Dopplers 1. Increased velocity gradients in right superficial femoral artery and distal right anterior tibial artery, consistent with moderate to severe stenosis. 2. Increased velocity gradients in left superficial femoral artery and left anterior tibial artery, consistent with moderate to severe stenosis. Continue apixaban Plan DVT prophylaxis: Apixaban Stress ulcer prophylaxis: Protonix Nutrition: Tolerating tube feeds, on MiraLax and senna S Code Status: Full code Critical Care Time Spent: 33 minutes Due to a high probability of clinically significant, life threatening deterioration, the patient required my highest level of preparedness to intervene emergently and I personally spent this critical care time directly and personally managing the patient. This critical care time in
[2022-12-08] MEDS: FUROSEMIDE INJ 40 MG/4 ML VIAL IV PUSH (10:00)
[2022-12-08] MEDS: methylPREDNISolone SOD SUCC 125 MG VIAL IV PUSH (10:00)
[2022-12-08] MEDS: methylPREDNISolone SOD SUCC 40 MG VIAL IV PUSH ×3 (15:31→23:54)
[2022-12-08] MEDS: INSULIN ASPART (*BKC) 100 UNITS/ML SUB-Q (18:27)
--- NOTE | 2022-12-08 18:46 | PM.PNPUL ---
Progress Note: A&P Assessment and Plan (1) Acute on chronic respiratory failure with hypoxia and hypercapnia: Code(s): J96.21 - Acute and chronic respiratory failure with hypoxia; J96.22 - Acute and chronic respiratory failure with hypercapnia Status: Acute Assessment and Plan: 62 year old man presented 12/03/22 with recurrent hypercapnic hypoxemic respiratory failure with shock in the setting of sepsis; this is his 3rd admission here since May 2022. He was intubated in October and again Dec 03. He may have cardiac dysfunction worsening his respiratory failure. There may be pneumonia, difficult to tell. He has no abnormality in his sputum. No fever. Pancytopenia is compatible with infection, more likely viral. Serology for influenza A and SARS-CoV-2 are negative. Sputum is nondiagnostic. He grew normal oral wade, no MRSA therefore vancomycin was stopped. He does not have an obvious infiltrate on chest CT. He is on azithromycin and Cefepime, appropriate treatment empirically for concerns for pneumonia. IV solumedrol added. (2) COPD (chronic obstructive pulmonary disease): Code(s): J44.9 - Chronic obstructive pulmonary disease, unspecified Status: Acute Assessment and Plan: He has severe COPD on his CT scan, was on O2 and inhalers before admission, was living at a NH, not smoking. His O2 requirement is low, 30%. he is on Trelegy which has umeclidinium. Plan He appears stable. He is having vent management by Dr Navarrete and the ICU team. His out-patient pulmonary doctor is Dr Barkley in [place]. Pulmonary will sign off. Please recall us if needed. We will be happy to follow him on the floor after he is extubated. Time Spent With Patient Time with patient: less than 15 minutes Subjective Date/time seen: 12/08/22 18:46 Interval history: hospital follow up :?Brooks Chidi rust a 62-year-old man with COPD, chronic hypercapnic hypoxemic respiratory failure on home oxygen.? He was admitted here November 06 through November 20 with COPD with pneumonia, he was intubated, self extubated on November 09, had to be reintubated immediately due to stridor.? He had acute kidney injury, demand ischemia with increased troponin, hypotension requiring Levophed.? He grew?Moraxella catarrhalis.? After discharge, he went to [facility]. His labs were unremarkable, normal WBC. He came to emergency department December 03 with increasing shortness of breath, was placed on BiPAP. ? He has had pancytopenia most of this admission.? During the evaluation in the ED, he pulled his BiPAP off, became less responsive.? He required emergency intubation and a right femoral line placed for brief use of Levophed due to hypotension.? His serologies are negative for influenza A&B,? SARS-CoV-2.? During this admission is CO2 was elevated.? Initial arterial blood gas pH 7.35 pCO2 46 PO2 76 saturation 94.7%. ? After deterioration he developed worsening respiratory acidosis, pH 7.26, pCO2 58.8, PO2 78.7 HC03 26.1 saturation 93.7%.? His acute respiratory failure and ? Respiratory acidosis have improved.? He is on CMV mode with full support rate of 20, FiO2 is only 30%.? He had increased BNP. PMH: He was admitted here at [facility] in May with weakness, confusion, hallucination and restlessness.? He had severe hypercapnia,on 5 L pH 7.31, pCO2 91, pO2 190, and bicarbonate was 35, CXR negative for infiltrate, had flat diaphragms.? He appeared to be over oxygenated.? He was managed with BiPAP. CAD with an DC 2011 with a stent, ? Hyperlipidemia, stroke in 2020 with residual right leg weakness, uses a walker, COPD on 4-5 L of oxygen at home.? he has bipolar disease.? He has a 42 pack year history of tobacco, started age 20. 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 No history of sandblasting, welding, asbestos, painting
[2022-12-08 20:48] LABS: Glucose Point of Care 190 mg/dl (65-105)
[2022-12-08 20:48] LABS: Glucose Point of Care 238 mg/dl (65-105)
[2022-12-09] VITALS (129 sets, daily range): BP systolic 93–226; BP diastolic 48–156; PULSE 66–131; RESP 9–31; TEMP 35.7–37.2; O2SAT 94–100
[2022-12-09] MEDS: INSULIN ASPART (*BKC) 100 UNITS/ML SUB-Q ×4 (00:02→18:05)
[2022-12-09 00:03] LABS: Glucose Point of Care 286 mg/dl (65-105)
[2022-12-09] MEDS: ALBUTEROL SULFATE NEB 2.5 MG/3 ML INH INHALATION ×4 (02:15→19:30)
[2022-12-09] MEDS: FENTANYL 2,500MCG/NS250ML(*CRX 2,500 MCG/250 ML BAG 10 MCG IV CONT (02:55)
[2022-12-09 04:46] LABS: Carboxyhemoglobin 0.3 % THb (0-2.0); Device VENTILATOR; Fractional Inspired Oxygen 35 %; HCO3 ABG 32.4 mEq/l (22.0-26.0); Methemoglobin ABG 0.3 %THb (0-1.5); Modified Allen's Test Pass; Oxygen Content ABG 14.7 %vol (16.0-22.0); Oxygen Saturation ABG 96.4 % (95.0-100.0); Oxyhemoglobin 94.3 % THb (90.0-100.0); PCO2 ABG 49.8 mmHg (35.0-45.0); PO2 ABG 83.7 mmHg (80.0-100.0); PO2 FiO2 Ratio Arterial Blood 2.39 %; Reduced Hemoglobin 5.1 %THb (0-5.0); Site Drawn LEFT RADIAL; pH ABG 7.431 (7.350-7.450)
[2022-12-09 04:47] LABS: Arterial Blood Gas PEEP 5 cmH2O; Arterial Blood Gas Tidal Volume 500 ml; Arterial Blood Gas Vent Mode CMV; Arterial Blood Gas Ventilator rate 20 /MIN
[2022-12-09 05:14] LABS: Basophils Percent Auto 0.2 % (0.2-1.2); Hemoglobin 10.2 g/dL (14.0-18.0); Immature Granulocyte Absolute 0.14 K/mm3 (0.00-0.031); Lymphocytes Absolute Auto 0.48 K/mm3 (0.9-3.2); Lymphocytes Percent Auto 10.4 % (18.3-44.2); Mean Corpuscular HGB Conc 31.9 g/dl (32-36); Mean Corpuscular Hemoglobin 28.2 pg (26-34); Mean Corpuscular Volume 88.4 fl (80-100); Mean Platelet Volume 10.6 fl (7.4-10.4); Monocytes Absolute Auto 0.1 K/mm3 (0.1-0.6); Monocytes Percent Auto 2.2 % (2.6-8.5); Neutrophils Absolute Auto 3.9 K/mm3 (1.3-6.7); Neutrophils Percent Auto 84.2 % (45.5-73.1); Platelet Count Result 234 k/mm3 (150-375); Red Blood Count 3.62 M/mm3 (4.6-6.20); Red Cell Distribution Width 15.6 % (11.5-14.5); White Blood Count 4.6 K/mm3 (4.5-10.0)
[2022-12-09 05:17] LABS: Alanine Aminotransferase 27 U/L (6-50); Albumin Level 3.2 g/dL (3.5-5.1); Alkaline Phosphatase 83 U/L (38-126); Anion Gap 3 mmol/L (8-16); Aspartate Amino Transferase 26 U/L (17-59); Bilirubin,Total 0.5 mg/dL (0.2-1.3); Blood Urea Nitrogen 39 mg/dL (9-20); Calcium 8.9 mg/dL (8.4-10.2); Carbon Dioxide 36 mmol/L (22-30); Chloride 91 mmol/L (98-107); Estimated CRCL calculation 98 ml/min; Estimated Glomerular Filt Rate > 60; Glucose 206 mg/dL (65-110); Magnesium 2.2 mg/dL (1.6-2.3); Phosphorus 3.6 mg/dL (2.5-4.5); Potassium 4.7 mmol/L (3.4-5.0); Sodium 130 mmol/L (137-145)
[2022-12-09] MEDS: MIDAZOLAM 100MG/NS 100ML(*CRX) 100 MG/100 ML BAG IV CONT (05:25)
[2022-12-09] MEDS: CENTRAL LINE FLUSH 10 ML IV PUSH ×4 (05:28→20:43)
[2022-12-09] MEDS: methylPREDNISolone SOD SUCC 40 MG VIAL IV PUSH ×3 (05:28→16:52)
[2022-12-09] MEDS: dexmedeTOMIDine 400 MCG/100 ML 400 MCG/100 ML BAG IV CONT (07:59)
[2022-12-09] MEDS: PANTOPRAZOLE SODIUM IV 40 MG VIAL IV PUSH (08:00)
[2022-12-09] MEDS: APIXABAN 5 MG TABLET PO ×2 (08:00→16:52)
[2022-12-09] MEDS: EUCERIN CREAM 454 GM JAR 1 APPLIC TOPICAL (08:00)
[2022-12-09] MEDS: METOPROLOL TARTRATE 12.5 MG TABLET PO (08:00)
[2022-12-09] MEDS: GABAPENTIN 100 MG CAPSULE PO ×2 (08:00→16:52)
[2022-12-09] MEDS: MINERAL OIL/WHITE PETROLATUM OINTMENT 1 APPLIC EACH EYE ×2 (08:01→20:43)
[2022-12-09] MEDS: polyethylene glycoL 3350 17 GM POWD.PACK PO (08:01)
[2022-12-09 08:03] LABS: Glucose Point of Care 208 mg/dl (65-105)
--- NOTE | 2022-12-09 08:12 | WPDINTPN ---
Progress Note: A&P Assessment and Plan (1) Acute on chronic respiratory failure with hypoxia and hypercapnia: Code(s): J96.21 - Acute and chronic respiratory failure with hypoxia; J96.22 - Acute and chronic respiratory failure with hypercapnia Status: Acute Assessment and Plan: Patient was found to have shortness of breath and hypoxia at the long term, upon arrival patient's O2 sats were in the 60s, patient was given nebulizing treatment, magnesium and steroids and brought to the ED. -he failed BiPAP and was intubated on 12/03/2022 -currently on CMV mode of ventilation, peep of 8 and 30% FiO2 -chest x-ray this morning: Diffuse interstitial prominence which may be due to interstitial fibrosis and/or pneumonitis or less likely pulmonary interstitial edema. No pulmonary vascular congestion is noted. No pleural effusion or pneumothorax.? -continue bronchodilators -continue budesonide -status post azithromycin and cefepime and vancomycin -appreciate pulmonology evaluation recommendations -Sedation with fentanyl and Versed, maintain RASS of 0 to -2, daily sedation patient -continue Solu-Medrol -patient diuresed well yesterday, but no change in his chest x-ray 12/06/2022 CT chest noncontrast: . Patchy ground glass opacities with areas of reticular nodularity particularly in the right lower lobe, most likely infectious/inflammatory. More focal consolidation is seen in the right lower lobe posteriorly.: Emphysema. Small right pleural effusion. Small pericardial effusion. Cholelithiasis. (2) Shock: Code(s): R57.9 - Shock, unspecified Status: Acute Assessment and Plan: Patient was hypotensive post intubation on propofol requiring a IV fluids and Levophed for a brief amount of time -currently off Levophed since the evening of 12/04/2022 -lactic acid was 1.4 on admission -12/03 blood cultures negative x2 so far -12/04/2022 sputum cultures negative -12/04/2022 MRSA screen negative -status post azithromycin, cefepime and vancomycin (3) Congestive heart failure: Code(s): I50.9 - Heart failure, unspecified Status: Acute Assessment and Plan: BNP on admission was a 4930 and was given Lasix in the ER: Likely diastolic failure -chest x-ray shows diffuse infiltrates, more so pneumonia than pulmonary edema 02/25: Responded well to diuresis 11/06/2022 echocardiogram showed EF of 50-55% grade 1 diastolic dysfunction, right ventricular systolic function is normal, no significant valvular disease (4) COPD (chronic obstructive pulmonary disease): Code(s): J44.9 - Chronic obstructive pulmonary disease, unspecified Status: Acute Assessment and Plan: History of COPD -continue mechanical ventilation, bronchodilators (5) DVT (deep venous thrombosis): Code(s): I82.409 - Acute embolism and thrombosis of unspecified deep veins of unspecified lower extremity Status: Acute Assessment and Plan: History of DVT on apixaban (6) Peripheral arterial disease: Code(s): I73.9 - Peripheral vascular disease, unspecified Status: Acute Assessment and Plan: 11/06/2022 arterial Dopplers 1. Increased velocity gradients in right superficial femoral artery and distal right anterior tibial artery, consistent with moderate to severe stenosis. 2. Increased velocity gradients in left superficial femoral artery and left anterior tibial artery, consistent with moderate to severe stenosis. Continue apixaban Plan DVT prophylaxis: Apixaban Stress ulcer prophylaxis: Protonix Nutrition: Tolerating tube feeds, on MiraLax and senna S Code Status: Full code Critical Care Time Spent: 33 minutes 12/08: discussed with 2 daughters and updated them with patient's condition and plan of care. I answered all questions Due to a high probability of clinically significant, life threatening deterioration, the patient required my highest level of preparedness to intervene emergently and I
[2022-12-09] MEDS: hydrALAZINE HCL 20 MG/ML VIAL IV PUSH (09:41)
[2022-12-09] MEDS: PROPOFOL IV EMULSION 100 ML 2 MG IV CONT (10:07)
[2022-12-09] MEDS: PROPOFOL IV EMULSION 100 ML 8 MG IV CONT (10:15)
[2022-12-09 10:33] LABS: Triglycerides 166 mg/dL (<150)
--- NOTE | 2022-12-09 10:38 | PC.NURSE ---
1015- Patient c/o sob, having increased work of breathing, tachycardic and hypertensive. Titrated Propofol from 5mcg/kg/min to 20 mcg/kg/min per Dr Navarrete verbal orders at bedside, patient vent switched from ASV to CMV mode.
[2022-12-09 11:08] LABS: Glucose Point of Care 285 mg/dl (65-105)
[2022-12-09] MEDS: PROPOFOL IV EMULSION 100 ML 12.01 MG IV CONT (11:30)
[2022-12-09] MEDS: hydrALAZINE HCL 20 MG/ML VIAL 10 MG IV PUSH (16:18)
--- NOTE | 2022-12-09 16:23 | PM.IMPN ---
Progress Note: A&P Assessment and Plan (1) Acute on chronic respiratory failure with hypoxia and hypercapnia: Code(s): J96.21 - Acute and chronic respiratory failure with hypoxia; J96.22 - Acute and chronic respiratory failure with hypercapnia Status: Acute Assessment and Plan: Patient was found to have shortness of breath and hypoxia at the [facility], upon arrival patient's O2 sats were in the 60s, patient was given nebulizing treatment, magnesium and steroids and brought to the ED. he failed BiPAP and was intubated on 12/03/2022 continue Mechanical ventilation as per communication coordinator chest x-ray: Diffuse interstitial prominence which may be due to interstitial fibrosis and/or pneumonitis or less likely pulmonary interstitial edema. No pulmonary vascular congestion is noted. No pleural effusion or pneumothorax.? continue bronchodilators and budesonide -status post azithromycin and cefepime and vancomycin -continue Solu-Medrol 12/06/2022 CT chest noncontrast: . Patchy ground glass opacities with areas of reticular nodularity particularly in the right lower lobe, most likely infectious/inflammatory. More focal consolidation is seen in the right lower lobe posteriorly.: Emphysema. Small right pleural effusion. Small pericardial effusion. Cholelithiasis. (2) Shock: Code(s): R57.9 - Shock, unspecified Status: Acute Assessment and Plan: Patient was hypotensive post intubation on propofol requiring a IV fluids and Levophed for a brief amount of time -currently off Levophed since the evening of 12/04/2022 -lactic acid was 1.4 on admission -12/03 blood cultures negative x2 so far -12/04/2022 sputum cultures negative -12/04/2022 MRSA screen negative -status post azithromycin, cefepime and vancomycin (3) Congestive heart failure: Code(s): I50.9 - Heart failure, unspecified Status: Acute Assessment and Plan: BNP on admission was a 4930 and was given Lasix in the ER: Likely diastolic failure -chest x-ray shows diffuse infiltrates, more so pneumonia than pulmonary edema 12/08: Responded well to diuresis 11/06/2022 echocardiogram showed EF of 50-55% grade 1 diastolic dysfunction, right ventricular systolic function is normal, no significant valvular disease (4) COPD (chronic obstructive pulmonary disease): Code(s): J44.9 - Chronic obstructive pulmonary disease, unspecified Status: Acute Assessment and Plan: History of COPD -continue mechanical ventilation, bronchodilators (5) DVT (deep venous thrombosis): Code(s): I82.409 - Acute embolism and thrombosis of unspecified deep veins of unspecified lower extremity Status: Acute Assessment and Plan: History of DVT on apixaban (6) Peripheral arterial disease: Code(s): I73.9 - Peripheral vascular disease, unspecified Status: Acute Assessment and Plan: 11/06/2022 arterial Dopplers 1. Increased velocity gradients in right superficial femoral artery and distal right anterior tibial artery, consistent with moderate to severe stenosis. 2. Increased velocity gradients in left superficial femoral artery and left anterior tibial artery, consistent with moderate to severe stenosis. Continue apixaban Plan DVT prophylaxis: Apixaban Stress ulcer prophylaxis: Protonix Nutrition: Tolerating tube feeds, on MiraLax and senna S Code Status: Full code Subjective Date/time seen: 12/09/22 16:23 Interval history: Patient seen and examined. Remains on ventilator. Sedated On fentanyl Versed and propofol. tolerating tube feeds. Discussed with nursing staff. Review of Systems Review of Systems: ROS unobtainable: Yes unobtainable due to endotracheal tube Exam Narrative: General: Patient is intubated and sedated, in no distress Neck:? Supple Respiratory:? Bilateral equal air entry no wheezing Cardiac:? Regular rate and rhythm, Abdomen:? Soft, nondistended, hypoactive bowel sounds Extremiti
[2022-12-09 16:54] LABS: Glucose Point of Care 219 mg/dl (65-105)
[2022-12-09] MEDS: PROPOFOL IV EMULSION 100 ML 20.01 MG IV CONT (20:00)
[2022-12-10] VITALS (108 sets, daily range): BP systolic 100–202; BP diastolic 56–145; PULSE 59–130; RESP 14–28; TEMP 35.9–37.4; O2SAT 86–100
[2022-12-10] MEDS: methylPREDNISolone SOD SUCC 40 MG VIAL IV PUSH ×2 (00:02→05:38)
[2022-12-10 00:06] LABS: Glucose Point of Care 209 mg/dl (65-105)
[2022-12-10] MEDS: INSULIN ASPART (*BKC) 100 UNITS/ML SUB-Q ×3 (00:07→11:57)
[2022-12-10] MEDS: PROPOFOL IV EMULSION 100 ML 20.01 MG IV CONT ×3 (00:56→09:35)
[2022-12-10] MEDS: ALBUTEROL SULFATE NEB 2.5 MG/3 ML INH INHALATION ×4 (02:36→20:24)
[2022-12-10 04:57] LABS: Basophils Percent Auto 0.2 % (0.2-1.2); Hematocrit 31.1 % (42.0-52.0); Hemoglobin 9.8 g/dL (14.0-18.0); Immature Granulocyte Absolute 0.13 K/mm3 (0.00-0.031); Immature Granulocyte Percent A 2.3 % (0-0.5); Lymphocytes Absolute Auto 0.37 K/mm3 (0.9-3.2); Lymphocytes Percent Auto 6.4 % (18.3-44.2); Mean Corpuscular HGB Conc 31.5 g/dl (32-36); Mean Corpuscular Hemoglobin 28.1 pg (26-34); Mean Corpuscular Volume 89.1 fl (80-100); Mean Platelet Volume 10.8 fl (7.4-10.4); Monocytes Absolute Auto 0.3 K/mm3 (0.1-0.6); Monocytes Percent Auto 4.9 % (2.6-8.5); Neutrophils Percent Auto 86.2 % (45.5-73.1); Nucleated Red Blood Cells Perc 0.5 % (0.0-0.2); Platelet Count Result 297 k/mm3 (150-375); Red Blood Count 3.49 M/mm3 (4.6-6.20); Red Cell Distribution Width 16.2 % (11.5-14.5); White Blood Count 5.8 K/mm3 (4.5-10.0)
[2022-12-10 05:04] LABS: Alveolar/Arterial O2 Gradient 120.7 mmHg; Base Excess ABG 8.8 mEq/l (+/-2.0); Carboxyhemoglobin 0.2 % THb (0-2.0); Fractional Inspired Oxygen 35 %; HCO3 ABG 33.6 mEq/l (22.0-26.0); Methemoglobin ABG 0.4 %THb (0-1.5); Oxygen Content ABG 14.3 %vol (16.0-22.0); Oxygen Saturation ABG 95.5 % (95.0-100.0); Oxyhemoglobin 93.6 % THb (90.0-100.0); PCO2 ABG 47.4 mmHg (35.0-45.0); PO2 ABG 73.8 mmHg (80.0-100.0); PO2 FiO2 Ratio Arterial Blood 2.11 %; Reduced Hemoglobin 5.8 %THb (0-5.0); Total Hemoglobin 10.8 g/dL (12.0-18.0); pH ABG 7.468 (7.350-7.450)
[2022-12-10 05:05] LABS: Arterial Blood Gas Vent Mode CMV; Arterial Blood Gas Ventilator rate 20 /MIN; Device VENTILATOR; Modified Allen's Test Pass; Site Drawn RIGHT RADIAL
[2022-12-10 05:06] LABS: Arterial Blood Gas PEEP 5 cmH2O; Arterial Blood Gas Tidal Volume 500 ml
[2022-12-10 05:18] LABS: Alanine Aminotransferase 24 U/L (6-50); Albumin Level 3.2 g/dL (3.5-5.1); Alkaline Phosphatase 77 U/L (38-126); Anion Gap 3 mmol/L (8-16); Aspartate Amino Transferase 25 U/L (17-59); Bilirubin,Total 0.4 mg/dL (0.2-1.3); Blood Urea Nitrogen 50 mg/dL (9-20); Carbon Dioxide 36 mmol/L (22-30); Chloride 92 mmol/L (98-107); Estimated CRCL calculation 98 ml/min; Estimated Glomerular Filt Rate > 60; Glucose 243 mg/dL (65-110); Magnesium 2.3 mg/dL (1.6-2.3); Phosphorus 3.5 mg/dL (2.5-4.5); Potassium 4.2 mmol/L (3.4-5.0); Sodium 131 mmol/L (137-145)
[2022-12-10] MEDS: CENTRAL LINE FLUSH 10 ML IV PUSH (05:38)
[2022-12-10 07:27] LABS: Expiratory Pressure 9 cmH2O; Inspiratory Pressure 17 cmH2O
--- NOTE | 2022-12-10 08:09 | WPDINTPN ---
Progress Note: A&P Assessment and Plan (1) Acute on chronic respiratory failure with hypoxia and hypercapnia: Code(s): J96.21 - Acute and chronic respiratory failure with hypoxia; J96.22 - Acute and chronic respiratory failure with hypercapnia Status: Acute Assessment and Plan: Patient was found to have shortness of breath and hypoxia at the longterm, upon arrival patient's O2 sats were in the 60s, patient was given nebulizing treatment, magnesium and steroids and brought to the ED. -he failed BiPAP and was intubated on 12/03/2022 -currently on CMV mode of ventilation, peep of 8 and 30% FiO2 -chest x-ray this morning: Stable diffuse pulmonary disease. -continue bronchodilators -continue budesonide -status post azithromycin and cefepime and vancomycin -appreciate pulmonology evaluation recommendations -patient was started on Precedex on 12/09, weaned off fentanyl and Versed. Patient was tried ASV mode and pressure support but did not tolerate and had to be placed back on CMV mode of ventilation. Patient was tachypneic, with low tidal volumes and minute ventilation. -12/09: patient was started on propofol infusion for sedation, will add fentanyl infusion -will start weaning Solu-Medrol -12/08: Diuresed very well. With no changes on the chest x-ray 12/06/2022 CT chest noncontrast: . Patchy ground glass opacities with areas of reticular nodularity particularly in the right lower lobe, most likely infectious/inflammatory. More focal consolidation is seen in the right lower lobe posteriorly.: Emphysema. Small right pleural effusion. Small pericardial effusion. Cholelithiasis. (2) Shock: Code(s): R57.9 - Shock, unspecified Status: Acute Assessment and Plan: Patient was hypotensive post intubation on propofol requiring a IV fluids and Levophed for a brief amount of time -currently off Levophed since the evening of 12/04/2022 -lactic acid was 1.4 on admission -12/03 blood cultures negative x2 so far -12/04/2022 sputum cultures negative -12/04/2022 MRSA screen negative -status post azithromycin, cefepime and vancomycin (3) Congestive heart failure: Code(s): I50.9 - Heart failure, unspecified Status: Acute Assessment and Plan: BNP on admission was 4930 and was given Lasix in the ER: Likely diastolic failure -chest x-ray shows diffuse infiltrates, more so pneumonia than pulmonary edema 12/08: Responded well to diuresis 11/06/2022 echocardiogram showed EF of 50-55% grade 1 diastolic dysfunction, right ventricular systolic function is normal, no significant valvular disease (4) COPD (chronic obstructive pulmonary disease): Code(s): J44.9 - Chronic obstructive pulmonary disease, unspecified Status: Acute Assessment and Plan: History of COPD -continue mechanical ventilation, bronchodilators (5) DVT (deep venous thrombosis): Code(s): I82.409 - Acute embolism and thrombosis of unspecified deep veins of unspecified lower extremity Status: Acute Assessment and Plan: History of DVT on apixaban (6) Peripheral arterial disease: Code(s): I73.9 - Peripheral vascular disease, unspecified Status: Acute Assessment and Plan: 11/06/2022 arterial Dopplers 1. Increased velocity gradients in right superficial femoral artery and distal right anterior tibial artery, consistent with moderate to severe stenosis. 2. Increased velocity gradients in left superficial femoral artery and left anterior tibial artery, consistent with moderate to severe stenosis. Continue apixaban Plan DVT prophylaxis: Apixaban Stress ulcer prophylaxis: Protonix Nutrition: Tolerating tube feeds, on MiraLax and senna S Code Status: Full code Critical Care Time Spent: 33 minutes 12/08: discussed with 2 daughters and updated them with patient's condition and plan of care. I answered all questions Due to a high probability of clinically significant, life threaten
[2022-12-10] MEDS: FENTANYL 2,500MCG/NS250ML(*CRX 2,500 MCG/250 ML BAG IV CONT (08:13)
[2022-12-10] MEDS: GABAPENTIN 100 MG CAPSULE PO ×2 (08:19→17:03)
[2022-12-10] MEDS: APIXABAN 5 MG TABLET PO ×2 (08:19→17:03)
[2022-12-10] MEDS: PANTOPRAZOLE SODIUM IV 40 MG VIAL IV PUSH (08:19)
[2022-12-10] MEDS: METOPROLOL TARTRATE 12.5 MG TABLET PO (08:19)
[2022-12-10] MEDS: MINERAL OIL/WHITE PETROLATUM OINTMENT 1 APPLIC EACH EYE ×2 (08:20→21:05)
[2022-12-10] MEDS: EUCERIN CREAM 454 GM JAR 1 APPLIC TOPICAL (08:20)
[2022-12-10] MEDS: MIDAZOLAM 100MG/NS 100ML(*CRX) 100 MG/100 ML BAG IV CONT (09:49)
--- NOTE | 2022-12-10 10:39 | PCFNICU ---
ICU Rounding Note: Pt current nutrition is Vital 1.2 @ 60 ml/h with flushes 30 ml q 4 h. Nutrition recommendation: Banatrol TF BID for diarrhea. Dayo flushes BID for wounds for additional 90 kcals and 2.5 g protein each. Mix with Dayo 120 ml free water. Last recorded weight is 65.1 kg. Bowel Motility: Diarrhea per FMS Labs Reviewed: Hgb 9.8, Hct 31.1, Alb 3.2, Na 131, BUN 50, Cre 0.6, Glu 243 Meds Noted: Fentanyl, versed Skin: New DTIs to BL heels Additional Notes: Adding Banatrol for diarrhea and Dayo for new DTIs. Tolerating tube feeds. Continue same tube feeding order. Following daily in ICU rounds. Will monitor every Saturday and Saturday..
[2022-12-10 11:46] LABS: Glucose Point of Care 219 mg/dl (65-105)
--- NOTE | 2022-12-10 12:56 | PM.IMPN ---
Progress Note: A&P Assessment and Plan (1) Acute on chronic respiratory failure with hypoxia and hypercapnia: Code(s): J96.21 - Acute and chronic respiratory failure with hypoxia; J96.22 - Acute and chronic respiratory failure with hypercapnia Status: Acute Assessment and Plan: Patient was found to have shortness of breath and hypoxia at the long term, upon arrival patient's O2 sats were in the 60s, patient was given nebulizing treatment, magnesium and steroids and brought to the ED. he failed BiPAP and was intubated on 12/03/2022 continue Mechanical ventilation as per dietetic aide chest x-ray: Diffuse interstitial prominence which may be due to interstitial fibrosis and/or pneumonitis or less likely pulmonary interstitial edema. No pulmonary vascular congestion is noted. No pleural effusion or pneumothorax.? continue bronchodilators and budesonide -status post azithromycin and cefepime and vancomycin -continue Solu-Medrol 12/06/2022 CT chest noncontrast: . Patchy ground glass opacities with areas of reticular nodularity particularly in the right lower lobe, most likely infectious/inflammatory. More focal consolidation is seen in the right lower lobe posteriorly.: Emphysema. Small right pleural effusion. Small pericardial effusion. Cholelithiasis. (2) Shock: Code(s): R57.9 - Shock, unspecified Status: Acute Assessment and Plan: Patient was hypotensive post intubation on propofol requiring a IV fluids and Levophed for a brief amount of time -currently off Levophed since the evening of 12/04/2022 -lactic acid was 1.4 on admission -12/03 blood cultures negative x2 so far -12/04/2022 sputum cultures negative -12/04/2022 MRSA screen negative -status post azithromycin, cefepime and vancomycin (3) Congestive heart failure: Code(s): I50.9 - Heart failure, unspecified Status: Acute Assessment and Plan: BNP on admission was a 4930 and was given Lasix in the ER: Likely diastolic failure -chest x-ray shows diffuse infiltrates, more so pneumonia than pulmonary edema 12/08: Responded well to diuresis 11/06/2022 echocardiogram showed EF of 50-55% grade 1 diastolic dysfunction, right ventricular systolic function is normal, no significant valvular disease (4) COPD (chronic obstructive pulmonary disease): Code(s): J44.9 - Chronic obstructive pulmonary disease, unspecified Status: Acute Assessment and Plan: History of COPD -continue mechanical ventilation, bronchodilators (5) DVT (deep venous thrombosis): Code(s): I82.409 - Acute embolism and thrombosis of unspecified deep veins of unspecified lower extremity Status: Acute Assessment and Plan: History of DVT on apixaban (6) Peripheral arterial disease: Code(s): I73.9 - Peripheral vascular disease, unspecified Status: Acute Assessment and Plan: 11/06/2022 arterial Dopplers 1. Increased velocity gradients in right superficial femoral artery and distal right anterior tibial artery, consistent with moderate to severe stenosis. 2. Increased velocity gradients in left superficial femoral artery and left anterior tibial artery, consistent with moderate to severe stenosis. Continue apixaban Plan DVT prophylaxis: Apixaban Stress ulcer prophylaxis: Protonix Nutrition: Tolerating tube feeds, on MiraLax and senna S Code Status: Full code Subjective Date/time seen: 12/10/22 12:56 Interval history: Patient seen and examined. Remains on ventilator. Sedated On fentanyl Versed . tolerating tube feeds. Discussed with dietetic aide. Review of Systems Review of Systems: ROS unobtainable: Yes unobtainable due to endotracheal tube Exam Narrative: General: Patient is intubated and sedated, in no distress Neck:? Supple Respiratory:? Bilateral equal air entry no wheezing Cardiac:? Regular rate and rhythm, Abdomen:? Soft, nondistended, hypoactive bowel sounds Extremities:? Right gr
[2022-12-10] MEDS: TOLNAFTATE 1% POWDER 45 GM BTL 1 APPLIC TOPICAL ×2 (17:02→21:05)
[2022-12-10] MEDS: methylPREDNISolone SOD SUCC 40 MG VIAL 20 MG IV PUSH (17:03)
[2022-12-10 17:14] LABS: Glucose Point of Care 160 mg/dl (65-105)
[2022-12-10] MEDS: QUEtiapine FUMARATE 12.5 MG TABLET PO (21:05)
[2022-12-11] VITALS (120 sets, daily range): BP systolic 92–130; BP diastolic 54–86; PULSE 55–94; RESP 13–21; TEMP 36–36.9; O2SAT 96–100
[2022-12-11 00:11] LABS: Glucose Point of Care 290 mg/dl (65-105)
[2022-12-11] MEDS: INSULIN ASPART (*BKC) 100 UNITS/ML SUB-Q ×4 (00:11→17:24)
[2022-12-11] MEDS: FENTANYL 2,500MCG/NS250ML(*CRX 2,500 MCG/250 ML BAG 7.5 MCG IV CONT (00:59)
[2022-12-11] MEDS: ALBUTEROL SULFATE NEB 2.5 MG/3 ML INH INHALATION ×4 (02:46→20:35)
[2022-12-11] MEDS: MIDAZOLAM 100MG/NS 100ML(*CRX) 100 MG/100 ML BAG IV CONT (04:25)
[2022-12-11 04:50] LABS: Basophils Percent Auto 0.2 % (0.2-1.2); Hematocrit 29.2 % (42.0-52.0); Immature Granulocyte Absolute 0.08 K/mm3 (0.00-0.031); Immature Granulocyte Percent A 1.4 % (0-0.5); Lymphocytes Absolute Auto 0.51 K/mm3 (0.9-3.2); Lymphocytes Percent Auto 8.7 % (18.3-44.2); Mean Corpuscular HGB Conc 30.8 g/dl (32-36); Mean Corpuscular Hemoglobin 27.6 pg (26-34); Mean Corpuscular Volume 89.6 fl (80-100); Mean Platelet Volume 10.4 fl (7.4-10.4); Monocytes Absolute Auto 0.6 K/mm3 (0.1-0.6); Monocytes Percent Auto 10.9 % (2.6-8.5); Neutrophils Absolute Auto 4.6 K/mm3 (1.3-6.7); Neutrophils Percent Auto 78.8 % (45.5-73.1); Nucleated Red Blood Cells Perc 0.5 % (0.0-0.2); Platelet Count Result 299 k/mm3 (150-375); Red Blood Count 3.26 M/mm3 (4.6-6.20); Red Cell Distribution Width 16.2 % (11.5-14.5); White Blood Count 5.9 K/mm3 (4.5-10.0)
[2022-12-11 05:14] LABS: Alanine Aminotransferase 23 U/L (6-50); Alkaline Phosphatase 67 U/L (38-126); Anion Gap 0 mmol/L (8-16); Aspartate Amino Transferase 21 U/L (17-59); Bilirubin,Total 0.4 mg/dL (0.2-1.3); Blood Urea Nitrogen 49 mg/dL (9-20); Calcium 8.8 mg/dL (8.4-10.2); Carbon Dioxide 37 mmol/L (22-30); Chloride 96 mmol/L (98-107); Estimated CRCL calculation 115 ml/min; Estimated Glomerular Filt Rate > 60; Glucose 233 mg/dL (65-110); Magnesium 2.3 mg/dL (1.6-2.3); Phosphorus 3.3 mg/dL (2.5-4.5); Potassium 4.3 mmol/L (3.4-5.0); Sodium 133 mmol/L (137-145)
[2022-12-11] MEDS: methylPREDNISolone SOD SUCC 40 MG VIAL 20 MG IV PUSH ×2 (05:43→17:21)
[2022-12-11 06:03] LABS: Alveolar/Arterial O2 Gradient 71.6 mmHg; Base Excess ABG 8.8 mEq/l (+/-2.0); Carboxyhemoglobin 0.3 % THb (0-2.0); Fractional Inspired Oxygen 30 %; HCO3 ABG 34.7 mEq/l (22.0-26.0); Methemoglobin ABG 0.4 %THb (0-1.5); Oxygen Content ABG 14.5 %vol (16.0-22.0); Oxygen Saturation ABG 95.6 % (95.0-100.0); Oxyhemoglobin 93.8 % THb (90.0-100.0); PCO2 ABG 54.4 mmHg (35.0-45.0); PO2 ABG 78.4 mmHg (80.0-100.0); PO2 FiO2 Ratio Arterial Blood 2.61 %; Reduced Hemoglobin 5.5 %THb (0-5.0); Total Hemoglobin 10.9 g/dL (12.0-18.0); pH ABG 7.422 (7.350-7.450)
[2022-12-11 06:04] LABS: Arterial Blood Gas PEEP 5 cmH2O; Arterial Blood Gas Vent Mode CMV; Arterial Blood Gas Ventilator rate 20 /MIN; Device VENTILATOR; Modified Allen's Test Pass; Site Drawn LEFT RADIAL
[2022-12-11 06:05] LABS: Arterial Blood Gas Tidal Volume 500 ml
--- NOTE | 2022-12-11 08:43 | WPDINTPN ---
Progress Note: A&P Assessment and Plan (1) Acute on chronic respiratory failure with hypoxia and hypercapnia: Code(s): J96.21 - Acute and chronic respiratory failure with hypoxia; J96.22 - Acute and chronic respiratory failure with hypercapnia Status: Acute Assessment and Plan: Patient was found to have shortness of breath and hypoxia at the long-term, upon arrival patient's O2 sats were in the 60s, patient was given nebulizing treatment, magnesium and steroids and brought to the ED. -he failed BiPAP and was intubated on 12/03/2022 -currently on CMV mode of ventilation, peep of5 and 30% FiO2 -chest x-ray this morning: Stable interstitial disease. -continue bronchodilators -continue budesonide -status post course of azithromycin, cefepime and vancomycin -appreciate pulmonology evaluation recommendations -continues with methylprednisolone taper Patient's main issue has been his sedation optimize weaning. He was started on Precedex on 12/09, weaned off fentanyl and Versed. Patient was tried ASV mode and pressure support but did not tolerate and had to be placed back on CMV mode of ventilation. Patient was tachypneic, with low tidal volumes and minute ventilation. Patient was then started on propofol but was not effective. Patient was then started on Versed and fentanyl drip which has over time provide adequate sedation but does not allow quick sedation withdrawal -I will continue fentanyl infusion. Transition Versed to propofol to allow affective weaning trial. This strategy worked on his last admission when he was extubated on 11/13. It may be the patient's respiratory status is not allowing weaning. But will continue to try to optimize sedation to provide anxiolysis without excessive sedation. 12/06/2022 CT chest noncontrast: . Patchy ground glass opacities with areas of reticular nodularity particularly in the right lower lobe, most likely infectious/inflammatory. More focal consolidation is seen in the right lower lobe posteriorly.: Emphysema. Small right pleural effusion. Small pericardial effusion. Cholelithiasis. (2) Shock: Code(s): R57.9 - Shock, unspecified Status: Acute Assessment and Plan: Patient was hypotensive post intubation on propofol requiring a IV fluids and Levophed for a brief amount of time -currently off Levophed since the evening of 12/04/2022 -lactic acid was 1.4 on admission -12/03 blood cultures negative x2 so far -12/04/2022 sputum cultures negative -12/04/2022 MRSA screen negative -status post goals of azithromycin, cefepime and vancomycin (3) Congestive heart failure: Code(s): I50.9 - Heart failure, unspecified Status: Acute Assessment and Plan: BNP on admission was 4930 and was given Lasix in the ER: Likely diastolic failure -chest x-ray shows diffuse infiltrates, more so pneumonia than pulmonary edema 12/08: Responded well to diuresis 11/06/2022 echocardiogram showed EF of 50-55% grade 1 diastolic dysfunction, right ventricular systolic function is normal, no significant valvular disease (4) COPD (chronic obstructive pulmonary disease): Code(s): J44.9 - Chronic obstructive pulmonary disease, unspecified Status: Acute Assessment and Plan: History of COPD -continue mechanical ventilation, bronchodilators (5) DVT (deep venous thrombosis): Code(s): I82.409 - Acute embolism and thrombosis of unspecified deep veins of unspecified lower extremity Status: Acute Assessment and Plan: History of DVT on apixaban (6) Peripheral arterial disease: Code(s): I73.9 - Peripheral vascular disease, unspecified Status: Acute Assessment and Plan: 11/06/2022 arterial Dopplers 1. Increased velocity gradients in right superficial femoral artery and distal right anterior tibial artery, consistent with moderate to severe stenosis. 2. Increased velocity gradients in left superficial femoral artery and left anterior tib
[2022-12-11] MEDS: PROPOFOL IV EMULSION 100 ML 1.98 MG IV CONT (08:54)
[2022-12-11] MEDS: APIXABAN 5 MG TABLET PO ×2 (08:56→16:34)
[2022-12-11] MEDS: TOLNAFTATE 1% POWDER 45 GM BTL 1 APPLIC TOPICAL ×2 (08:56→20:05)
[2022-12-11] MEDS: METOPROLOL TARTRATE 12.5 MG TABLET PO (08:56)
[2022-12-11] MEDS: MINERAL OIL/WHITE PETROLATUM OINTMENT 1 APPLIC EACH EYE ×2 (08:56→20:05)
[2022-12-11] MEDS: PANTOPRAZOLE SODIUM IV 40 MG VIAL IV PUSH (08:56)
[2022-12-11] MEDS: EUCERIN CREAM 454 GM JAR 1 APPLIC TOPICAL (08:56)
[2022-12-11] MEDS: QUEtiapine FUMARATE 12.5 MG TABLET PO ×2 (09:03→20:05)
[2022-12-11 09:40] LABS: Triglycerides 131 mg/dL (<150)
--- NOTE | 2022-12-11 11:07 | PCNFU ---
Nutrition Follow-Up Complete: Inadequate Oral Intake as related to mechanical ventilation as evidenced by NPO. Goal: Meet estimated nutritional needs Patient is progressing towards goal. We will continue current goal. Pt current nutrition is Vital AF 1.2 at 60ml/hr. Last recorded weight is 66.1 kg. Bowel Motility:+Bm reported 12/11 Labs Reviewed:Glu 233, BUN 49, Cr 0.5,Na 133, Alb 3.0 Meds Noted:Fentanyl, Propofol at 20 [id number] kcals, Eliquis, Seroquel Skin: DT-Bilateral heels Additional Notes: Patient remains on mechanical vent and tube feedings of Vital AF 1.2 at 60 ml/hr. Per nursing patient is tolerating tube feedings to goal rate, providing 1584 kcals/99 gms protein/1070 ml water. Additional 209 kcals from propofol. Lean Sensei is adjusting sedation today and with plans for breathing trail tomorrow. Protein Modular of Dayo BID for wound healing and Banatrol TF has been added BID for stool bulking. Agree with diet orders. Monitoring: Will monitor in ICU rounds and reassess every Saturday and Saturday.
[2022-12-11 12:18] LABS: Glucose Point of Care 265 mg/dl (65-105)
--- NOTE | 2022-12-11 15:42 | PM.IMPN ---
Progress Note: A&P Assessment and Plan (1) Acute on chronic respiratory failure with hypoxia and hypercapnia: Code(s): J96.21 - Acute and chronic respiratory failure with hypoxia; J96.22 - Acute and chronic respiratory failure with hypercapnia Status: Acute Assessment and Plan: Patient was found to have shortness of breath and hypoxia at the assisted, upon arrival patient's O2 sats were in the 60s, patient was given nebulizing treatment, magnesium and steroids and brought to the ED. he failed BiPAP and was intubated on 12/03/2022 continue Mechanical ventilation as per network pricing consultant chest x-ray: Diffuse interstitial prominence which may be due to interstitial fibrosis and/or pneumonitis or less likely pulmonary interstitial edema. No pulmonary vascular congestion is noted. No pleural effusion or pneumothorax.? continue bronchodilators and budesonide -status post azithromycin and cefepime and vancomycin -continue Solu-Medrol 12/06/2022 CT chest noncontrast: . Patchy ground glass opacities with areas of reticular nodularity particularly in the right lower lobe, most likely infectious/inflammatory. More focal consolidation is seen in the right lower lobe posteriorly.: Emphysema. Small right pleural effusion. Small pericardial effusion. Cholelithiasis. (2) Shock: Code(s): R57.9 - Shock, unspecified Status: Acute Assessment and Plan: Patient was hypotensive post intubation on propofol requiring a IV fluids and Levophed for a brief amount of time -currently off Levophed since the evening of 12/04/2022 -lactic acid was 1.4 on admission -12/03 blood cultures negative x2 so far -12/04/2022 sputum cultures negative -12/04/2022 MRSA screen negative -status post azithromycin, cefepime and vancomycin (3) Congestive heart failure: Code(s): I50.9 - Heart failure, unspecified Status: Acute Assessment and Plan: BNP on admission was a 4930 and was given Lasix in the ER: Likely diastolic failure -chest x-ray shows diffuse infiltrates, more so pneumonia than pulmonary edema 12/08: Responded well to diuresis 11/06/2022 echocardiogram showed EF of 50-55% grade 1 diastolic dysfunction, right ventricular systolic function is normal, no significant valvular disease (4) COPD (chronic obstructive pulmonary disease): Code(s): J44.9 - Chronic obstructive pulmonary disease, unspecified Status: Acute Assessment and Plan: History of COPD -continue mechanical ventilation, bronchodilators (5) DVT (deep venous thrombosis): Code(s): I82.409 - Acute embolism and thrombosis of unspecified deep veins of unspecified lower extremity Status: Acute Assessment and Plan: History of DVT on apixaban (6) Peripheral arterial disease: Code(s): I73.9 - Peripheral vascular disease, unspecified Status: Acute Assessment and Plan: 11/06/2022 arterial Dopplers 1. Increased velocity gradients in right superficial femoral artery and distal right anterior tibial artery, consistent with moderate to severe stenosis. 2. Increased velocity gradients in left superficial femoral artery and left anterior tibial artery, consistent with moderate to severe stenosis. Continue apixaban Plan DVT prophylaxis: Apixaban Stress ulcer prophylaxis: Protonix Nutrition: Tolerating tube feeds, on MiraLax and senna S Code Status: Full code Subjective Date/time seen: 12/11/22 15:42 Interval history: Patient seen and examined. Remains on ventilator. Sedated On fentanyl Versed . tolerating tube feeds. No overnight events reported Review of Systems Review of Systems: ROS unobtainable: Yes unobtainable due to endotracheal tube Exam Narrative: General: Patient is intubated and sedated, in no distress Neck:? Supple Respiratory:? Bilateral equal air entry no wheezing Cardiac:? Regular rate and rhythm, Abdomen:? Soft, nondistended, hypoactive bowel sounds Extremities:? Right gr
[2022-12-11] MEDS: PROPOFOL IV EMULSION 100 ML 11.9 MG IV CONT (16:35)
[2022-12-11 17:27] LABS: Glucose Point of Care 215 mg/dl (65-105)
[2022-12-11] MEDS: PROPOFOL IV EMULSION 100 ML 19.83 MG IV CONT (23:17)
[2022-12-12] VITALS (45 sets, daily range): BP systolic 101–155; BP diastolic 60–99; PULSE 57–115; RESP 12–26; TEMP 36.4–37.3; O2SAT 94–100
[2022-12-12 00:03] LABS: Glucose Point of Care 252 mg/dl (65-105)
[2022-12-12] MEDS: INSULIN ASPART (*BKC) 100 UNITS/ML SUB-Q (00:07)
[2022-12-12] MEDS: ALBUTEROL SULFATE NEB 2.5 MG/3 ML INH INHALATION ×4 (02:43→19:58)
[2022-12-12 03:30] LABS: Basophils Percent Auto 0.1 % (0.2-1.2); Hematocrit 31.1 % (42.0-52.0); Hemoglobin 9.7 g/dL (14.0-18.0); Immature Granulocyte Absolute 0.24 K/mm3 (0.00-0.031); Immature Granulocyte Percent A 3.3 % (0-0.5); Lymphocytes Absolute Auto 0.58 K/mm3 (0.9-3.2); Lymphocytes Percent Auto 7.9 % (18.3-44.2); Mean Corpuscular HGB Conc 31.2 g/dl (32-36); Mean Corpuscular Hemoglobin 27.2 pg (26-34); Mean Corpuscular Volume 87.4 fl (80-100); Mean Platelet Volume 10.2 fl (7.4-10.4); Monocytes Absolute Auto 0.7 K/mm3 (0.1-0.6); Monocytes Percent Auto 9.1 % (2.6-8.5); Neutrophils Absolute Auto 5.9 K/mm3 (1.3-6.7); Neutrophils Percent Auto 79.6 % (45.5-73.1); Platelet Count Result 309 k/mm3 (150-375); Red Blood Count 3.56 M/mm3 (4.6-6.20); White Blood Count 7.4 K/mm3 (4.5-10.0)
[2022-12-12 03:44] LABS: Alanine Aminotransferase 28 U/L (6-50); Albumin Level 3.2 g/dL (3.5-5.1); Alkaline Phosphatase 67 U/L (38-126); Anion Gap 0 mmol/L (8-16); Aspartate Amino Transferase 23 U/L (17-59); Bilirubin,Total 0.5 mg/dL (0.2-1.3); Blood Urea Nitrogen 47 mg/dL (9-20); Carbon Dioxide 36 mmol/L (22-30); Chloride 97 mmol/L (98-107); Estimated CRCL calculation 115 ml/min; Estimated Glomerular Filt Rate > 60; Glucose 206 mg/dL (65-110); Magnesium 2.1 mg/dL (1.6-2.3); Phosphorus 2.8 mg/dL (2.5-4.5); Potassium 4.8 mmol/L (3.4-5.0); Sodium 133 mmol/L (137-145)
[2022-12-12] MEDS: PROPOFOL IV EMULSION 100 ML 19.83 MG IV CONT ×3 (04:24→20:00)
[2022-12-12 05:08] LABS: Alveolar/Arterial O2 Gradient 76.8 mmHg; Base Excess ABG 10.9 mEq/l (+/-2.0); Carboxyhemoglobin 0.3 % THb (0-2.0); Device VENTILATOR; Fractional Inspired Oxygen 30 %; HCO3 ABG 36.1 mEq/l (22.0-26.0); Methemoglobin ABG 0.4 %THb (0-1.5); Modified Allen's Test Pass; Oxygen Saturation ABG 96.3 % (95.0-100.0); Oxyhemoglobin 94.9 % THb (90.0-100.0); PCO2 ABG 49.2 mmHg (35.0-45.0); PO2 ABG 79.3 mmHg (80.0-100.0); PO2 FiO2 Ratio Arterial Blood 2.64 %; Reduced Hemoglobin 4.4 %THb (0-5.0); Site Drawn LEFT RADIAL; pH ABG 7.484 (7.350-7.450)
[2022-12-12 05:09] LABS: Arterial Blood Gas PEEP 5 cmH2O; Arterial Blood Gas Tidal Volume 500 ml; Arterial Blood Gas Vent Mode CMV; Arterial Blood Gas Ventilator rate 20 /MIN
[2022-12-12 05:44] LABS: Glucose Point of Care 161 mg/dl (65-105)
[2022-12-12] MEDS: methylPREDNISolone SOD SUCC 40 MG VIAL 20 MG IV PUSH (05:45)
[2022-12-12] MEDS: PROPOFOL IV EMULSION 100 ML 13.88 MG IV CONT (08:56)
[2022-12-12] MEDS: APIXABAN 5 MG TABLET PO ×2 (08:56→17:22)
[2022-12-12] MEDS: METOPROLOL TARTRATE 12.5 MG TABLET PO (08:56)
[2022-12-12] MEDS: PANTOPRAZOLE SODIUM IV 40 MG VIAL IV PUSH (08:56)
[2022-12-12] MEDS: QUEtiapine FUMARATE 12.5 MG TABLET PO ×2 (08:56→21:10)
[2022-12-12] MEDS: TOLNAFTATE 1% POWDER 45 GM BTL 1 APPLIC TOPICAL ×2 (08:57→21:10)
[2022-12-12] MEDS: EUCERIN CREAM 454 GM JAR 1 APPLIC TOPICAL (08:57)
--- NOTE | 2022-12-12 11:04 | WPDINTPN ---
Progress Note: A&P Assessment and Plan (1) Acute on chronic respiratory failure with hypoxia and hypercapnia: Code(s): J96.21 - Acute and chronic respiratory failure with hypoxia; J96.22 - Acute and chronic respiratory failure with hypercapnia Status: Acute Assessment and Plan: Patient was found to have shortness of breath and hypoxia at the half-way, upon arrival patient's O2 sats were in the 60s, patient was given nebulizing treatment, magnesium and steroids and brought to the ED. -he failed BiPAP and was intubated on 12/03/2022 -currently on CMV mode of ventilation, peep of 5 and 30% FiO2 -chest x-ray this morning: Stable interstitial disease. -continue bronchodilators -continue budesonide -status post course of azithromycin, cefepime and vancomycin -appreciate pulmonology evaluation recommendations -continues with methylprednisolone taper Patient's main issue has been his sedation optimization for weaning. He was started on Precedex on 12/09, weaned off fentanyl and Versed. Patient was tried ASV mode and pressure support but did not tolerate and had to be placed back on CMV mode of ventilation. Patient was tachypneic, with low tidal volumes and minute ventilation. Patient was then started on propofol but was not effective. Patient was then started on Versed and fentanyl drip which has over time provide adequate sedation but does not allow quick sedation withdrawal. 12/11 I will continue fentanyl infusion. Transitioned Versed to propofol to allow affective weaning trial. This strategy worked on his last admission when he was extubated on 11/13. It may be the patient's respiratory status is not allowing weaning. But will continue to try to optimize sedation to provide anxiolysis without excessive sedation. 11/14 I have more propofol and currently on fentanyl I have placed him on pressure support ventilation trial and will see how he does. He may very well need tracheostomy if is unable to be weaned as he was intubated on 12/0312/06/2022 CT chest noncontrast: . Patchy ground glass opacities with areas of reticular nodularity particularly in the right lower lobe, most likely infectious/inflammatory. More focal consolidation is seen in the right lower lobe posteriorly.: Emphysema. Small right pleural effusion. Small pericardial effusion. Cholelithiasis. (2) Shock: Code(s): R57.9 - Shock, unspecified Status: Acute Assessment and Plan: Patient was hypotensive post intubation on propofol requiring a IV fluids and Levophed for a brief amount of time -currently off Levophed since the evening of 12/04/2022 -lactic acid was 1.4 on admission -12/03 blood cultures negative x2 so far -12/04/2022 sputum cultures negative -12/04/2022 MRSA screen negative -status post goals of azithromycin, cefepime and vancomycin (3) Congestive heart failure: Code(s): I50.9 - Heart failure, unspecified Status: Acute Assessment and Plan: BNP on admission was 4930 and was given Lasix in the ER: Likely diastolic failure -chest x-ray shows diffuse infiltrates, more so pneumonia than pulmonary edema 12/08: Responded well to diuresis 11/06/2022 echocardiogram showed EF of 50-55% grade 1 diastolic dysfunction, right ventricular systolic function is normal, no significant valvular disease (4) COPD (chronic obstructive pulmonary disease): Code(s): J44.9 - Chronic obstructive pulmonary disease, unspecified Status: Acute Assessment and Plan: History of COPD -continue mechanical ventilation, bronchodilators (5) DVT (deep venous thrombosis): Code(s): I82.409 - Acute embolism and thrombosis of unspecified deep veins of unspecified lower extremity Status: Acute Assessment and Plan: History of DVT on apixaban (6) Peripheral arterial disease: Code(s): I73.9 - Peripheral vascular disease, unspecified Status: Acute Assessment and Plan: 11/06/2022 arterial Dopplers 1.
[2022-12-12 11:38] LABS: Glucose Point of Care 186 mg/dl (65-105)
--- NOTE | 2022-12-12 11:57 | PCFNICU ---
ICU Rounding Note: Pt current nutrition is Vital AF 1.2 at 60 ml/hr. Last recorded weight is 68.6 kg. Bowel Motility: FMS Labs Reviewed:Glu 206, Cr 0.5,BUN 47, Na 133, Alb 3.2 Meds Noted:Propofol 30 mcgs, Eliquis, Miralax, Fentanyl Skin: DT-bilateral heels Additional Notes: Patient remains on mechanical vent. Tube feedings continue of Vital AF 1.2 at 60 ml/hr. Flush 30 ml q 4 hours. Tolerating per nursing. Brigadier plans to try and pause propofol today and start breathing trial soon. Agree with diet orders. Following daily in ICU rounds and reassessing every Saturday and Saturday.
[2022-12-12 17:21] LABS: Glucose Point of Care 186 mg/dl (65-105)
[2022-12-12] MEDS: MINERAL OIL/WHITE PETROLATUM OINTMENT 1 APPLIC EACH EYE (21:09)
[2022-12-12] MEDS: LORazepam INJ (*CRX) 2 MG/ML VIAL IV PUSH (21:14)
[2022-12-12 23:59] LABS: Glucose Point of Care 148 mg/dl (65-105)
[2022-12-13] VITALS (49 sets, daily range): BP systolic 100–151; BP diastolic 58–91; PULSE 56–119; RESP 15–26; TEMP 36.4–37.8; O2SAT 87–100
[2022-12-13] MEDS: FENTANYL 2,500MCG/NS250ML(*CRX 2,500 MCG/250 ML BAG IV CONT (00:03)
[2022-12-13] MEDS: PROPOFOL IV EMULSION 100 ML 19.83 MG IV CONT ×2 (01:13→06:13)
[2022-12-13] MEDS: ALBUTEROL SULFATE NEB 2.5 MG/3 ML INH INHALATION ×4 (02:40→21:07)
[2022-12-13 04:57] LABS: Basophils Percent Auto 0.3 % (0.2-1.2); Eosinophils Percent Auto 0.5 % (0-4.4); Hematocrit 31.1 % (42.0-52.0); Hemoglobin 9.6 g/dL (14.0-18.0); Immature Granulocyte Percent A 4.8 % (0-0.5); Lymphocytes Percent Auto 19.3 % (18.3-44.2); Mean Corpuscular HGB Conc 30.9 g/dl (32-36); Mean Corpuscular Hemoglobin 27.4 pg (26-34); Mean Corpuscular Volume 88.9 fl (80-100); Mean Platelet Volume 10.7 fl (7.4-10.4); Monocytes Absolute Auto 0.7 K/mm3 (0.1-0.6); Monocytes Percent Auto 10.8 % (2.6-8.5); Neutrophils Percent Auto 64.3 % (45.5-73.1); Platelet Count Result 295 k/mm3 (150-375); Red Cell Distribution Width 16.1 % (11.5-14.5); White Blood Count 6.2 K/mm3 (4.5-10.0)
[2022-12-13 05:05] LABS: Alveolar/Arterial O2 Gradient 77.6 mmHg; Base Excess ABG 6.4 mEq/l (+/-2.0); Carboxyhemoglobin 0.3 % THb (0-2.0); Device VENTILATOR; Fractional Inspired Oxygen 30 %; HCO3 ABG 32.3 mEq/l (22.0-26.0); Methemoglobin ABG 0.4 %THb (0-1.5); Modified Allen's Test Unable to perform; Oxygen Content ABG 13.5 %vol (16.0-22.0); Oxygen Saturation ABG 94.4 % (95.0-100.0); Oxyhemoglobin 92.9 % THb (90.0-100.0); PCO2 ABG 53.7 mmHg (35.0-45.0); PO2 ABG 73.2 mmHg (80.0-100.0); PO2 FiO2 Ratio Arterial Blood 2.44 %; Reduced Hemoglobin 6.4 %THb (0-5.0); Site Drawn LEFT RADIAL; Total Hemoglobin 10.3 g/dL (12.0-18.0); pH ABG 7.397 (7.350-7.450)
[2022-12-13 05:06] LABS: Arterial Blood Gas PEEP 5 cmH2O; Arterial Blood Gas Tidal Volume 450 ml; Arterial Blood Gas Vent Mode CMV; Arterial Blood Gas Ventilator rate 18 /MIN
[2022-12-13 05:12] LABS: Alanine Aminotransferase 31 U/L (6-50); Albumin Level 2.9 g/dL (3.5-5.1); Alkaline Phosphatase 62 U/L (38-126); Anion Gap 1 mmol/L (8-16); Aspartate Amino Transferase 24 U/L (17-59); Bilirubin,Total 0.4 mg/dL (0.2-1.3); Blood Urea Nitrogen 41 mg/dL (9-20); Calcium 8.6 mg/dL (8.4-10.2); Carbon Dioxide 35 mmol/L (22-30); Chloride 99 mmol/L (98-107); Estimated CRCL calculation 115 ml/min; Estimated Glomerular Filt Rate > 60; Glucose 151 mg/dL (65-110); Magnesium 1.8 mg/dL (1.6-2.3); Phosphorus 3.7 mg/dL (2.5-4.5); Sodium 135 mmol/L (137-145)
[2022-12-13] MEDS: LORazepam INJ (*CRX) 2 MG/ML VIAL IV PUSH ×2 (05:15→21:40)
[2022-12-13 06:06] LABS: Triglycerides 179 mg/dL (<150)
--- NOTE | 2022-12-13 08:33 | PC.NURSE ---
Propofol gtt paused at 0832 per MD orders per Dr. Bedoya.
[2022-12-13] MEDS: TOLNAFTATE 1% POWDER 45 GM BTL 1 APPLIC TOPICAL ×2 (08:51→21:36)
[2022-12-13] MEDS: EUCERIN CREAM 454 GM JAR 1 APPLIC TOPICAL (08:51)
[2022-12-13] MEDS: PANTOPRAZOLE SODIUM IV 40 MG VIAL IV PUSH (08:52)
[2022-12-13] MEDS: METOPROLOL TARTRATE 12.5 MG TABLET PO (08:52)
[2022-12-13] MEDS: MINERAL OIL/WHITE PETROLATUM OINTMENT 1 APPLIC EACH EYE ×2 (08:52→21:35)
[2022-12-13] MEDS: APIXABAN 5 MG TABLET PO (08:52)
[2022-12-13] MEDS: QUEtiapine FUMARATE 12.5 MG TABLET PO ×2 (08:53→21:36)
--- NOTE | 2022-12-13 09:00 | WPDINTPN ---
Progress Note: A&P Assessment and Plan (1) Acute on chronic respiratory failure with hypoxia and hypercapnia: Code(s): J96.21 - Acute and chronic respiratory failure with hypoxia; J96.22 - Acute and chronic respiratory failure with hypercapnia Status: Acute Assessment and Plan: Patient was found to [facility], upon arrival patient's O2 sats were in the 60s, patient was given nebulizing treatment, magnesium and steroids and brought to the ED. -he failed BiPAP and was intubated on 12/03/2022 -currently on CMV mode of ventilation, peep of 5 and 30% FiO2 -chest x-ray this morning: Stable interstitial disease. -continue bronchodilators -continue budesonide -status post course of azithromycin, cefepime and vancomycin -appreciate pulmonology evaluation recommendations - completed methylprednisolone taper Patient's main issue has been his sedation optimization for weaning. He was started on Precedex on 12/09, weaned off fentanyl and Versed. Patient was tried ASV mode and pressure support but did not tolerate and had to be placed back on CMV mode of ventilation. Patient was tachypneic, with low tidal volumes and minute ventilation. Patient was then started on propofol but was not effective. Patient was then started on Versed and fentanyl drip which has over time provide adequate sedation but does not allow quick sedation withdrawal. 12/11 I will continue fentanyl infusion. Transitioned Versed to propofol to allow affective weaning trial. This strategy worked on his last admission when he was extubated on 11/13. It may be the patient's respiratory status is not allowing weaning. But will continue to try to optimize sedation to provide anxiolysis without excessive sedation. 2/ failed weaning trial due to respiratory distress tachypnea and obvious use of accessory muscles during pressure support ventilation. 2/2 I re-attempt a pressure support ventilation trial today and will see how he does. He he would likely need tracheostomy if is unable to be weaned, I will discuss this option with the patient's family. He was intubated on 12/0312/06/2022 CT chest noncontrast: . Patchy ground glass opacities with areas of reticular nodularity particularly in the right lower lobe, most likely infectious/inflammatory. More focal consolidation is seen in the right lower lobe posteriorly.: Emphysema. Small right pleural effusion. Small pericardial effusion. Cholelithiasis. (2) Shock: Code(s): R57.9 - Shock, unspecified Status: Acute Assessment and Plan: Patient was hypotensive post intubation on propofol requiring a IV fluids and Levophed for a brief amount of time -currently off Levophed since the evening of 12/04/2022 -lactic acid was 1.4 on admission -12/03 blood cultures negative x2 so far -12/04/2022 sputum cultures negative -12/04/2022 MRSA screen negative -status post goals of azithromycin, cefepime and vancomycin (3) Congestive heart failure: Code(s): I50.9 - Heart failure, unspecified Status: Acute Assessment and Plan: BNP on admission was 4930 and was given Lasix in the ER: Likely diastolic failure -chest x-ray shows diffuse infiltrates, more so pneumonia than pulmonary edema 12/08: Responded well to diuresis 11/06/2022 echocardiogram showed EF of 50-55% grade 1 diastolic dysfunction, right ventricular systolic function is normal, no significant valvular disease (4) COPD (chronic obstructive pulmonary disease): Code(s): J44.9 - Chronic obstructive pulmonary disease, unspecified Status: Acute Assessment and Plan: History of COPD -continue mechanical ventilation, bronchodilators (5) DVT (deep venous thrombosis): Code(s): I82.409 - Acute embolism and thrombosis of unspecified deep veins of unspecified lower extremity Status: Acute Assessment and Plan: History of DVT on apixaban (6) Peripheral arterial disease:
--- NOTE | 2022-12-13 10:47 | PCFNICU ---
ICU Rounding Note: Pt current nutrition is Vital AF 1.2 at 60 ml/hr. Last recorded weight is 64.3 kg. Bowel Motility:FMS Labs Reviewed:TG 179, BUN 41, Cr 0.5,Glu 151, Na 135, Hct 31.1,Hgb 9.6 Meds Noted:Fentanyl, Versed, Miralax, Eliquis, Lopressor,Ativan, Seroquel. Skin: Deep Tissue PU-Bilateral heels Additional Notes: Patient remains on tube feedings of Vital AF 1.2 at 60 ml/hr. Flush 30 ml q 4 hours. Protein Modular of Dayo BID for wound healing. Banatrol Plus BID for stool bulking. Breathing trial today. Propofol on standby. Agree with diet orders. Following daily in ICU rounds. Will monitor every Saturday and Saturday.
[2022-12-13] MEDS: PROPOFOL IV EMULSION 100 ML 3.86 MG IV CONT (11:08)
[2022-12-13 12:56] LABS: Glucose Point of Care 121 mg/dl (65-105)
[2022-12-13] MEDS: PROPOFOL IV EMULSION 100 ML 11.57 MG IV CONT (13:55)
--- NOTE | 2022-12-13 14:59 | WPDGICN ---
Assessment and Plan Assessment and plan (1) Acute on chronic respiratory failure with hypoxia and hypercapnia: Code(s): J96.21 - Acute and chronic respiratory failure with hypoxia; J96.22 - Acute and chronic respiratory failure with hypercapnia Status: Acute Assessment and Plan: he has been intubated for the past week or so having been hospitalized since December 03. Attempts to wean him had not been successful. He may need a tracheostomy. (2) Malnutrition: Code(s): E46 - Unspecified protein-calorie malnutrition Status: Acute Assessment and Plan: He has been getting fed via OG tube. Peg tube would obviate that and we can place that tomorrow after he has been off anticoagulants for at least 24 hours. GI Consult Note Consult date/time: 12/13/22 14:59 HPI: Brooks Murillo is a 62 year old male who unfortunately suffers from acute on chronic respiratory failure. He has been intubated and attempts to wean him have not been successful. He has been on fentanyl and Versed. He then was started on propofol which was not effective. At any rate the chronic intubation requires him to have tube feedings per os. We have been asked to place a G-tube so that NG tube can be removed. He has been on Eliquis 5 mg b.i.d. but that was held this morning. Due to his status I am not able to obtain additional history from him. [facility] Past Medical History Medical History Anemia of chronic disease Bipolar disorder Cerebrovascular accident (2020) Chronic anticoagulation Chronic obstructive pulmonary disease Chronic respiratory failure with hypoxia and hypercapnia Coronary artery disease Deep venous thrombosis (2021) Depression Diastolic dysfunction Echocardiogram in October 2022 showed normal LV and RV systolic function with an EF of 50 to 55% and grade 1 diastolic dysfunction. Hyperlipidemia Hypertension Myocardial infarction (2013) Neuropathy Squamous cell carcinoma of nose Surgical History Surgical History History of cardiac catheterization History of coronary artery stent placement (1998) History of repair of right rotator cuff History of squamous cell carcinoma excision (06/10/13) Left nasal ala. Family History Family History Father Family history of heart disease in male family member before age 55 Social History Social History Social History: Surrogate medical decision maker: Yareli Mora or Elbert Mcghee (daughters). Code status: Full code. Smoking status: Current every day smoker Tobacco type: cigarettes Alcohol intake: former Substance use: former Substance use type: opiates Additional living arrangements comments: . Three children. Currently at [facility]. Additional occupation/education comments: Disabled. Spiritual care concerns: No Meds Home Medications and Allergies Home Medications Medication Instructions Recorded Confirmed Type apixaban 5 mg tablet (Eliquis) 5 mg PO BID 05/28/22 12/03/22 History fluticasone fur. 100 mcg-umeclid 1 inh inhalation DAILY 05/28/22 12/03/22 History 62.5 mcg-vilant 25 mcg inhalat.powder (Trelegy Ellipta) ipratropium 20 mcg-albuterol 100 2 puff inhalation DAILY 05/28/22 12/03/22 History mcg/actuation mist for inhalation (Combivent Respimat) lithium carbonate 150 mg capsule 150 mg PO DAILY 05/28/22 12/03/22 History loperamide 2 mg capsule 2 mg PO QID PRN Diarrhea 05/28/22 12/03/22 History metoprolol tartrate 25 mg tablet 25 mg PO DAILY 05/28/22 12/03/22 History omeprazole 20 mg capsule,delayed 20 mg PO DAILY 05/28/22 12/03/22 History release ramipril 5 mg capsule 5 mg PO DAILY 05/28/22 12/03/22 History risperidone 2 mg tablet 2 mg PO BID 05/28/22 12/03/22 History
--- NOTE | 2022-12-13 17:07 | PM.IMHP ---
H&P: HPI History of Present Illness Date/Time: 12/13/22 17:07 Chief Complaint: Respiratory failure Narrative: planned procedure Review of Systems Review of Systems: All systems reviewed & are unremarkable except as noted in HPI and below PMFSH Past Medical History Medical History Anemia of chronic disease Bipolar disorder Cerebrovascular accident (2020) Chronic anticoagulation Chronic obstructive pulmonary disease Chronic respiratory failure with hypoxia and hypercapnia Coronary artery disease Deep venous thrombosis (2021) Depression Diastolic dysfunction Echocardiogram in October 2022 showed normal LV and RV systolic function with an EF of 50 to 55% and grade 1 diastolic dysfunction. Hyperlipidemia Hypertension Myocardial infarction (2013) Neuropathy Squamous cell carcinoma of nose Surgical History Surgical History History of cardiac catheterization History of coronary artery stent placement (1998) History of repair of right rotator cuff History of squamous cell carcinoma excision (06/10/13) Left nasal ala. Family History Family History Father Family history of heart disease in male family member before age 55 Social History Social History Social History: Surrogate medical decision maker: Yareli Mora or Elbert Mcghee (daughters). Code status: Full code. Smoking status: Current every day smoker Tobacco type: cigarettes Alcohol intake: former Substance use: former Substance use type: opiates Additional living arrangements comments: . Three children. Currently at [facility]. Additional occupation/education comments: Disabled. Spiritual care concerns: No Meds Home Medications and Allergies Home Medications Medication Instructions Recorded Confirmed Type apixaban 5 mg tablet (Eliquis) 5 mg PO BID 05/28/22 12/03/22 History fluticasone fur. 100 mcg-umeclid 1 inh inhalation DAILY 05/28/22 12/03/22 History 62.5 mcg-vilant 25 mcg inhalat.powder (Trelegy Ellipta) ipratropium 20 mcg-albuterol 100 2 puff inhalation DAILY 05/28/22 12/03/22 History mcg/actuation mist for inhalation (Combivent Respimat) lithium carbonate 150 mg capsule 150 mg PO DAILY 05/28/22 12/03/22 History loperamide 2 mg capsule 2 mg PO QID PRN Diarrhea 05/28/22 12/03/22 History metoprolol tartrate 25 mg tablet 25 mg PO DAILY 05/28/22 12/03/22 History omeprazole 20 mg capsule,delayed 20 mg PO DAILY 05/28/22 12/03/22 History release ramipril 5 mg capsule 5 mg PO DAILY 05/28/22 12/03/22 History risperidone 2 mg tablet 2 mg PO BID 05/28/22 12/03/22 History testosterone cypionate 200 mg/mL 200 mg IM MONTHLY 05/28/22 12/03/22 History intramuscular oil albuterol sulfate 2.5 mg/3 mL 2.5 mg (3 mL) inhalation .q6 prn 11/20/22 12/03/22 Rx (0.083 %) solution for nebulization #75 mL aluminum-mag hydroxide-simethicone 30 ml PO Q6H PRN Indigestion #100 11/20/22 12/03/22 Rx 200 mg-200 mg-20 mg/5 mL oral susp mL (Mag-Al Plus) gabapentin 100 mg capsule 100 mg PO BID #30 caps 11/20/22 12/03/22 Rx nicotine 21 mg/24 hr daily 1 patch transdermal QAM #7 ea 11/20/22 12/03/22 Rx transdermal patch (Nicoderm CQ) budesonide-formoterol HFA 160 2 puff inhalation DAILY 12/03/22 12/03/22 History mcg-4.5 mcg/actuation aerosol inhaler buspirone 10 mg tablet 10 mg PO TID 12/03/22 12/03/22 History Allergies Allergy/AdvReac Type Severity Reaction Status Date / Time vancomycin Allergy Severe Redness of Verified 12/13/22 08:00 Skin Vital Signs Vital Signs - 24 hr 12/12/22 17:09 12/12/22 17:32 12/12/22 17:33 Temperature Pulse Rate 57 L 70 70 Respiratory Rate 18 18 Blood Pressure Pulse Oximetry 100 Oxygen Delivery Mechanical Ventilation Fra
[2022-12-13 17:45] LABS: Glucose Point of Care 125 mg/dl (65-105)
[2022-12-13] MEDS: PROPOFOL IV EMULSION 100 ML 17.36 MG IV CONT (20:15)
[2022-12-13 23:08] LABS: Glucose Point of Care 133 mg/dl (65-105)
[2022-12-14] VITALS (46 sets, daily range): BP systolic 90–142; BP diastolic 51–100; PULSE 59–92; RESP 14–26; TEMP 36.6–37.6; O2SAT 92–100
[2022-12-14] MEDS: ALBUTEROL SULFATE NEB 2.5 MG/3 ML INH INHALATION ×4 (02:13→20:00)
[2022-12-14] MEDS: PROPOFOL IV EMULSION 100 ML 17.36 MG IV CONT ×4 (02:31→21:51)
[2022-12-14 04:09] LABS: Basophils Percent Auto 0.3 % (0.2-1.2); Eosinophils Absolute Auto 0.1 K/mm3 (0-0.3); Eosinophils Percent Auto 0.7 % (0-4.4); Hemoglobin 11.6 g/dL (14.0-18.0); Immature Granulocyte Absolute 0.29 K/mm3 (0.00-0.031); Immature Granulocyte Percent A 2.8 % (0-0.5); Lymphocytes Absolute Auto 2.15 K/mm3 (0.9-3.2); Lymphocytes Percent Auto 21.1 % (18.3-44.2); Mean Corpuscular HGB Conc 30.5 g/dl (32-36); Mean Corpuscular Volume 91.6 fl (80-100); Mean Platelet Volume 10.6 fl (7.4-10.4); Monocytes Percent Auto 9.3 % (2.6-8.5); Neutrophils Absolute Auto 6.7 K/mm3 (1.3-6.7); Neutrophils Percent Auto 65.8 % (45.5-73.1); Platelet Count Result 363 k/mm3 (150-375); Red Blood Count 4.15 M/mm3 (4.6-6.20); Red Cell Distribution Width 15.9 % (11.5-14.5); White Blood Count 10.2 K/mm3 (4.5-10.0)
[2022-12-14 04:28] LABS: Alanine Aminotransferase 51 U/L (6-50); Albumin Level 3.3 g/dL (3.5-5.1); Alkaline Phosphatase 79 U/L (38-126); Anion Gap 4 mmol/L (8-16); Aspartate Amino Transferase 39 U/L (17-59); Bilirubin,Total 0.7 mg/dL (0.2-1.3); Blood Urea Nitrogen 30 mg/dL (9-20); Calcium 9.1 mg/dL (8.4-10.2); Carbon Dioxide 35 mmol/L (22-30); Chloride 99 mmol/L (98-107); Estimated CRCL calculation 115 ml/min; Estimated Glomerular Filt Rate > 60; Glucose 100 mg/dL (65-110); Magnesium 1.8 mg/dL (1.6-2.3); Phosphorus 4.8 mg/dL (2.5-4.5); Potassium 3.9 mmol/L (3.4-5.0); Sodium 138 mmol/L (137-145)
[2022-12-14] MEDS: PROPOFOL IV EMULSION 100 ML 15.43 MG IV CONT ×2 (05:08→07:39)
[2022-12-14 05:23] LABS: Glucose Point of Care 92 mg/dl (65-105)
[2022-12-14 05:36] LABS: Alveolar/Arterial O2 Gradient 96.1 mmHg; Base Excess ABG 8.4 mEq/l (+/-2.0); Carboxyhemoglobin 0.3 % THb (0-2.0); Fractional Inspired Oxygen 30 %; HCO3 ABG 33.3 mEq/l (22.0-26.0); Methemoglobin ABG 0.3 %THb (0-1.5); Oxygen Content ABG 15.3 %vol (16.0-22.0); Oxygen Saturation ABG 92.7 % (95.0-100.0); Oxyhemoglobin 90.8 % THb (90.0-100.0); PCO2 ABG 47.6 mmHg (35.0-45.0); PO2 ABG 61.9 mmHg (80.0-100.0); PO2 FiO2 Ratio Arterial Blood 2.06 %; Reduced Hemoglobin 8.6 %THb (0-5.0); pH ABG 7.463 (7.350-7.450)
[2022-12-14 05:37] LABS: Device VENTILATOR; Modified Allen's Test Pass; Site Drawn LEFT RADIAL
[2022-12-14 05:38] LABS: Arterial Blood Gas PEEP 5 cmH2O; Arterial Blood Gas Tidal Volume 450 ml; Arterial Blood Gas Vent Mode CMV; Arterial Blood Gas Ventilator rate 18 /MIN
--- NOTE | 2022-12-14 07:18 | WPDHPUPDATE1 ---
History and Physical Update Update Date/Time: 12/14/22 07:18 History and Physical has been reviewed, including an updated exam of the patient. There are NO changes in the patient's condition. Risks, benefits, and alternatives have been discussed and questions answered. Patient agrees to proceed with procedure.
[2022-12-14] MEDS: EUCERIN CREAM 454 GM JAR 1 APPLIC TOPICAL (07:23)
[2022-12-14] MEDS: MINERAL OIL/WHITE PETROLATUM OINTMENT 1 APPLIC EACH EYE ×2 (07:50→20:20)
[2022-12-14] MEDS: PANTOPRAZOLE SODIUM IV 40 MG VIAL IV PUSH (07:50)
[2022-12-14] MEDS: METOPROLOL TARTRATE 12.5 MG TABLET PO (07:50)
[2022-12-14] MEDS: QUEtiapine FUMARATE 12.5 MG TABLET PO ×2 (07:50→20:20)
[2022-12-14] MEDS: TOLNAFTATE 1% POWDER 45 GM BTL 1 APPLIC TOPICAL ×2 (07:50→20:21)
--- NOTE | 2022-12-14 08:51 | WPDINTPN ---
Progress Note: A&P Assessment and Plan (1) Acute on chronic respiratory failure with hypoxia and hypercapnia: Code(s): J96.21 - Acute and chronic respiratory failure with hypoxia; J96.22 - Acute and chronic respiratory failure with hypercapnia Status: Acute Assessment and Plan: Patient was found to have shortness of breath and hypoxia at the sn[facility], upon arrival patient's O2 sats were in the 60s, patient was given nebulizing treatment, magnesium and steroids and brought to the ED. -he failed BiPAP and was intubated on 12/03/2022 -currently on CMV mode of ventilation, peep of 5 and 30% FiO2 -chest x-ray this morning: Stable interstitial disease. -continue bronchodilators -continue budesonide -status post course of azithromycin, cefepime and vancomycin -appreciate pulmonology evaluation recommendations - completed methylprednisolone taper he has been failing his trials every day. he is PSV trial yesterday due to increased respiratory distress tachypnea tachycardia and use of accessory muscles. He was intubated on 12/03. He failed his trial again this morning obvious respiratory distress on pressure support ventilation and he was noding his head affirmative when asked if he was having trouble breathing. I spoke to patient's 2 daughters yesterday regarding option of tracheostomy and PEG tube placement and they have agreed to proceed with tracheostomy considering patient's failure to wean from mechanical ventilation at this time. Patient is scheduled for tracheostomy today 12/06/2022 CT chest noncontrast: . Patchy ground glass opacities with areas of reticular nodularity particularly in the right lower lobe, most likely infectious/inflammatory. More focal consolidation is seen in the right lower lobe posteriorly.: Emphysema. Small right pleural effusion. Small pericardial effusion. Cholelithiasis. (2) Shock: Code(s): R57.9 - Shock, unspecified Status: Acute Assessment and Plan: Patient was hypotensive post intubation on propofol requiring a IV fluids and Levophed for a brief amount of time -currently off Levophed since the evening of 12/04/2022 -lactic acid was 1.4 on admission -12/03 blood cultures negative x2 so far -12/04/2022 sputum cultures negative -12/04/2022 MRSA screen negative -status post goals of azithromycin, cefepime and vancomycin (3) Congestive heart failure: Code(s): I50.9 - Heart failure, unspecified Status: Acute Assessment and Plan: BNP on admission was 4930 and was given Lasix in the ER: Likely diastolic failure -chest x-ray shows diffuse infiltrates, more so pneumonia than pulmonary edema 12/08: Responded well to diuresis 11/06/2022 echocardiogram showed EF of 50-55% grade 1 diastolic dysfunction, right ventricular systolic function is normal, no significant valvular disease (4) COPD (chronic obstructive pulmonary disease): Code(s): J44.9 - Chronic obstructive pulmonary disease, unspecified Status: Acute Assessment and Plan: History of COPD -continue mechanical ventilation, bronchodilators (5) DVT (deep venous thrombosis): Code(s): I82.409 - Acute embolism and thrombosis of unspecified deep veins of unspecified lower extremity Status: Acute Assessment and Plan: History of DVT . Resume apixaban after procedures (6) Peripheral arterial disease: Code(s): I73.9 - Peripheral vascular disease, unspecified Status: Acute Assessment and Plan: 11/06/2022 arterial Dopplers 1. Increased velocity gradients in right superficial femoral artery and distal right anterior tibial artery, consistent with moderate to severe stenosis. 2. Increased velocity gradients in left superficial femoral artery and left anterior tibial artery, consistent with moderate to severe stenosis. resume apixaban after procedures Plan DVT prophylaxis: Apixaban on hold for tracheostomy and PEG tube placement. SCDs Stress ulcer prophylaxi
--- NOTE | 2022-12-14 08:55 | WPDANESEPPF ---
Anes - Initial Pre Proc Eval Procedure: Operation Date: 12/14/22 10:15 Proposed Procedures p Tracheostomy - Jai Thomas MD Operation Date: 12/14/22 15:45 Proposed Procedures p Percutaneous Endoscopic Gastrostomy - Tommy Henderson MD Date/Time: 12/14/22 08:55 Surgeon: Yuly Salvador MD Pre Op Diagnosis: Respiratory Failure/Hypoxia/CHF/Hypercapnia Patient Data Age: 62 Gender: M Height: 1.68 m Weight: 63.9 kg Last Vital Signs Temp 36.7 C 12/14/22 06:00 Pulse 86 12/14/22 07:58 Resp 26 H 12/14/22 07:58 BP 107/60 12/14/22 06:00 Pulse Ox 94 12/14/22 07:58 O2 Del Method Mechanical Ventilation 12/14/22 07:58 FiO2 30 12/14/22 07:58 Allergies Allergy/AdvReac Type Severity Reaction Status Date / Time vancomycin Allergy Severe Redness of Verified 12/13/22 08:00 Skin Home Medications Medication Instructions Recorded Confirmed Type apixaban 5 mg tablet (Eliquis) 5 mg PO BID 05/28/22 12/03/22 History fluticasone fur. 100 mcg-umeclid 1 inh inhalation DAILY 05/28/22 12/03/22 History 62.5 mcg-vilant 25 mcg inhalat.powder (Trelegy Ellipta) ipratropium 20 mcg-albuterol 100 2 puff inhalation DAILY 05/28/22 12/03/22 History mcg/actuation mist for inhalation (Combivent Respimat) lithium carbonate 150 mg capsule 150 mg PO DAILY 05/28/22 12/03/22 History loperamide 2 mg capsule 2 mg PO QID PRN Diarrhea 05/28/22 12/03/22 History metoprolol tartrate 25 mg tablet 25 mg PO DAILY 05/28/22 12/03/22 History omeprazole 20 mg capsule,delayed 20 mg PO DAILY 05/28/22 12/03/22 History release ramipril 5 mg capsule 5 mg PO DAILY 05/28/22 12/03/22 History risperidone 2 mg tablet 2 mg PO BID 05/28/22 12/03/22 History testosterone cypionate 200 mg/mL 200 mg IM MONTHLY 05/28/22 12/03/22 History intramuscular oil albuterol sulfate 2.5 mg/3 mL 2.5 mg (3 mL) inhalation .q6 prn 11/20/22 12/03/22 Rx (0.083 %) solution for nebulization #75 mL aluminum-mag hydroxide-simethicone 30 ml PO Q6H PRN Indigestion #100 11/20/22 12/03/22 Rx 200 mg-200 mg-20 mg/5 mL oral susp mL (Mag-Al Plus) gabapentin 100 mg capsule 100 mg PO BID #30 caps 11/20/22 12/03/22 Rx nicotine 21 mg/24 hr daily 1 patch transdermal QAM #7 ea 11/20/22 12/03/22 Rx transdermal patch (Nicoderm CQ) budesonide-formoterol HFA 160 2 puff inhalation DAILY 12/03/22 12/03/22 History mcg-4.5 mcg/actuation aerosol inhaler buspirone 10 mg tablet 10 mg PO TID 12/03/22 12/03/22 History Laboratory Tests 12/13/22 12/13/22 12/13/22 12:03 17:42 23:04 WBC RBC Hgb Hct MCV MCH MCHC RDW Plt Count MPV Immature Gran % (Auto) Neut % (Auto) Lymph % (Auto) Platte % (Auto) Eos % (Auto) Baso % (Auto) Lymph # (Auto) [place]atte # (Auto) Eos # (Auto) Baso # (Auto) Abs Immat Gran (auto) Absolute Neuts (auto) Absolute Nucleated RBC Nucleated RBC % Puncture Site ABG pH ABG pCO2 ABG pO2 ABG PO2/FiO2 Ratio ABG HCO3 ABG O2 Saturation ABG O2 Content ABG Base Excess A-a Gradient Oxyhemoglobin Carboxyhemoglobin Methemoglobin Reduced Hemoglobin Total Hemoglobin O2 Delivery Device O2 Liters/Min Minute Volume Vent Rate Vent Mode FiO2 Tidal Volume PEEP Peak Inspir Pressure Pressure Support Sodium Potassium Chloride Carbon Dioxide Anion Gap BUN Creatinine Estim Creat
--- NOTE | 2022-12-14 09:28 | PC.NURSE ---
To OR per [BED], IV [SEDATION CONTINED.
[2022-12-14] MEDS: LIDO 1%/EPINEPHRINE 1:100,000 20 ML VIAL INFILTRATE (10:05)
--- NOTE | 2022-12-14 10:26 | W.PM.PROC2 ---
Procedure Note - Detailed Date of Procedure 12/14/22 Pre-op Diagnosis Respiratory Failure/Hypoxia/CHF/Hypercapnia Post-op Diagnosis Same Procedure Performed Tracheostomy Surgeon Jai Thomas MD Anesthesia General Indications see above Findings appropriate placement of 8 cuffed Shiley. Copious amounts of muco purulent mucus in the trachea. Description of Procedure Patient identified consent verified in ICU. Patient brought operating room. Time-out performed. Patient prepped draped position 2nd time-out performed. Patient marked below the cricoid. 1 cc of 1% lidocaine 1 100,000 parts epinephrine injected under the pre drawn incision. Fifteen blade utilized to cut epidermis and dermis. Bovie utilized to get through the platysma which was absent in the midline. [employer] then retracting the soft tissue laterally Bovie utilized to cut down to the midline refer Fe as well as perform partial thyroid isthmusectomy. Any bleeding was scant and controlled with bipolar electrocautery everything was at a setting of 10. Cricoid identified cricoid hook placed elevating the laryngeal framework anteriorly and superiorly. The trachea was skeletonized in the operative site. Tracheostomy placed between tracheal rings 2 and 3. Eight cuffed Shiley placed successfully after anesthesia removed the endotracheal tube from the tracheotomy. Copious amounts of mucus were the tracheotomy trachea. Four corner stitches placed trach ties placed appropriately dressing placed as well. Patient tolerated the procedure well there were no complications.
--- NOTE | 2022-12-14 10:31 | PC.NURSE ---
1025-Back from surgery. Connected to ventilator. IV sedation continued.
[2022-12-14 11:57] LABS: Glucose Point of Care 122 mg/dl (65-105)
--- NOTE | 2022-12-14 12:00 | PCNFU ---
Nutrition Follow-Up Complete: Inadequate Oral Intake as related to mechanical ventilation as evidenced by NPO. Goal: Meet estimated nutritional needs Patient is progressing towards goal. We will continue current goal. Pt current nutrition is NPO. Nutrition recommendation: Vital AF 1.2 at 60 ml/hr. Last recorded weight is 63.9 kg. Bowel Motility:FMS Labs Reviewed:PO4 4.8,BUN 30, Cr 0.5, Alb 3.3 Meds Noted:Fentanyl, Propofol at 40 nabo=490 kcals Skin: Deep Tissue PU-Bilateral Heels Additional Notes: Patient NPO for Trach and PEG today. Plans to restart tube feedings of Vital AF 1.2 at 60 ml/hr. Providing 1584 kcals/99 gms protein/1070 ml water. Flush 30 ml q 4 hours. Will continue to monitor Propofol infusion for any tube feedings rate changed. Protein Modular of Dayo BID for wound healing and Banatrol TF for stool bulking. Agree with diet orders. Will follow in ICU rounds and monitor every Saturday and Saturday.
[2022-12-14] MEDS: ceFAZolin 1 GM/NS 50 ML 1 GM/50 ML BAG IVPB (13:43)
--- NOTE | 2022-12-14 14:28 | PM.IMPN ---
Progress Note: A&P Assessment and Plan (1) Acute on chronic respiratory failure with hypoxia and hypercapnia: Code(s): J96.21 - Acute and chronic respiratory failure with hypoxia; J96.22 - Acute and chronic respiratory failure with hypercapnia Status: Acute Assessment and Plan: Patient was found to have shortness of breath and hypoxia at the [facility], upon arrival patient's O2 sats were in the 60s, patient was given nebulizing treatment, magnesium and steroids and brought to the ED. -he failed BiPAP and was intubated on 12/03/2022, tracheostomy was performed on December 14 -currently on CMV mode of ventilation, management per line leader -chest x-ray this morning: Stable interstitial disease. -continue bronchodilators -continue budesonide -status post course of azithromycin, cefepime and vancomycin -appreciate pulmonology evaluation recommendations - completed methylprednisolone taper he has been failing his trials every day. 12/06/2022 CT chest noncontrast: . Patchy ground glass opacities with areas of reticular nodularity particularly in the right lower lobe, most likely infectious/inflammatory. More focal consolidation is seen in the right lower lobe posteriorly.: Emphysema. Small right pleural effusion. Small pericardial effusion. Cholelithiasis. (2) Shock: Code(s): R57.9 - Shock, unspecified Status: Acute Assessment and Plan: Patient was hypotensive post intubation on propofol requiring a IV fluids and Levophed for a brief amount of time -currently off Levophed since the evening of 12/04/2022 -lactic acid was 1.4 on admission -12/03 blood cultures negative x2 so far -12/04/2022 sputum cultures negative -12/04/2022 MRSA screen negative -status post goals of azithromycin, cefepime and vancomycin (3) Congestive heart failure: Code(s): I50.9 - Heart failure, unspecified Status: Acute Assessment and Plan: BNP on admission was 4930 and was given Lasix in the ER: Likely diastolic failure -chest x-ray shows diffuse infiltrates, more so pneumonia than pulmonary edema 12/08: Responded well to diuresis 11/06/2022 echocardiogram showed EF of 50-55% grade 1 diastolic dysfunction, right ventricular systolic function is normal, no significant valvular disease (4) COPD (chronic obstructive pulmonary disease): Code(s): J44.9 - Chronic obstructive pulmonary disease, unspecified Status: Acute Assessment and Plan: History of COPD -continue mechanical ventilation, bronchodilators (5) DVT (deep venous thrombosis): Code(s): I82.409 - Acute embolism and thrombosis of unspecified deep veins of unspecified lower extremity Status: Acute Assessment and Plan: History of DVT . Resume apixaban after procedures (6) Peripheral arterial disease: Code(s): I73.9 - Peripheral vascular disease, unspecified Status: Acute Assessment and Plan: 11/06/2022 arterial Dopplers 1. Increased velocity gradients in right superficial femoral artery and distal right anterior tibial artery, consistent with moderate to severe stenosis. 2. Increased velocity gradients in left superficial femoral artery and left anterior tibial artery, consistent with moderate to severe stenosis. resume apixaban after procedures Plan DVT prophylaxis: Apixaban on hold for tracheostomy and PEG tube placement. SCDs Stress ulcer prophylaxis: Protonix Nutrition: Tolerating tube feeds, on MiraLax and senna Code Status: Full code . Subjective Date/time seen: 12/14/22 14:28 Interval history: I saw examined patient today, patient cannot wean off ventilation, tracheostomy was performed, continue ventilation full acute respiratory failure Exam Narrative: General: On mechanical ventilation via tracheostomy and on sedated, in no distress HEENT:? Pupils are small, reactive bilaterally, his sclera is clear, Neck:? Supple Respiratory:? Coarse breath sounds bilatera
--- NOTE | 2022-12-14 15:01 | PC.NURSE ---
Peg tube place by GI nurses and Dr. Henderson at bedside. Pt tolerated well.
[2022-12-14] MEDS: LIDOCAINE HCL 1% LOCAL INJ 20 ML VIAL 3 ML INFILTRATE (15:06)
[2022-12-14] MEDS: MIDAZOLAM HCL (*CRX) 2 MG/2 ML VIAL 4 MG IV PUSH (15:14)
[2022-12-14 17:59] LABS: Glucose Point of Care 178 mg/dl (65-105)
[2022-12-14] MEDS: PROPOFOL IV EMULSION 100 ML 13.5 MG IV CONT (22:27)
[2022-12-14 23:09] LABS: Glucose Point of Care 175 mg/dl (65-105)
[2022-12-15] VITALS (66 sets, daily range): BP systolic 86–157; BP diastolic 53–93; PULSE 67–124; RESP 15–26; TEMP 36.6–37.7; O2SAT 79–100
[2022-12-15] MEDS: LORazepam INJ (*CRX) 2 MG/ML VIAL IV PUSH ×2 (00:59→20:57)
[2022-12-15] MEDS: ALBUTEROL SULFATE NEB 2.5 MG/3 ML INH INHALATION ×4 (02:30→20:15)
[2022-12-15] MEDS: PROPOFOL IV EMULSION 100 ML 13.5 MG IV CONT (04:39)
[2022-12-15 06:11] LABS: Glucose Point of Care 144 mg/dl (65-105)
--- NOTE | 2022-12-15 08:10 | WPDINTPN ---
Progress Note: A&P Assessment and Plan (1) Acute on chronic respiratory failure with hypoxia and hypercapnia: Code(s): J96.21 - Acute and chronic respiratory failure with hypoxia; J96.22 - Acute and chronic respiratory failure with hypercapnia Status: Acute Assessment and Plan: Patient was found to have shortness of breath and hypoxia at the intermediate, upon arrival patient's O2 sats were in the 60s, patient was given nebulizing treatment, magnesium and steroids and brought to the ED. -he failed BiPAP and was intubated on 12/03/2022 - status post tracheostomy 12/14 -currently on CMV mode of ventilation, peep of 5 and 30% FiO2. Currently he appears to agitated on loading his sedation, once patient has several sounds I will try to do of pressure support trial -chest x-ray this morning: Stable interstitial disease. -continue bronchodilators -continue budesonide -status post course of azithromycin, cefepime and vancomycin -appreciate pulmonology evaluation recommendations - completed methylprednisolone taper - chest x-ray pending 12/06/2022 CT chest noncontrast: . Patchy ground glass opacities with areas of reticular nodularity particularly in the right lower lobe, most likely infectious/inflammatory. More focal consolidation is seen in the right lower lobe posteriorly.: Emphysema. Small right pleural effusion. Small pericardial effusion. Cholelithiasis. (2) Shock: Code(s): R57.9 - Shock, unspecified Status: Acute Assessment and Plan: Patient was hypotensive post intubation on propofol requiring a IV fluids and Levophed for a brief amount of time -currently off Levophed since the evening of 12/04/2022 -lactic acid was 1.4 on admission -12/03 blood cultures negative x2 so far -12/04/2022 sputum cultures negative -12/04/2022 MRSA screen negative -status post goals of azithromycin, cefepime and vancomycin (3) Congestive heart failure: Code(s): I50.9 - Heart failure, unspecified Status: Acute Assessment and Plan: BNP on admission was 4930 and was given Lasix in the ER: Likely diastolic failure -chest x-ray shows diffuse infiltrates, more so pneumonia than pulmonary edema 12/08: Responded well to diuresis 11/06/2022 echocardiogram showed EF of 50-55% grade 1 diastolic dysfunction, right ventricular systolic function is normal, no significant valvular disease (4) COPD (chronic obstructive pulmonary disease): Code(s): J44.9 - Chronic obstructive pulmonary disease, unspecified Status: Acute Assessment and Plan: History of COPD -continue mechanical ventilation, bronchodilators (5) DVT (deep venous thrombosis): Code(s): I82.409 - Acute embolism and thrombosis of unspecified deep veins of unspecified lower extremity Status: Acute Assessment and Plan: History of DVT . Resume apixaban today (6) Peripheral arterial disease: Code(s): I73.9 - Peripheral vascular disease, unspecified Status: Acute Assessment and Plan: 11/06/2022 arterial Dopplers 1. Increased velocity gradients in right superficial femoral artery and distal right anterior tibial artery, consistent with moderate to severe stenosis. 2. Increased velocity gradients in left superficial femoral artery and left anterior tibial artery, consistent with moderate to severe stenosis. resume apixaban today (7) Anxiety: Code(s): F41.9 - Anxiety disorder, unspecified Status: Acute Assessment and Plan: part anxiety and partly respiratory distress continue propofol for now add per tube Valium discontinue IV fentanyl infusion and switch to IV p.r.n. morphine Plan DVT prophylaxis: Apixaban resumed SCDs Stress ulcer prophylaxis: Protonix Nutrition: PEG tube placed, will resume tube feeds later today on MiraLax and senna Code Status: Full code Critical Care Time Spent: 30 minutes Due to a high probability of clinically significant, life threatening d
[2022-12-15] MEDS: ONDANSETRON INJ 4 MG/2 ML VIAL IV PUSH (08:21)
[2022-12-15] MEDS: QUEtiapine FUMARATE 12.5 MG TABLET PO ×2 (09:28→20:13)
[2022-12-15] MEDS: TOLNAFTATE 1% POWDER 45 GM BTL 1 APPLIC TOPICAL ×2 (09:28→21:31)
[2022-12-15] MEDS: METOPROLOL TARTRATE 12.5 MG TABLET PO (09:29)
[2022-12-15] MEDS: EUCERIN CREAM 454 GM JAR 1 APPLIC TOPICAL (09:29)
[2022-12-15] MEDS: PANTOPRAZOLE SODIUM IV 40 MG VIAL IV PUSH (09:29)
[2022-12-15] MEDS: MINERAL OIL/WHITE PETROLATUM OINTMENT 1 APPLIC EACH EYE ×2 (09:29→20:13)
[2022-12-15] MEDS: diazePAM (*CRX) 10 MG TABLET FEED TUBE ×2 (09:32→16:56)
[2022-12-15 10:01] LABS: Estimated CRCL calculation 98 ml/min; Estimated Glomerular Filt Rate > 60; Triglycerides 186 mg/dL (<150)
[2022-12-15] MEDS: PROPOFOL IV EMULSION 100 ML 19.29 MG IV CONT (10:21)
[2022-12-15 11:47] LABS: Glucose Point of Care 156 mg/dl (65-105)
[2022-12-15] MEDS: PROPOFOL IV EMULSION 100 ML 15.43 MG IV CONT (15:47)
--- NOTE | 2022-12-15 15:53 | PM.IMPN ---
Progress Note: A&P Assessment and Plan (1) Acute on chronic respiratory failure with hypoxia and hypercapnia: Code(s): J96.21 - Acute and chronic respiratory failure with hypoxia; J96.22 - Acute and chronic respiratory failure with hypercapnia Status: Acute Assessment and Plan: Patient was found to have shortness of breath and hypoxia at the assisted, upon arrival patient's O2 sats were in the 60s, patient was given nebulizing treatment, magnesium and steroids and brought to the ED. -he failed BiPAP and was intubated on 12/03/2022 - status post tracheostomy 3/ c/w ventilation, peep of 5 and 30% FiO2. Weaning trial per surfacing machine operator -chest x-ray this morning: Stable interstitial disease. -continue bronchodilators -continue budesonide -status post course of azithromycin, cefepime and vancomycin -appreciate pulmonology evaluation recommendations - completed methylprednisolone taper - chest x-ray pending 12/06/2022 CT chest noncontrast: . Patchy ground glass opacities with areas of reticular nodularity particularly in the right lower lobe, most likely infectious/inflammatory. More focal consolidation is seen in the right lower lobe posteriorly.: Emphysema. Small right pleural effusion. Small pericardial effusion. Cholelithiasis. (2) Shock: Code(s): R57.9 - Shock, unspecified Status: Acute Assessment and Plan: Patient was hypotensive post intubation on propofol requiring a IV fluids and Levophed for a brief amount of time -currently off Levophed since the evening of 12/04/2022 -lactic acid was 1.4 on admission -12/03 blood cultures negative x2 so far -12/04/2022 sputum cultures negative -12/04/2022 MRSA screen negative -status post goals of azithromycin, cefepime and vancomycin Septic shock resolves (3) Congestive heart failure: Code(s): I50.9 - Heart failure, unspecified Status: Acute Assessment and Plan: BNP on admission was 4930 and was given Lasix in the ER: Likely diastolic failure -chest x-ray shows diffuse infiltrates, more so pneumonia than pulmonary edema 12/08: Responded well to diuresis 11/06/2022 echocardiogram showed EF of 50-55% grade 1 diastolic dysfunction, right ventricular systolic function is normal, no significant valvular disease (4) COPD (chronic obstructive pulmonary disease): Code(s): J44.9 - Chronic obstructive pulmonary disease, unspecified Status: Acute Assessment and Plan: History of COPD -continue mechanical ventilation, bronchodilators (5) DVT (deep venous thrombosis): Code(s): I82.409 - Acute embolism and thrombosis of unspecified deep veins of unspecified lower extremity Status: Acute Assessment and Plan: History of DVT . Resume apixaban today (6) Peripheral arterial disease: Code(s): I73.9 - Peripheral vascular disease, unspecified Status: Acute Assessment and Plan: 11/06/2022 arterial Dopplers 1. Increased velocity gradients in right superficial femoral artery and distal right anterior tibial artery, consistent with moderate to severe stenosis. 2. Increased velocity gradients in left superficial femoral artery and left anterior tibial artery, consistent with moderate to severe stenosis. resume apixaban (7) Anxiety: Code(s): F41.9 - Anxiety disorder, unspecified Status: Acute Assessment and Plan: part anxiety and partly respiratory distress continue propofol for now add per tube Valium discontinue IV fentanyl infusion and switch to IV p.r.n. morphine Plan DVT prophylaxis: Apixaban resumed SCDs Stress ulcer prophylaxis: Protonix Nutrition: PEG tube placed, will resume tube feeds later today on MiraLax and senna Code Status: Full code Subjective Date/time seen: 12/15/22 15:53 Interval history: Acute respiratory failure, hypoxia requiring intubation on 12/03/2022, pneumonia, COPD exacerbation, hypotension. Patient is on ventilation on t
[2022-12-15] MEDS: APIXABAN 5 MG TABLET PO (16:54)
[2022-12-15 17:50] LABS: Glucose Point of Care 136 mg/dl (65-105)
[2022-12-15] MEDS: MORPHINE SULFATE (*CRX) 4 MG/ML INJ IV PUSH (19:56)
[2022-12-15] MEDS: SENNA/DOCUSATE SODIUM TABLET 1 TAB PO (20:13)
[2022-12-15 23:52] LABS: Glucose Point of Care 136 mg/dl (65-105)
[2022-12-16] VITALS (90 sets, daily range): BP systolic 94–134; BP diastolic 54–105; PULSE 70–101; RESP 10–27; TEMP 37.5–38; O2SAT 92–99
[2022-12-16] MEDS: MORPHINE SULFATE (*CRX) 4 MG/ML INJ IV PUSH ×3 (00:42→17:57)
[2022-12-16] MEDS: PROPOFOL IV EMULSION 100 ML 7.72 MG IV CONT (01:14)
[2022-12-16] MEDS: ALBUTEROL SULFATE NEB 2.5 MG/3 ML INH INHALATION ×4 (02:18→20:05)
[2022-12-16 05:17] LABS: Hematocrit 32.5 % (42.0-52.0); Mean Corpuscular HGB Conc 30.8 g/dl (32-36); Mean Corpuscular Hemoglobin 27.9 pg (26-34); Mean Corpuscular Volume 90.8 fl (80-100); Mean Platelet Volume 11.1 fl (7.4-10.4); Platelet Count Result 310 k/mm3 (150-375); Red Blood Count 3.58 M/mm3 (4.6-6.20); Red Cell Distribution Width 16.4 % (11.5-14.5); White Blood Count 7.5 K/mm3 (4.5-10.0)
[2022-12-16 05:33] LABS: Alanine Aminotransferase 38 U/L (6-50); Albumin Level 3.1 g/dL (3.5-5.1); Alkaline Phosphatase 73 U/L (38-126); Anion Gap 1 mmol/L (8-16); Aspartate Amino Transferase 26 U/L (17-59); Bilirubin,Total 0.7 mg/dL (0.2-1.3); Blood Urea Nitrogen 19 mg/dL (9-20); Calcium 8.5 mg/dL (8.4-10.2); Carbon Dioxide 35 mmol/L (22-30); Chloride 99 mmol/L (98-107); Estimated CRCL calculation 98 ml/min; Estimated Glomerular Filt Rate > 60; Glucose 139 mg/dL (65-110); Magnesium 1.6 mg/dL (1.6-2.3); Potassium 3.3 mmol/L (3.4-5.0); Sodium 135 mmol/L (137-145)
[2022-12-16 06:43] LABS: Glucose Point of Care 113 mg/dl (65-105)
--- NOTE | 2022-12-16 07:57 | WPDINTPN ---
Progress Note: A&P Assessment and Plan (1) Acute on chronic respiratory failure with hypoxia and hypercapnia: Code(s): J96.21 - Acute and chronic respiratory failure with hypoxia; J96.22 - Acute and chronic respiratory failure with hypercapnia Status: Acute Assessment and Plan: Patient was found to have shortness of breath and hypoxia at the [facility], upon arrival patient's O2 sats were in the 60s, patient was given nebulizing treatment, magnesium and steroids and brought to the ED. -he failed BiPAP and was intubated on 12/03/2022 - status post tracheostomy 12/14 -currently on CMV mode of ventilation, peep of 5 and 30% FiO2. I will try PSV 09/17 today -chest x-ray reviewed -continue bronchodilators -continue budesonide -status post course of azithromycin, cefepime and vancomycin -appreciate pulmonology evaluation recommendations - completed methylprednisolone taper 12/06/2022 CT chest noncontrast: . Patchy ground glass opacities with areas of reticular nodularity particularly in the right lower lobe, most likely infectious/inflammatory. More focal consolidation is seen in the right lower lobe posteriorly.: Emphysema. Small right pleural effusion. Small pericardial effusion. Cholelithiasis. (2) Shock: Code(s): R57.9 - Shock, unspecified Status: Acute Assessment and Plan: Resolved now Patient was hypotensive post intubation on propofol requiring a IV fluids and Levophed for a brief amount of time -currently off Levophed since the evening of 12/04/2022 -lactic acid was 1.4 on admission -12/03 blood cultures negative x2 so far -12/04/2022 sputum cultures negative -12/04/2022 MRSA screen negative -status post goals of azithromycin, cefepime and vancomycin (3) Congestive heart failure: Code(s): I50.9 - Heart failure, unspecified Status: Acute Assessment and Plan: BNP on admission was 4930 and was given Lasix in the ER: Likely diastolic failure -chest x-ray shows diffuse infiltrates, more so pneumonia than pulmonary edema 12/08: Responded well to diuresis 11/06/2022 echocardiogram showed EF of 50-55% grade 1 diastolic dysfunction, right ventricular systolic function is normal, no significant valvular disease (4) COPD (chronic obstructive pulmonary disease): Code(s): J44.9 - Chronic obstructive pulmonary disease, unspecified Status: Acute Assessment and Plan: History of COPD -continue mechanical ventilation, bronchodilators (5) DVT (deep venous thrombosis): Code(s): I82.409 - Acute embolism and thrombosis of unspecified deep veins of unspecified lower extremity Status: Acute Assessment and Plan: History of DVT . continue apixaban today (6) Peripheral arterial disease: Code(s): I73.9 - Peripheral vascular disease, unspecified Status: Acute Assessment and Plan: 11/06/2022 arterial Dopplers 1. Increased velocity gradients in right superficial femoral artery and distal right anterior tibial artery, consistent with moderate to severe stenosis. 2. Increased velocity gradients in left superficial femoral artery and left anterior tibial artery, consistent with moderate to severe stenosis. continueapixaban today (7) Anxiety: Code(s): F41.9 - Anxiety disorder, unspecified Status: Acute Assessment and Plan: part anxiety and partly respiratory distress improved off propofol and fentanyl infusion right now continue per tube Valium and p.r.n. IVp.r.n. morphine Plan DVT prophylaxis: Apixaban resumed SCDs Stress ulcer prophylaxis: Protonix Nutrition: PEG tube placed, continue tube feeds, patient on MiraLax and senna Code Status: Full code Critical Care Time Spent: 30 minutes Due to a high probability of clinically significant, life threatening deterioration, the patient required my highest level of preparedness to intervene emergently and I personally spent this critical care time directly and
[2022-12-16] MEDS: PANTOPRAZOLE SODIUM IV 40 MG VIAL IV PUSH (08:22)
[2022-12-16] MEDS: EUCERIN CREAM 454 GM JAR 1 APPLIC TOPICAL (08:22)
[2022-12-16] MEDS: TOLNAFTATE 1% POWDER 45 GM BTL 1 APPLIC TOPICAL ×2 (08:22→22:16)
[2022-12-16] MEDS: APIXABAN 5 MG TABLET PO ×2 (08:23→17:17)
[2022-12-16] MEDS: diazePAM (*CRX) 10 MG TABLET FEED TUBE ×2 (08:23→21:00)
[2022-12-16] MEDS: METOPROLOL TARTRATE 12.5 MG TABLET PO (08:23)
[2022-12-16] MEDS: QUEtiapine FUMARATE 25 MG TABLET PO ×2 (09:14→21:00)
[2022-12-16] MEDS: SIMETHICONE 80 MG TAB.CHEW FEED TUBE ×3 (09:14→17:18)
[2022-12-16] MEDS: ACETAMINOPHEN 325 MG TABLET 650 MG PO (11:52)
[2022-12-16 12:17] LABS: Glucose Point of Care 156 mg/dl (65-105)
[2022-12-16 17:28] LABS: Glucose Point of Care 131 mg/dl (65-105)
[2022-12-16] MEDS: MINERAL OIL/WHITE PETROLATUM OINTMENT 1 APPLIC EACH EYE (21:00)
[2022-12-16] MEDS: SENNA/DOCUSATE SODIUM TABLET 1 TAB PO (21:00)
[2022-12-17] VITALS (20 sets, daily range): BP systolic 112–149; BP diastolic 63–90; PULSE 68–85; RESP 16–22; TEMP 37.2–37.8; O2SAT 97–100
[2022-12-17] MEDS: SIMETHICONE 80 MG TAB.CHEW FEED TUBE ×3 (00:10→12:32)
[2022-12-17] MEDS: ALBUTEROL SULFATE NEB 2.5 MG/3 ML INH INHALATION ×3 (02:15→13:25)
[2022-12-17 03:50] LABS: Hematocrit 31.1 % (42.0-52.0); Hemoglobin 9.8 g/dL (14.0-18.0); Mean Corpuscular HGB Conc 31.5 g/dl (32-36); Mean Corpuscular Hemoglobin 28.2 pg (26-34); Mean Corpuscular Volume 89.4 fl (80-100); Platelet Count Result 308 k/mm3 (150-375); Red Blood Count 3.48 M/mm3 (4.6-6.20); Red Cell Distribution Width 16.2 % (11.5-14.5); White Blood Count 7.3 K/mm3 (4.5-10.0)
[2022-12-17 04:04] LABS: Alanine Aminotransferase 34 U/L (6-50); Albumin Level 3.2 g/dL (3.5-5.1); Alkaline Phosphatase 75 U/L (38-126); Anion Gap 5 mmol/L (8-16); Aspartate Amino Transferase 22 U/L (17-59); Bilirubin,Total 0.7 mg/dL (0.2-1.3); Blood Urea Nitrogen 24 mg/dL (9-20); Calcium 8.6 mg/dL (8.4-10.2); Carbon Dioxide 32 mmol/L (22-30); Chloride 98 mmol/L (98-107); Estimated CRCL calculation 96 ml/min; Estimated Glomerular Filt Rate > 60; Glucose 131 mg/dL (65-110); Magnesium 1.5 mg/dL (1.6-2.3); Potassium 3.5 mmol/L (3.4-5.0); Sodium 135 mmol/L (137-145)
[2022-12-17] MEDS: diazePAM (*CRX) 10 MG TABLET FEED TUBE (08:27)
[2022-12-17] MEDS: APIXABAN 5 MG TABLET PO ×2 (08:29→17:15)
[2022-12-17] MEDS: METOPROLOL TARTRATE 12.5 MG TABLET PO (08:29)
[2022-12-17] MEDS: EUCERIN CREAM 454 GM JAR 1 APPLIC TOPICAL (08:29)
[2022-12-17] MEDS: QUEtiapine FUMARATE 25 MG TABLET PO (08:30)
[2022-12-17] MEDS: PANTOPRAZOLE SODIUM IV 40 MG VIAL IV PUSH (08:30)
[2022-12-17] MEDS: MINERAL OIL/WHITE PETROLATUM OINTMENT 1 APPLIC EACH EYE (08:30)
[2022-12-17] MEDS: TOLNAFTATE 1% POWDER 45 GM BTL 1 APPLIC TOPICAL (08:31)
--- NOTE | 2022-12-17 08:38 | WPDINTPN ---
Progress Note: A&P Assessment and Plan (1) Acute on chronic respiratory failure with hypoxia and hypercapnia: Code(s): J96.21 - Acute and chronic respiratory failure with hypoxia; J96.22 - Acute and chronic respiratory failure with hypercapnia Status: Acute Assessment and Plan: Patient was found to have shortness of [facility] and hypoxia at the [facility], upon arrival patient's O2 sats were in the 60s, patient was given nebulizing treatment, magnesium and steroids and brought to the ED. -he failed BiPAP and was intubated on 12/03/2022 - status post tracheostomy 12/14 -currently on CMV mode of ventilation, peep of 5 and 30% FiO2. I tried PSV 09/17 yesterday and patient only tolerated for an hour was placed back on CMV - I will try pressure support ventilation again today -chest x-ray reviewed -continue bronchodilators -continue budesonide -status post course of azithromycin, cefepime and vancomycin -appreciate pulmonology evaluation recommendations - completed methylprednisolone taper 12/06/2022 CT chest noncontrast: . Patchy ground glass opacities with areas of reticular nodularity particularly in the right lower lobe, most likely infectious/inflammatory. More focal consolidation is seen in the right lower lobe posteriorly.: Emphysema. Small right pleural effusion. Small pericardial effusion. Cholelithiasis. (2) Fever: Code(s): R50.9 - Fever, unspecified Status: Acute Assessment and Plan: -12/03 blood cultures negative x2 so far -12/04/2022 sputum cultures negative -12/04/2022 MRSA screen negative -status post course of azithromycin, cefepime and vancomycin he has been having very low-grade fevers. his WBC is normal. chest x-ray is clear. he Does not have any central venous catheter check blood cultures I will discontinue Reeves catheter and replace it with the condom catheter. send UA with micro/ culture Check procalcitonin (3) Congestive heart failure: Code(s): I50.9 - Heart failure, unspecified Status: Acute Assessment and Plan: BNP on admission was 4930 and was given Lasix in the ER: Likely diastolic failure -chest x-ray shows diffuse infiltrates, more so pneumonia than pulmonary edema 12/08: Responded well to diuresis 11/06/2022 echocardiogram showed EF of 50-55% grade 1 diastolic dysfunction, right ventricular systolic function is normal, no significant valvular disease (4) COPD (chronic obstructive pulmonary disease): Code(s): J44.9 - Chronic obstructive pulmonary disease, unspecified Status: Acute Assessment and Plan: History of COPD -continue mechanical ventilation, bronchodilators (5) DVT (deep venous thrombosis): Code(s): I82.409 - Acute embolism and thrombosis of unspecified deep veins of unspecified lower extremity Status: Acute Assessment and Plan: History of DVT . continue apixaban today (6) Peripheral arterial disease: Code(s): I73.9 - Peripheral vascular disease, unspecified Status: Acute Assessment and Plan: 11/06/2022 arterial Dopplers 1. Increased velocity gradients in right superficial femoral artery and distal right anterior tibial artery, consistent with moderate to severe stenosis. 2. Increased velocity gradients in left superficial femoral artery and left anterior tibial artery, consistent with moderate to severe stenosis. continue apixaban today (7) Anxiety: Code(s): F41.9 - Anxiety disorder, unspecified Status: Acute Assessment and Plan: part anxiety and partly respiratory distress improved off propofol and fentanyl infusion right now continue per tube Valium and p.r.n. IV p.r.n. morphine Plan DVT prophylaxis: Apixaban resumed SCDs Stress ulcer prophylaxis: Protonix Nutrition: PEG tube placed, continue tube feeds, patient on MiraLax and senna Code Status: Full code Critical Care Time Spent: 32 minutes Due to a high probability of c
[2022-12-17] MEDS: POTASSIUM CHLORIDE 20 MEQ PACKET (FOR LIQUID) 40 MEQ FEED TUBE (08:45)
[2022-12-17] MEDS: MAGNESIUM SULF 2 GM/WATER 50ML 2 GM/50 ML BAG IVPB (08:48)
[2022-12-17 08:59] LABS: Triglycerides 190 mg/dL (<150)
--- NOTE | 2022-12-17 10:58 | PCFNICU ---
ICU Rounding Note: Pt current nutrition is Vital AF 1.2 at 60 ml/hr. Last recorded weight is 63.4 kg. Bowel Motility: +Bm reported 3/6 Labs Reviewed:Glu 131, BUN 24, Na 135, Alb 3.5 Meds Noted: Seroquel,Eliquis Skin: Deep Tissue PU-Bilateral Heels Additional Notes: Patient current with PEG and Trach. Plans for LTAC today. Tube feedings being tolerated of Vital AF 1.2 at 60 ml/hr. Agree with diet orders. Following daily in ICU rounds. Will monitor every Saturday and Saturday.
[2022-12-17 12:24] LABS: Glucose Point of Care 154 mg/dl (65-105)
[2022-12-17] MEDS: MORPHINE SULFATE (*CRX) 4 MG/ML INJ IV PUSH (12:30)
[2022-12-17] MEDS: ACETAMINOPHEN 325 MG TABLET 650 MG PO (17:12)
--- NOTE | 2022-12-17 17:42 | PM.TDS ---
Transfer Discharge Sum: Prov Provider Date of admission: 12/03/22 15:53 Primary care physician: Jordon Nagel, MD Admitting clinician: Yuly Salvador MD Consults: 12/03/22 15:20 Consult to Physician Routine Comment: Consulting Provider: Shruti Navarrete body recall instructor/MD group to consult: Rosalba Reason for consultation: Respiratory failure Has provider been notified: Yes 12/06/22 07:09 Consult to Physician Routine Comment: spoke w @ [phone] ([facility]) Consulting Provider: Crystal Valenzuela body recall instructor/MD group to consult: Pulmonary Reason for consultation: emphysema, ground glass on CT Has provider been notified: Yes 12/10/22 Wound/ET Consult Routine Reason for Consult:: heel wounds bilaterally 12/13/22 Consult to Physician Routine Comment: left voicemail with Dr. Henderson @1228(,) Consulting Provider: Tommy Henderson body recall instructor/MD group to consult: gastroenterology Reason for consultation: PEG tube placement Has provider been notified: Yes Consult to Physician Routine Comment: spoke with Dr. Thomas @1228(,) Consulting Provider: Jai Thomas body recall instructor/MD group to consult: ENT Reason for consultation: tracheostomy Has provider been notified: Yes DS: Admitting Diagnosis Discharge Date 12/17/22 Admitting Diagnosis Shortness of breath and hypoxia DS: Discharge Diagnosis Discharge Diagnosis (1) Acute on chronic respiratory failure with hypoxia and hypercapnia: Code(s): J96.21 - Acute and chronic respiratory failure with hypoxia; J96.22 - Acute and chronic respiratory failure with hypercapnia Status: Acute (2) Shock: Code(s): R57.9 - Shock, unspecified Status: Acute (3) Fever: Code(s): R50.9 - Fever, unspecified Status: Acute (4) Pneumonia: Code(s): J18.9 - Pneumonia, unspecified organism Status: Acute (5) Congestive heart failure: Code(s): I50.9 - Heart failure, unspecified Status: Acute (6) COPD (chronic obstructive pulmonary disease): Code(s): J44.9 - Chronic obstructive pulmonary disease, unspecified Status: Acute (7) DVT (deep venous thrombosis): Code(s): I82.409 - Acute embolism and thrombosis of unspecified deep veins of unspecified lower extremity Status: Acute (8) Peripheral arterial disease: Code(s): I73.9 - Peripheral vascular disease, unspecified Status: Acute (9) Anxiety: Code(s): F41.9 - Anxiety disorder, unspecified Status: Acute Transfer Discharge Sum: Med Medications Active and Home Medications: Home Medications apixaban 5 mg tablet (Eliquis) 5 mg PO BID 05/28/22 [History Confirmed 12/03/22] fluticasone fur. 100 mcg-umeclid 62.5 mcg-vilant 25 mcg inhalat.powder (Trelegy Ellipta) 1 inh inhalation DAILY 05/28/22 [History Confirmed 12/03/22] ipratropium 20 mcg-albuterol 100 mcg/actuation mist for inhalation (Combivent Respimat) 2 puff inhalation DAILY 05/28/22 [History Confirmed 12/03/22] lithium carbonate 150 mg capsule 150 mg PO DAILY 05/28/22 [History Confirmed 12/03/22] loperamide 2 mg capsule 2 mg PO QID PRN Diarrhea 05/28/22 [History Confirmed 12/03/22] metoprolol tartrate 25 mg tablet 25 mg PO DAILY 05/28/22 [History Confirmed 12/03/22] omeprazole 20 mg capsule,delayed release 20 mg PO DAILY 05/28/22 [History Confirmed 12/03/22] ramipril 5 mg capsule 5 mg PO DAILY 05/28/22 [History Confirmed 12/03/22] risperidone 2 mg tablet 2 mg PO BID 05/28/22 [History Confirmed 12/03/22] testosterone cypionate 200 mg/mL intramuscular oil 200 mg IM MONTHLY 05/28/22 [History Confirmed 12/03/22] albuterol sulfate 2.5 mg/3 mL (0.083 %) solution for nebulization 2.5 mg (3 mL) inhalation .q6 prn #75 mL 11/20/22 [Rx Confirmed 12/03/22] aluminum-mag hydroxide-simethicone 200 mg-200 mg-20 mg/5 mL oral susp (Mag-Al Plus) 30 ml PO Q6H PRN Indigestion #100 mL 11/20/22 [Rx Confirmed 12/03/22] gabapentin 100 mg capsule 100 mg PO BID #30 caps 11/20/22 [Rx Confirmed 0
[2022-12-17 18:04] LABS: Glucose Point of Care 114 mg/dl (65-105)
--- NOTE | 2022-12-17 18:30 | PC.NURSE ---
[facility] staff and family notified of patient's departure.
== END 2022-12-17 18:30 | DRG 4 ==
LOC: ANHED 14:09 → ANHICU 16:01
PROVIDERS: Internal Medicine; Internal Medicine Gastroenterology; Otolaryngology; Physician Assistant; Admitting Provider Family Medicine; Emergency Provider Emergency Medicine; PCP Internal Medicine; Visit Provider Internal Medicine
PROC: 0B110F4 Bypass Trachea to Cutaneous with Tracheostomy Device, Open Approach (ICD-10-PCS; principal; 2022-12-14 10:15)
PROC: 0DH63UZ Insertion of Feeding Device into Stomach, Percutaneous Approach (ICD-10-PCS; CPT 43246; principal; 2022-12-14 15:45)
DX: J96.21 Acute and chronic respiratory failure with hypoxia (principal); J18.9 Pneumonia, unspecified organism; R57.9 Shock, unspecified; J44.0 Chronic obstructive pulmonary disease with (acute) lower respiratory infection; I50.32 Chronic diastolic (congestive) heart failure; I11.0 Hypertensive heart disease with heart failure; J96.22 Acute and chronic respiratory failure with hypercapnia; F41.9 Anxiety disorder, unspecified; I73.9 Peripheral vascular disease, unspecified; I25.10 Atherosclerotic heart disease of native coronary artery without angina pectoris; I25.2 Old myocardial infarction; F17.210 Nicotine dependence, cigarettes, uncomplicated; Z20.822 Contact with and (suspected) exposure to COVID-19; Z86.718 Personal history of other venous thrombosis and embolism; Z86.73 Personal history of transient ischemic attack (TIA), and cerebral infarction without residual deficits; Z79.01 Long term (current) use of anticoagulants; Z95.5 Presence of coronary angioplasty implant and graft; Z79.899 Other long term (current) drug therapy
CPT/HCPCS: 31500; 36415; 36556; 36600; 43246; 51702; 70496; 70498; 71045; 71250; 74018; 80048; 80053; 80178; 80202; 80307; 81001; 82375; 82565; 82805; 82948; 83050; 83605; 83735; 83880; 84100; 84145; 84443; 84478; 84484; 85025; 85027; 85055; 85610; 85730; 86738; 87040; 87070; 87077; 87081; 87181; 87186; 87205; 87449; 87636; 87637; 87899; 93005; 94002; 94003; 94640; 96361; 96365; 96366; 96367; 96375; 99284; 99291; A9270; C1751; C9113; G0378; J0131; J0330; J0360; J0456; J0612; J0690; J0692; J1100; J1200; J1815; J1940; J2060; J2250; J2270; J2370; J2405; J2704; J2920; J2930; J3010; J3370; J3475; J7030; Q9967

== ENCOUNTER 2023-02-27 14:12 | Emergency (ER) | payer MEDICARE, MEDICAID, SELFPAY ==
[2023-02-27 14:13] VITALS: BP 125/89; PULSE 96; RESP 18; TEMP 36.4; O2SAT 99
--- NOTE | 2023-02-27 15:05 | ED.GENADULT ---
HPI - General Adult General Chief complaint: Unspecified Stated complaint: wants gtube removed Time Seen by Provider: 02/27/23 14:17 Source: patient Limitations: no limitations History of Present Illness HPI narrative: This is a 62-year-old male who presents to the ED with chief complaint of G-tube problem. He states he wants the G-tube removed. He states it was placed during his ICU stay several months ago. He is unsure of his GI doctor's name. He states he has been eating and drinking by mouth for the past 3 months with no issues. He states the G-tube is starting to give him some discomfort and he feels that it may be passing some clots. Denies any fevers, chills, nausea, vomiting, diarrhea. Related Data Home Medications Medication Instructions Recorded Confirmed apixaban 5 mg tablet (Eliquis) 5 mg PO BID 05/28/22 12/03/22 fluticasone fur. 100 mcg-umeclid 1 inh inhalation DAILY 05/28/22 12/03/22 62.5 mcg-vilant 25 mcg inhalat.powder (Trelegy Ellipta) ipratropium 20 mcg-albuterol 100 2 puff inhalation DAILY 05/28/22 12/03/22 mcg/actuation mist for inhalation (Combivent Respimat) lithium carbonate 150 mg capsule 150 mg PO DAILY 05/28/22 12/03/22 loperamide 2 mg capsule 2 mg PO QID PRN Diarrhea 05/28/22 12/03/22 metoprolol tartrate 25 mg tablet 25 mg PO DAILY 05/28/22 12/03/22 omeprazole 20 mg capsule,delayed 20 mg PO DAILY 05/28/22 12/03/22 release ramipril 5 mg capsule 5 mg PO DAILY 05/28/22 12/03/22 risperidone 2 mg tablet 2 mg PO BID 05/28/22 12/03/22 testosterone cypionate 200 mg/mL 200 mg IM MONTHLY 05/28/22 12/03/22 intramuscular oil budesonide-formoterol HFA 160 2 puff inhalation DAILY 12/03/22 12/03/22 mcg-4.5 mcg/actuation aerosol inhaler buspirone 10 mg tablet 10 mg PO TID 12/03/22 12/03/22 Allergies Allergy/AdvReac Type Severity Reaction Status Date / Time vancomycin Allergy Severe Redness of Verified 02/27/23 14:29 Skin Review of Systems Review of Systems: CONSTITUTIONAL: Denies fever, chills, or sweats. EYES: Denies visual changes, redness, or discharge. ENT: Denies rhinorrhea, congestion, sore throat, or otalgia. CARDIOVASCULAR: Denies chest pain, palpitations, or edema. RESPIRATORY: Denies cough or dyspnea. GASTROINTESTINAL: See HPI GENITOURINARY: Denies dysuria or hematuria. SKIN: See HPI MUSCULOSKELETAL: Denies back pain, joint pain, or myalgia. NEUROLOGIC: Denies headache, numbness, dizziness, or weakness. PSYCHIATRIC: Denies anxiety or depression. [facility] Past Medical History Medical History Anemia of chronic disease Bipolar disorder Cerebrovascular accident (2020) Chronic anticoagulation Chronic obstructive pulmonary disease Chronic respiratory failure with hypoxia and hypercapnia Coronary artery disease Deep venous thrombosis (2021) Depression Diastolic dysfunction Echocardiogram in October 2022 showed normal LV and RV systolic function with an EF of 50 to 55% and grade 1 diastolic dysfunction. Hyperlipidemia Hypertension Myocardial infarction (2013) Neuropathy Squamous cell carcinoma of nose Surgical History Surgical History History of cardiac catheterization History of coronary artery stent placement (1998) History of repair of right rotator cuff History of squamous cell carcinoma excision (06/10/13) Left nasal ala. Family History Family History Father Family history of heart disease in male family member before age 55 Social History Social History Social History: Surrogate medical decision maker: Yareli Mora or Elbert Mcghee (daughters). Code status: Full code. Smoking status: Current every day smoker Tobacco type: cigarettes Alcohol intake: former Substance use: former Substance use type: opiates Additi
== END 2023-02-27 16:45 | disposition home or self-care (01) ==
PROVIDERS: Emergency Provider Physician Assistant
DX: T85.848A Pain due to other internal prosthetic devices, implants and grafts, initial encounter (principal); E78.5 Hyperlipidemia, unspecified; I10 Essential (primary) hypertension; F17.210 Nicotine dependence, cigarettes, uncomplicated; Z86.73 Personal history of transient ischemic attack (TIA), and cerebral infarction without residual deficits; Z79.01 Long term (current) use of anticoagulants
CPT/HCPCS: 99281

== ENCOUNTER 2023-03-18 01:19 | Day surgery (SDC) | payer MEDICARE, MEDICAID, SELFPAY ==
[2023-03-06 09:21] VITALS: BMI 21.9
--- NOTE | 2023-03-18 12:30 | PM.HPGS ---
History of Present Illness History of Present Illness Consent: Risks, benefits, and alternatives have been discussed and questions answered. Patient agrees to proceed with procedure. Chief complaint: G-tube malfunction Narrative: Brooks Murillo is a 63 year old male let a G-tube placed during his recent hospitalization. He is no longer need of it and wishes to have it removed. He has some tenderness around the G-tube. He also has had a continuous abdominal discomfort for the past month. Is worse if he rolls from side to side. EGD will be done to rule out ulceration gastric mucosa, Review of Systems Review of Systems: All systems reviewed & are unremarkable except as noted in HPI and below PMFSH Past Medical History Medical History Anemia of chronic disease Bipolar disorder Cerebrovascular accident (2020) Chronic anticoagulation Chronic obstructive pulmonary disease Chronic respiratory failure with hypoxia and hypercapnia Coronary artery disease Deep venous thrombosis (2021) Depression Diastolic dysfunction Echocardiogram in October 2022 showed normal LV and RV systolic function with an EF of 50 to 55% and grade 1 diastolic dysfunction. Hyperlipidemia Hypertension Myocardial infarction (2013) Neuropathy Squamous cell carcinoma of nose Surgical History Surgical History History of cardiac catheterization History of coronary artery stent placement (1998) History of repair of right rotator cuff History of squamous cell carcinoma excision (06/10/13) Left nasal ala. Family History Family History Father Family history of heart disease in male family member before age 55 Social History Social History Social History: Surrogate medical decision maker: Yareli Mora or Elbert Mcghee (daughters). Code status: Full code. Smoking packs per day: 1 Smoking cigarettes per day: 20.0 Years smoked: 40 Smoking pack-years: 40.00 Smoking status: Current every day smoker Tobacco type: cigarettes Alcohol intake: former Substance use: former Substance use type: does not use Living arrangements: with roommate(s) Additional living arrangements comments: . Three children. Currently at [facility]. Additional occupation/education comments: Disabled. Spiritual care concerns: No Meds Home Medications and Allergies Home Medications Medication Instructions Recorded Confirmed Type apixaban 5 mg tablet (Eliquis) 5 mg PO BID 05/28/22 03/06/23 History rosuvastatin 40 mg tablet 40 mg PO DAILY 03/06/23 03/06/23 History Allergies Allergy/AdvReac Type Severity Reaction Status Date / Time vancomycin Allergy Severe Redness of Verified 03/18/23 13:14 Skin Exam Const: General: alert Orientation/consciousness: patient oriented x3 Resp: Auscultation: clear to auscultation bilaterally Cardio: Rhythm: regular rhythm GI: Inspection: other ( G-tube in left upper quadrant) GI Palp: Yes Soft to palpation, Yes Tenderness to palpation present (GI) ( diffuse mild tenderness) and No Guarding due to palpation present (GI) Neuro: General: patient oriented x3 Assessment and Plan Assessment and plan (1) Gastrostomy status: Code(s): Z93.1 - Gastrostomy status Status: Acute Assessment and Plan: EGD with possible biopsy or dilatation or cautery, And removal of gastrostomy tube
[2023-03-18 13:15] VITALS: BP 117/91; PULSE 52; RESP 18; TEMP 36.1; O2SAT 97
[2023-03-18] MEDS: LACTATED RINGERS 1,000 ML 150 ML IV CONT (13:19)
--- NOTE | 2023-03-18 13:25 | WPDANESEPPF ---
Anes - Initial Pre Proc Eval Procedure: Operation Date: 03/18/23 14:15 Proposed Procedures p Esophagogastroduodenoscopy With Gastrostomy Tube Removal - Tommy Henderson MD Date/Time: 03/18/23 13:25 Surgeon: Tommy Henderson MD Pre Op Diagnosis: G-tube malfunction Patient Data Age: 63 Gender: M Height: 1.7 m Weight: 58.2 kg Last Vital Signs Temp 36.1 C L 03/18/23 13:15 Pulse 52 L 03/18/23 13:15 Resp 18 03/18/23 13:15 BP 117/91 H 03/18/23 13:15 Pulse Ox 97 03/18/23 13:15 O2 Del Method Room Air 03/18/23 13:15 Allergies Allergy/AdvReac Type Severity Reaction Status Date / Time vancomycin Allergy Severe Redness of Verified 03/18/23 13:14 Skin Home Medications Medication Instructions Recorded Confirmed Type apixaban 5 mg tablet (Eliquis) 5 mg PO BID 05/28/22 03/06/23 History rosuvastatin 40 mg tablet 40 mg PO DAILY 03/06/23 03/06/23 History Patient hx anesthesia problems: none Family hx anesthesia problems: none Results Review: All pre-operative results and documents have been reviewed as part of the pre-operative evaluation. [facility] Past Medical History Medical History Anemia of chronic disease Bipolar disorder Cerebrovascular accident (2020) Chronic anticoagulation Chronic obstructive pulmonary disease Chronic respiratory failure with hypoxia and hypercapnia Coronary artery disease Deep venous thrombosis (2021) Depression Diastolic dysfunction Echocardiogram in October 2022 showed normal LV and RV systolic function with an EF of 50 to 55% and grade 1 diastolic dysfunction. Hyperlipidemia Hypertension Myocardial infarction (2013) Neuropathy Squamous cell carcinoma of nose Surgical History Surgical History History of cardiac catheterization History of coronary artery stent placement (1998) History of repair of right rotator cuff History of squamous cell carcinoma excision (06/10/13) Left nasal ala. Family History Family History Father Family history of heart disease in male family member before age 55 Social History Social History Social History: Surrogate medical decision maker: Yareli Morgan or Elbert Mcghee (daughters). Code status: Full code. Smoking packs per day: 1 Smoking cigarettes per day: 20.0 Years smoked: 40 Smoking pack-years: 40.00 Smoking status: Current every day smoker Tobacco type: cigarettes Alcohol intake: former Substance use: former Substance use type: does not use Living arrangements: with roommate(s) Additional living arrangements comments: . Three children. Currently at [facility]. Additional occupation/education comments: Disabled. Spiritual care concerns: No Anes - Eval Final PreProcedure Day of Procedure 03/18/23 13:25 Patient weight: normal Heart: regular rate and rhythm Lungs: clear to auscultation Airway: Mallampati scale class II Neurological: alert and oriented Last oral intake: >/= 8 hours ASA classification: III Emergent: no Anesthetic plan: proceed Anesthesia type and monitoring: general GIVS and standard monitoring Results Review: All pre-operative results and documents have been reviewed as part of the pre-operative evaluation. Informed Consent: The patient's anesthetic plan and its attendant risks and benefits were discussed with the patient/family/POA. Questions were solicited and answers provided to the satisfaction of the patient/family/POA.
[2023-03-18 13:40] VITALS: BP 124/91; PULSE 84; RESP 20; O2SAT 97
[2023-03-18 13:50] VITALS: BP 132/90; PULSE 94; RESP 20; O2SAT 93
[2023-03-18 14:00] VITALS: BP 134/99; PULSE 85; RESP 20; O2SAT 94
[2023-03-18 14:10] VITALS: BP 140/100; PULSE 83; RESP 18; O2SAT 93
== END 2023-03-18 14:35 | disposition home or self-care (01) ==
PROVIDERS: Visit Provider Internal Medicine Gastroenterology
PROC: 0DJ08ZZ Inspection of Upper Intestinal Tract, Via Natural or Artificial Opening Endoscopic (ICD-10-PCS; CPT 43235; principal; 2023-03-18 14:15)
DX: Z43.1 Encounter for attention to gastrostomy (principal); K21.9 Gastro-esophageal reflux disease without esophagitis; I11.9 Hypertensive heart disease without heart failure; E78.5 Hyperlipidemia, unspecified; I25.2 Old myocardial infarction; I25.10 Atherosclerotic heart disease of native coronary artery without angina pectoris; J44.9 Chronic obstructive pulmonary disease, unspecified; J96.12 Chronic respiratory failure with hypercapnia; J96.11 Chronic respiratory failure with hypoxia; D63.8 Anemia in other chronic diseases classified elsewhere; F31.9 Bipolar disorder, unspecified; G62.9 Polyneuropathy, unspecified; Z86.73 Personal history of transient ischemic attack (TIA), and cerebral infarction without residual deficits; Z95.5 Presence of coronary angioplasty implant and graft; F17.210 Nicotine dependence, cigarettes, uncomplicated; Z79.01 Long term (current) use of anticoagulants
CPT/HCPCS: 43247; J2704; J7120